=== PATIENT | female | born 1955 | race African-American/Black ===

== ENCOUNTER 2017-07-28 16:53 | Observation (INO) | payer OTHER ==
--- NOTE | 2017-07-28 17:14 | PDOC ---
History of Present Illness - General History Source: Patient Exam Limitations: No Limitations - History of Present Illness Initial Comments: 07/28/17 18:05 The patient is a 62 year old female, with a significant past medical history of pancreatitis, diabetes(diabetic neuropathy), hypertension, hyperlipidemia, DC, and CAD(s/p stents x2), who presents to the emergency department complaining of abdominal pain and nausea for approximately 1 week. The patient reports her pain is localized epigastrically and the right lower quadrant. She reports associated nausea, but denies any vomiting. Patient reports at the onset of her symptoms she experienced several episodes of diarrhea, but now she feels constipated. Patient reports visiting her PCP Dr. Lou earlier this afternoon with similar complaints, and he suggested she come to the ED for further evaluation. Patient reports some chills, but denies any fever, sore throat, cough, headache, or dizziness. She denies any dysuria, hematuria, frequency, or urgency. She denies any recent travel or sick contacts. Allergies: NKDA Past Surgical History: Stents X2 Social History: Non Smoker. No ETOH or recreational drug use. PCP: Dr. 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 Time Seen by Provider: 07/28/17 17:13 Past History <Gail Benson - Last Filed: 07/29/17 00:13> - Past Medical History Anemia: No Asthma: No Cancer: No Cardiac Disorders: Yes (DC) CVA: No COPD: No CHF: No Dementia: No Diabetes: Yes (IDDM) GI Disorders: No Disorders: No HTN: Yes Hypercholesterolemia: Yes Liver Disease: No Seizures: No Thyroid Disease: No - Surgical History Abdominal Surgery: No Appendectomy: No Cardiac Surgery: Yes (stents x2 (2013)) Cholecystectomy: No Lung Surgery: No Neurologic Surgery: No Orthopedic Surgery: No - Suicide/Smoking/Psychosocial Hx Smoking Status: No Smoking History: Never smoked Years of Tobacco Use: 10 Have you smoked in the past 12 months: No Number of Cigarettes Smoked Daily: 0 If you are a former smoker, when did you quit?: 20YRS AGO Hx Alcohol Use: No Drug/Substance Use Hx: No Substance Use Type: None Hx Substance Use Treatment: No <Redd Velázquez - Last Filed: 07/29/17 00:25> - Past Medical History Allergies/Adverse Reactions: Allergies Allergy/AdvReac Type Severity Reaction Status Date / Time No Known Allergies Allergy Verified 07/28/17 17:00 Home Medications: Ambulatory Orders Nifedipine [Procardia Xl] 60 mg PO DAILY 06/24/14 Nebivolol [Bystolic -] 10 mg PO HS 30 Days 08/31/14 Insulin (Levemir) [Levemir Vial] 0 units SQ DAILY 05/25/16 Metformin HCl 500 mg PO BID 07/13/16 Atorvastatin Ca [Lipitor] 20 mg PO HS 07/28/17 Gabapentin [Neurontin] 200 mg PO DAILY 07/28/17 Review of Systems - Review of Systems Able to Perform ROS?: Yes Comments:: 07/28/17 18:06 CONSTITUTIONAL: Present: chills Absent: fever, no fatigue EYES: Absent: visual changes ENT: Absent: ear pain, no sore throat CARDIOVASCULAR: Absent: chest pain, no palpitations RESPIRATORY: Absent: cough, no SOB GI: Present: abdominal pain(epigastric/RLQ), nausea, diarrhea, constipation Absent: no vomiting GENITOURINARY: Absent: dysuria, no frequency, no hematuria MUSCULOSKELETAL: Absent: back pain, no arthralgia, no myalgia SKIN: Absent: rash NEURO: Absent: headache <Sabine Bensonilsy - Last Filed: 07/29/17 00:13> *Physical Exam - Vital Signs Last Vital Signs Temp Pulse Resp BP Pulse Ox 98.0 F 76 20 155/98 99 07/28/17 16:57 07/28/17 16:57 07/28/17 16:57 07/28/17 16:57 07/28/17 16:57 - Physical Exam Comments: 07/28/17 18:06 GENERAL: Well-appearing, well-nourished. No apparent distress. HEENT: Scleral icterus. Dry mucous membranes. Normocephalic, atraumatic. PERRL, EOM intact. CARDIOVASCULAR: Normal S1, S2. Regular rate and rhythm. PULMONARY: Clear to auscultation bilaterally. ABDOMEN: Mild epigastric/RLQ tenderness. Soft, non-distended. BACK: No CVA tenderness. EXTREMITIES: Normal ROM in all four extremities. No gross deformities. SKIN: Warm, dry. No rash NEUROLOGICAL: No focal neurological deficits. <Gail Benson - Last Filed: 07/29/17 00:13> - Vital Signs Last Vital Signs Temp Pulse Resp BP Pulse Ox 98.0 F 76 20 155/98 99 07/28/17 16:57 07/28/17 16:57 07/28/17 16:57 07/28/17 16:57 07/28/17 16:57 <Redd Velázquez - Last Filed: 07/29/17 00:25> ED Treatment Course - LABORATORY CBC & Chemistry Diagram: 07/28/17 18:01 07/28/17 18:01 - Medications Given in the ED: ED Medications Discontinued Medications Generic Name Dose Route Start Last Admin Trade Name Freq PRN Reason Stop Dose Admin Famotidine/Sodium Chloride 50 mls @ 100 mls/hr 07/28/17 17:32 07/28/17 18:01 Pepcid 20 Mg Premixed Ivpb - IVPB 07/28/17 18:01 100 mls/hr ONCE ONE Administration Ondansetron HCl 8 mg 07/28/17 17:32 07/28/17 18:01 Zofran Injection IVPB 07/28/17 17:33 8 mg ONCE ONE Administration <Gail Benson - Last Filed: 07/29/17 00:13> - LABORATORY CBC & Chemistry Diagram: 07/28/17 18:01 07/28/17 18:01 <Redd Velázquez - Last Filed: 07/29/17 00:25> Medical Decision Making - Medical Decision Making 07/28/17 23:19 First call placed to Dr. Lou at 23:19. Awaiting call back. Second call placed to Dr. Lou at 00:14. Awaiting call back. <Gail Benson - Last Filed: 07/29/17 00:13> - Medical Decision Making 07/28/17 19:58 Patient 62-year-old female with history of diabetes, hypertension and previous episodes of pancreatitis who presents to the ER complaining of mild epigastric discomfort with nausea, no vomiting and mild right lower quadrant pain. In the ER, patient is nontoxic-appearing, afebrile and hemodynamically stable. Differential diagnoses includes gastritis versus recurrent pancreatitis versus hepatitis versus cholelithiasis versus appendicitis. Will also obtain CBC/CMP/ lipase/UA. Will hydrate, we'll administer pain meds and antiemetics. Will obtain CT of abdomen and pelvis with by mouth contrast. Will reassess. 07/28/17 23:40 Patient with no significant intra-abdominal pathology on CT. Patient requiring intermittent administration of IV morphine for pain control. Lipase is noted to be 8:15 (more than twice the upper limit of normal) consistent with acute pancreatitis. Will continue to hydrate; Will admit. <Redd Velázquez - Last Filed: 07/29/17 00:25> *DC/Admit/Observation/Transfer - Attestations Scribe Attestion: 07/28/17 18:06 Documentation prepared by Gail Benson, acting as emergency medical services coordinator for Redd Velázquez MD. <Gail Benson - Last Filed: 07/29/17 00:13> - Discharge Dispostion Admit: Yes - Attestations Physician Attestion: 07/28/17 19:57 The documentation was prepared by the scribe under my direct supervision. I have reviewed the documentation which correctly represents the findings, medical decision-making and critical action taken by me. <Redd Velázquez - Last Filed: 07/29/17 00:25> Diagnosis at time of Disposition: Acute pancreatitis Qualifiers: Pancreatitis type: unspecified pancreatitis type Acute pancreatitis complication: no infection or necrosis Qualified Code(s): K85.90 - Acute pancreatitis without necrosis or infection, unspecified; K85.90 - Acute pancreatitis without necrosis or infection, unspecified - Discharge Dispostion Condition at time of disposition: Fair - Referrals Referrals: Margo Lou MD [Primary Care Provider] -
[2017-07-28] MEDS ORDERED: SODIUM CHLORIDE 500 ML IV STA ×2 (17:32→18:40)
[2017-07-28] MEDS ORDERED: ONDANSETRON 4 MG/2 ML VIAL IVPB ONE (17:32)
[2017-07-28] MEDS ORDERED: FAMOTIDINE 20 MG/50 ML IVPB 50 ML IVPB ONE ×2 (17:32→17:35)
[2017-07-28] MEDS ORDERED: ONDANSETRON 4 MG/2 ML VIAL ONE (17:35)
[2017-07-28 18:05] LABS: BASOPHIL 0.5 % (0-2.0); EOSINOPHIL 2.2 % (0-4.5); MCH 29.3 pg (25.7-33.7); MCHC 33.7 g/dl (32.0-36.0); MEAN CELL VOLUME 86.9 fl (80-96); MEAN PLT VOLUME 9.9 fl (7.5-11.1); NEUTROPHILS 46.4 % (42.8-82.8); PLATELET COUNT 150 K/MM3 (134-434); RDW 14.1 % (11.6-15.6); WHITE BLOOD COUNT 4.7 K/mm3 (4.0-10.0)
[2017-07-28 18:29] LABS: ALBUMIN 3.5 g/dl (3.4-5.0); AMYLASE 83 U/L (25-115); ANION GAP 4 (8-16); BILIRUBIN,TOTAL 0.3 mg/dL (0.2-1.0); CALCIUM 9.1 mg/dL (8.5-10.1); CO2 29 mmol/L (21-32); CREATININE 0.8 mg/dL (0.55-1.02); GLUCOSE,RANDOM 143 mg/dL (74-106); SGOT/AST 12 U/L (15-37); SGPT/ALT 21 U/L (12-78)
[2017-07-28 18:31] LABS: ALK PHOS 85 U/L (45-117); TOT PROT 6.6 g/dl (6.4-8.2)
[2017-07-28] MEDS ORDERED: METOCLOPRAMIDE HCL INJECTION 10 MG/2 ML VIAL IVPB ONE (18:40)
[2017-07-28] MEDS ORDERED: morphine CARPU-JECT 2 MG/1 ML DISP.SYRIN IVPUSH ONE ×2 (18:40→21:44)
[2017-07-28 18:45] LABS: URINE APPEARANCE CLEAR; URINE BILIRUBIN NEGATIVE (NEGATIVE); URINE BLOOD NEGATIVE (NEGATIVE); URINE COLOR STRAW; URINE GLUCOSE (UA) 3+ (NEGATIVE); URINE KETONE NEGATIVE (NEGATIVE); URINE LEUK ESTERASE NEGATIVE (NEGATIVE); URINE NITRITE NEGATIVE (NEGATIVE); URINE PROTEIN NEGATIVE (NEGATIVE); URINE UROBILINOGEN NEGATIVE mg/dL (0.2-1.0)
[2017-07-28] MEDS ORDERED: morphine CARPU-JECT 2 MG/1 ML DISP.SYRIN ONE ×2 (18:48→21:57)
[2017-07-28] MEDS ORDERED: METOCLOPRAMIDE HCL INJECTION 10 MG/2 ML VIAL ONE (18:48)
[2017-07-28] MEDS: SODIUM CHLORIDE 1,000 ML IV SCH (22:32)
[2017-07-29 02:36] VITALS: BMI 28.3
[2017-07-29] MEDS: INSULIN SLIDING SCALE (NOVOLOG) 1 VIAL SQ SCH ×2 (08:09→17:17)
[2017-07-29] MEDS ORDERED: PNEUMOC 13-VAL CONJ-DIP CRM/PF 0.5 ML DISP.SYRIN IM ONE (09:00)
[2017-07-29] MEDS ORDERED: PT OWN MED DRAWER 7, Y5N ONE (09:02)
[2017-07-29] MEDS: metFORMIN HCL 500 MG TABLET (FP) PO SCH ×2 (09:21→17:17)
[2017-07-29] MEDS: GABAPENTIN 100 MG CAPSULE (FP) PO SCH (09:21)
[2017-07-29] MEDS: NIFEdipine E.R 60 MG TABLET (UD) PO SCH (09:21)
[2017-07-29] MEDS: SODIUM CHLORIDE 1,000 ML IV SCH (09:24)
[2017-07-29] MEDS ORDERED: ACETAMINOPHEN 325 MG TABLET (FP) PO PRN (11:52)
--- NOTE | 2017-07-29 12:20 | PN ---
Progress Note (short form) - Note Progress Note: GI CONSULT: SEE COMPLETE DICTATION PT SEEN BY DR BOYER 03/2016 FOR ELEVATED LIPASE/PAIN THOUGHT TO HAVE PANCREATITIS DESPITE NORMAL IMAGING SONOGRAM/MRCP WIHTOUT DEFINITIVE FINDINGS EUS WAS CONSIDERED BUT DEFERRED COLON 05/2016----ADENMATOUS POLYP NOW REPORTS 7-10 DAYS OF INTERMITTENT, RECURRENT EPIGASTRIC/ABD PAIN WITH N/V PAIN BECAME MORE SEVERE 1 WEEK AGO ADMIT NOW WITH LIPASE OF 850 ONLY FINDING NORMAL LABS/LFT AND CT SCAN PT ALSO REPORTS CONSTIPATION SUSPECT MAY HAVE HAD PANCREATITIS A FEW DAYS AGO THAT HAS ALREADY RESOLVED BIOCHEMICALLY AND RADIOGRAPHICALLY VS NO EPISODE AND SX DUE TO CONSTIPATION WOULD TREAT CONSERVATIVELY, ADVANCE DIET, OBSERVE IF ABLE TO EAT SOLID FOOD, THEN WOULD COMPLETE GI W/U OUTPATIENT PT SHOULD HAVE AN EUS TO ASSESS FOR BILIARY MICROLITHIASIS AND BLOOD WORK TO CHEC K IGG4, WHICH MAY HAVE BEEN DONE IN OFFICE ALREADY IF UNABLE TO EAT, THEN WOULD F/U MRCP INPATIENT RX CONSTIPATION WITH H20/FIBER/MIRALAX THANKS MD REDDY
--- NOTE | 2017-07-29 12:55 | CONS ---
DATE OF CONSULTATION: 07/29/2017 HISTORY: I was asked by Dr. Lou to evaluate the patient for abdominal pain. The patient is a 62-year-old female who is known to my partner, Dr. Rae. He has seen her at [facility] back in 2015 and then he saw her in follow up 2 weeks later in our office. At that time, she came as follow up from that hospitalization. Apparently, she was admitted April 09, 2016 for evaluation of abdominal pain and had a lipase of 1600 with a mildly elevated triglyceride of 247. Her liver enzymes were essentially normal, and her initial abdominal ultrasound failed to reveal gallstones, and her bile ducts were described as normal. She had an MRI and an MRCP that revealed a normal-caliber common bile duct with a question of a tiny 1-mm filling defect in the distal CBD that was thought to be artifactual. She was noted to have fatty liver. The etiology of the pancreatitis was uncertain. There was no obvious stone. The patient does not drink alcohol. It was thought possibly due to her statin. At that time, her Glucophage was discontinued. She was placed on long acting insulin therapy. There was no evidence of an obstructive process; therefore, ERCP was deferred. When she followed up, she had never had colonoscopy, so Dr. Rae proceeded with colonoscopy. It was noted that she had a colon polyp in that hepatic flexure, tubular adenoma, and a follow up exam was recommended for 2020. The patient's history was elicited as having hypertension, diabetes, status post FL, cardiac stenting, and a section. When Dr. Rae saw her in the office, she was in no distress. There was no tenderness. The etiology of her mild pancreatitis was uncertain. She was off of statin therapy on Glucophage, and he followed up blood work and considered sending her for an endoscopic ultrasound to assess the common bile duct; however, that was deferred at the time. In speaking with the patient, she tells me she has not had any pain or problems until approximately 10 days ago when she had the onset of epigastric umbilical pain that is intermittent, comes and goes, can wake her from sleep, is worse after meals. She has nausea, and she vomited a few times. She also was constipated and moves her bowels every 2-3 days. She has not had any rectal bleeding, tarry stools, or significant weight loss. She has not had significant dysphagia, heartburn, or odynophagia. The patient reported that her pain came and went over the course of 7-10 days, and it was in the epigastric, umbilical, and right lower quadrant region. She also reported 1 episode of diarrhea after feeling constipated. She saw her medical doctor who advised she come to the emergency room, and her lipase in the ER was noted to be 800. She was admitted for observation. PAST MEDICAL HISTORY: As noted, her past medical history is unchanged. She has hypertension, diabetes, atherosclerotic coronary artery disease status post intracoronary stenting, and a history of a section. SOCIAL HISTORY: The patient does not smoke, drink, or use drugs. ALLERGIES: She has no known drug allergies. FAMILY HISTORY: Notable in that her father had high blood pressure, and her mother had a history of an abdominal cancer that metastasized to the liver. MEDICATIONS: Include Procardia, Bystolic, Levemir, metformin, Lipitor, and Neurontin. Currently in the hospital at [facility], she is getting Tylenol, Neurontin, Bystolic, Glucophage, Procardia, IV fluid, Lipitor, NovoLog, and Levemir. PHYSICAL EXAMINATION: VITAL SIGNS: Currently her vital signs are normal. She is afebrile. Her pulse is less than 70. Her blood pressure 130/80. GENERAL: She is a well-developed, well-nourished, overweight woman in no acute distress. HEENT: Sclerae are anicteric. Her mouth is moist. Her dentition is good. SKIN: Cool. ABDOMEN: Very soft. Bowel sounds are active. There is minimal distention. There is tenderness to palpation in the epigastric region and in the umbilical region. There is no rebound or guarding noted. LABORATORY DATA: Her lab data is notable in that her SMA18 is all within normal limits except for the finding that she had an amylase of 83 and a lipase of 815. Her AST 12, ALT 21, alkaline phosphatase 85. Her white count is 4 with an hemoglobin 13.4, hematocrit 39.8. In terms of radiographic imaging, it is noted she had a CT scan of the abdomen and pelvis on admission that was done without contrast, which limits the exam somewhat. However, there were no CT findings of acute pathology. The appendix, pancreas, liver, spleen, adrenals, and kidneys appeared all normal. There was a question of a 7-mm soft tissue focus along the gallbladder possibly representing adenomyomatosis. However, she had a sonogram of the gallbladder. It is noted 3 months ago in February, and on that film, she just had a fairly enlarged liver. The gallbladder was completely normal. IMPRESSION: The patient is a 62-year-old woman who has a past medical history of hypertension, diabetes, and heart disease. She has had now 2 significant episodes of intermittent abdominal pain that has become severe warranting hospitalization. The initial episode noted a lipase elevation over 1000 without other findings, and it was thought she possibly passed some sludge from the gallbladder as the etiology. She had no other findings to support the etiology of pancreatitis, and her radiographic imaging was unremarkable. At this time, she now has had a couple of episodes over the past 7-10 days of intermittent abdominal pain worse after meals, but she comes in with a lipase of only 845 with normal liver enzymes and a normal amylase. It is unclear if these numbers would have been elevated a week ago when she was having more significant pain. Regardless, the CAT scan does not show any evidence of peripancreatic edema or inflammation or findings consistent with pancreatitis. Thus, the fact that she has had some pain, nausea, and vomiting may be the cause of the lipase. We do not know for certain she has had pancreatitis. For now, I would recommend conservative care. I would increase her diet slowly as tolerated and see how she does and follow up her labs. If she is able to eat solid food, she can certainly follow up as an outpatient. I think as an outpatient she should be referred for an endoscopic ultrasound to assess in more detail the biliary tree and the gallbladder to assess for microlithiasis, which could be the culprit in these recurrent pains that she has been having. In that case, she may then benefit from biliary intervention. For now, she has no findings to support end-organ damage or significant pancreatic inflammation. Therefore, I would treat supportively and advance her diet as tolerated. We will continue to be available to aid in management of this patient. ALFREDO BLAKELY M.D. PRAVEEN/[id number]
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
[2017-07-29] MEDS ORDERED: SODIUM CHLORIDE 1,000 ML IV SCH (13:32)
[2017-07-29] MEDS: PANTOPRAZOLE 40 MG TABLET (FP) PO SCH (17:17)
[2017-07-29] MEDS ORDERED: NEBIVOLOL 10 MG TABLET (FP) PO SCH (22:00)
[2017-07-29] MEDS ORDERED: ATORVASTATIN CA 20 MG TABLET (FP) PO SCH (22:00)
[2017-07-29] MEDS ORDERED: INSULIN DETEMIR 100 UNITS/ML MDV SQ SCH (22:00)
[2017-07-30] MEDS: INSULIN SLIDING SCALE (NOVOLOG) 1 VIAL SQ SCH (06:33)
[2017-07-30] MEDS: metFORMIN HCL 500 MG TABLET (FP) PO SCH (06:34)
[2017-07-30] MEDS: NIFEdipine E.R 60 MG TABLET (UD) PO SCH (09:03)
[2017-07-30] MEDS: GABAPENTIN 100 MG CAPSULE (FP) PO SCH (09:03)
[2017-07-30] MEDS: PANTOPRAZOLE 40 MG TABLET (FP) PO SCH (09:03)
[2017-07-30 11:31] VITALS: BP 157/99; PULSE 66; TEMP 97
--- NOTE | 2017-07-30 11:43 | DS ---
Physical Examination Vital Signs: Vital Signs Temperature 97.0 F L 07/30/17 10:00 Pulse Rate 66 07/30/17 10:00 Respiratory Rate 18 07/30/17 10:00 Blood Pressure 157/99 07/30/17 10:00 O2 Sat by Pulse Oximetry (%) 99 07/29/17 21:00 Constitutional: Yes: No Distress, Calm Cardiovascular: Yes: Regular Rate and Rhythm Respiratory: Yes: CTA Bilaterally Gastrointestinal: Yes: Normal Bowel Sounds, Soft, Abdomen, Obese. No: Distention, Tenderness Edema: No Discharge Summary Reason For Visit: ACUTE PANCREATITIS Current Active Problems Acute pancreatitis (Acute) Hospital Course: Admitted for abdominal pain and nausea-- CT abd/pelvis--negative Appeared she was having resolving pancreatitis Seen by GI Was on IV fluids and pain control Pt tolerating diet , advanced today she is stable for dc home-- advised to follow with GI as outpt-- will follow up in our office in 2 weeks Condition: Improved - Instructions Diet, Activity, Other Instructions: May take shower Activity as tolerated Diet as tolerated Referrals: Isael Hernandez DO [Staff Physician] - Margo Lou MD [Primary Care Provider] - Disposition: HOME - Home Medications Comprehensive Discharge Medication List: Ambulatory Orders Nifedipine [Procardia Xl] 60 mg PO DAILY 06/24/14 Insulin (Levemir) [Levemir Vial] 0 units SQ DAILY 05/25/16 Metformin HCl 500 mg PO BID 07/13/16 Gabapentin [Neurontin] 200 mg PO DAILY 07/28/17 Atorvastatin Ca [Lipitor] 20 mg PO HS #90 tab 07/30/17 Nebivolol [Bystolic -] 10 mg PO HS #90 tab 07/30/17 Nebivolol [Bystolic -] 10 mg PO HS 90 Days 07/30/17
== END 2017-07-30 15:03 | disposition home or self-care (01) ==
LOC: JER 16:53 → JERBED 07-29 00:25 → J8W 07-29 01:40
PROVIDERS: ADMIT Internal Medicine; ATTEND Internal Medicine
PROC: 3E033NZ Introduction of Analgesics, Hypnotics, Sedatives into Peripheral Vein, Percutaneous Approach (ICD-10-PCS; principal; 2017-07-29)
PROC: 3E033GC Introduction of Other Therapeutic Substance into Peripheral Vein, Percutaneous Approach (ICD-10-PCS; 2017-07-29)
PROC: 3E0337Z Introduction of Electrolytic and Water Balance Substance into Peripheral Vein, Percutaneous Approach (ICD-10-PCS; 2017-07-29)
PROC: 3E013VG Introduction of Insulin into Subcutaneous Tissue, Percutaneous Approach (ICD-10-PCS; 2017-07-29)
DX: K85.90 Acute pancreatitis without necrosis or infection, unspecified (principal); I10 Essential (primary) hypertension; I25.10 Atherosclerotic heart disease of native coronary artery without angina pectoris; I25.2 Old myocardial infarction; E11.40 Type 2 diabetes mellitus with diabetic neuropathy, unspecified; E78.5 Hyperlipidemia, unspecified; K21.9 Gastro-esophageal reflux disease without esophagitis; Z95.5 Presence of coronary angioplasty implant and graft; Z79.4 Long term (current) use of insulin; Z79.84 Long term (current) use of oral hypoglycemic drugs
CPT/HCPCS: 36415; 74176-TC; 80053; 81003; 82150; 83690; 83735; 85025; 87086; 99283-25; G0378

== ENCOUNTER 2017-09-09 08:56 | Emergency (ER) | payer OTHER ==
[2017-09-09 09:21] VITALS: TEMP 97.9; BMI 28.3
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
[2017-09-09] MEDS ORDERED: KETOROLAC TROMETHAMINE 15 MG/ML VIAL IM ONE ×2 (10:25→14:30)
[2017-09-09] MEDS ORDERED: KETOROLAC TROMETHAMINE 60 MG/2 ML VIAL ONE (10:29)
[2017-09-09] MEDS ORDERED: NEBIVOLOL 10 MG TABLET (FP) PO ONE (12:34)
[2017-09-09] MEDS ORDERED: NIFEdipine E.R 60 MG TABLET (UD) PO ONE (12:38)
[2017-09-09] MEDS ORDERED: ATORVASTATIN CA 20 MG TABLET (FP) PO ONE (12:40)
[2017-09-09] MEDS ORDERED: NIFEdipine 10 MG CAPSULE (FP) PO SCH (12:45)
[2017-09-09] MEDS ORDERED: CYCLOBENZAPRINE HCL 5 MG TABLET PO ONE (15:13)
[2017-09-09] MEDS ORDERED: CYCLOBENZAPRINE HCL 10 MG TABLET (FP) ONE (15:22)
[2017-09-09 15:50] VITALS: BP 178/95; PULSE 61
== END 2017-09-09 15:50 | disposition home or self-care (01) ==
LOC: JER 08:56
PROC: 3E0233Z Introduction of Anti-inflammatory into Muscle, Percutaneous Approach (ICD-10-PCS; principal; 2017-09-09)
PROC: 3E0233Z Introduction of Anti-inflammatory into Muscle, Percutaneous Approach (ICD-10-PCS; 2017-09-09)
DX: M54.89 Other dorsalgia (principal); V53.5XXA Driver of pick-up truck or van injured in collision with car, pick-up truck or van in traffic accident, initial encounter; Y92.414 Local residential or business street as the place of occurrence of the external cause; Y93.89 Activity, other specified; Y99.8 Other external cause status; I25.10 Atherosclerotic heart disease of native coronary artery without angina pectoris; I10 Essential (primary) hypertension; Z95.5 Presence of coronary angioplasty implant and graft; Z87.891 Personal history of nicotine dependence; E11.9 Type 2 diabetes mellitus without complications; Z79.84 Long term (current) use of oral hypoglycemic drugs; E78.00 Pure hypercholesterolemia, unspecified
CPT/HCPCS: 71020-TC; 72070-TC; 99282-25

== ENCOUNTER 2018-05-21 18:16 | Inpatient (IN) | payer OTHER ==
[2018-05-21] MEDS ORDERED: NITROGLYCERIN 50MG/D5W 250ML 50 MG/250 ML ML IVPB SCH (18:30)
[2018-05-21] MEDS ORDERED: RAPID SEQUENCE INTUBATION KIT NR ONE (18:35)
[2018-05-21] MEDS ORDERED: NITROGLYCERIN 25MG/D5W 250ML 25 MG/250 ML ML IVPB ONE (18:35)
[2018-05-21] MEDS ORDERED: NITROGLYCERIN SUBLINGUAL 1/150 0.4 MG TAB SL ONE ×2 (18:35)
[2018-05-21] MEDS ORDERED: FUROSEMIDE 40 MG/4 ML INJECTABLE VIAL ONE (18:46)
--- NOTE | 2018-05-21 18:46 | PDOC ---
Attending Attestation - Resident Resident Name: Rk Rueda - ED Attending Attestation I have performed the following: I have examined & evaluated the patient, The case was reviewed & discussed with the resident, I agree w/resident's findings & plan, Exceptions are as noted - HPI HPI: 05/21/18 19:01 63y F hx of pancreatitis, DM, HTN, HL, CAD ( s/p stents x 2), presents with complaint of SOB. Pt was at work today and doing well, seen by coworkers as her usual self and suddenly felt sob. Pt came to the ED Main in acute pulmonary distress, unabl eto speak on ly gasping 'i cant breath', diaphoretic, tachy to the 140s, BP was 210 sbp. Pt was put on a NRB, PO nitro x 2 whila line was attempted and blood work drawn. Respiratory was called for bipap and started on bipap when availbale. Her sats came up from the 70s up to the high 90s on bipap. She was still tachypneic and rales present. pt was started on a nitro drip at 100mcg/hr, pts HR improved gradually from 210sbp down to 180s--120s. Her nitro was dropped to 50mcg/hr. Her clinical status seemed to wax and wane - her mental status would atimes be very awake, but occasionally would seem to get more tired and look like she was getting sleepy, but she was immediately responsive to my questions. Her HR and respiratory rate were improving gradually. However she suddenly seemed ot decompensate, seemed like she was getting fatigued/tiring out, and HR dropped to 80s from 120s. Decisoin was made to intubate the patient due to respiratory failure. The patient was given RSI (etomidate/sunday), and intubated by dr. Mayers on the first attempt under my direct supervision ngt placed, HOB @ 30 degrees pt was started on versed gtt for sedation cxr noted for significant congestion NGT placed unclear etiology for the pts flash pulmonary edema, possible hypertensive crisis due to poorly controlled htn 05/21/18 21:49 pt doing was d/c ntg gtt and started on labetalol gtt HR improved to high 90s BP in 120s sbp pt admitted to ICU for further management pts vg noted for respiraotry acidosis - samra lincerase her rate on her vent Family bedside - have been discussing the pts care with her family and answering their questions - Physicial Exam PE: 05/21/18 22:00 GENERAL: The patient is awake, alert, Nontoxic - in acute respiratory distress, diaphoretic HEAD: Normocephalic, atraumatic. EYES: extraocular movements intact, sclera anicteric, conjunctiva clear. ENT: Normal voice, Moist mucous membranes. NECK: Normal range of motion, supple LUNGS: rales b/l to midlung HEART: tachycardic without any m/r/g ABDOMEN: Soft, nontender, No guarding, no rebound. . No CVA tenderness EXTREMITIES: Normal range of motion, b/l trace edema. NEUROLOGICAL: No facial assymetry, Normal speech, moving all 4 extremities spontaneously and symmetrically PSYCH: Normal mood, normal affect. SKIN: Warm, Dry, normal turgor, - Critical Care Time Total Critical Care Time: 130 Critical Care Statement: The care of this patient involved high complexity decision making to prevent further life threatening deterioration of the patient 's condition and/or to evaluate & treat vital organ system(s) failure or risk of failure. - Medical Decision Making 05/21/18 22:00 see above Heart Score/ECG Review - ECG Impressions Comment:: 05/21/18 22:01 Twelve-lead EKG was performed and reviewed by me. There is normal sinus rhythm with a rate of [address]-T wave abnormality
[2018-05-21 18:50] LABS: BASO % 0.8 % (0-2.0); EOS % 1.1 % (0-4.5); HEMATOCRIT 53.6 % (32.4-45.2); HEMOGLOBIN 17.7 GM/dL (10.7-15.3); LYMPH % 48.6 % (8-40); MCH 29.2 pg (25.7-33.7); MEAN CELL VOLUME 88.5 fl (80-96); MEAN PLT VOLUME 11.7 fl (7.5-11.1); MONO % 5.6 % (3.8-10.2); NEUT % 43.9 % (42.8-82.8); PLATELET COUNT 231 K/MM3 (134-434); RBC 6.05 M/mm3 (3.60-5.2); RDW 14.3 % (11.6-15.6); WHITE BLOOD COUNT 9.8 K/mm3 (4.0-10.0)
[2018-05-21 19:01] LABS: INR 1.11 (0.82-1.09); PROTHROMBIN TIME (PATIENT) 12.5 SEC (9.7-13.0)
--- NOTE | 2018-05-21 19:08 | PDOC ---
History of Present Illness - General Chief Complaint: Congestive Heart Failure Stated Complaint: S.O.B Time Seen by Provider: 05/21/18 18:34 History Source: Patient Exam Limitations: No Limitations - History of Present Illness Initial Comments: 05/21/18 19:01 see my attending note for full note. Past History - Past Medical History Allergies/Adverse Reactions: Allergies Allergy/AdvReac Type Severity Reaction Status Date / Time No Known Allergies Allergy Verified 09/09/17 09:11 Home Medications: Ambulatory Orders Unobtainable 05/21/18 Anemia: No Asthma: No Cancer: No Cardiac Disorders: Yes ([place]) CVA: No COPD: No CHF: No Dementia: No Diabetes: Yes GI Disorders: No Disorders: No HTN: Yes Hypercholesterolemia: Yes Liver Disease: No Seizures: No Thyroid Disease: No - Surgical History Abdominal Surgery: No Appendectomy: No Cardiac Surgery: Yes (stents x2 (2013)) Cholecystectomy: No Lung Surgery: No Neurologic Surgery: No Orthopedic Surgery: No - Suicide/Smoking/Psychosocial Hx Smoking Status: No Smoking History: Former smoker Years of Tobacco Use: 10 Have you smoked in the past 12 months: No Number of Cigarettes Smoked Daily: 0 If you are a former smoker, when did you quit?: 20YRS AGO Information on smoking cessation initiated: No Hx Alcohol Use: No Drug/Substance Use Hx: No Substance Use Type: None Hx Substance Use Treatment: No *Physical Exam - Vital Signs Last Vital Signs Temp Pulse Resp BP Pulse Ox 128 H 24 216/157 100 05/21/18 18:28 05/21/18 18:28 05/21/18 18:28 05/21/18 18:30 ED Treatment Course - LABORATORY CBC & Chemistry Diagram: 05/23/18 05:30 05/23/18 05:30 - ADDITIONAL ORDERS Additional order review: Laboratory Results 05/21/18 18:40 PT with INR 12.50 INR 1.11 05/21/18 18:40 RBC 6.05 H MCV 88.5 MCHC 33.0 RDW 14.3 MPV 11.7 H D Neutrophils % 43.9 Lymphocytes % 48.6 H Monocytes % 5.6 Eosinophils % 1.1 Basophils % 0.8 - RADIOLOGY Radiology Studies Ordered: Category Date Time Status CHEST X-RAY PORTABLE* [RAD] Stat Radiology 05/21/18 18:35 Taken - Medications Given in the ED: ED Medications Discontinued Medications Generic Name Dose Route Start Last Admin Trade Name Cristiana PRN Reason Stop Dose Admin Nitroglycerin 0.4 mg 05/21/18 18:35 05/21/18 18:35 Nitrostat - SL 05/21/18 18:36 0.4 mg ONCE ONE Administration Nitroglycerin 0.4 mg 05/21/18 18:35 05/21/18 18:40 Nitrostat - SL 05/21/18 18:36 0.4 mg ONCE ONE Administration *DC/Admit/Observation/Transfer Diagnosis at time of Disposition: Acute respiratory failure Qualifiers: Respiratory failure complication: hypoxia Qualified Code(s): J96.01 - Acute respiratory failure with hypoxia CHF (congestive heart failure) Qualifiers: Heart failure type: unspecified Heart failure chronicity: unspecified Qualified Code(s): I50.9 - Heart failure, unspecified - Discharge Dispostion Condition at time of disposition: Critical - Referrals - Patient Instructions - Post Discharge Activity
[2018-05-21] MEDS: MIDAZOLAM 100 MG in SODIUM CHLORIDE 100 ML IVPB SCH ×3 (19:45→23:52)
--- NOTE | 2018-05-21 19:51 | PDOC ---
History of Present Illness <Joe Kaplan - Last Filed: 05/21/18 20:04> - General History Source: Patient <MohitRk - Last Filed: 05/24/18 11:57> - General Chief Complaint: Congestive Heart Failure Stated Complaint: S.O.B Time Seen by Provider: 05/21/18 18:34 Past History <RosauraJoe - Last Filed: 05/21/18 20:04> - Past Medical History Anemia: No Asthma: No Cancer: No Cardiac Disorders: Yes ([place]) CVA: No COPD: No CHF: No Dementia: No Diabetes: Yes GI Disorders: No Disorders: No HTN: Yes Hypercholesterolemia: Yes Liver Disease: No Seizures: No Thyroid Disease: No - Surgical History Abdominal Surgery: No Appendectomy: No Cardiac Surgery: Yes (stents x2 (2013)) Cholecystectomy: No Lung Surgery: No Neurologic Surgery: No Orthopedic Surgery: No - Suicide/Smoking/Psychosocial Hx Smoking Status: No Smoking History: Former smoker Years of Tobacco Use: 10 Have you smoked in the past 12 months: No Number of Cigarettes Smoked Daily: 0 If you are a former smoker, when did you quit?: 20YRS AGO Information on smoking cessation initiated: No Hx Alcohol Use: No Drug/Substance Use Hx: No Substance Use Type: None Hx Substance Use Treatment: No <MohitRk - Last Filed: 05/24/18 11:57> - Past Medical History Allergies/Adverse Reactions: Allergies Allergy/AdvReac Type Severity Reaction Status Date / Time No Known Allergies Allergy Verified 09/09/17 09:11 Home Medications: Ambulatory Orders Unobtainable 05/21/18 *Physical Exam - Vital Signs Last Vital Signs Temp Pulse Resp BP Pulse Ox 96 H 14 139/119 100 05/21/18 19:20 05/21/18 19:20 05/21/18 18:50 05/21/18 19:20 <Joe Kaplan - Last Filed: 05/21/18 20:04> - Vital Signs Last Vital Signs Temp Pulse Resp BP Pulse Ox 96 H 14 139/119 100 05/21/18 19:20 05/21/18 19:20 05/21/18 18:50 05/21/18 19:20 <Rk Rueda - Last Filed: 05/24/18 11:57> Procedures - Intubation Time of Intubation: 19:20 Intubation Method: orotracheal Blade used: Mac Tube Size (Fr): 7.5 Medications: Etomidate, Rocuronium Tube position @ lip (cm): 22 Tube position confirmed by: Direct visualization, CO2 detector, Chest x-ray, Breath sounds Breath Sounds after Intubation: equal Intubation Complications: no complications Post Intubation Xray: Yes <kR Rueda - Last Filed: 05/24/18 11:57> ED Treatment Course - LABORATORY CBC & Chemistry Diagram: 05/21/18 18:40 05/21/18 18:40 - ADDITIONAL ORDERS Additional order review: Laboratory Results 05/21/18 05/21/18 05/21/18 18:40 18:40 18:40 PT with INR 12.50 INR 1.11 Sodium Potassium Chloride Carbon Dioxide Anion Gap BUN Creatinine Creat Clearance w eGFR Random Glucose Lactic Acid 3.5 H* Calcium Magnesium Cancelled Total Bilirubin AST ALT Alkaline Phosphatase Creatine Kinase Troponin I B-Natriuretic Peptide Cancelled Total Protein Albumin TSH Cancelled Blood Type Antibody Screen 05/21/18 05/21/18 18:40 18:40 PT with INR INR Sodium Cancelled Potassium Cancelled Chloride Cancelled Carbon Dioxide Cancelled Anion Gap Cancelled BUN Cancelled Creatinine Cancelled Creat Clearance w eGFR Cancelled Random Glucose Cancelled Lactic Acid Calcium Cancelled Magnesium Total Bilirubin Cancelled AST Cancelled ALT Cancelled Alkaline Phosphatase Cancelled Creatine Kinase Cancelled Troponin I Cancelled B-Natriuretic Peptide Total Protein Cancelled Albumin Cancelled TSH Blood Type Cancelled Antibody Screen Cancelled 05/21/18 18:40 RBC 6.05 H MCV 88.5 MCHC 33.0 RDW 14.3 MPV 11.7 H D Neutrophils % 43.9 Lymphocytes % 48.6 H Monocytes % 5.6 Eosinophils % 1.1 Basophils % 0.8 - RADIOLOGY Radiology Studies Ordered: Category Date Time Status CHEST X-RAY PORTABLE* [RAD] Stat Radiology 05/21/18 18:35 Taken CHEST X-RAY PORTABLE* [RAD] Stat Radiology 05/21/18 19:28 Taken CHEST X-RAY PORTABLE* [RAD] Stat Radiology 05/21/18 19:58 Taken - Medications Given in the ED: ED Medications Discontinued Medications Generic Name Dose Route Start Last Admin Trade Name Freq PRN Reason Stop Dose Admin Nitroglycerin 0.4 mg 05/21/18 18:35 07/28/18 18:35 Nitrostat - SL 05/21/18 18:36 0.4 mg ONCE ONE Administration Nitroglycerin 0.4 mg 05/21/18 18:35 05/21/18 18:40 Nitrostat - SL 05/21/18 18:36 0.4 mg ONCE ONE Administration <Joe Kaplan - Last Filed: 05/21/18 20:04> - LABORATORY CBC & Chemistry Diagram: 05/24/18 05:30 05/24/18 05:30 - ADDITIONAL ORDERS Additional order review: Laboratory Results 05/21/18 05/21/18 05/21/18 18:40 18:40 18:40 PT with INR 12.50 INR 1.11 Sodium Potassium Chloride Carbon Dioxide Anion Gap BUN Creatinine Creat Clearance w eGFR Random Glucose Lactic Acid 3.5 H* Calcium Magnesium Cancelled Total Bilirubin AST ALT Alkaline Phosphatase Creatine Kinase Troponin I B-Natriuretic Peptide Cancelled Total Protein Albumin TSH Cancelled Blood Type Antibody Screen 05/21/18 05/21/18 18:40 18:40 PT with INR INR Sodium Cancelled Potassium Cancelled Chloride Cancelled Carbon Dioxide Cancelled Anion Gap Cancelled BUN Cancelled Creatinine Cancelled Creat Clearance w eGFR Cancelled Random Glucose Cancelled Lactic Acid Calcium Cancelled Magnesium Total Bilirubin Cancelled AST Cancelled ALT Cancelled Alkaline Phosphatase Cancelled Creatine Kinase Cancelled Troponin I Cancelled B-Natriuretic Peptide Total Protein Cancelled Albumin Cancelled TSH Blood Type Cancelled Antibody Screen Cancelled 05/21/18 18:40 RBC 6.05 H MCV 88.5 MCHC 33.0 RDW 14.3 MPV 11.7 H D Neutrophils % 43.9 Lymphocytes % 48.6 H Monocytes % 5.6 Eosinophils % 1.1 Basophils % 0.8 - Medications Given in the ED: ED Medications Discontinued Medications Generic Name Dose Route Start Last Admin Trade Name Freq PRN Reason Stop Dose Admin Nitroglycerin 0.4 mg 05/21/18 18:35 05/21/18 18:35 Nitrostat - SL 05/21/18 18:36 0.4 mg ONCE ONE Administration Nitroglycerin 0.4 mg 05/21/18 18:35 05/21/18 18:40 Nitrostat - SL 05/21/18 18:36 0.4 mg ONCE ONE Administration <Rk Rueda - Last Filed: 05/24/18 11:57> Medical Decision Making - Medical Decision Making The patient is a 63F with a history of HTN who presented with acute respiratory distress 05/21/18 21:44 <Rk Rueda - Last Filed: 05/24/18 11:57> *DC/Admit/Observation/Transfer <Joe Kaplan - Last Filed: 05/21/18 20:04> - Discharge Dispostion Decision to Admit order: Yes <Rk Rueda - Last Filed: 05/24/18 11:57> Diagnosis at time of Disposition: Acute respiratory failure Qualifiers: Respiratory failure complication: hypoxia Qualified Code(s): J96.01 - Acute respiratory failure with hypoxia CHF (congestive heart failure) Qualifiers: Heart failure type: unspecified Heart failure chronicity: unspecified Qualified Code(s): I50.9 - Heart failure, unspecified - Discharge Dispostion Condition at time of disposition: Critical
[2018-05-21 20:27] LABS: INR 1.12 (0.82-1.09); PROTHROMBIN TIME (PATIENT) 12.7 SEC (9.7-13.0)
[2018-05-21] MEDS ORDERED: LABETALOL HCL INJECTION 1,000 MG in SODIUM CHLORIDE 800 ML IV SCH (20:30)
[2018-05-21 20:33] LABS: URINE APPEARANCE SLCLOUDY; URINE BILIRUBIN NEGATIVE (<2.0 mg/dL); URINE COLOR LTYELLOW; URINE GLUCOSE (UA) 3+ (NEGATIVE); URINE KETONE NEGATIVE (NEGATIVE); URINE LEUK ESTERASE NEGATIVE (NEGATIVE); URINE NITRITE NEGATIVE (NEGATIVE); URINE UROBILINOGEN NEGATIVE mg/dL (0.2-1.0)
[2018-05-21 20:34] LABS: URINE PROTEIN 3+ (NEGATIVE)
[2018-05-21 20:35] LABS: EPI CELLS RARE /HPF (FEW); URINE MUCUS RARE
[2018-05-21 20:53] LABS: ARTERIAL BLD GAS O2 SATURATION 94.2 % (90-98.9); ARTERIAL BLOOD GAS BASE EXCESS -4.2 meq/l (-2-2); ARTERIAL BLOOD GAS PO2 88.7 mmHg (80-100)
[2018-05-21 20:54] LABS: ALLENS TEST POSITIVE
[2018-05-21 20:56] LABS: ARTERIAL BLOOD GAS pH 7.19 (7.35-7.45)
[2018-05-21 20:57] LABS: ARTERIAL BLOOD GAS PCO2 69.7 mmHg (35-45)
--- NOTE | 2018-05-21 21:20 | CONSULT ---
Consult Consult Specialty:: PULM/CCM - History of Present Illness Chief Complaint: Shortness of Breath, resp failure History of Present Illness: Briefly Ms Correia is a 63y F pmhx of pancreatitis, DM, HTN, HL, CAD ( s/p stents x 2, unk type/date), diastolic dysfunction on TTE in 2013 but with preserved EF presents with complaint of acute SOB. Pt was at work today and doing well, and suddenly felt sob, brought to ED in acute pulmonary distress, she was speak diaphoretic, tachycardic to the 140s, hypertensive 240/140, CXR with pulm edema pattern. She failed nitro SL, nitro gtt, NIVPPV and was ultimately intubated for hypoxic respiratory failure. Intubation was without incident, pt remained hypertensive. Stared on labetolol gtt with good control of BP. Per , no sick prodrome, no sick contacts, went to work normally this am. He does relate increase in LE edema. - History Source History Provided By: Medical Record Limitations to Obtaining History: Clinical Condition - Past Medical History Cardio/Vascular: Yes: CAD (s/p stent x 2), HTN, Hyperlipdemia Gastrointestinal: Yes: Other (N/V DESCRIBED. 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 History of Recent Travel: No Home Medications - Allergies Allergies/Adverse Reactions: Allergies Allergy/AdvReac Type Severity Reaction Status Date / Time No Known Allergies Allergy Verified 09/09/17 09:11 - Home Medications Home Medications: Ambulatory Orders Unobtainable 05/21/18 Family Disease History - Family Disease History Family History: Unable to Obtain (due to pt clinical condition) Review of Systems Unable to obtain ROS, reason: intubated, sedated Physical Exam Vital Signs: Vital Signs Temperature 97.4 F L 05/21/18 19:20 Pulse Rate 118 H 05/21/18 19:20 Respiratory Rate 29 H 05/21/18 20:53 Blood Pressure 177/126 05/21/18 19:20 O2 Sat by Pulse Oximetry (%) 98 05/21/18 19:20 Constitutional: Yes: Well Nourished, Diaphoresis Eyes: Yes: Conjunctiva Clear, EOM Intact, PERRL HENT: Yes: Atraumatic, Normocephalic Neck: Yes: Supple, Trachea Midline. No: Lymphadenopathy, Thyromegaly Cardiovascular: Yes: Tachycardia, S1, S2. No: Murmur Respiratory: Yes: Intubated, Mechanically Ventilated, Rales (bilaterally) Gastrointestinal: Yes: Soft. No: Hepatomegaly, Tenderness ...Rectal Exam: Yes: Deferred Renal/: Yes: WNL, Winn Present Breast(s): Yes: WNL Musculoskeletal: Yes: WNL Extremities: Yes: Cool Edema: Yes Edema: LUE: Trace, RUE: Trace, LLE: 2+, RLE: 2+ Peripheral Pulses WNL: Yes Integumentary: Yes: WNL Neurological: Yes: Unresponsive (sedated) Labs: CBC, BMP 05/21/18 18:40 Laboratory Last Values WBC 9.8 K/mm3 (4.0-10.0) 05/21/18 18:40 RBC 6.05 M/mm3 (3.60-5.2) H 05/21/18 18:40 Hgb 17.7 GM/dL (10.7-15.3) H 05/21/18 18:40 Hct 53.6 % (32.4-45.2) H D 05/21/18 18:40 MCV 88.5 fl (80-96) 05/21/18 18:40 MCH 29.2 pg (25.7-33.7) 05/21/18 18:40 MCHC 33.0 g/dl (32.0-36.0) 05/21/18 18:40 RDW 14.3 % (11.6-15.6) 05/21/18 18:40 Plt Count 231 K/MM3 (134-434) D 05/21/18 18:40 MPV 11.7 fl (7.5-11.1) H D 05/21/18 18:40 Absolute Neuts (auto) 4.3 # 05/21/18 18:40 Neutrophils % 43.9 % (42.8-82.8) 05/21/18 18:40 Lymphocytes % 48.6 % (8-40) H 05/21/18 18:40 Monocytes % 5.6 % (3.8-10.2) 05/21/18 18:40 Eosinophils % 1.1 % (0-4.5) 05/21/18 18:40 Basophils % 0.8 % (0-2.0) 05/21/18 18:40 Nucleated RBC % 0 % (0-0) 05/21/18 18:40 PT with INR 12.70 SEC (9.7-13.0) 05/21/18 19:37 INR 1.12 (0.82-1.09) 05/21/18 19:37 PTT (Actin FS) 27.0 SECONDS (25.2-36.5) 05/21/18 19:37 Anticoagulation Therapy No Result Required. 05/21/18 20:40 Puncture Site Right radial 05/21/18 20:40 ABG pH 7.19 (7.35-7.45) L* 05/21/18 20:40 ABG pCO2 at Pt Temp 69.7 mmHg (35-45) H* 05/21/18 20:40 ABG pO2 at Pt Temp 88.7 mmHg (80-100) 05/21/18 20:40 ABG HCO3 25.8 meq/L (22-26) 05/21/18 20:40 ABG O2 Sat (Measured) 94.2 % (90-98.9) 05/21/18 20:40 ABG O2 Content No Result Required. 05/21/18 20:40 ABG Base Excess -4.2 meq/l (-2-2) L 05/21/18 20:40 Omega Test Positive 05/21/18 20:40 O2 Delivery Device No Result Required. 05/21/18 20:40 Oxygen Flow Rate Yes 05/21/18 20:40 Vent Mode No Result Required. 05/21/18 20:40 Vent Rate No Result Required. 05/21/18 20:40 Mechanical Rate No Result Required. 05/21/18 20:40 Pressure Support Vent No Result Required. 05/21/18 20:40 Sodium Cancelled 05/21/18 18:40 Potassium Cancelled 05/21/18 18:40 Chloride Cancelled 05/21/18 18:40 Carbon Dioxide Cancelled 05/21/18 18:40 Anion Gap Cancelled 05/21/18 18:40 BUN Cancelled 05/21/18 18:40 Creatinine Cancelled 05/21/18 18:40 Creat Clearance w eGFR Cancelled 05/21/18 18:40 Random Glucose Cancelled 05/21/18 18:40 Lactic Acid 2.4 mmol/L (0.0-2.0) H* 05/21/18 19:37 Calcium Cancelled 05/21/18 18:40 Magnesium Cancelled 05/21/18 18:40 Total Bilirubin Cancelled 05/21/18 18:40 AST Cancelled 05/21/18 18:40 ALT Cancelled 05/21/18 18:40 Alkaline Phosphatase Cancelled 05/21/18 18:40 Creatine Kinase Cancelled 05/21/18 18:40 Troponin I Cancelled 05/21/18 18:40 B-Natriuretic Peptide Cancelled 05/21/18 18:40 Total Protein Cancelled 05/21/18 18:40 Albumin Cancelled 05/21/18 18:40 Lipase 243 U/L (73-393) 05/21/18 19:37 TSH Cancelled 05/21/18 18:40 Urine Color Ltyellow 05/21/18 20:20 Urine Appearance Slcloudy 05/21/18 20:20 Urine pH 7.0 (5.0-8.0) 05/21/18 20:20 Ur Specific [place] 1.017 (1.001-1.035) 05/21/18 20:20 Urine Protein 3+ (NEGATIVE) H 05/21/18 20:20 Urine Glucose (UA) 3+ (NEGATIVE) H 05/21/18 20:20 Urine Ketones Negative (NEGATIVE) 05/21/18 20:20 Urine Blood Negative (NEGATIVE) 05/21/18 20:20 Urine Nitrite Negative (NEGATIVE) 05/21/18 20:20 Urine Bilirubin Negative (<2.0 mg/dL) 05/21/18 20:20 Urine Urobilinogen Negative mg/dL (0.2-1.0) 05/21/18 20:20 Ur Leukocyte Esterase Negative (NEGATIVE) 05/21/18 20:20 Urine WBC (Auto) 14 /hpf (3-5) 05/21/18 20:20 Urine RBC (Auto) 6 /hpf (0-3) 05/21/18 20:20 Ur Epithelial Cells Rare /HPF (FEW) 05/21/18 20:20 Urine Mucus Rare 05/21/18 20:20 Blood Type Cancelled 05/21/18 18:40 Antibody Screen Cancelled 05/21/18 18:40 Imaging - Results Chest X-ray: Image Reviewed (bilateral pulm edema, ETT in satisfactory postioin. ) EKG: Report Reviewed, Image Reviewed (Sinus Tach, LVH, L axis, no ischemic changes.) Problem List - Problems (1) Hypoxemia Code(s): R09.02 - HYPOXEMIA (2) Respiratory failure Code(s): J96.90 - RESPIRATORY FAILURE, UNSP, UNSP W HYPOXIA OR HYPERCAPNIA (3) Lactic acidosis Code(s): E87.2 - ACIDOSIS Assessment/Plan A/ 63 y/o woman with hx of CAD, stents, Diastolic dysfunction, HTN, DM p/w acute flash pulm edema and hypertensive crisis now intubated for respiratory failure requiring intubation p/ -Serial ABG and vent changes for normocapnea and adjust PEEP/Fio2 as needed, PEEP currently 10 -sedate for vent synchrony -check serial trop and T-BNP -Cardiology/Dr Shields consulted -TTE ordered -do not suspect ACS -no sick prodrome, no fever or leukocytosis, no abx for now, low threshold if worsens -diuresis of 2-3L, repeat Lasix -K 4, Mg 2 -glycemic control -SQH, PPI for nedra Caraballo ACNP [id number] Critical Care Time/MDM Note Total Critical Care Time: 35 Critical Care Statement: The care of this patient involved high complexity decision making to prevent further life threatening deterioration of the patient 's condition and/or to evaluate & treat vital organ system(s) failure or risk of failure.
[2018-05-21 21:33] LABS: ALBUMIN 3.2 g/dl (3.4-5.0); ALK PHOS 111 U/L (45-117); ANION GAP 13 (8-16); BILIRUBIN,TOTAL 0.3 mg/dL (0.2-1.0); BLOOD UREA NITROGEN 24 mg/dL (7-18); CALCIUM 8.5 mg/dL (8.5-10.1); CHLORIDE 107 mmol/L (98-107); CO2 23 mmol/L (21-32); CREATININE 1.5 mg/dL (0.55-1.02); POTASSIUM 3.9 mmol/L (3.5-5.1); SGOT/AST 23 U/L (15-37); SGPT/ALT 30 U/L (12-78); SODIUM 143 mmol/L (136-145); TOT PROT 6.3 g/dl (6.4-8.2)
[2018-05-21 21:36] LABS: GLUCOSE,RANDOM 375 mg/dL (74-106)
[2018-05-21] MEDS ORDERED: FUROSEMIDE 40 MG/4 ML INJECTABLE VIAL IVPUSH ONE (22:39)
[2018-05-21] MEDS ORDERED: PANTOPRAZOLE 20 MG TABLET (FP) PO SCH (23:00)
[2018-05-21] MEDS: HEPARIN NA (PORCINE) 5,000 UNITS/ML 1ML VIAL SQ SCH (23:02)
[2018-05-21 23:06] LABS: ARTERIAL BLOOD GAS BASE EXCESS -3.1 meq/l (-2-2); ARTERIAL BLOOD GAS PCO2 47.7 mmHg (35-45); ARTERIAL BLOOD GAS pH 7.31 (7.35-7.45)
[2018-05-21 23:12] LABS: ARTERIAL BLD GAS O2 SATURATION 99.8 % (90-98.9)
[2018-05-21 23:26] LABS: N-TERMINAL BNP 7607.06 pg/ml (5-125)
--- NOTE | 2018-05-22 02:05 | HP ---
CHIEF COMPLAINT: "SOB" PCP: HISTORY OF PRESENT ILLNESS: Patient is a 63 y/o female with a history of CHF, DM, HTN, HLD, pancreatitis, and CAD s/p 2 stents who presented with SOB. She works at [employer] and she came to the ED when she could not breathe. Her pulse was found to be 140 and her blood pressure was 240/140. She was given oral nitroglycerin and started on a nitro drip with BIPAP. Patient became increasingly lethargic and weak and she was intubated. Patient given midazolam drip and brought to the ICU. Per patients she did not seem anything but normal this morning. Patient is stable ER course was notable for: (1) (2) (3) Recent Travel: PAST MEDICAL HISTORY:CHF, DM, HTN, HLD, pancreatitis, and CAD s/p 2 stents PAST SURGICAL HISTORY: stents (2013) Social History: Smoking: Alcohol: Drugs: Family History: Allergies No Known Allergies Allergy (Verified 09/09/17 09:11) HOME MEDICATIONS: Home Medications Medication Instructions Recorded Unobtainable 05/21/18 REVIEW OF SYSTEMS Unable to obtain PHYSICAL EXAMINATION Vital Signs - 24 hr 05/21/18 05/21/18 05/21/18 18:28 18:30 18:45 Temperature Pulse Rate 128 H 132 H Pulse Rate [ 140 H Apical] Respiratory 24 40 H Rate Blood Pressure 216/157 Blood Pressure 165/134 [Right Arm] O2 Sat by Pulse 70 L 93 L 98 Oximetry (%) 05/21/18 05/21/18 05/21/18 18:50 19:00 19:09 Temperature Pulse Rate Pulse Rate [ 137 H Apical] Respiratory 30 H Rate Blood Pressure Blood Pressure 139/119 [Right Arm] O2 Sat by Pulse 98 99 99 Oximetry (%) 05/21/18 05/21/18 05/21/18 19:20 20:53 21:00 Temperature 97.4 F L Pulse Rate 96 H 121 H Pulse Rate [ 118 H 98 H Apical] Respiratory 14 29 H 14 Rate Blood Pressure 177/98 Blood Pressure 177/126 145/89 [Right Arm] O2 Sat by Pulse 98 98 Oximetry (%) 05/21/18 05/21/18 05/21/18 21:30 21:40 22:00 Temperature 98.4 F Pulse Rate 77 77 Pulse Rate [ 77 Apical] Respiratory 16 15 Rate Blood Pressure 98/64 117/89 Blood Pressure 98/68 [Right Arm] O2 Sat by Pulse 97 96 Oximetry (%) 05/21/18 05/22/18 23:23 00:00 Temperature Pulse Rate 76 Pulse Rate [ Apical] Respiratory 23 18 Rate Blood Pressure 153/95 Blood Pressure [Right Arm] O2 Sat by Pulse Oximetry (%) GENERAL: Awake, alert, and fully oriented, in no acute distress. HEAD: Normal with no signs of trauma. NECK: supple without lymphadenopathy, JVD, or masses. LUNGS: Breath sounds equal, clear to auscultation bilaterally. patient on vent HEART: Regular rate and rhythm, ABDOMEN: Soft, nontender, not distended, . LOWER EXTREMITIES: 2+ pulses, warm, well-perfused. No calf tenderness. No peripheral edema. SKIN: Warm, dry, normal turgor, no rashes or lesions noted, normal capillary refill. Laboratory Results - last 24 hr 05/21/18 05/21/18 05/21/18 18:40 18:40 18:40 WBC 9.8 RBC 6.05 H Hgb 17.7 H Hct 53.6 H D MCV 88.5 MCH 29.2 MCHC 33.0 RDW 14.3 Plt Count 231 D MPV 11.7 H D Absolute Neuts (auto) 4.3 Neutrophils % 43.9 Lymphocytes % 48.6 H Monocytes % 5.6 Eosinophils % 1.1 Basophils % 0.8 Nucleated RBC % 0 PT with INR INR PTT (Actin FS) Anticoagulation Therapy Puncture Site ABG pH ABG pCO2 at Pt Temp ABG pO2 at Pt Temp ABG HCO3 ABG O2 Sat (Measured) ABG O2 Content ABG Base Excess Omega Test O2 Delivery Device Oxygen Flow Rate Vent Mode Vent Rate Mechanical Rate Pressure Support Vent Sodium Cancelled Potassium Cancelled Chloride Cancelled Carbon Dioxide Cancelled Anion Gap Cancelled BUN Cancelled Creatinine Cancelled Creat Clearance w eGFR Cancelled Random Glucose Cancelled Lactic Acid Calcium Cancelled Magnesium Total Bilirubin Cancelled AST Cancelled ALT Cancelled Alkaline Phosphatase Cancelled Creatine Kinase Cancelled CK-MB (CK-2) Troponin I Cancelled B-Natriuretic Peptide Total Protein Cancelled Albumin Cancelled Lipase TSH Urine Color Urine Appearance Urine pH Ur Specific [place] Urine Protein Urine Glucose (UA) Urine Ketones Urine Blood Urine Nitrite Urine Bilirubin Urine Urobilinogen Ur Leukocyte Esterase Urine WBC (Auto) Urine RBC (Auto) Ur Epithelial Cells Urine Mucus Blood Type Cancelled Antibody Screen Cancelled 05/21/18 05/21/18 05/21/18 18:40 18:40 18:40 WBC RBC Hgb Hct MCV MCH MCHC RDW Plt Count MPV Absolute Neuts (auto) Neutrophils % Lymphocytes % Monocytes % Eosinophils % Basophils % Nucleated RBC % PT with INR 12.50 INR 1.11 PTT (Actin FS) Anticoagulation Therapy Puncture Site ABG pH ABG pCO2 at Pt Temp ABG pO2 at Pt Temp ABG HCO3 ABG O2 Sat (Measured) ABG O2 Content ABG Base Excess Omega Test O2 Delivery Device Oxygen Flow Rate Vent Mode Vent Rate Mechanical Rate Pressure Support Vent Sodium Potassium Chloride Carbon Dioxide Anion Gap BUN Creatinine Creat Clearance w eGFR Random Glucose Lactic Acid 3.5 H* Calcium Magnesium Cancelled Total Bilirubin AST ALT Alkaline Phosphatase Creatine Kinase CK-MB (CK-2) Troponin I B-Natriuretic Peptide Cancelled Total Protein Albumin Lipase TSH Cancelled Urine Color Urine Appearance Urine pH Ur Specific [place] Urine Protein Urine Glucose (UA) Urine Ketones Urine Blood Urine Nitrite Urine Bilirubin Urine Urobilinogen Ur Leukocyte Esterase Urine WBC (Auto) Urine RBC (Auto) Ur Epithelial Cells Urine Mucus Blood Type Antibody Screen 05/21/18 05/21/18 05/21/18 19:37 19:37 19:37 WBC RBC Hgb Hct MCV MCH MCHC RDW Plt Count MPV Absolute Neuts (auto) Neutrophils % Lymphocytes % Monocytes % Eosinophils % Basophils % Nucleated RBC % PT with INR 12.70 INR 1.12 PTT (Actin FS) 27.0 Anticoagulation Therapy Puncture Site ABG pH ABG pCO2 at Pt Temp ABG pO2 at Pt Temp ABG HCO3 ABG O2 Sat (Measured) ABG O2 Content ABG Base Excess Omega Test O2 Delivery Device Oxygen Flow Rate Vent Mode Vent Rate Mechanical Rate Pressure Support Vent Sodium 143 Potassium 3.9 Chloride 107 Carbon Dioxide 23 Anion Gap 13 BUN 24 H Creatinine 1.5 H Creat Clearance w eGFR 34.96 Random Glucose 375 H* Lactic Acid Calcium 8.5 Magnesium Total Bilirubin 0.3 AST 23 ALT 30 Alkaline Phosphatase 111 Creatine Kinase CK-MB (CK-2) Troponin I B-Natriuretic Peptide Total Protein 6.3 L Albumin 3.2 L Lipase 243 TSH Urine Color Urine Appearance Urine pH Ur Specific [place] Urine Protein Urine Glucose (UA) Urine Ketones Urine Blood Urine Nitrite Urine Bilirubin Urine Urobilinogen Ur Leukocyte Esterase Urine WBC (Auto) Urine RBC (Auto) Ur Epithelial Cells Urine Mucus Blood Type Antibody Screen 05/21/18 05/21/18 05/21/18 19:37 19:37 20:20 WBC RBC Hgb Hct MCV MCH MCHC RDW Plt Count MPV Absolute Neuts (auto) Neutrophils % Lymphocytes % Monocytes % Eosinophils % Basophils % Nucleated RBC % PT with INR INR PTT (Actin FS) Anticoagulation Therapy Puncture Site ABG pH ABG pCO2 at Pt Temp ABG pO2 at Pt Temp ABG HCO3 ABG O2 Sat (Measured) ABG O2 Content ABG Base Excess Omega Test O2 Delivery Device Oxygen Flow Rate Vent Mode Vent Rate Mechanical Rate Pressure Support Vent Sodium Potassium Chloride Carbon Dioxide Anion Gap BUN Creatinine Creat Clearance w eGFR Random Glucose Lactic Acid 2.4 H* Calcium Magnesium Total Bilirubin AST ALT Alkaline Phosphatase Creatine Kinase CK-MB (CK-2) Troponin I B-Natriuretic Peptide Total Protein Albumin Lipase Cancelled TSH Urine Color Ltyellow Urine Appearance Slcloudy Urine pH 7.0 Ur Specific [place] 1.017 Urine Protein 3+ H Urine Glucose (UA) 3+ H Urine Ketones Negative Urine Blood Negative Urine Nitrite Negative Urine Bilirubin Negative Urine Urobilinogen Negative Ur Leukocyte Esterase Negative Urine WBC (Auto) 14 Urine RBC (Auto) 6 Ur Epithelial Cells Rare Urine Mucus Rare Blood Type Antibody Screen 05/21/18 05/21/18 05/21/18 20:40 22:40 22:40 WBC RBC Hgb Hct MCV MCH MCHC RDW Plt Count MPV Absolute Neuts (auto) Neutrophils % Lymphocytes % Monocytes % Eosinophils % Basophils % Nucleated RBC % PT with INR INR PTT (Actin FS) Anticoagulation Therapy No Result Required. No Result Required. Puncture Site Right radial No Result Required. ABG pH 7.19 L* 7.31 L ABG pCO2 at Pt Temp 69.7 H* 47.7 H D ABG pO2 at Pt Temp 88.7 265.0 H* ABG HCO3 25.8 23.1 ABG O2 Sat (Measured) 94.2 99.8 H* ABG O2 Content 20.7 21.1 ABG Base Excess -4.2 L -3.1 L Omega Test Positive No Result Required. O2 Delivery Device No Result Required. No Result Required. Oxygen Flow Rate Yes No Result Required. Vent Mode No Result Required. No Result Required. Vent Rate No Result Required. No Result Required. Mechanical Rate No Result Required. No Result Required. Pressure Support Vent No Result Required. No Result Required. Sodium Potassium Chloride Carbon Dioxide Anion Gap BUN Creatinine Creat Clearance w eGFR Random Glucose Lactic Acid Calcium Magnesium Total Bilirubin AST ALT Alkaline Phosphatase Creatine Kinase CK-MB (CK-2) 1.74 Troponin I B-Natriuretic Peptide 7607.06 H Total Protein Albumin Lipase TSH Urine Color Urine Appearance Urine pH Ur Specific [place] Urine Protein Urine Glucose (UA) Urine Ketones Urine Blood Urine Nitrite Urine Bilirubin Urine Urobilinogen Ur Leukocyte Esterase Urine WBC (Auto) Urine RBC (Auto) Ur Epithelial Cells Urine Mucus Blood Type Antibody Screen 05/21/18 22:40 WBC RBC Hgb Hct MCV MCH MCHC RDW Plt Count MPV Absolute Neuts (auto) Neutrophils % Lymphocytes % Monocytes % Eosinophils % Basophils % Nucleated RBC % PT with INR INR PTT (Actin FS) Anticoagulation Therapy Puncture Site ABG pH ABG pCO2 at Pt Temp ABG pO2 at Pt Temp ABG HCO3 ABG O2 Sat (Measured) ABG O2 Content ABG Base Excess Omega Test O2 Delivery Device Oxygen Flow Rate Vent Mode Vent Rate Mechanical Rate Pressure Support Vent Sodium Potassium Chloride Carbon Dioxide Anion Gap BUN Creatinine Creat Clearance w eGFR Random Glucose Lactic Acid Calcium Magnesium Total Bilirubin AST ALT Alkaline Phosphatase Creatine Kinase 98 CK-MB (CK-2) Troponin I < 0.02 B-Natriuretic Peptide Total Protein Albumin Lipase TSH 7.56 H Urine Color Urine Appearance Urine pH Ur Specific [place] Urine Protein Urine Glucose (UA) Urine Ketones Urine Blood Urine Nitrite Urine Bilirubin Urine Urobilinogen Ur Leukocyte Esterase Urine WBC (Auto) Urine RBC (Auto) Ur Epithelial Cells Urine Mucus Blood Type Antibody Screen ASSESSMENT/PLAN: Patient is a 63 y/o female with a history of CHF, DM, HTN, HLD, pancreatitis, and CAD s/p 2 stents who is admitted for respiratory failure 2/2 to CHF exacerbation vs hypertensive emergency. #respiratory failure 2/2 CHF exacerbation vs hypertensive emergency - Pt intubated and on midazolam drip - f/u lactic acidosis - f/u TSH, BMP repeat CXR in the morning - f/u repeat ABG, pH: 7.19, CO2: 69.7, O2: 88.7, HCO3: 25.8 - lasix 40 mg IV BID - KRISTINA 2013: dyastolic dysfunction, f/u repeat Echo - f/u troponin - EKG: no acute abnormalities - Vent settings: PEEP :10 V 40 PF 60 - monitor I's and O's , daily weight #HTN emergency - continue lebatelol, permissive HTN #CURRY - monitor BUN/ CR, after lasix - hold fluids - joshua 2/2 to hypertensive Urgency - F/u urine lytes - f/u Renal US #Hyperglycemia - f/u A1C - SS #DVT ppx - Heparin TID Dispo: home meds not reconciled Visit type - Emergency Visit Emergency Visit: Yes ED Registration Date: 05/21/18 Care time: The patient presented to the Emergency Department on the above date and was hospitalized for further evaluation of their emergent condition. - New Patient This patient is new to me today: No - Critical Care Critical Care patient: No Hospitalist Screening - Colonoscopy Questionnaire Colonoscopy Questionnaire: Colonoscopy Questionnaire - Patient: 50 - 75 years old and never had a screening colonoscopy: Unknown History of colon or rectal polyps, or CA: Unknown History of IBD, Crohn's disease or UC: Unknown History of abdominal radiation therapy as a child: Unknown - Relative: 1 with colon or rectal CA, or polyps at age 60 or younger: Unknown Colon or rectal CA diagnosed at age 45 or younger: Unknown Multiple relatives with colon or rectal CA: Unknown - Outcome: Screening Result: Negative Screen
--- NOTE | 2018-05-22 05:03 | PN ---
Teaching Attending Note Name of Resident: Mai Gaona ATTENDING PHYSICIAN STATEMENT I saw and evaluated the patient. Chart, data, imaging reviewed. I reviewed the resident's note and discussed the case with the resident. I agree with the resident's findings and plan as documented. SUBJECTIVE: 63 y/o female with a history of CHF, DM, HTN, HLD, pancreatitis, and CAD s/p 2 stents presented to the ER short of breath desaturating, short of breath, tachycardic. Was found to have severe hypertension given oral nitroglycerin with no relief. CXR showed flash pleural effusions, pulm edema. Pt did not improve on Bipap and then was subsequently intubated and transferred to ICU. Was started on Labetolol drip which was subsequently held. OBJECTIVE: Last Vital Signs Temp Pulse Resp BP Pulse Ox 98.8 F 83 18 139/88 96 05/22/18 00:25 05/22/18 02:06 05/22/18 02:35 05/22/18 02:06 05/21/18 22:00 General - intubated, sedated heent - at, nc, et tube+, NG tube+ neck -supple cv -s1+s2+rrr chest- b/l breath sounds appreciated abdomen -soft, nt, bs+, no masses appreciated ext -no pedal edema Abnormal Lab Results 05/21/18 05/21/18 05/21/18 18:40 18:40 19:37 RBC 6.05 H Hgb 17.7 H Hct 53.6 H D MPV 11.7 H D Lymphocytes % 48.6 H ABG pH ABG pCO2 at Pt Temp ABG pO2 at Pt Temp ABG O2 Sat (Measured) ABG Base Excess BUN 24 H Creatinine 1.5 H Random Glucose 375 H* Lactic Acid 3.5 H* B-Natriuretic Peptide Total Protein 6.3 L Albumin 3.2 L TSH Urine Protein Urine Glucose (UA) 05/21/18 05/21/18 05/21/18 19:37 20:20 20:40 RBC Hgb Hct MPV Lymphocytes % ABG pH 7.19 L* ABG pCO2 at Pt Temp 69.7 H* ABG pO2 at Pt Temp ABG O2 Sat (Measured) ABG Base Excess -4.2 L BUN Creatinine Random Glucose Lactic Acid 2.4 H* B-Natriuretic Peptide Total Protein Albumin TSH Urine Protein 3+ H Urine Glucose (UA) 3+ H 05/21/18 05/21/18 05/21/18 22:40 22:40 22:40 RBC Hgb Hct MPV Lymphocytes % ABG pH 7.31 L ABG pCO2 at Pt Temp 47.7 H D ABG pO2 at Pt Temp 265.0 H* ABG O2 Sat (Measured) 99.8 H* ABG Base Excess -3.1 L BUN Creatinine Random Glucose Lactic Acid B-Natriuretic Peptide 7607.06 H Total Protein Albumin TSH 7.56 H Urine Protein Urine Glucose (UA) cxr -reviewed ASSESSMENT AND PLAN: 63yo woman with acute hypoxic/hypercapneic respiratory failure secondary to hypertensive emergency with flash pulmonary edema. Resp acidosis. #Hypertensive emergency - BP is improved -hold labetolol drip for now -continue on mechanical ventilation with high PEEP settings -monitor BP closely -transthoracic echo -send troponin, CK, an as these were cancelled -tsh -lasix 40mg IV bid -i/o -daily weights -herrera catheter -start ACEi, CCB if no contraindication #Resp failure -c/w MV -repeat ABG -f/u trop #CURRY- likely end organ damage 2/2 to HTN emergency -send urine lytes, cr -renal u/s -avoid nephrotoxins -i/o, daily weights #DM - uncontolled glucose -insulin sliding scale -glargin insulin 10 units qhs -send a1c -start diabetic tube feedings #dvt ppx -heparin sc
[2018-05-22 05:39] LABS: HEMATOCRIT 42.4 % (32.4-45.2); MCH 29.3 pg (25.7-33.7); MCHC 33.1 g/dl (32.0-36.0); MEAN CELL VOLUME 88.7 fl (80-96); PLATELET COUNT 148 K/MM3 (134-434); RBC 4.78 M/mm3 (3.60-5.2); RDW 13.8 % (11.6-15.6); WHITE BLOOD COUNT 11.1 K/mm3 (4.0-10.0)
[2018-05-22 06:26] LABS: ANION GAP 10 (8-16); BLOOD UREA NITROGEN 32 mg/dL (7-18); CALCIUM 8.3 mg/dL (8.5-10.1); CHLORIDE 107 mmol/L (98-107); CO2 26 mmol/L (21-32); MAGNESIUM 1.9 mg/dL (1.8-2.4); POTASSIUM 4.7 mmol/L (3.5-5.1); SODIUM 143 mmol/L (136-145)
[2018-05-22 06:29] LABS: ALK PHOS 92 U/L (45-117); AMYLASE 46 U/L (25-115); BILIRUBIN,DIRECT < 0.2 mg/dL (0.0-0.2); BILIRUBIN,TOTAL 0.4 mg/dL (0.2-1.0); CREATININE 2.5 mg/dL (0.55-1.02); N-TERMINAL BNP 10417.39 pg/ml (5-125); PHOSPHOROUS 3.3 mg/dL (2.5-4.9); SGOT/AST 20 U/L (15-37); SGPT/ALT 26 U/L (12-78); TOT PROT 5.7 g/dl (6.4-8.2)
[2018-05-22] MEDS: LABETALOL HCL INJECTION 1,000 MG in SODIUM CHLORIDE 800 ML IV SCH ×2 (06:32→22:00)
[2018-05-22] MEDS: HEPARIN NA (PORCINE) 5,000 UNITS/ML 1ML VIAL SQ SCH ×3 (06:32→21:59)
[2018-05-22 06:33] LABS: ARTERIAL BLD GAS O2 SATURATION 98.4 % (90-98.9); ARTERIAL BLOOD GAS BASE EXCESS -0.2 meq/l (-2-2); ARTERIAL BLOOD GAS PCO2 40.4 mmHg (35-45); ARTERIAL BLOOD GAS PO2 99.2 mmHg (80-100); ARTERIAL BLOOD GAS pH 7.39 (7.35-7.45)
[2018-05-22 06:35] LABS: ALLENS TEST POSITIVE
[2018-05-22 07:00] LABS: GLUCOSE,RANDOM 343 mg/dL (74-106)
[2018-05-22] MEDS ORDERED: INSULIN SLIDING SCALE (NOVOLOG) 1 VIAL SQ SCH ×2 (07:00)
--- NOTE | 2018-05-22 09:06 | CON.CARD ---
Consult Consult Specialty:: Cardiology Referred by:: Carmine Reason for Consultation:: Hypertensive emergency, acute pulmonary edema - History of Present Illness Chief Complaint: shortness of breath History of Present Illness: 63F h/o CAD s/p NSTEMI and [place] [facility] [place], TOM to LAD, residual 50-60% mLAD), HTN, HLD, DM, admissions for pancreatitis presenting with shortness of breath. Tachycardic in ED HR 140s, BP 240/140. Given oral nitroglycerin and then started on nitro gtt with bipap. Respiratory status worsened, became more lethargic and was intubated. Was in usual state of health earlier in the day. Was transferred to ICU, weaned off nitro gtt. Given IV lasix 40 mg x1 last night. Labs significant for Cr 1.5 on admission now 2.5 , BNP >10,000, trop <0.02 -> 0.14. Patient of Dr. Tompkins, last seen in 2013. Pt currently intubated and sedated. - Past Medical History Cardio/Vascular: Yes: CAD (s/p stent x 2), HTN, Hyperlipdemia Gastrointestinal: Yes: Other (N/V DESCRIBED. 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 History of Recent Travel: No Home Medications - Allergies Allergies/Adverse Reactions: Allergies Allergy/AdvReac Type Severity Reaction Status Date / Time No Known Allergies Allergy Verified 09/09/17 09:11 - Home Medications Home Medications: Ambulatory Orders Unobtainable 05/21/18 Review of Systems Findings/Remarks: patient intubated and sedated, unable to obtain ROS Vital Signs: Vital Signs Temperature 99.2 F 05/22/18 06:06 Pulse Rate 88 05/22/18 08:09 Respiratory Rate 18 05/22/18 08:09 Blood Pressure 112/79 05/22/18 06:06 O2 Sat by Pulse Oximetry (%) 99 05/22/18 08:09 Constitutional: Yes: No Distress, Other (intubated. sedated) Eyes: Yes: Conjunctiva Clear, EOM Intact HENT: Yes: Atraumatic, Normocephalic Neck: Yes: Supple Respiratory: Yes: Mechanically Ventilated Gastrointestinal: Yes: Normal Bowel Sounds, Soft Cardiovascular: Yes: Regular Rate and Rhythm Edema: No - Other Data Labs, Other Data: CBC, BMP 05/22/18 05:30 05/22/18 05:30 INR, PTT INR 1.12 (0.82-1.09) 05/21/18 19:37 Troponin, BNP 05/21/18 05/21/18 05/21/18 18:40 18:40 22:40 Troponin I Cancelled B-Natriuretic Peptide Cancelled 7607.06 H 05/21/18 05/22/18 22:40 05:30 Troponin I < 0.02 0.14 H B-Natriuretic Peptide 53749.39 H Troponin, BNP 05/21/18 05/21/18 05/21/18 18:40 18:40 22:40 Troponin I Cancelled B-Natriuretic Peptide Cancelled 7607.06 H 05/21/18 05/22/18 22:40 05:30 Troponin I < 0.02 0.14 H B-Natriuretic Peptide 03727.39 H Assessment/Plan echo 11/2013 nl LV and RV size/function,mild MR, mild TR CXR 05/21/18: pulm edema EKG 05/21/18:sinus tachycardia, LVH with strain Tele:sinus rhythm 63F h/o CAD s/p NSTEMI and PCI ([place] [facility] [place]OM [place] OM[place], TOM to LAD, residual 50-60% mLAD), HTN, HLD, DM, admissions for pancreatitis presenting with shortness of breath, hypertensive emergency, acute pulmonary edema and acute respiratory failure Hypertensive emergency, acute pulmonary edema - BP now controlled, off nitro gtt, agree with labetolol drip for BP control - EKG with LVH, echo pending, last in 2013 with nl LV function - agree with IV lasix - monitor daily weights, I/O elevated troponin, CAD, history of stents - borderline elevation likely demand in setting of hypertensive emergency and CURRY, less likely ACS - continue home meds for CAD when confirmed Acute respiratory failure - on mechanical ventilation, managed by ICU team - lasix as above given acute pulmonary edema CURRY - likely in setting of hypertensive emergency - renal ultrasound ordered DM - manage per ICU team
[2018-05-22] MEDS: PANTOPRAZOLE SOD 40 MG SUSPENSION PACKET NGT SCH ×2 (09:20→22:00)
[2018-05-22] MEDS: MUPIROCIN 2% TOPICAL OINTMENT FOR DECOLONIZATION NS SCH ×2 (10:25→22:00)
[2018-05-22] MEDS: INSULIN SLIDING SCALE (NOVOLOG) 1 VIAL SQ SCH ×2 (12:18→18:46)
[2018-05-22] MEDS ORDERED: FUROSEMIDE 40 MG/4 ML INJECTABLE VIAL IVPUSH ONE (12:45)
--- NOTE | 2018-05-22 12:52 | PN ---
Progress Note (short form) - Note Progress Note: PULM/CCM Seen and examined in ICU 24Hr: weaned off labetolol climbing Cr and BNP seen by cards, does not think ACS less UOP to lasix, increasing dose, still with pulm edema on cxr Active Medications Chlorhexidine Gluconate (Hibiclens For Decolonization -) 1 applic TP HS JANICE Fentanyl (Sublimaze Injection -) 100 mcg IVPUSH Q1H PRN PRN Reason: PAIN Stop: 05/22/18 22:14 Last Admin: 05/22/18 09:20 Dose: 100 mcg Furosemide (Lasix Injection -) 80 mg IVPUSH ONCE ONE Stop: 05/22/18 12:46 Heparin Sodium (Porcine) (Heparin -) 5,000 unit SQ TID [facility] Last Admin: 05/22/18 06:32 Dose: 5,000 unit Midazolam HCl 100 mg/ Sodium (Chloride) 100 mls @ 1 mls/hr IVPB TITR [facility]; Protocol Last Admin: 05/21/18 23:52 Dose: 5 mg/hr, 5 mls/hr Labetalol HCl 1,000 mg/ Sodium (Chloride) 1,000 mls @ 120 mls/hr IV TITR [facility] Last Admin: 05/22/18 06:32 Dose: Not Given Insulin Aspart (Novolog Vial Sliding Scale -) 1 vial SQ Q6HPO [facility]; Protocol Last Admin: 05/22/18 12:18 Dose: 4 units Mupirocin (Bactroban Ointment (For Decolonization) -) 1 applic NS BID [facility] Stop: 05/27/18 09:59 Last Admin: 05/22/18 10:25 Dose: 1 applic Pantoprazole Sodium (Protonix Packets For Oral Suspension -) 40 mg NGT BID [facility] Last Admin: 05/22/18 09:20 Dose: 40 mg Vital Signs Temp 99.2 F 05/22/18 06:06 Pulse 88 05/22/18 08:09 Resp 16 05/22/18 12:04 BP 112/79 05/22/18 06:06 Pulse Ox 98 05/22/18 09:00 Intake & Output 05/21/18 05/22/18 05/22/18 23:59 11:59 23:59 Intake Total 40 Output Total 900 100 Balance -900 -60 Weight 79.016 kg 79.2 kg Intake: IV 40 Versed - 100 mg In Normal 40 Saline - 100 ml @ 1 MG/ HR 1 mls/hr IVPB TITR [facility] Rx#:[id number] Output: Urine 900 100 Winn 700 100 Straight Cath 200 Other: Voiding Method Indwelling Catheter Indwelling Catheter Height 5 ft 4 in Body Mass Index (BMI) 29.9 Weight Measurement Method Built in [facility] Weight Measurement Method Est/Stated by Patient CBCD WBC 11.1 K/mm3 (4.0-10.0) H 05/22/18 05:30 RBC 4.78 M/mm3 (3.60-5.2) 05/22/18 05:30 Hgb 14.0 GM/dL (10.7-15.3) 05/22/18 05:30 Hct 42.4 % (32.4-45.2) D 05/22/18 05:30 MCV 88.7 fl (80-96) 05/22/18 05:30 MCHC 33.1 g/dl (32.0-36.0) 05/22/18 05:30 RDW 13.8 % (11.6-15.6) 05/22/18 05:30 Plt Count 148 K/MM3 (134-434) D 05/22/18 05:30 MPV 11.0 fl (7.5-11.1) 05/22/18 05:30 CMP Sodium 143 mmol/L (136-145) 05/22/18 05:30 Potassium 4.7 mmol/L (3.5-5.1) 05/22/18 05:30 Chloride 107 mmol/L (98-107) 05/22/18 05:30 Carbon Dioxide 26 mmol/L (21-32) 05/22/18 05:30 Anion Gap 10 (8-16) 05/22/18 05:30 BUN 32 mg/dL (7-18) H 05/22/18 05:30 Creatinine 2.5 mg/dL (0.55-1.02) H 05/22/18 05:30 Creat Clearance w eGFR 19.39 (>60) 05/22/18 05:30 Random Glucose 343 mg/dL (74-106) H* 05/22/18 05:30 Calcium 8.3 mg/dL (8.5-10.1) L 07/29/18 05:30 Total Bilirubin 0.4 mg/dL (0.2-1.0) 05/22/18 05:30 AST 20 U/L (15-37) 05/22/18 05:30 ALT 26 U/L (12-78) 05/22/18 05:30 Alkaline Phosphatase 92 U/L (45-117) D 05/22/18 05:30 Total Protein 5.7 g/dl (6.4-8.2) L 05/22/18 05:30 Albumin 3.0 g/dl (3.4-5.0) L 05/22/18 05:30 CARDIAC ENZYMES Creatine Kinase 78 IU/L (26-192) 05/22/18 05:30 Troponin I 0.14 ng/ml (0.00-0.05) H 05/22/18 05:30 CXR: no focal infiltrate, L> R pulm edema and small effusion PE: Gen: sedtated intubated HEENT: PERRL, still with some JVD PULM: crackles bilaterally CV: reg, no murmur appreciated ABD; soft, + BS Ext: cool, 2+ pulses Neuro:sedated, JONES x4 to noxious stimuli A/ 63 y/o woman with hx of CAD, stents, Diastolic dysfunction, HTN, DM p/w acute flash pulm edema and hypertensive crisis now intubated for respiratory failure requiring intubation p/ -Serial ABG and vent changes for normocapnea and adjust PEEP/Fio2 as needed, PEEP currently 10 -sedate for vent synchrony -check serial trop and T-BNP -Cardiology f/u appreciated -TTE ordered, not yet performed -do not suspect ACS -no sick prodrome, no fever or leukocytosis, no abx for now, low threshold for abx if worsens -diuresis of 2-3L, repeat Lasix now, rising Cr concerning -renal consulted, awaiting recs. Urine lytes being sent. -K 4, Mg 2 -glycemic control -SQH, PPI for prophy [place] ACNP 7529 Problem List - Problems (1) Hypoxemia Code(s): R09.02 - HYPOXEMIA (2) Respiratory failure Code(s): J96.90 - RESPIRATORY FAILURE, UNSP, UNSP W HYPOXIA OR HYPERCAPNIA (3) Lactic acidosis Code(s): E87.2 - ACIDOSIS
--- NOTE | 2018-05-22 14:17 | CON.NEP ---
Consult Consult Specialty:: nephrology - Past Medical History Cardio/Vascular: Yes: CAD (s/p stent x 2), HTN, Hyperlipdemia Gastrointestinal: Yes: Other (N/V DESCRIBED. 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 History of Recent Travel: No Home Medications - Allergies Allergies/Adverse Reactions: Allergies Allergy/AdvReac Type Severity Reaction Status Date / Time No Known Allergies Allergy Verified 09/09/17 09:11 - Home Medications Home Medications: Ambulatory Orders Unobtainable 05/21/18 Nephrology Consult - Height Height: 5 ft 4 in - Weight Weight: 174 lb 9.698 oz - BMI Body Mass Index (BMI): 29.9 - Lab Results CBC,BMP: CBC, BMP 05/22/18 05:30 05/22/18 05:30 Anion Gap: Anion Gap Anion Gap 10 (8-16) 05/22/18 05:30 - Physical Examination Vital Signs: Vital Signs Temperature 100.2 F H 05/22/18 10:00 Pulse Rate 89 05/22/18 10:00 Respiratory Rate 16 05/22/18 12:04 Blood Pressure 128/78 05/22/18 10:00 O2 Sat by Pulse Oximetry (%) 98 05/22/18 10:00 Assessment/Plan briefly flash pulmonary edema/elevated bnp/ htn acute oliguric edgard not responding to lasix boluses Plan- trial of lasix infusion consider hd for hemofiltration
[2018-05-22] MEDS ORDERED: ACETAMINOPHEN 325 MG TABLET (FP) ONE (14:32)
[2018-05-22] MEDS ORDERED: hydrALAZINE HCL 20 MG/ML VIAL IVPUSH PRN (15:08)
[2018-05-22] MEDS ORDERED: hydrALAZINE HCL 20 MG/ML VIAL ONE (15:11)
[2018-05-22] MEDS ORDERED: ACETAMINOPHEN 325 MG TABLET (FP) PO PRN ×2 (15:14→19:27)
[2018-05-22] MEDS: MIDAZOLAM 100 MG in SODIUM CHLORIDE 100 ML IVPB SCH (15:25)
[2018-05-22] MEDS: FUROSEMIDE INJECTION 100 MG in DEXTROSE 5%-WATER - 90 ML IVPB SCH (15:30)
[2018-05-22 16:05] LABS: URINE APPEARANCE CLOUDY; URINE BILIRUBIN NEGATIVE (<2.0 mg/dL); URINE COLOR YELLOW; URINE GLUCOSE (UA) 1+ (NEGATIVE); URINE KETONE NEGATIVE (NEGATIVE); URINE NITRITE NEGATIVE (NEGATIVE); URINE UROBILINOGEN NEGATIVE mg/dL (0.2-1.0)
[2018-05-22 16:08] LABS: URINE LEUK ESTERASE 1+ (NEGATIVE); URINE PROTEIN 2+ (NEGATIVE)
[2018-05-22 18:07] LABS: ANION GAP 7 (8-16); BLOOD UREA NITROGEN 43 mg/dL (7-18); CALCIUM 8.5 mg/dL (8.5-10.1); CHLORIDE 107 mmol/L (98-107); CO2 28 mmol/L (21-32); CREATININE 3.6 mg/dL (0.55-1.02); GLUCOSE,RANDOM 179 mg/dL (74-106); POTASSIUM 4.1 mmol/L (3.5-5.1); SODIUM 142 mmol/L (136-145)
[2018-05-22 18:52] LABS: EPI CELLS RARE /HPF (FEW); GRANULAR CASTS 9 /lpf; URINE HYALINE CAST 2 /lpf; URINE MUCUS RARE
[2018-05-22] MEDS ORDERED: LABETALOL HCL 100 MG TABLET (FP) NGT ONE (19:32)
[2018-05-22] MEDS: AZITHROMYCIN IVPB 500 MG in DEXTROSE 5%-WATER - 250 ML IVPB SCH (19:47)
[2018-05-22] MEDS ORDERED: cefTRIAXone SODIUM 1 GM VIAL ONE (20:07)
[2018-05-22] MEDS ORDERED: DEXTROSE 5%-WATER - 50 ML IVPB ONE (20:07)
[2018-05-22] MEDS: CEFTRIAXONE 1 GM in DEXTROSE 5%-WATER - 50 ML IVPB SCH (20:12)
[2018-05-22] MEDS: CHLORHEXIDINE GLUCONATE 4% CLEANSER FOR DECOLONIZATION TP SCH (22:00)
[2018-05-22] MEDS ORDERED: METOLAZONE 10 MG TABLET PO ONE (23:12)
--- NOTE | 2018-05-23 00:13 | PN ---
Progress Note (short form) - Note Progress Note: urine output since 7:00pm around 100ml one time dose of metolazone given and lasix drip increased to 10
[2018-05-23 05:48] LABS: HEMATOCRIT 36.8 % (32.4-45.2); HEMOGLOBIN 12.5 GM/dL (10.7-15.3); MCH 29.9 pg (25.7-33.7); MEAN PLT VOLUME 10.9 fl (7.5-11.1); PLATELET COUNT 116 K/MM3 (134-434); RBC 4.19 M/mm3 (3.60-5.2); RDW 14.3 % (11.6-15.6); WHITE BLOOD COUNT 8.3 K/mm3 (4.0-10.0)
[2018-05-23] MEDS: MIDAZOLAM 100 MG in SODIUM CHLORIDE 100 ML IVPB SCH (05:52)
[2018-05-23] MEDS: HEPARIN NA (PORCINE) 5,000 UNITS/ML 1ML VIAL SQ SCH ×3 (05:52→22:42)
[2018-05-23] MEDS ORDERED: HEMOQUE TEST 1 EACH EACH ONE (06:04)
[2018-05-23 06:20] LABS: ALBUMIN 2.8 g/dl (3.4-5.0); ANION GAP 12 (8-16); BILIRUBIN,TOTAL 0.5 mg/dL (0.2-1.0); BLOOD UREA NITROGEN 51 mg/dL (7-18); CALCIUM 8.4 mg/dL (8.5-10.1); CHLORIDE 108 mmol/L (98-107); CO2 24 mmol/L (21-32); CREATININE 4.6 mg/dL (0.55-1.02); GLUCOSE,RANDOM 199 mg/dL (74-106); PHOSPHOROUS 3.6 mg/dL (2.5-4.9); POTASSIUM 3.6 mmol/L (3.5-5.1); SGOT/AST 12 U/L (15-37); SGPT/ALT 18 U/L (12-78); SODIUM 144 mmol/L (136-145); TOT PROT 5.1 g/dl (6.4-8.2)
[2018-05-23 06:21] LABS: ALK PHOS 72 U/L (45-117)
[2018-05-23 06:27] LABS: N-TERMINAL BNP 8190.37 pg/ml (5-125)
[2018-05-23] MEDS: INSULIN SLIDING SCALE (NOVOLOG) 1 VIAL SQ SCH ×5 (06:30→22:00)
[2018-05-23] MEDS ORDERED: cefTRIAXone SODIUM 1 GM VIAL ONE (09:30)
[2018-05-23] MEDS ORDERED: DEXTROSE 5%-WATER - 50 ML IVPB ONE (09:30)
[2018-05-23] MEDS: LABETALOL HCL 100 MG TABLET (FP) PO SCH ×2 (09:44→22:40)
[2018-05-23] MEDS: PANTOPRAZOLE SOD 40 MG SUSPENSION PACKET NGT SCH ×2 (09:44→22:00)
[2018-05-23] MEDS: MUPIROCIN 2% TOPICAL OINTMENT FOR DECOLONIZATION NS SCH ×2 (09:44→22:41)
[2018-05-23] MEDS: CEFTRIAXONE 1 GM in DEXTROSE 5%-WATER - 50 ML IVPB SCH (09:45)
[2018-05-23] MEDS: AZITHROMYCIN IVPB 500 MG in DEXTROSE 5%-WATER - 250 ML IVPB SCH (09:46)
--- NOTE | 2018-05-23 10:22 | EKG ---
Test Reason : Blood Pressure : / mmHG Vent. Rate : 090 BPM Atrial Rate : 090 BPM P-R Int : 140 ms QRS Dur : 086 ms QT Int : 420 ms P-R-T Axes : 043 017 085 degrees QTc Int : 513 ms NORMAL SINUS RHYTHM POSSIBLE LEFT ATRIAL ENLARGEMENT LEFT VENTRICULAR HYPERTROPHY PROLONGED QT ABNORMAL ECG WHEN COMPARED WITH ECG OF 21-MAY-2018 18:58, VENT. RATE HAS DECREASED BY 45 BPM T WAVE INVERSION NOW EVIDENT IN ANTEROLATERAL LEADS Confirmed by MELI REY MD ([id number]) on 05/23/2018 10:22:16 AM Referred By: Mary LEDEZMA Confirmed By:MELI REY MD
--- NOTE | 2018-05-23 10:28 | EKG ---
Test Reason : Blood Pressure : / mmHG Vent. Rate : 135 BPM Atrial Rate : 135 BPM P-R Int : 130 ms QRS Dur : 080 ms QT Int : 300 ms P-R-T Axes : 044 031 077 degrees QTc Int : 450 ms SINUS TACHYCARDIA BIATRIAL ENLARGEMENT LEFT VENTRICULAR HYPERTROPHY NONSPECIFIC ST AND T WAVE ABNORMALITY ABNORMAL ECG WHEN COMPARED WITH ECG OF 13-JUL-2016 16:16, VENT. RATE HAS INCREASED BY 75 BPM Confirmed by CANDIDO LACY, MELI ([id number]) on 05/23/2018 10:27:28 AM Referred By: Confirmed By:MELI REY MD
--- NOTE | 2018-05-23 10:42 | PN ---
Progress Note, Physician Chief Complaint: Patient seen in the ICU....intubated, vent supported. Remains oliguric. Vital signs stable. On IV Lasix infusion, s/p Metolazone Seems comfortable, Awake History of Present Illness: 63 y/o female with a history of CHF, DM, HTN, HLD, pancreatitis, and CAD s/p 2 stents presented with short of breath, tachycardic. Was found to have severe hypertension given oral nitroglycerin with no relief. CXR showed flash pleural effusions and pulm edema. Pt did not improve on Bipap and then was subsequently intubated and now supported on ventilator. The Patient's Renal functions are slowly worsening, with acute progressive azotemia and oliguria. - Current Medication List Current Medications: Active Medications Acetaminophen (Tylenol -) 650 mg PO Q4H PRN PRN Reason: FEVER Last Admin: 05/22/18 20:13 Dose: 650 mg Chlorhexidine Gluconate (Hibiclens For Decolonization -) 1 applic TP HS [facility] Last Admin: 05/22/18 22:00 Dose: 1 applic Heparin Sodium (Porcine) (Heparin -) 5,000 unit SQ TID [facility] Last Admin: 05/23/18 05:52 Dose: 5,000 unit Hydralazine HCl (Apresoline Injection -) 10 mg IVPUSH Q6H PRN PRN Reason: HYPERTENSION Last Admin: 05/22/18 15:10 Dose: 10 mg Furosemide 100 mg/ Dextrose 100 mls @ 2 mls/hr IVPB TITR [facility]; Protocol Last Titration: 05/22/18 17:30 Dose: 5 mg/hr, 5 mls/hr Ceftriaxone Sodium 1 gm/ (Dextrose) 50 mls @ 100 mls/hr IVPB DAILY [facility]; Protocol Last Admin: 05/23/18 09:45 Dose: 100 mls/hr Azithromycin 500 mg/ Dextrose 250 mls @ 250 mls/hr IVPB DAILY [facility] Last Admin: 05/23/18 09:46 Dose: 250 mls/hr Insulin Aspart (Novolog Vial Sliding Scale -) 1 vial SQ Q6HPO [facility]; Protocol Last Admin: 05/23/18 06:30 Dose: 4 units Labetalol HCl (Normodyne -) 100 mg PO BID [facility] Last Admin: 05/23/18 09:44 Dose: 100 mg Metolazone (Zaroxolyn -) 10 mg PO ONCE ONE Stop: 05/23/18 10:46 Mupirocin (Bactroban Ointment (For Decolonization) -) 1 applic NS BID [facility] Stop: 05/27/18 09:59 Last Admin: 05/23/18 09:44 Dose: 1 applic Pantoprazole Sodium (Protonix Packets For Oral Suspension -) 40 mg NGT BID [facility] Last Admin: 05/23/18 09:44 Dose: 40 mg - Objective Vital Signs: Vital Signs Temperature 99.9 F H 05/23/18 10:00 Pulse Rate 92 H 05/23/18 10:00 Respiratory Rate 18 05/23/18 10:00 Blood Pressure 165/104 05/23/18 10:00 O2 Sat by Pulse Oximetry (%) 100 05/23/18 09:00 Constitutional: Yes: Calm Eyes: Yes: Conjunctiva Clear HENT: Yes: Normocephalic Neck: Yes: Trachea Midline Cardiovascular: Yes: Regular Rate and Rhythm, S1, S2 Respiratory: Yes: CTA Bilaterally, Diminished, Poor Air Entry, Rales, Rhonchi Gastrointestinal: Yes: Normal Bowel Sounds, Soft Edema: Yes Edema: LLE: Trace, RLE: Trace Labs: CBC, BMP 05/23/18 05:30 05/23/18 05:30 INR, PTT INR 1.12 (0.82-1.09) 05/21/18 19:37 Problem List - Problems (1) Acute kidney failure with lesion of tubular necrosis Code(s): N17.0 - ACUTE KIDNEY FAILURE WITH TUBULAR NECROSIS (2) Accelerated hypertension Code(s): I10 - ESSENTIAL (PRIMARY) HYPERTENSION (3) Hypokalemia Code(s): E87.6 - HYPOKALEMIA (4) Acute respiratory failure Code(s): J96.00 - ACUTE RESPIRATORY FAILURE, UNSP W HYPOXIA OR HYPERCAPNIA Qualifiers: Respiratory failure complication: hypoxia Qualified Code(s): J96.01 - Acute respiratory failure with hypoxia (5) CHF (congestive heart failure) Code(s): I50.9 - HEART FAILURE, UNSPECIFIED Qualifiers: Heart failure type: unspecified Heart failure chronicity: unspecified Qualified Code(s): I50.9 - Heart failure, unspecified (6) Respiratory failure Code(s): J96.90 - RESPIRATORY FAILURE, UNSP, UNSP W HYPOXIA OR HYPERCAPNIA (7) Diabetes mellitus Code(s): E11.9 - TYPE 2 DIABETES MELLITUS WITHOUT COMPLICATIONS Assessment/Plan 63 y/o female with a history of CHF, DM, HTN, HLD, pancreatitis, and CAD s/p 2 stents presented with shortness of breath and tachycardic. In acute kidney failure with oliguria and progressive azotemia. Acute Kidney failure... multi-factorial in etiology...altered renal hemodynamics , renal hypoperfusion and ischemia, and possibly acute tubular necrosis. There is no overt signs of uremia, severe metabolic acidosis, or electrolyte disturbances. Suggest: Will continue the IV Lasix infusion and Metolazone. Monitor the clinical volume status. Monitor the renal , electrolyte and acid base status No overt indications for renal replacement therapy at this point. No indications for Bicarb supplements. Will follow closely. If the patient continues to be oliguric, or if signs of fluid overload, acidemia or refractory electrolyte disorders set in, will start dialysis. Thanks again.
[2018-05-23] MEDS ORDERED: METOLAZONE 10 MG TABLET PO ONE (10:45)
[2018-05-23 10:47] LABS: URINE CREATININE 35.3 mg/dL (20-320)
--- NOTE | 2018-05-23 11:12 | PN ---
Teaching Attending Note Name of Resident: Jillian Montano ATTENDING PHYSICIAN STATEMENT I saw and evaluated the patient. I reviewed the resident's note and discussed the case with the resident. I agree with the resident's findings and plan as documented. SUBJECTIVE: Patient seen and examined in the ICU. Intubated and sedated. No pressors. AC Mode of vent, 40% FiO2. Intake & Output 05/20/18 05/21/18 05/22/18 05/23/18 23:59 23:59 23:59 23:59 Intake Total 602 120 Output Total 900 550 350 Balance -900 52 -230 Weight 174 lb 3.2 oz 174 lb 9.698 oz 167 lb 12.348 oz Last Vital Signs Temp Pulse Resp BP Pulse Ox 99.9 F H 88 18 165/104 98 05/23/18 10:00 05/23/18 10:51 05/23/18 10:00 05/23/18 10:00 05/23/18 10:51 Active Medications Acetaminophen (Tylenol -) 650 mg PO Q4H PRN PRN Reason: FEVER Last Admin: 05/22/18 20:13 Dose: 650 mg Chlorhexidine Gluconate (Hibiclens For Decolonization -) 1 applic TP HS [facility] Last Admin: 05/22/18 22:00 Dose: 1 applic Heparin Sodium (Porcine) (Heparin -) 5,000 unit SQ TID [facility] Last Admin: 05/23/18 05:52 Dose: 5,000 unit Hydralazine HCl (Apresoline Injection -) 10 mg IVPUSH Q6H PRN PRN Reason: HYPERTENSION Last Admin: 05/22/18 15:10 Dose: 10 mg Furosemide 100 mg/ Dextrose 100 mls @ 2 mls/hr IVPB TITR [facility]; Protocol Last Titration: 05/22/18 17:30 Dose: 5 mg/hr, 5 mls/hr Ceftriaxone Sodium 1 gm/ (Dextrose) 50 mls @ 100 mls/hr IVPB DAILY [facility]; Protocol Last Admin: 05/23/18 09:45 Dose: 100 mls/hr Azithromycin 500 mg/ Dextrose 250 mls @ 250 mls/hr IVPB DAILY [facility] Last Admin: 05/23/18 09:46 Dose: 250 mls/hr Insulin Aspart (Novolog Vial Sliding Scale -) 1 vial SQ Q6HPO [facility]; Protocol Last Admin: 05/23/18 06:30 Dose: 4 units Labetalol HCl (Normodyne -) 100 mg PO BID [facility] Last Admin: 05/23/18 09:44 Dose: 100 mg Mupirocin (Bactroban Ointment (For Decolonization) -) 1 applic NS BID [facility] Stop: 05/27/18 09:59 Last Admin: 05/23/18 09:44 Dose: 1 applic Pantoprazole Sodium (Protonix Packets For Oral Suspension -) 40 mg NGT BID [facility] Last Admin: 05/23/18 09:44 Dose: 40 mg PE: Gen: sedated, intubated HEENT: PERRL PULM: bibasilar rales CV: S1S2, no murmur appreciated ABD; soft, (+) BS Ext: cool, 2+ pulses Neuro:sedated Laboratory Results - last 24 hr 05/22/18 05/22/18 05/22/18 11:00 12:14 15:30 WBC RBC Hgb Hct MCV MCH MCHC RDW Plt Count MPV Sodium Potassium Chloride Carbon Dioxide Anion Gap BUN Creatinine Creat Clearance w eGFR POC Glucometer 225.01301 Random Glucose Lactic Acid Calcium Phosphorus Magnesium Total Bilirubin AST ALT Alkaline Phosphatase Creatine Kinase Troponin I B-Natriuretic Peptide Total Protein Albumin TSH Free T4 Urine Color Yellow Urine Appearance Cloudy Urine pH 5.0 D Ur Specific [place] 1.011 Urine Protein 2+ H Urine Glucose (UA) 1+ H D Urine Ketones Negative Urine Blood 2+ H Urine Nitrite Negative Urine Bilirubin Negative Urine Urobilinogen Negative Ur Leukocyte Esterase 1+ H Urine WBC (Auto) 25 Urine RBC (Auto) 18 Ur Epithelial Cells Rare Hyaline Casts 2 Granular Casts 9 Urine Mucus Rare U Random Total Protein Ur Random Sodium 39 Ur Random Potassium 80.0 Ur Random Chloride 78 Ur Random Urea Nitrogn 111 Urine Creatinine 189.0 05/22/18 05/22/18 05/22/18 17:50 18:41 23:20 WBC RBC Hgb Hct MCV MCH MCHC RDW Plt Count MPV Sodium 142 Potassium 4.1 Chloride 107 Carbon Dioxide 28 Anion Gap 7 L BUN 43 H Creatinine 3.6 H Creat Clearance w eGFR 12.73 POC Glucometer 161.99103 Random Glucose 179 H Lactic Acid 1.6 Calcium 8.5 Phosphorus Magnesium Total Bilirubin AST ALT Alkaline Phosphatase Creatine Kinase 115 Troponin I 0.11 H B-Natriuretic Peptide Total Protein Albumin TSH Free T4 Urine Color Urine Appearance Urine pH Ur Specific [place] Urine Protein Urine Glucose (UA) Urine Ketones Urine Blood Urine Nitrite Urine Bilirubin Urine Urobilinogen Ur Leukocyte Esterase Urine WBC (Auto) Urine RBC (Auto) Ur Epithelial Cells Hyaline Casts Granular Casts Urine Mucus U Random Total Protein Ur Random Sodium Ur Random Potassium Ur Random Chloride Ur Random Urea Nitrogn Urine Creatinine 05/22/18 05/23/18 05/23/18 23:59 05:30 05:30 WBC 8.3 RBC 4.19 Hgb 12.5 Hct 36.8 MCV 88.0 MCH 29.9 MCHC 34.0 RDW 14.3 Plt Count 116 L D MPV 10.9 Sodium 144 Potassium 3.6 Chloride 108 H Carbon Dioxide 24 Anion Gap 12 BUN 51 H Creatinine 4.6 H Creat Clearance w eGFR 9.59 POC Glucometer 246.42468 Random Glucose 199 H Lactic Acid Calcium 8.4 L Phosphorus 3.6 Magnesium 2.0 Total Bilirubin 0.5 AST 12 L ALT 18 Alkaline Phosphatase 72 D Creatine Kinase Troponin I B-Natriuretic Peptide Total Protein 5.1 L Albumin 2.8 L TSH Free T4 0.92 Urine Color Urine Appearance Urine pH Ur Specific [place] Urine Protein Urine Glucose (UA) Urine Ketones Urine Blood Urine Nitrite Urine Bilirubin Urine Urobilinogen Ur Leukocyte Esterase Urine WBC (Auto) Urine RBC (Auto) Ur Epithelial Cells Hyaline Casts Granular Casts Urine Mucus U Random Total Protein Ur Random Sodium Ur Random Potassium Ur Random Chloride Ur Random Urea Nitrogn Urine Creatinine 05/23/18 05/23/18 05/23/18 05:30 06:12 09:40 WBC RBC Hgb Hct MCV MCH MCHC RDW Plt Count MPV Sodium Potassium Chloride Carbon Dioxide Anion Gap BUN Creatinine Creat Clearance w eGFR POC Glucometer 203.75492 Random Glucose Lactic Acid Calcium Phosphorus Magnesium Total Bilirubin AST ALT Alkaline Phosphatase Creatine Kinase Troponin I B-Natriuretic Peptide 8190.37 H Total Protein Albumin TSH 1.42 Free T4 Urine Color Urine Appearance Urine pH Ur Specific [place] Urine Protein Urine Glucose (UA) Urine Ketones Urine Blood Urine Nitrite Urine Bilirubin Urine Urobilinogen Ur Leukocyte Esterase Urine WBC (Auto) Urine RBC (Auto) Ur Epithelial Cells Hyaline Casts Granular Casts Urine Mucus U Random Total Protein Ur Random Sodium Ur Random Potassium Ur Random Chloride Ur Random Urea Nitrogn Urine Creatinine Cancelled 05/23/18 09:40 WBC RBC Hgb Hct MCV MCH MCHC RDW Plt Count MPV Sodium Potassium Chloride Carbon Dioxide Anion Gap BUN Creatinine Creat Clearance w eGFR POC Glucometer Random Glucose Lactic Acid Calcium Phosphorus Magnesium Total Bilirubin AST ALT Alkaline Phosphatase Creatine Kinase Troponin I B-Natriuretic Peptide Total Protein Albumin TSH Free T4 Urine Color Urine Appearance Urine pH Ur Specific [place] Urine Protein Urine Glucose (UA) Urine Ketones Urine Blood Urine Nitrite Urine Bilirubin Urine Urobilinogen Ur Leukocyte Esterase Urine WBC (Auto) Urine RBC (Auto) Ur Epithelial Cells Hyaline Casts Granular Casts Urine Mucus U Random Total Protein 18 H Ur Random Sodium Ur Random Potassium Ur Random Chloride Ur Random Urea Nitrogn Urine Creatinine 35.3 Problem List - Problems (1) Hypoxemia Code(s): R09.02 - HYPOXEMIA (2) Respiratory failure Code(s): J96.90 - RESPIRATORY FAILURE, UNSP, UNSP W HYPOXIA OR HYPERCAPNIA (3) Lactic acidosis Code(s): E87.2 - ACIDOSIS IMP: Acute Respiratory Failure due to APE CAD Hx of PCI Diastolic dysfunction HTN DM Hypertensive emergency ARF PLAN: D/C sedation to assess mental status SBTs as tolerated: hope to extubate today Increase Lasix drip Would hold on HD today Close monitoring of I & O Daily weight Dr Greene Critical care time spent in reviewing chart, evaluating patient and formulating plan - 36 minutes.
[2018-05-23] MEDS ORDERED: METOLAZONE 5 MG TABLET PO ONE (11:15)
--- NOTE | 2018-05-23 11:47 | PN ---
Progress Note (short form) - Note Progress Note: pt seen/ examined in icu . chart reviewed. On vent support arousable all f/u noted passing urine Vital Signs Temp 99.9 F H 05/23/18 10:00 Pulse 88 05/23/18 10:51 Resp 13 05/23/18 11:26 BP 165/104 05/23/18 10:00 Pulse Ox 97 05/23/18 11:26 Intake & Output 05/22/18 05/22/18 05/23/18 11:59 23:59 11:59 Intake Total 40 562 120 Output Total 100 450 350 Balance -60 112 -230 Weight 174 lb 9.698 oz 174 lb 9.698 oz 167 lb Intake: IV 40 62 120 Lasix Injection - 100 mg 14 80 In D5w - 90 ml @ 2 MG/HR 2 mls/hr IVPB TITR JANICE Rx #:[id number] Versed - 100 mg In Normal 40 48 40 Saline - 100 ml @ 1 MG/ HR 1 mls/hr IVPB TITR JANICE Rx#:[id number] IVPB 350 Tube Irrigant 150 Output: Urine 100 450 350 Winn 100 450 350 Other: Voiding Method Indwelling Catheter Indwelling Catheter Indwelling Catheter Height 5 ft 4 in 5 ft 4 in Body Mass Index (BMI) 29.9 28.6 Weight Measurement Method Built in [facility] Built in [facility] Active Medications Acetaminophen (Tylenol -) 650 mg PO Q4H PRN PRN Reason: FEVER Last Admin: 05/22/18 20:13 Dose: 650 mg Chlorhexidine Gluconate (Hibiclens For Decolonization -) 1 applic TP HS JANICE Last Admin: 05/22/18 22:00 Dose: 1 applic Heparin Sodium (Porcine) (Heparin -) 5,000 unit SQ TID JANICE Last Admin: 05/23/18 05:52 Dose: 5,000 unit Hydralazine HCl (Apresoline Injection -) 10 mg IVPUSH Q6H PRN PRN Reason: HYPERTENSION Last Admin: 05/22/18 15:10 Dose: 10 mg Furosemide 100 mg/ Dextrose 100 mls @ 2 mls/hr IVPB TITR JANICE; Protocol Last Titration: 05/22/18 17:30 Dose: 5 mg/hr, 5 mls/hr Ceftriaxone Sodium 1 gm/ (Dextrose) 50 mls @ 100 mls/hr IVPB DAILY JANICE; Protocol Last Admin: 05/23/18 09:45 Dose: 100 mls/hr Azithromycin 500 mg/ Dextrose 250 mls @ 250 mls/hr IVPB DAILY [facility] Last Admin: 05/23/18 09:46 Dose: 250 mls/hr Insulin Aspart (Novolog Vial Sliding Scale -) 1 vial SQ Q6HPO [facility]; Protocol Last Admin: 05/23/18 06:30 Dose: 4 units Labetalol HCl (Normodyne -) 100 mg PO BID [facility] Last Admin: 05/23/18 09:44 Dose: 100 mg Mupirocin (Bactroban Ointment (For Decolonization) -) 1 applic NS BID [facility] Stop: 05/27/18 09:59 Last Admin: 05/23/18 09:44 Dose: 1 applic Pantoprazole Sodium (Protonix Packets For Oral Suspension -) 40 mg NGT BID [facility] Last Admin: 05/23/18 09:44 Dose: 40 mg CBC, BMP 05/23/18 05:30 05/23/18 05:30 Microbiology 05/21/18 20:20 Urine Culture - Preliminary Urine - Urine - Catheterized Pending Organism Physical Constitutional: Yes: Intubated Eyes: Yes: Conjunctiva Clear HENT: Yes: Normocephalic Neck: Yes: Supple Cardiovascular: Yes: Regular Rate and Rhythm, S1, S2 Respiratory: Yes: Bilateral breath sounds Gastrointestinal: Yes: Normal Bowel Sounds, Soft, non tender . Edema: Yes Problem List - Problems (1) Acute kidney failure with lesion of tubular necrosis Code(s): N17.0 - ACUTE KIDNEY FAILURE WITH TUBULAR NECROSIS (2) Accelerated hypertension Code(s): I10 - ESSENTIAL (PRIMARY) HYPERTENSION (3) Hypokalemia Code(s): E87.6 - HYPOKALEMIA (4) Acute respiratory failure Code(s): J96.00 - ACUTE RESPIRATORY FAILURE, UNSP W HYPOXIA OR HYPERCAPNIA Qualifiers: Respiratory failure complication: hypoxia Qualified Code(s): J96.01 - Acute respiratory failure with hypoxia (5) CHF (congestive heart failure) Code(s): I50.9 - HEART FAILURE, UNSPECIFIED Qualifiers: Heart failure type: unspecified Heart failure chronicity: unspecified Qualified Code(s): I50.9 - Heart failure, unspecified (6) Respiratory failure Code(s): J96.90 - RESPIRATORY FAILURE, UNSP, UNSP W HYPOXIA OR HYPERCAPNIA (7) Diabetes mellitus Code(s): E11.9 - TYPE 2 DIABETES MELLITUS WITHOUT COMPLICATIONS Assessment/Plan Vent support Weaning as tolerated Abx monitor bgm/ bp. Hold off dialysis today Monitor lytes f/u cultures Discussed with icu attending as well as with nursing staff Discussed with Dr. Aggie Blankenship also. will follow cc time 35 min
--- NOTE | 2018-05-23 12:28 | PN ---
Physical Exam: SUBJECTIVE: Patient seen and examined at bedside. Patient came to the floor already intubated, however, was extuabted around 11 am this morning and is now on venti mask. Laying in bed comfortably, and in no acute distress. Slightly complaining of her throat being sore. However, denies any chest pain or SOB. OBJECTIVE: Vital Signs Period Temp Pulse Resp BP Sys/Springer Pulse Ox Last 24 Hr 99.9 F-101.2 F 88-110 13-22 110-190/69-105 97-100 GENERAL: The patient is sleeping, was just extubated, does not appear in acute distress. EYES: PERRL, extraocular movements intact, sclera anicteric, conjunctiva clear. No ptosis. CARDIO: regualr rate and rhythm; no murmurs rubs or gallops LUNGS: slightly diminished breath sounds; HEART: Regular rate and rhythm, S1, S2 without murmur, rub or gallop. ABDOMEN: Soft, nontender, nondistended, normoactive bowel sounds, no guarding, no rebound, no hepatosplenomegaly, no masses. EXTREMITIES: 2+ pulses, warm, well-perfused, no edema. NEUROLOGICAL: responding to commands SKIN: Warm, dry, normal turgor, no rashes or lesions noted Laboratory Results - last 24 hr 05/22/18 05/22/18 05/22/18 12:14 15:30 17:50 WBC RBC Hgb Hct MCV MCH MCHC RDW Plt Count MPV Sodium 142 Potassium 4.1 Chloride 107 Carbon Dioxide 28 Anion Gap 7 L BUN 43 H Creatinine 3.6 H Creat Clearance w eGFR 12.73 POC Glucometer [phone] Random Glucose 179 H Lactic Acid Calcium 8.5 Phosphorus Magnesium Total Bilirubin AST ALT Alkaline Phosphatase Creatine Kinase 115 Troponin I 0.11 H B-Natriuretic Peptide Total Protein Albumin TSH Free T4 Urine Color Yellow Urine Appearance Cloudy Urine pH 5.0 D Ur Specific [place] 1.011 Urine Protein 2+ H Urine Glucose (UA) 1+ H D Urine Ketones Negative Urine Blood 2+ H Urine Nitrite Negative Urine Bilirubin Negative Urine Urobilinogen Negative Ur Leukocyte Esterase 1+ H Urine WBC (Auto) 25 Urine RBC (Auto) 18 Ur Epithelial Cells Rare Hyaline Casts 2 Granular Casts 9 Urine Mucus Rare U Random Total Protein Urine Creatinine 05/22/18 05/22/18 05/22/18 18:41 23:20 23:59 WBC RBC Hgb Hct MCV MCH MCHC RDW Plt Count MPV Sodium Potassium Chloride Carbon Dioxide Anion Gap BUN Creatinine Creat Clearance w eGFR POC Glucometer [phone] Random Glucose Lactic Acid 1.6 Calcium Phosphorus Magnesium Total Bilirubin AST ALT Alkaline Phosphatase Creatine Kinase Troponin I B-Natriuretic Peptide Total Protein Albumin TSH Free T4 Urine Color Urine Appearance Urine pH Ur Specific [place] Urine Protein Urine Glucose (UA) Urine Ketones Urine Blood Urine Nitrite Urine Bilirubin Urine Urobilinogen Ur Leukocyte Esterase Urine WBC (Auto) Urine RBC (Auto) Ur Epithelial Cells Hyaline Casts Granular Casts Urine Mucus U Random Total Protein Urine Creatinine 05/23/18 05/23/18 05/23/18 05:30 05:30 05:30 WBC 8.3 RBC 4.19 Hgb 12.5 Hct 36.8 MCV 88.0 MCH 29.9 MCHC 34.0 RDW 14.3 Plt Count 116 L D MPV 10.9 Sodium 144 Potassium 3.6 Chloride 108 H Carbon Dioxide 24 Anion Gap 12 BUN 51 H Creatinine 4.6 H Creat Clearance w eGFR 9.59 POC Glucometer Random Glucose 199 H Lactic Acid Calcium 8.4 L Phosphorus 3.6 Magnesium 2.0 Total Bilirubin 0.5 AST 12 L ALT 18 Alkaline Phosphatase 72 D Creatine Kinase Troponin I B-Natriuretic Peptide 8190.37 H Total Protein 5.1 L Albumin 2.8 L TSH 1.42 Free T4 0.92 Urine Color Urine Appearance Urine pH Ur Specific [place] Urine Protein Urine Glucose (UA) Urine Ketones Urine Blood Urine Nitrite Urine Bilirubin Urine Urobilinogen Ur Leukocyte Esterase Urine WBC (Auto) Urine RBC (Auto) Ur Epithelial Cells Hyaline Casts Granular Casts Urine Mucus U Random Total Protein Urine Creatinine 05/23/18 05/23/18 05/23/18 06:12 09:40 09:40 WBC RBC Hgb Hct MCV MCH MCHC RDW Plt Count MPV Sodium Potassium Chloride Carbon Dioxide Anion Gap BUN Creatinine Creat Clearance w eGFR POC Glucometer 203.45016 Random Glucose Lactic Acid Calcium Phosphorus Magnesium Total Bilirubin AST ALT Alkaline Phosphatase Creatine Kinase Troponin I B-Natriuretic Peptide Total Protein Albumin TSH Free T4 Urine Color Urine Appearance Urine pH Ur Specific [place] Urine Protein Urine Glucose (UA) Urine Ketones Urine Blood Urine Nitrite Urine Bilirubin Urine Urobilinogen Ur Leukocyte Esterase Urine WBC (Auto) Urine RBC (Auto) Ur Epithelial Cells Hyaline Casts Granular Casts Urine Mucus U Random Total Protein 18 H Urine Creatinine Cancelled 35.3 05/23/18 11:20 WBC RBC Hgb Hct MCV MCH MCHC RDW Plt Count MPV Sodium Potassium Chloride Carbon Dioxide Anion Gap BUN Creatinine Creat Clearance w eGFR POC Glucometer [phone] Random Glucose Lactic Acid Calcium Phosphorus Magnesium Total Bilirubin AST ALT Alkaline Phosphatase Creatine Kinase Troponin I B-Natriuretic Peptide Total Protein Albumin TSH Free T4 Urine Color Urine Appearance Urine pH Ur Specific [place] Urine Protein Urine Glucose (UA) Urine Ketones Urine Blood Urine Nitrite Urine Bilirubin Urine Urobilinogen Ur Leukocyte Esterase Urine WBC (Auto) Urine RBC (Auto) Ur Epithelial Cells Hyaline Casts Granular Casts Urine Mucus U Random Total Protein Urine Creatinine Active Medications Generic Name Dose Route Start Last Admin Trade Name Freq PRN Reason Stop Dose Admin Acetaminophen 650 mg 05/22/18 19:27 05/22/18 20:13 Tylenol - PO 650 mg Q4H PRN Administration FEVER Chlorhexidine Gluconate 1 applic 05/22/18 22:00 05/22/18 22:00 Hibiclens For Decolonization - TP 1 applic HS JANICE Administration Heparin Sodium (Porcine) 5,000 unit 05/21/18 23:00 05/23/18 05:52 Heparin - SQ 5,000 unit TID JANICE Administration Hydralazine HCl 10 mg 05/22/18 15:08 05/22/18 15:10 Apresoline Injection - IVPUSH 10 mg Q6H PRN Administration HYPERTENSION Furosemide 100 mg/ Dextrose 100 mls @ 2 mls/hr 05/22/18 14:30 05/22/18 17:30 IVPB 5 mg/hr TITR JANICE 5 mls/hr Titration Protocol 2 MG/HR Ceftriaxone Sodium 1 gm/ 50 mls @ 100 mls/hr 05/22/18 19:17 05/23/18 09:45 Dextrose IVPB 100 mls/hr DAILY JANICE Administration Protocol Azithromycin 500 mg/ Dextrose 250 mls @ 250 mls/hr 05/22/18 19:19 05/23/18 09 :46 IVPB 250 mls/hr DAILY JANICE Administration Insulin Aspart 1 vial 05/22/18 12:00 05/23/18 06:30 Novolog Vial Sliding Scale - SQ 4 units Q6HPO JANICE Administration Protocol Labetalol HCl 100 mg 05/23/18 10:00 05/23/18 09:44 Normodyne - PO 100 mg BID JANICE Administration Mupirocin 1 applic 05/22/18 10:00 05/23/18 09:44 Bactroban Ointment (For Decolonization) - NS 05/27/18 09:59 1 applic BID JANICE Administration Pantoprazole Sodium 40 mg 05/22/18 10:00 05/23/18 09:44 Protonix Packets For Oral Suspension - NGT 40 mg BID JANICE Administration ASSESSMENT/PLAN: 63 y/o female with PMH of pancreatitis, DM, HTN, CAD, presented to [facility] ER with increasing dyspnea, found to also have hypertensive emergency and CURRY. Patient was extubated as of this morning and seems to be tolerating. Neuro: -currently off sedation -monitor mental status -possible head CT as stroke might have caused or possible neurogenic edema? Cardio: Troponemia and hypertensive emergency likely due to renal injury as opposed to cardiac in origin -patient currently on a lasix drip at 15ml/hr and receiving metolazone -continue to monitor BP -monitor I's and O's -follow up echo Respiratory: acute hypoxic respiratory failure likely secondary to flash pulmonary edema -patient was extubated this morning -repeat chest XRAY's seem to be improving -frequent lung exams -c/w abx -repeat CXR Renal: Acute kidney injury in setting of hypertensive emergency -most likely having ATN possibly from demand ischemia, or hypoperfusion or CHF? -Cr is uptrending -per renal HD not necessary at this time as she is making urine -continue to monitor CMP and urine output -renal artery/vein duplex F/E/N: -not currently on fluids -will monitor electrolytes: Dispo: continue monitoring in ICU Problem List - Problems (1) Accelerated hypertension Code(s): I10 - ESSENTIAL (PRIMARY) HYPERTENSION (2) Acute kidney failure with lesion of tubular necrosis Code(s): N17.0 - ACUTE KIDNEY FAILURE WITH TUBULAR NECROSIS (3) Acute respiratory failure Code(s): J96.00 - ACUTE RESPIRATORY FAILURE, UNSP W HYPOXIA OR HYPERCAPNIA Qualifiers: Respiratory failure complication: hypoxia Qualified Code(s): J96.01 - Acute respiratory failure with hypoxia (4) Hypoxemia Code(s): R09.02 - HYPOXEMIA Visit type - Emergency Visit Emergency Visit: Yes ED Registration Date: 05/21/18 Care time: The patient presented to the Emergency Department on the above date and was hospitalized for further evaluation of their emergent condition. - New Patient This patient is new to me today: Yes Date on this admission: 05/23/18 - Critical Care Critical Care patient: Yes Total Critical Care Time (in minutes): 35 Critical Care Statement: The care of this patient involved high complexity decision making to prevent further life threatening deterioration of the patient 's condition and/or to evaluate & treat vital organ system(s) failure or risk of failure.
--- NOTE | 2018-05-23 13:47 | PN ---
Progress Note (short form) - Note Progress Note: s: awake, alert. no complaints. tele:sinus rhythm Vital Signs: Vital Signs Temperature 99.2 F 05/22/18 06:06 Pulse Rate 88 05/22/18 08:09 Respiratory Rate 18 05/22/18 08:09 Blood Pressure 112/79 05/22/18 06:06 O2 Sat by Pulse Oximetry (%) 99 05/22/18 08:09 Constitutional: Yes: No Distress, Other (intubated. sedated) Eyes: Yes: Conjunctiva Clear, EOM Intact HENT: Yes: Atraumatic, Normocephalic Neck: Yes: Supple Respiratory: Yes: Mechanically Ventilated Gastrointestinal: Yes: Normal Bowel Sounds, Soft Cardiovascular: Yes: Regular Rate and Rhythm Edema: No Assessment/Plan echo 11/2013 nl LV and RV size/function,mild MR, mild TR CXR 05/21/18: pulm edema EKG 05/21/18:sinus tachycardia, LVH with strain 63F h/o CAD s/p NSTEMI and PCI (in 2013 at [facility], TOM to OM1, TOM to LAD, residual 50-60% mLAD), HTN, HLD, DM, admissions for pancreatitis presenting with shortness of breath, hypertensive emergency, acute pulmonary edema and acute respiratory failure Hypertensive emergency, acute pulmonary edema - BP now controlled on IV labetalol - Cr 3.6 ->4.6 after IV lasix bolus, nephrology following, patient making urine - agree with lasix gtt with metolazone, monitor I/O, weights - echo pending elevated troponin, CAD, history of stents - borderline elevation likely demand in setting of hypertensive emergency and CURRY, less likely ACS - continue home meds for CAD when confirmed Acute respiratory failure - on mechanical ventilation, managed by ICU team - lasix as above given acute pulmonary edema CURRY - likely in setting of hypertensive emergency - renal ultrasound ordered DM - manage per ICU team
[2018-05-23] MEDS: FUROSEMIDE INJECTION 100 MG in DEXTROSE 5%-WATER - 90 ML IVPB SCH (15:00)
--- NOTE | 2018-05-23 16:26 | ECHO ---
Name: ELSA ZAVALETA Exam:Adult Echocardiogram Study Date: 05/23/2018 10:11 AM Age: 63 yrs Reason For Study: Acute pulm Edema Height: 64 in Weight: 165 lb BSA: 1.8 m2 BP: 165/104 mmHg MMode/2D Measurements & Calculations IVSd: 0.88 cm Ao root diam: 3.1 cm LVIDd: 4.9 cm LA dimension: 3.4 cm LVIDs: 3.5 cm ACS: 1.9 cm LVPWd: 1.1 cm IVSs: 1.1 cm LVPWs: 1.4 cm EDV(Teich): 114.9 ml ESV(Teich): 50.2 ml EPSS: 1.6 cm Doppler Measurements & Calculations MV E max juvenal: 52.3 cm/sec Ao V2 max: 167.2 cm/sec MV A max juvenal: 83.4 cm/sec Ao max P.2 mmHg MV E/A: 0.63 Ao V2 mean: 111.7 cm/sec Ao mean P.9 mmHg Ao V2 VTI: 27.1 cm MR max juvenal: 423.9 cm/sec Med Peak E' Juvenal: 4.1 cm/sec MR max P.9 mmHg Med E/e': 12.9 Lat Peak E' Juvenal: 3.0 cm/sec Lat E/e': 17.7 Procedure Technically limited study. Left Ventricle The left ventricle is normal in size. Left ventricular systolic function is mildly reduced. Ejection Fraction = 45-50%. E/A reversal with TDI revealing E/E' of 12 suggests impaired relaxation with normal filling pressure. There is mild global hypokinesis of the left ventricle. Right Ventricle The right ventricle is not well visualized. Atria The left atrial size is normal. Right atrial size is normal. Mitral Valve There is mild mitral annular calcification. There is mild mitral regurgitation. Tricuspid Valve The tricuspid valve is normal in structure and function. There is mild tricuspid regurgitation. Aortic Valve There is mild aortic sclerosis.;. No aortic regurgitation is present. Pulmonic Valve The pulmonic valve is not well visualized. Great Vessels The aortic root is normal size. Pericardium/Pleura There is no pericardial effusion. Interpretation Summary Technically limited study The left ventricle is normal in size. Left ventricular systolic function is mildly reduced. Ejection Fraction = 45-50%. There is mild global hypokinesis of the left ventricle. E/A reversal with TDI revealing E/E' of 12 suggests impaired relaxation with normal filling pressure The right ventricle is not well visualized. The left atrial size is normal. Right atrial size is normal. There is mild mitral annular calcification. There is mild mitral regurgitation. There is mild tricuspid regurgitation. There is mild aortic sclerosis.; There is no pericardial effusion. Previous study is not available for comparison Juan Miller MD 05/23/2018 04:26 PM
[2018-05-23 22:36] LABS: ALBUMIN 3.3 g/dl (3.4-5.0); ANION GAP 13 (8-16); BILIRUBIN,TOTAL 0.5 mg/dL (0.2-1.0); BLOOD UREA NITROGEN 59 mg/dL (7-18); CALCIUM 9.1 mg/dL (8.5-10.1); CHLORIDE 99 mmol/L (98-107); CO2 29 mmol/L (21-32); CREATININE 5.2 mg/dL (0.55-1.02); GLUCOSE,RANDOM 194 mg/dL (74-106); MAGNESIUM 2.1 mg/dL (1.8-2.4); PHOSPHOROUS 6.4 mg/dL (2.5-4.9); POTASSIUM 3.6 mmol/L (3.5-5.1); SGOT/AST 14 U/L (15-37); SGPT/ALT 22 U/L (12-78); SODIUM 141 mmol/L (136-145); TOT PROT 6.4 g/dl (6.4-8.2)
[2018-05-23 22:37] LABS: ALK PHOS 87 U/L (45-117)
[2018-05-23] MEDS: CHLORHEXIDINE GLUCONATE 4% CLEANSER FOR DECOLONIZATION TP SCH ×3 (22:42→22:44)
[2018-05-24 06:13] LABS: BASO % 0.7 % (0-2.0); EOS % 0.5 % (0-4.5); HEMOGLOBIN 13.8 GM/dL (10.7-15.3); LYMPH % 17.9 % (8-40); MCH 29.7 pg (25.7-33.7); MCHC 33.7 g/dl (32.0-36.0); MEAN CELL VOLUME 88.1 fl (80-96); MEAN PLT VOLUME 10.9 fl (7.5-11.1); MONO % 6.8 % (3.8-10.2); NEUT % 74.1 % (42.8-82.8); PLATELET COUNT 134 K/MM3 (134-434); RBC 4.65 M/mm3 (3.60-5.2); RDW 13.7 % (11.6-15.6); WHITE BLOOD COUNT 7.1 K/mm3 (4.0-10.0)
[2018-05-24] MEDS: HEPARIN NA (PORCINE) 5,000 UNITS/ML 1ML VIAL SQ SCH ×3 (06:19→21:09)
[2018-05-24] MEDS: INSULIN SLIDING SCALE (NOVOLOG) 1 VIAL SQ SCH ×3 (06:23→21:10)
[2018-05-24 06:35] LABS: ALBUMIN 3.2 g/dl (3.4-5.0); ANION GAP 13 (8-16); BLOOD UREA NITROGEN 63 mg/dL (7-18); CALCIUM 9.1 mg/dL (8.5-10.1); CHLORIDE 97 mmol/L (98-107); CO2 29 mmol/L (21-32); GLUCOSE,RANDOM 192 mg/dL (74-106); POTASSIUM 3.4 mmol/L (3.5-5.1); SODIUM 139 mmol/L (136-145)
[2018-05-24 06:39] LABS: ALK PHOS 80 U/L (45-117); BILIRUBIN,TOTAL 0.5 mg/dL (0.2-1.0); CREATININE 5.2 mg/dL (0.55-1.02); SGOT/AST 11 U/L (15-37); SGPT/ALT 20 U/L (12-78); TOT PROT 6.2 g/dl (6.4-8.2)
--- NOTE | 2018-05-24 09:19 | PN ---
Progress Note (short form) - Note Progress Note: s: awake, alert. complains of sore throat tele: sinus rhythm, rate controlled Vital Signs: Vital Signs Period Temp Pulse Resp BP Sys/Springer Pulse Ox Last 24 Hr 98.7 F-100.4 F 79-100 13-22 123-167/61-105 96-100 Constitutional: No Distress, Other (intubated. sedated) Eyes: Conjunctiva Clear, EOM Intact HENT: Atraumatic, Normocephalic Neck: Supple Respiratory: Mechanically Ventilated Gastrointestinal: Normal Bowel Sounds, Soft Cardiovascular: Regular Rate and Rhythm, nl S1 S2, no murmur +JVD Ext: no edema Neuro: alert and oriented Assessment/Plan echo 11/2013 nl LV and RV size/function,mild MR, mild TR CXR 05/21/18: pulm edema EKG 05/21/18:sinus tachycardia, LVH with strain Echo 05/23/18 EF 45-50%, impaired relaxation, RV not well visualized, LA nl size , mild MR, mild TR 63F h/o CAD s/p NSTEMI and PCI (in 2013 at [facility], TOM to OM1, TOM to LAD, residual 50-60% mLAD), HTN, HLD, DM, admissions for pancreatitis presenting with shortness of breath, hypertensive emergency, acute pulmonary edema and acute respiratory failure Hypertensive emergency, acute pulmonary edema - EF 45-50% on echo, 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 may be due to underlying uncontrolled HTN - BP now controlled on IV labetalol - Cr 4.6->5.2, however making adequate uop on lasix gtt, likely ATN - continue lasix gtt, got dose of metolazone 05/23 as well. monitor I/O, weights , appreciate renal recs elevated troponin, CAD, history of stents - borderline elevation likely demand in setting of hypertensive emergency and CURRY, less likely ACS - continue home meds for CAD when confirmed, patient will ask her to bring list from home - restart aspirin 81 mg daily when able to take PO Acute respiratory failure - improving with diuresis, on nasal canula CURRY - likely ATN, maintaining UOP with lasix gtt DM - manage per ICU team
[2018-05-24] MEDS ORDERED: cefTRIAXone SODIUM 1 GM VIAL ONE (09:52)
[2018-05-24] MEDS ORDERED: DEXTROSE 5%-WATER - 50 ML IVPB ONE (09:52)
[2018-05-24] MEDS ORDERED: PT OWN MED DRAWER 7, Y5N ONE (09:52)
--- NOTE | 2018-05-24 10:16 | PN ---
Progress Note, Physician Chief Complaint: extubated feels well except for soreness in throat - Current Medication List Current Medications: Active Medications Acetaminophen (Tylenol -) 650 mg PO Q4H PRN PRN Reason: FEVER Last Admin: 05/22/18 20:13 Dose: 650 mg Chlorhexidine Gluconate (Hibiclens For Decolonization -) 1 applic TP HS [facility] Last Admin: 05/23/18 22:44 Dose: 1 applic Heparin Sodium (Porcine) (Heparin -) 5,000 unit SQ TID JANICE Last Admin: 05/24/18 06:19 Dose: 5,000 unit Hydralazine HCl (Apresoline Injection -) 10 mg IVPUSH Q6H PRN PRN Reason: HYPERTENSION Last Admin: 05/22/18 15:10 Dose: 10 mg Furosemide 100 mg/ Dextrose 100 mls @ 2 mls/hr IVPB TITR [facility]; Protocol Last Admin: 05/23/18 15:00 Dose: 15 mg/hr, 15 mls/hr Ceftriaxone Sodium 1 gm/ (Dextrose) 50 mls @ 100 mls/hr IVPB DAILY [facility]; Protocol Last Admin: 05/23/18 09:45 Dose: 100 mls/hr Azithromycin 500 mg/ Dextrose 250 mls @ 250 mls/hr IVPB DAILY [facility] Last Admin: 05/23/18 09:46 Dose: 250 mls/hr Insulin Aspart (Novolog Vial Sliding Scale -) 1 vial SQ Q6HPO [facility]; Protocol Last Admin: 05/24/18 06:23 Dose: 2 units Labetalol HCl (Normodyne -) 100 mg PO BID [facility] Last Admin: 05/23/18 22:40 Dose: 100 mg Mupirocin (Bactroban Ointment (For Decolonization) -) 1 applic NS BID [facility] Stop: 05/27/18 09:59 Last Admin: 05/23/18 22:41 Dose: 1 applic Pantoprazole Sodium (Protonix Packets For Oral Suspension -) 40 mg NGT BID [facility] Last Admin: 05/23/18 22:00 Dose: 40 mg - Objective Vital Signs: Vital Signs Temperature 99.1 F 05/24/18 05:00 Pulse Rate 82 05/24/18 05:00 Respiratory Rate 18 05/24/18 05:00 Blood Pressure 123/83 05/24/18 05:00 O2 Sat by Pulse Oximetry (%) 96 05/23/18 22:00 Constitutional: Yes: No Distress Cardiovascular: Yes: Regular Rate and Rhythm Respiratory: Yes: Diminished Gastrointestinal: Yes: Normal Bowel Sounds, Soft. No: Tenderness Edema: No Labs: CBC, BMP 05/24/18 05:30 05/24/18 05:30 INR, PTT INR 1.12 (0.82-1.09) 05/21/18 19:37 Problem List - Problems (1) Accelerated hypertension Code(s): I10 - ESSENTIAL (PRIMARY) HYPERTENSION (2) Acute kidney failure with lesion of tubular necrosis Code(s): N17.0 - ACUTE KIDNEY FAILURE WITH TUBULAR NECROSIS (3) Acute respiratory failure Code(s): J96.00 - ACUTE RESPIRATORY FAILURE, UNSP W HYPOXIA OR HYPERCAPNIA Qualifiers: Respiratory failure complication: hypoxia Qualified Code(s): J96.01 - Acute respiratory failure with hypoxia (4) CHF (congestive heart failure) Code(s): I50.9 - HEART FAILURE, UNSPECIFIED Qualifiers: Heart failure type: unspecified Heart failure chronicity: unspecified Qualified Code(s): I50.9 - Heart failure, unspecified (5) Hypoxemia Code(s): R09.02 - HYPOXEMIA (6) Respiratory failure Code(s): J96.90 - RESPIRATORY FAILURE, UNSP, UNSP W HYPOXIA OR HYPERCAPNIA Assessment/Plan Spoke with Renal-- creatinine same and she is responding with Lasix drip She has urine out put holding off dialysis at this time continue with meds, antibiotics
[2018-05-24] MEDS: LABETALOL HCL 100 MG TABLET (FP) PO SCH ×2 (10:33→21:09)
[2018-05-24] MEDS: PANTOPRAZOLE SOD 40 MG SUSPENSION PACKET NGT SCH (10:33)
[2018-05-24] MEDS: CEFTRIAXONE 1 GM in DEXTROSE 5%-WATER - 50 ML IVPB SCH (10:34)
[2018-05-24] MEDS: AZITHROMYCIN IVPB 500 MG in DEXTROSE 5%-WATER - 250 ML IVPB SCH (10:34)
[2018-05-24] MEDS: MUPIROCIN 2% TOPICAL OINTMENT FOR DECOLONIZATION NS SCH (10:38)
--- NOTE | 2018-05-24 11:27 | PN ---
Progress Note (short form) - Note Progress Note: Renal follow up for CURRY Pt seen and examined in the ICU awake and alert on Lasix gtt, making urine via herrera denies any CP, SOB, Abd pain, N/V/D, STEWART, lethargy or weakness Vital Signs Temperature 98.3 F 05/24/18 10:00 Pulse Rate 74 05/24/18 10:00 Respiratory Rate 20 05/24/18 10:00 Blood Pressure 141/94 05/24/18 10:00 O2 Sat by Pulse Oximetry (%) 100 05/24/18 10:54 Intake & Output 05/21/18 05/22/18 05/23/18 05/24/18 23:59 23:59 23:59 23:59 Intake Total 602 760 110 Output Total 738 420 0782 1200 Balance -900 52 -2650 -1090 Weight 79.016 kg 79.2 kg 75.75 kg 75.835 kg NAD Neck supple RRR, No M/R + rales right lung soft NT/ND No LE edema herrera in place CBC, BMP 05/24/18 05:30 05/24/18 05:30 Laboratory Tests 05/23/18 05/24/18 09:40 05:30 Calcium 9.1 Albumin 3.2 L U Random Total Protein 18 H Urine Creatinine 35.3 Current Medications Acetaminophen (Tylenol -) 650 mg PO Q4H PRN PRN Reason: FEVER Last Admin: 05/22/18 20:13 Dose: 650 mg Chlorhexidine Gluconate (Hibiclens For Decolonization -) 1 applic TP HS JANICE Last Admin: 05/23/18 22:44 Dose: 1 applic Heparin Sodium (Porcine) (Heparin -) 5,000 unit SQ TID JANICE Last Admin: 05/24/18 06:19 Dose: 5,000 unit Hydralazine HCl (Apresoline Injection -) 10 mg IVPUSH Q6H PRN PRN Reason: HYPERTENSION Last Admin: 05/22/18 15:10 Dose: 10 mg Furosemide 100 mg/ Dextrose 100 mls @ 2 mls/hr IVPB TITR JANICE; Protocol Last Admin: 05/23/18 15:00 Dose: 15 mg/hr, 15 mls/hr Ceftriaxone Sodium 1 gm/ (Dextrose) 50 mls @ 100 mls/hr IVPB DAILY [facility]; Protocol Last Admin: 05/24/18 10:34 Dose: 100 mls/hr Azithromycin 500 mg/ Dextrose 250 mls @ 250 mls/hr IVPB DAILY [facility] Last Admin: 05/24/18 10:34 Dose: 250 mls/hr Insulin Aspart (Novolog Vial Sliding Scale -) 1 vial SQ Q6HPO [facility]; Protocol Last Admin: 05/24/18 06:23 Dose: 2 units Labetalol HCl (Normodyne -) 100 mg PO BID [facility] Last Admin: 05/24/18 10:33 Dose: 100 mg Mupirocin (Bactroban Ointment (For Decolonization) -) 1 applic NS BID [facility] Stop: 05/27/18 09:59 Last Admin: 05/24/18 10:38 Dose: 1 applic Pantoprazole Sodium (Protonix Packets For Oral Suspension -) 40 mg NGT BID [facility] Last Admin: 05/24/18 10:33 Dose: 40 mg 63 y/o female with a history of CHF, DM, HTN, HLD, pancreatitis, and CAD s/p 2 stents presented with shortness of breath and tachycardic. In acute kidney failure with oliguria and progressive azotemia. #CURRY (differential includes ATN from renal hypoprofusion vs pre-renal injury from CRS vs. thrombotic microangiopathy from hypertension) #Hypertensive emergency r/o WILFRID #Acute CHF Renal function stable at this time, no acute indication for [employer] continue Lasix gtt with goal of keeping pt net negative Supplement K to > 4, repeat BMP in the evening continue Labetalol for hypertension, goal BP for now < 150/100 Urine studies show low FeUrea (pre-renal) and subnephrotic proteinuria US of the kidney showed increased echogenicity consistent with CKD but no hydronephrosis Андрей Barrett DO
[2018-05-24] MEDS ORDERED: POTASSIUM CHLORIDE TABS 20 MEQ TABLET.ER (FP) PO ONE ×2 (11:33→17:15)
--- NOTE | 2018-05-24 12:55 | PN ---
Physical Exam: SUBJECTIVE: Patient seen and examined. she had no acute events overnight. she put out 1700 cc of urine and is currently on nasal canula. she said her throat is still sore and that she still feels a little rundown but she is feeling overall better and her breathing she feels is improving. OBJECTIVE: Vital Signs Period Temp Pulse Resp BP Sys/Springer Pulse Ox Last 24 Hr 98.3 F-100.4 F 74-92 18-20 123-167/61-105 96-100 GENERAL: The patient is awake, alert, and fully oriented, in no acute distress.. LUNGS: Breath sounds equal, clear to auscultation bilaterally, no wheezes, no crackles, no accessory muscle use. HEART: Regular rate and rhythm, S1, S2 without murmur, rub or gallop. ABDOMEN: Soft, nontender, nondistended, normoactive bowel sounds, no guarding, no rebound, no hepatosplenomegaly, no masses. EXTREMITIES: 2+ pulses, warm, well-perfused, no edema. NEUROLOGICAL: patient is awake alert and oriented. SKIN: Warm, dry, normal turgor, no rashes or lesions noted Laboratory Results - last 24 hr 05/22/18 05/23/18 05/23/18 07:50 17:02 21:45 WBC RBC Hgb Hct MCV MCH MCHC RDW Plt Count MPV Absolute Neuts (auto) Neutrophils % Lymphocytes % Monocytes % Eosinophils % Basophils % Nucleated RBC % Sodium Potassium Chloride Carbon Dioxide Anion Gap BUN Creatinine Creat Clearance w eGFR POC Glucometer [phone] Random Glucose Calcium Phosphorus Magnesium Total Bilirubin AST ALT Alkaline Phosphatase Creatine Kinase 108 Troponin I 0.14 H Total Protein Albumin Free T3 1.8 L Total T3 61.00 L 05/23/18 05/24/18 05/24/18 21:58 05:30 05:30 WBC 7.1 RBC 4.65 Hgb 13.8 Hct 41.0 MCV 88.1 MCH 29.7 MCHC 33.7 RDW 13.7 Plt Count 134 MPV 10.9 Absolute Neuts (auto) 5.3 Neutrophils % 74.1 D Lymphocytes % 17.9 D Monocytes % 6.8 Eosinophils % 0.5 Basophils % 0.7 Nucleated RBC % 0 Sodium 141 139 Potassium 3.6 3.4 L Chloride 99 97 L Carbon Dioxide 29 29 Anion Gap 13 13 BUN 59 H 63 H Creatinine 5.2 H 5.2 H Creat Clearance w eGFR 8.33 8.33 POC Glucometer Random Glucose 194 H 192 H Calcium 9.1 9.1 Phosphorus 6.4 H Magnesium 2.1 Total Bilirubin 0.5 0.5 AST 14 L 11 L ALT 22 20 Alkaline Phosphatase 87 D 80 Creatine Kinase Troponin I Total Protein 6.4 6.2 L Albumin 3.3 L 3.2 L Free T3 Total T3 Active Medications Generic Name Dose Route Start Last Admin Trade Name Fredaryl PRN Reason Stop Dose Admin Acetaminophen 650 mg 05/22/18 19:27 05/22/18 20:13 Tylenol - PO 650 mg Q4H PRN Administration FEVER Chlorhexidine Gluconate 1 applic 05/22/18 22:00 05/23/18 22:44 Hibiclens For Decolonization - TP 1 applic HS JANICE Administration Heparin Sodium (Porcine) 5,000 unit 05/21/18 23:00 05/24/18 06:19 Heparin - SQ 5,000 unit TID JANICE Administration Hydralazine HCl 10 mg 05/22/18 15:08 05/22/18 15:10 Apresoline Injection - IVPUSH 10 mg Q6H PRN Administration HYPERTENSION Furosemide 100 mg/ Dextrose 100 mls @ 2 mls/hr 05/22/18 14:30 05/23/18 15:00 IVPB 15 mg/hr TITR JANICE 15 mls/hr Administration Protocol 2 MG/HR Ceftriaxone Sodium 1 gm/ 50 mls @ 100 mls/hr 05/22/18 19:17 05/24/18 10:34 Dextrose IVPB 100 mls/hr DAILY [facility] Administration Protocol Azithromycin 500 mg/ Dextrose 250 mls @ 250 mls/hr 05/22/18 19:19 05/24/18 10 :34 IVPB 250 mls/hr DAILY JANICE Administration Insulin Aspart 1 vial 05/22/18 12:00 05/24/18 06:23 Novolog Vial Sliding Scale - SQ 2 units Q6HPO JANICE Administration Protocol Labetalol HCl 100 mg 05/23/18 10:00 05/24/18 10:33 Normodyne - PO 100 mg BID JANICE Administration Mupirocin 1 applic 05/22/18 10:00 05/24/18 10:38 Bactroban Ointment (For Decolonization) - NS 05/27/18 09:59 1 applic BID JANICE Administration Pantoprazole Sodium 40 mg 05/22/18 10:00 05/24/18 10:33 Protonix Packets For Oral Suspension - NGT 40 mg BID JANICE Administration ASSESSMENT/PLAN: 63 y/o female admitted for acute respiratory failure, hypertensive emergency, ATN, and acute pulmonary edema now clinically improving post extubation. Patient is currently on nasal cannula and making urine. Cardio: Hypertensive emergency -patients blood pressure has been under control with labetolol -will continue will labetolol -goal BP: systolic <150's -echo showed a reduced EF of 45-50% Respiratory: Acute hypoxic Respiratory failure -patient is currently on nasal cannula and is saturating well -continue monitoring o2 saturations Renal: ATN likely from hypoperfusion after rapid pressure decrease -patient put out 1700 cc over urine overnight -Cr still rising but responding to lasix drip -will d/c herrera depending on if lasix drip can be decreased F/E/N -monitor urine output -repeat BMP this evening K>4 -soft diet dispo: transfer to telemetry Problem List - Problems (1) Accelerated hypertension Code(s): I10 - ESSENTIAL (PRIMARY) HYPERTENSION (2) Acute kidney failure with lesion of tubular necrosis Code(s): N17.0 - ACUTE KIDNEY FAILURE WITH TUBULAR NECROSIS (3) Acute respiratory failure Code(s): J96.00 - ACUTE RESPIRATORY FAILURE, UNSP W HYPOXIA OR HYPERCAPNIA Qualifiers: Respiratory failure complication: hypoxia Qualified Code(s): J96.01 - Acute respiratory failure with hypoxia (4) Hypoxemia Code(s): R09.02 - HYPOXEMIA Visit type - Emergency Visit Emergency Visit: Yes ED Registration Date: 05/21/18 Care time: The patient presented to the Emergency Department on the above date and was hospitalized for further evaluation of their emergent condition. - New Patient This patient is new to me today: No - Critical Care Critical Care patient: Yes Total Critical Care Time (in minutes): 35 Critical Care Statement: The care of this patient involved high complexity decision making to prevent further life threatening deterioration of the patient 's condition and/or to evaluate & treat vital organ system(s) failure or risk of failure.
[2018-05-24] MEDS: FUROSEMIDE INJECTION 100 MG in DEXTROSE 5%-WATER - 90 ML IVPB SCH ×2 (13:02→14:29)
--- NOTE | 2018-05-24 13:26 | PN ---
Teaching Attending Note Name of Resident: Jillian Montano ATTENDING PHYSICIAN STATEMENT I saw and evaluated the patient. I reviewed the resident's note and discussed the case with the resident. I agree with the resident's findings and plan as documented. SUBJECTIVE: Patient seen and examined in the ICU. Extubated. Awake and alert. Some sore throat. Dry cough. Remains on IV Lasix drip. Urine out has increased from yesterday. Intake & Output 05/21/18 05/22/18 05/23/18 05/24/18 23:59 23:59 23:59 23:59 Intake Total 602 760 110 Output Total 931 269 3447 1200 Balance -900 52 -2190 -1090 Weight 174 lb 3.2 oz 174 lb 9.698 oz 167 lb 167 lb 3 oz Last Vital Signs Temp Pulse Resp BP Pulse Ox 98.3 F 74 20 141/94 100 05/24/18 10:00 05/24/18 10:00 05/24/18 10:00 05/24/18 10:00 05/24/18 10:54 Active Medications Acetaminophen (Tylenol -) 650 mg PO Q4H PRN PRN Reason: FEVER Last Admin: 05/22/18 20:13 Dose: 650 mg Chlorhexidine Gluconate (Hibiclens For Decolonization -) 1 applic TP HS JANICE Last Admin: 05/23/18 22:44 Dose: 1 applic Heparin Sodium (Porcine) (Heparin -) 5,000 unit SQ TID JANICE Last Admin: 05/24/18 13:08 Dose: 5,000 unit Hydralazine HCl (Apresoline Injection -) 10 mg IVPUSH Q6H PRN PRN Reason: HYPERTENSION Last Admin: 05/22/18 15:10 Dose: 10 mg Furosemide 100 mg/ Dextrose 100 mls @ 2 mls/hr IVPB TITR [facility]; Protocol Last Admin: 05/24/18 13:02 Dose: 15 mg/hr, 15 mls/hr Ceftriaxone Sodium 1 gm/ (Dextrose) 50 mls @ 100 mls/hr IVPB DAILY [facility]; Protocol Last Admin: 05/24/18 10:34 Dose: 100 mls/hr Azithromycin 500 mg/ Dextrose 250 mls @ 250 mls/hr IVPB DAILY [facility] Last Admin: 05/24/18 10:34 Dose: 250 mls/hr Insulin Aspart (Novolog Vial Sliding Scale -) 1 vial SQ Q6HPO [facility]; Protocol Last Admin: 05/24/18 13:06 Dose: 8 units Labetalol HCl (Normodyne -) 100 mg PO BID [facility] Last Admin: 05/24/18 10:33 Dose: 100 mg Mupirocin (Bactroban Ointment (For Decolonization) -) 1 applic NS BID [facility] Stop: 05/27/18 09:59 Last Admin: 05/24/18 10:38 Dose: 1 applic Pantoprazole Sodium (Protonix Packets For Oral Suspension -) 40 mg NGT BID [facility] Last Admin: 05/24/18 10:33 Dose: 40 mg PE: Gen: Extubated, awake and alert HEENT: PERRL PULM: bibasilar rales CV: S1S2, no murmur appreciated ABD; soft, (+) BS Ext: cool, 2+ pulses Neuro:non-focal Laboratory Results - last 24 hr 05/22/18 05/23/18 05/23/18 07:50 17:02 21:45 WBC RBC Hgb Hct MCV MCH MCHC RDW Plt Count MPV Absolute Neuts (auto) Neutrophils % Lymphocytes % Monocytes % Eosinophils % Basophils % Nucleated RBC % Sodium Potassium Chloride Carbon Dioxide Anion Gap BUN Creatinine Creat Clearance w eGFR POC Glucometer 196.14034 Random Glucose Calcium Phosphorus Magnesium Total Bilirubin AST ALT Alkaline Phosphatase Creatine Kinase 108 Troponin I 0.14 H Total Protein Albumin Free T3 1.8 L Total T3 61.00 L 05/23/18 05/24/18 05/24/18 21:58 05:30 05:30 WBC 7.1 RBC 4.65 Hgb 13.8 Hct 41.0 MCV 88.1 MCH 29.7 MCHC 33.7 RDW 13.7 Plt Count 134 MPV 10.9 Absolute Neuts (auto) 5.3 Neutrophils % 74.1 D Lymphocytes % 17.9 D Monocytes % 6.8 Eosinophils % 0.5 Basophils % 0.7 Nucleated RBC % 0 Sodium 141 139 Potassium 3.6 3.4 L Chloride 99 97 L Carbon Dioxide 29 29 Anion Gap 13 13 BUN 59 H 63 H Creatinine 5.2 H 5.2 H Creat Clearance w eGFR 8.33 8.33 POC Glucometer Random Glucose 194 H 192 H Calcium 9.1 9.1 Phosphorus 6.4 H Magnesium 2.1 Total Bilirubin 0.5 0.5 AST 14 L 11 L ALT 22 20 Alkaline Phosphatase 87 D 80 Creatine Kinase Troponin I Total Protein 6.4 6.2 L Albumin 3.3 L 3.2 L Free T3 Total T3 05/24/18 13:05 WBC RBC Hgb Hct MCV MCH MCHC RDW Plt Count MPV Absolute Neuts (auto) Neutrophils % Lymphocytes % Monocytes % Eosinophils % Basophils % Nucleated RBC % Sodium Potassium Chloride Carbon Dioxide Anion Gap BUN Creatinine Creat Clearance w eGFR POC Glucometer 310.68655 Random Glucose Calcium Phosphorus Magnesium Total Bilirubin AST ALT Alkaline Phosphatase Creatine Kinase Troponin I Total Protein Albumin Free T3 Total T3 Problem List - Problems (1) Hypoxemia Code(s): R09.02 - HYPOXEMIA (2) Respiratory failure Code(s): J96.90 - RESPIRATORY FAILURE, UNSP, UNSP W HYPOXIA OR HYPERCAPNIA (3) Lactic acidosis Code(s): E87.2 - ACIDOSIS IMP: Acute Respiratory Failure due to APE CAD Hx of PCI Diastolic dysfunction HTN DM Hypertensive emergency ARF PLAN: Continue lasix drip for now Hold on HD Close monitoring of I & O Daily weight O2 as needed PO as tolerated Cardiac Telemetry monitoring Dr Greene Critical care time spent in reviewing chart, evaluating patient and formulating plan - 36 minutes.
[2018-05-24 16:30] LABS: ANION GAP 12 (8-16); BLOOD UREA NITROGEN 71 mg/dL (7-18); CHLORIDE 90 mmol/L (98-107); CO2 32 mmol/L (21-32); CREATININE 5.4 mg/dL (0.55-1.02); GLUCOSE,RANDOM 249 mg/dL (74-106); POTASSIUM 3.2 mmol/L (3.5-5.1); SODIUM 134 mmol/L (136-145)
--- NOTE | 2018-05-24 17:04 | EKG ---
Test Reason : Blood Pressure : / mmHG Vent. Rate : 112 BPM Atrial Rate : 112 BPM P-R Int : 150 ms QRS Dur : 096 ms QT Int : 362 ms P-R-T Axes : 057 018 226 degrees QTc Int : 494 ms POOR DATA QUALITY, INTERPRETATION MAY BE ADVERSELY AFFECTED SINUS TACHYCARDIA POSSIBLE LEFT ATRIAL ENLARGEMENT LEFT VENTRICULAR HYPERTROPHY ABNORMAL ECG Confirmed by MD HARSHLA, KOLBY ([id number]) on 05/24/2018 5:04:28 PM Referred By: SALVADOR Confirmed By:KOLBY CAPUTO MD
[2018-05-24] MEDS ORDERED: FUROSEMIDE INJECTION 100 MG in DEXTROSE 5%-WATER - 90 ML IVPB SCH (17:07)
[2018-05-24] MEDS ORDERED: ACETAMINOPHEN 325 MG TABLET (FP) PO PRN (17:07)
[2018-05-24] MEDS ORDERED: hydrALAZINE HCL 20 MG/ML VIAL IVPUSH PRN (17:07)
[2018-05-24] MEDS ORDERED: INSULIN SLIDING SCALE (NOVOLOG) 1 VIAL SQ SCH (18:00)
[2018-05-24] MEDS ORDERED: PANTOPRAZOLE SOD 40 MG SUSPENSION PACKET NGT SCH (22:00)
--- NOTE | 2018-05-25 03:23 | HOSP ---
Subjective - Review of Symptoms Events since last encounter: called to see pt for bradycardia into 30s Subjective: Pt reports that she began to feel nauseas, dizzy and then vomited. Now feeling much better. No further nausea or dizziness. She denies chest pain or sob. Physical Examination Vital Signs: Vital Signs Temperature 98.7 F 05/25/18 01:49 Pulse Rate 74 05/25/18 01:49 Respiratory Rate 18 05/25/18 01:49 Blood Pressure 125/78 05/25/18 01:49 O2 Sat by Pulse Oximetry (%) 98 05/24/18 20:17 Constitutional: Yes: Calm Cardiovascular: Yes: Regular Rate and Rhythm, S1, S2 Respiratory: Yes: CTA Bilaterally Gastrointestinal: Yes: Normal Bowel Sounds, Soft. No: Tenderness Labs: CBC, BMP 05/24/18 05:30 05/24/18 15:50 ECG 05/25/18 03:47 Normal sinus rhythm vent rate 69, QTC 522 possible Left atrial enlargement LVH T wave inversions lead V3-V6, new in V3 Hospitalist Encounter Assessment: 63yF with PMH CHF, DM, HTN, HLD, pancreatitis, and CAD s/p 2 stents admitted for hypertensive emergency and CHF exac s/p intubation and extubation now with episode dizziness, N/V associated with HR into 30s. severe bradycardia - brief episode, self limiting - CBC, BMP, Mg now as K was low earlier today - will hold am dose labetalol - cardiology to follow up in am.
[2018-05-25 03:55] LABS: BASO % 1.1 % (0-2.0); HEMATOCRIT 40.6 % (32.4-45.2); HEMOGLOBIN 13.8 GM/dL (10.7-15.3); MCH 29.4 pg (25.7-33.7); MCHC 33.9 g/dl (32.0-36.0); MEAN CELL VOLUME 86.7 fl (80-96); MEAN PLT VOLUME 10.5 fl (7.5-11.1); MONO % 8.7 % (3.8-10.2); NEUT % 69.2 % (42.8-82.8); PLATELET COUNT 154 K/MM3 (134-434); RBC 4.68 M/mm3 (3.60-5.2); RDW 13.9 % (11.6-15.6); WHITE BLOOD COUNT 6.3 K/mm3 (4.0-10.0)
[2018-05-25] MEDS: HEPARIN NA (PORCINE) 5,000 UNITS/ML 1ML VIAL SQ SCH ×3 (05:27→22:21)
[2018-05-25 05:48] LABS: ANION GAP 13 (8-16); BLOOD UREA NITROGEN 77 mg/dL (7-18); CHLORIDE 94 mmol/L (98-107); CO2 30 mmol/L (21-32); CREATININE 5.3 mg/dL (0.55-1.02); GLUCOSE,RANDOM 217 mg/dL (74-106); MAGNESIUM 2.3 mg/dL (1.8-2.4); POTASSIUM 3.8 mmol/L (3.5-5.1); SODIUM 137 mmol/L (136-145)
[2018-05-25] MEDS ORDERED: INSULIN (NOVOLOG) ASPART 100 UNITS/ML 10ML VIAL ONE (06:52)
[2018-05-25] MEDS: INSULIN SLIDING SCALE (NOVOLOG) 1 VIAL SQ SCH ×4 (06:56→22:21)
[2018-05-25] MEDS ORDERED: cefTRIAXone SODIUM 1 GM VIAL ONE (09:53)
[2018-05-25] MEDS ORDERED: DEXTROSE 5%-WATER - 50 ML IVPB ONE (09:53)
[2018-05-25] MEDS: PANTOPRAZOLE 40 MG TABLET (FP) PO SCH (10:15)
--- NOTE | 2018-05-25 11:18 | EKG ---
Test Reason : Blood Pressure : / mmHG Vent. Rate : 069 BPM Atrial Rate : 069 BPM P-R Int : 156 ms QRS Dur : 098 ms QT Int : 488 ms P-R-T Axes : 040 -07 063 degrees QTc Int : 522 ms NORMAL SINUS RHYTHM POSSIBLE LEFT ATRIAL ENLARGEMENT LEFT VENTRICULAR HYPERTROPHY T WAVE ABNORMALITY, CONSIDER ANTERIOR ISCHEMIA PROLONGED QT ABNORMAL ECG WHEN COMPARED WITH ECG OF 22-MAY-2018 20:27, VENT. RATE HAS DECREASED BY [address] NO LONGER DEPRESSED IN LATERAL LEADS NONSPECIFIC T WAVE ABNORMALITY NO LONGER EVIDENT IN INFERIOR LEADS T WAVE INVERSION LESS EVIDENT IN LATERAL LEADS Confirmed by CARLOS LACY, DANGELO ([id number]) on 05/25/2018 11:18:11 AM Referred By: Confirmed By:DANGELO GONZALEZ MD
--- NOTE | 2018-05-25 12:50 | PN ---
Progress Note (short form) - Note Progress Note: s: awake, alert, complains of mild nausea. overnight had episode of severe nausea, vomiting. noted to be bradycardic on tele at that time with HR 30s. AM labetolol was held. patient tolerating PO. no cp, dyspnea tele: sinus rhythm, rate controlled, episode of sinus amos with rate 30s at 3 am Vital Signs: Vital Signs Period Temp Pulse Resp BP Sys/Springer Pulse Ox Last 24 Hr 97.8 F-98.7 F 68-87 13-20 125-158/72-100 98 Constitutional: No Distress, Other (intubated. sedated) Eyes: Conjunctiva Clear, EOM Intact HENT: Atraumatic, Normocephalic Neck: Supple Respiratory: Mechanically Ventilated Gastrointestinal: Normal Bowel Sounds, Soft Cardiovascular: Regular Rate and Rhythm, nl S1 S2, no murmur +JVD Ext: no edema Neuro: alert and oriented Assessment/Plan echo 11/2013 nl LV and RV size/function,mild MR, mild TR CXR 05/21/18: pulm edema EKG 05/21/18:sinus tachycardia, LVH with strain Echo 05/23/18 EF 45-50%, impaired relaxation, RV not well visualized, LA nl size , mild MR, mild TR 63F h/o CAD s/p NSTEMI and PCI ([place] 2013 at [facility] [place] TOM to OM1, TOM to LAD, residual 50-60% mLAD), HTN, HLD, DM, admissions for pancreatitis presenting with shortness of breath, hypertensive emergency, acute pulmonary edema and acute respiratory failure Hypertensive emergency, acute pulmonary edema - EF 45-50% on echo, 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 may be due to underlying uncontrolled HTN - BP controlled, doses of IV labetolol held - would obtain meds list from home, patient was on 3 antihypertensives but not sure which, would obtain list - Cr stable, net negative >3L 05/24 on lasix gtt - will change lasix gtt to IV bolus lasix 80 mg IV BID - I/O, standing weights, appreciate renal recs elevated troponin, CAD, history of stents - borderline elevation likely demand in setting of hypertensive emergency and CURRY, less likely ACS - continue home meds for CAD when confirmed, patient had asked to bring list however not obtained. was on statin as well but she is not sure which - restart aspirin 81 mg daily, patient tolerating PO Acute respiratory failure - improving with diuresis, on nasal canula CURRY - likely ATN, >3L negative on lasix gtt, transition to bolus dosing as above - appreciate renal recs DM - manage per ICU team
--- NOTE | 2018-05-25 13:06 | PN ---
Progress Note (short form) - Note Progress Note: Feels well on Lasix GTT no SOB family at bedside Vital Signs - 24 hr 05/24/18 05/24/18 05/25/18 20:17 22:00 01:49 Temperature 98.2 F 98.7 F Pulse Rate 73 74 Respiratory 20 18 18 Rate Blood Pressure 138/89 125/78 O2 Sat by Pulse 98 Oximetry (%) 05/25/18 05/25/18 05/25/18 03:15 06:00 09:43 Temperature 97.8 F 98 F Pulse Rate 71 69 68 Respiratory 20 20 20 Rate Blood Pressure 127/72 128/74 134/80 O2 Sat by Pulse Oximetry (%) 05/25/18 05/25/18 05/25/18 10:00 12:12 15:06 Temperature 98 F 97.6 F Pulse Rate 68 84 Respiratory 20 20 20 Rate Blood Pressure 158/98 164/107 O2 Sat by Pulse 98 Oximetry (%) 05/25/18 17:16 Temperature 97 F L Pulse Rate 67 Respiratory 20 Rate Blood Pressure 165/90 O2 Sat by Pulse Oximetry (%) Current Medications Generic Name Dose Route Start Last Admin Trade Name Freq PRN Reason Stop Dose Admin Acetaminophen 650 mg 05/24/18 17:07 05/24/18 21:09 Tylenol - PO 650 mg Q4H PRN Administration FEVER Aspirin 81 mg 05/25/18 14:15 05/25/18 15:08 Asa - PO 81 mg DAILY JANICE Administration Furosemide 80 mg 05/25/18 14:00 05/25/18 15:09 Lasix Injection - IVPB 80 mg BID@0600,1400 JANICE Administration Heparin Sodium (Porcine) 5,000 unit 05/24/18 22:00 05/25/18 15:12 Heparin - SQ 5,000 unit TID JANICE Administration Hydralazine HCl 10 mg 05/24/18 17:07 Apresoline Injection - IVPUSH Q6H PRN HYPERTENSION Azithromycin 500 mg/ Dextrose 250 mls @ 250 mls/hr 05/25/18 10:00 05/25/18 14 :06 IVPB 250 mls/hr DAILY [facility]AN[facility] Administration Ceftriaxone Sodium 1 gm/ 50 mls @ 100 mls/hr 05/25/18 10:00 05/25/18 13:21 Dextrose IVPB 100 mls/hr DAILY [facility]AN[facility] Administration Protocol Insulin Aspart 1 vial 05/24/18 22:00 05/25/18 17:26 Novolog Vial Sliding Scale - SQ 1 vial ACHS JANICE Administration Protocol Labetalol HCl 100 mg 05/24/18 22:00 05/24/18 21:09 Normodyne - PO 100 mg BID JANICE Administration Pantoprazole Sodium 40 mg 05/25/18 10:00 05/25/18 10:15 Protonix - PO 40 mg DAILY JANICE Administration Laboratory Results - last 24 hr 05/24/18 05/25/18 05/25/18 20:28 03:24 03:24 WBC 6.3 RBC 4.68 Hgb 13.8 Hct 40.6 MCV 86.7 MCH 29.4 MCHC 33.9 RDW 13.9 Plt Count 154 MPV 10.5 Absolute Neuts (auto) 4.3 Neutrophils % 69.2 Lymphocytes % 20.0 Monocytes % 8.7 Eosinophils % 1.0 D Basophils % 1.1 Nucleated RBC % 0 Sodium 137 Potassium 3.8 Chloride 94 L Carbon Dioxide 30 Anion Gap 13 BUN 77 H Creatinine 5.3 H Creat Clearance w eGFR 8.15 POC Glucometer 197 Random Glucose 217 H Calcium 9.0 Magnesium 2.3 Creatine Kinase 86 Troponin I 0.05 05/25/18 05/25/18 05/25/18 05:18 12:16 17:06 WBC RBC Hgb Hct MCV MCH MCHC RDW Plt Count MPV Absolute Neuts (auto) Neutrophils % Lymphocytes % Monocytes % Eosinophils % Basophils % Nucleated RBC % Sodium Potassium Chloride Carbon Dioxide Anion Gap BUN Creatinine Creat Clearance w eGFR POC Glucometer 232 278 313 Random Glucose Calcium Magnesium Creatine Kinase Troponin I S1 S2 RRR Lungs diminished Abd- soft, NT No edema PLAN Renal function about the same but pt is able to have good urine out put - spoke with Renal, no urgent need for dialysis at this time - she was dizzy this AM when she got up, pt will need PT eval for deconditioning - Lasix per Renal and Cardiology Problem List - Problems (1) Accelerated hypertension Code(s): I10 - ESSENTIAL (PRIMARY) HYPERTENSION (2) Acute kidney failure with lesion of tubular necrosis Code(s): N17.0 - ACUTE KIDNEY FAILURE WITH TUBULAR NECROSIS (3) Acute respiratory failure Code(s): J96.00 - ACUTE RESPIRATORY FAILURE, UNSP W HYPOXIA OR HYPERCAPNIA Qualifiers: Respiratory failure complication: hypoxia Qualified Code(s): J96.01 - Acute respiratory failure with hypoxia (4) CHF (congestive heart failure) Code(s): I50.9 - HEART FAILURE, UNSPECIFIED Qualifiers: Heart failure type: unspecified Heart failure chronicity: unspecified Qualified Code(s): I50.9 - Heart failure, unspecified (5) Hypoxemia Code(s): R09.02 - HYPOXEMIA (6) Respiratory failure Code(s): J96.90 - RESPIRATORY FAILURE, UNSP, UNSP W HYPOXIA OR HYPERCAPNIA
[2018-05-25] MEDS: CEFTRIAXONE 1 GM in DEXTROSE 5%-WATER - 50 ML IVPB SCH (13:21)
--- NOTE | 2018-05-25 13:22 | PN ---
Progress Note (short form) - Note Progress Note: Renal follow up for CURRY Pt seen and examined in Tele awake and alert no acute complaints denies any sob, cp, abd pain, n/v/d making urine in herrera Vital Signs Temperature 98 F 05/25/18 12:12 Pulse Rate 68 05/25/18 12:12 Respiratory Rate 20 05/25/18 12:12 Blood Pressure 158/98 05/25/18 12:12 O2 Sat by Pulse Oximetry (%) 98 05/24/18 20:17 Intake & Output 05/22/18 05/23/18 05/24/18 05/25/18 23:59 23:59 23:59 23:59 Intake Total 602 760 705 Output Total 550 2950 3650 400 Balance 52 -2190 -2945 -400 Weight 79.2 kg 75.75 kg 75.835 kg NAD Neck supple RRR, No M/R + rales right lung soft NT/ND No LE edema herrera in place CBC, BMP 05/25/18 03:24 05/25/18 03:24 Current Medications Acetaminophen (Tylenol -) 650 mg PO Q4H PRN PRN Reason: FEVER Last Admin: 05/24/18 21:09 Dose: 650 mg Aspirin (Asa -) 81 mg PO DAILY [facility] Furosemide (Lasix Injection -) 80 mg IVPB BID@0600,1400 [facility] Heparin Sodium (Porcine) (Heparin -) 5,000 unit SQ TID [facility] Last Admin: 05/25/18 05:27 Dose: 5,000 unit Hydralazine HCl (Apresoline Injection -) 10 mg IVPUSH Q6H PRN PRN Reason: HYPERTENSION Azithromycin 500 mg/ Dextrose 250 mls @ 250 mls/hr IVPB DAILY [facility] Ceftriaxone Sodium 1 gm/ (Dextrose) 50 mls @ 100 mls/hr IVPB DAILY [facility]; Protocol Insulin Aspart (Novolog Vial Sliding Scale -) 1 vial SQ ACHS [facility]; Protocol Last Admin: 05/25/18 06:56 Dose: 4 units Labetalol HCl (Normodyne -) 100 mg PO BID [facility] Last Admin: 05/24/18 21:09 Dose: 100 mg Pantoprazole Sodium (Protonix -) 40 mg PO DAILY [facility] Last Admin: 05/25/18 10:15 Dose: 40 mg 63 y/o female with a history of CHF, DM, HTN, HLD, pancreatitis, and CAD s/p 2 stents presented with shortness of breath and tachycardic. In acute kidney failure with oliguria and progressive azotemia. #CURRY (differential includes ATN from renal hypoprofusion vs pre-renal injury from CRS vs. 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
[2018-05-25] MEDS: AZITHROMYCIN IVPB 500 MG in DEXTROSE 5%-WATER - 250 ML IVPB SCH (14:06)
--- NOTE | 2018-05-25 14:07 | PN ---
Progress Note, Physician History of Present Illness: pulmonary alert,no distress,-sob,-cp - Current Medication List Current Medications: Active Medications Acetaminophen (Tylenol -) 650 mg PO Q4H PRN PRN Reason: FEVER Last Admin: 05/24/18 21:09 Dose: 650 mg Aspirin (Asa -) 81 mg PO DAILY [facility] Furosemide (Lasix Injection -) 80 mg IVPB BID@0600,1400 [facility] Heparin Sodium (Porcine) (Heparin -) 5,000 unit SQ TID [facility] Last Admin: 05/25/18 05:27 Dose: 5,000 unit Hydralazine HCl (Apresoline Injection -) 10 mg IVPUSH Q6H PRN PRN Reason: HYPERTENSION Azithromycin 500 mg/ Dextrose 250 mls @ 250 mls/hr IVPB DAILY [facility] Ceftriaxone Sodium 1 gm/ (Dextrose) 50 mls @ 100 mls/hr IVPB DAILY [facility]; Protocol Last Admin: 05/25/18 13:21 Dose: 100 mls/hr Insulin Aspart (Novolog Vial Sliding Scale -) 1 vial SQ ACHS [facility]; Protocol Last Admin: 05/25/18 06:56 Dose: 4 units Labetalol HCl (Normodyne -) 100 mg PO BID [facility] Last Admin: 05/24/18 21:09 Dose: 100 mg Pantoprazole Sodium (Protonix -) 40 mg PO DAILY [facility] Last Admin: 05/25/18 10:15 Dose: 40 mg - Objective Vital Signs: Vital Signs Temperature 98 F 05/25/18 12:12 Pulse Rate 68 05/25/18 12:12 Respiratory Rate 20 05/25/18 12:12 Blood Pressure 158/98 05/25/18 12:12 O2 Sat by Pulse Oximetry (%) 98 05/24/18 20:17 Constitutional: Yes: Well Nourished, Calm Eyes: Yes: WNL HENT: Yes: WNL Neck: Yes: WNL Cardiovascular: Yes: Regular Rate and Rhythm, S1, S2 Respiratory: Yes: Rales (few bibasilar rales) Gastrointestinal: Yes: Normal Bowel Sounds, Soft Extremities: Yes: WNL Edema: No Labs: CBC, BMP 05/25/18 03:24 05/25/18 03:24 INR, PTT INR 1.12 (0.82-1.09) 05/21/18 19:37 Problem List - Problems (1) Acute on chronic kidney failure Code(s): N17.9 - ACUTE KIDNEY FAILURE, UNSPECIFIED; N18.9 - CHRONIC KIDNEY DISEASE, UNSPECIFIED (2) Acute pulmonary edema Code(s): J81.0 - ACUTE PULMONARY EDEMA (3) Acute respiratory failure Code(s): J96.00 - ACUTE RESPIRATORY FAILURE, UNSP W HYPOXIA OR HYPERCAPNIA Qualifiers: Respiratory failure complication: hypoxia Qualified Code(s): J96.01 - Acute respiratory failure with hypoxia (4) HTN (hypertension) Code(s): I10 - ESSENTIAL (PRIMARY) HYPERTENSION Assessment/Plan Problem List - Problems (1) Hypoxemia Code(s): R09.02 - HYPOXEMIA (2) Respiratory failure Code(s): J96.90 - RESPIRATORY FAILURE, UNSP, UNSP W HYPOXIA OR HYPERCAPNIA (3) Lactic acidosis Code(s): E87.2 - ACIDOSIS IMP: Acute Respiratory Failure due to APE improved CAD Hx of PCI Diastolic dysfunction HTN DM Hypertensive emergency ARF PLAN: IV lasix Close monitoring of I & O Daily weight O2 as needed DR GREEN
[2018-05-25] MEDS: ASPIRIN 81 MG CHEWABLE TABLETS PO SCH (15:08)
[2018-05-25] MEDS: FUROSEMIDE 100 MG/10 ML INJECTABLE VIAL IVPB SCH (15:09)
[2018-05-25] MEDS: LABETALOL HCL 100 MG TABLET (FP) PO SCH (22:21)
[2018-05-26] MEDS: HEPARIN NA (PORCINE) 5,000 UNITS/ML 1ML VIAL SQ SCH ×3 (06:28→21:23)
[2018-05-26] MEDS: FUROSEMIDE 100 MG/10 ML INJECTABLE VIAL IVPB SCH ×2 (06:28→14:22)
[2018-05-26] MEDS: INSULIN SLIDING SCALE (NOVOLOG) 1 VIAL SQ SCH ×4 (06:30→21:23)
[2018-05-26] MEDS ORDERED: INSULIN (NOVOLOG) ASPART 100 UNITS/ML 10ML VIAL ONE ×2 (07:01→21:11)
[2018-05-26 07:04] LABS: ANION GAP 13 (8-16); BLOOD UREA NITROGEN 88 mg/dL (7-18); CALCIUM 9.5 mg/dL (8.5-10.1); CHLORIDE 90 mmol/L (98-107); CO2 33 mmol/L (21-32); CREATININE 4.9 mg/dL (0.55-1.02); GLUCOSE,RANDOM 204 mg/dL (74-106); MAGNESIUM 2.6 mg/dL (1.8-2.4); POTASSIUM 3.4 mmol/L (3.5-5.1); SODIUM 136 mmol/L (136-145)
[2018-05-26] MEDS ORDERED: ONDANSETRON 4 MG/2 ML VIAL IVPUSH ONE (09:30)
--- NOTE | 2018-05-26 09:32 | RAPID ---
Physical Examination Vital Signs: Vital Signs Temperature 98.6 F 05/26/18 06:49 Pulse Rate 68 05/26/18 06:49 Respiratory Rate 19 05/26/18 06:49 Blood Pressure 121/76 05/26/18 06:49 O2 Sat by Pulse Oximetry (%) 97 05/25/18 22:00 Rapid response called at 09:22. Patient presents in respiratory distress while eating her breakfast. Initial vital signs of 125/80 (MAP 89), HR 63, O2 93% on room air. Patient had frothy secretions and was suctioned. Repeat vitals were 124/84 (MAP 98), HR 72, 97% on RA. Patient began talking minimally; she was nauseous and felt she choked on something. Denied chest pain. General: Lethargic, in respiratory distress, Diaphoretic Heart: RRR, S1 S2 Lungs: Poor effort, No crackles Abdomen: No Tenderness to palpation Neuro: No focal deficits Ordered Stat CXR, EKG Vitals [id number] Zofran 4mg IV Speech and swallow consult NPO Dr. Mary Flowers alerted by Dr. Branham Labs: CBC, BMP 05/25/18 03:24 05/26/18 06:00
[2018-05-26] MEDS ORDERED: ATROPINE SO4 0.4 MG/1 ML VIAL IVPUSH PRN (09:36)
--- NOTE | 2018-05-26 10:31 | CONSULT ---
Admitting History and Physical - Primary Care Physician PCP: Margo Lou - Admission History of Present Illness: 63yF with PMH CHF, DM, HTN, HLD, pancreatitis, and CAD s/p 2 stents admitted for hypertensive emergency and CHF exac s/p intubated 05/21. Extubated 05/24. Started on soft diet/thin liquid 05/24 with signs of dysphagia reported or observed by staff. Pt reported difficulty with solids "not going down" so she avoided them. She denied coughing while eating/drinking but "some afterwards." Increased phlegm production, expectorating copious amounts intermittently,per nursing. . RR this am, unresponsive to nursing. Improved. Selected Entries 05/24/18 05/24/18 05/24/18 08:54 13:08 19:25 Breakfast Lunch NPO 50% Supper 50% Temperature 05/25/18 05/25/18 05/25/18 01:49 06:00 09:43 Breakfast Lunch Supper Temperature 98.7 F 97.8 F 98 F 05/25/18 05/25/18 05/25/18 12:12 14:00 15:06 Breakfast 75% Lunch 100% Supper Temperature 98 F 97.6 F 05/25/18 05/25/18 05/26/18 17:16 21:00 02:00 Breakfast Lunch Supper Temperature 97 F L 98.2 F 99.1 F 05/26/18 06:49 Breakfast Lunch Supper Temperature 98.6 F Laboratory Tests 05/25/18 03:24 WBC 6.3 cxr pending. Seen bedside. Verbal, occasionally slow to respond. O x 3. Good historian. Mild dysphonia. Pt reported nausea with exertion, when she sat up on her own. Pt reports feeling nauseated since extubation. History Source: Patient, Medical Record Limitations to Obtaining History: No Limitations, Clinical Condition - Past Medical History Cardiovascular: Yes: CAD (s/p stent x 2), HTN, Hyperlipdemia Gastrointestinal: Yes: Other (N/V DESCRIBED. 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 History of Recent Travel: No History - Admission Reason For Visit: ACUTE RESPIRATORY FAILURE, CONGESTIVE HEART FAILUR - Diagnostics X-ray: Pending - General Mental Status: Alert and Oriented, Awake and Alert, Able to Follow Commands Attention: Intact Ability to Follow Directions: Good Head/Neck Control: WFL - Hearing Hearing: Functional Speech Evaluation - Communication Primary Language: GHANAIAN Oral Expression Ability: Yes: Mild Impairment - Speech Production Able to Make Needs Known: Yes: WNL Intelligibility: Yes: Mildly Impaired - Speech Characteristics Voice Loudness: Mildly Soft/Quiet Voice Pitch: Yes: Normal Voice Phonatory-based Quality: Yes: Dysphonia (mild) Nasal Resonance: Normal Articulation: Yes: Precise - Language/Auditory Comprehension Follows: Yes: 2 Stage Simple Commands - Language/Verbal Expression Able to Communicate Wants and Needs: Yes: WNL Functional Communication Status: Yes: Mildly Impaired (occasionally distracted with anomia) - Swallow Evaluation/Bedside Assessment Current Nutritional Intake: NPO Dentition: Yes: Edentulous (has dentures, not in) Facial Symmetry at Rest: Symmetrical Facial Symmetry on Retraction: Symmetrical Facial Movement: Controlled Against Resistance Opening: Normal Against Resistance Closing: Normal Pucker Lips: Normal Smile: Normal Lingual Movement: Normal, Symmetric Lingual Speed of Movement: Normal Lingual Movement Strgth Against Opposition: Reduced Lingual Movement Characteristics: Normal Laryngeal Movement: Reduced Excursion, Labored,delay initiation Rate of Intake: WFL Bolus Size: WFL Labial Seal: WFL Oral Prep Time: WFL A-P Transit: WFL Pocketing: None Timing of Swallow: Delayed Coughing/Throat Clear: No Change in Voice: No Recommendations - Speech Evaluation, Impression/Plan Impression: This morning,. c/o stasis with solids yesterday. cereal "game back up" with sudden nausea, feeling cold, brought up copiuos food/phlegm. Pt less responsive/RR called. Pt much improved now. However, c/o nausea upon exertion. PMD made aware. Mild dysphonia. Pt is at increased risk of aspiration following extubation. Pt's voice was weak/dysphonic but she reports it has improved today. CXR pending. - Dysphagia Impressions/Plan Dysphagia Impressions: Risk of Aspiration (risk of stasis.), Ongoing Evaluation *Silent aspiration: cannot be R/O at bedside Dysphagia Treatment Plan: Small Bites, Safe Rate, 1/2 tsp. at a time, Elevate HOB during feed, Other (alternate puree/liquid. Supervision with meals. NPO if any reports of dysphagia,throat clearing, cough, vocal wetness) Recommendations: Modified Barium Swallow (once medically stable.) - Recommendations Diet Consistency: Dysphagia Pureed Medication Administration: Crushed with applesauce Liquids: [place] Thick
--- NOTE | 2018-05-26 11:35 | PN ---
Progress Note (short form) - Note Progress Note: s/p rapid response- unsure if she aspirated, cardiac event no SOB 2 Vital Signs - 24 hr 05/25/18 05/25/18 05/25/18 12:12 15:06 17:16 Temperature 98 F 97.6 F 97 F L Pulse Rate 68 84 67 Respiratory 20 20 20 Rate Blood Pressure 158/98 164/107 165/90 O2 Sat by Pulse Oximetry (%) 05/25/18 05/25/18 05/26/18 21:00 22:00 02:00 Temperature 98.2 F 99.1 F Pulse Rate 73 73 Respiratory 19 20 Rate Blood Pressure 138/83 105/73 O2 Sat by Pulse 97 Oximetry (%) 05/26/18 06:49 Temperature 98.6 F Pulse Rate 68 Respiratory 19 Rate Blood Pressure 121/76 O2 Sat by Pulse Oximetry (%) Current Medications Generic Name Dose Route Start Last Admin Trade Name Freq PRN Reason Stop Dose Admin Acetaminophen 650 mg 05/24/18 17:07 05/24/18 21:09 Tylenol - PO 650 mg Q4H PRN Administration FEVER Aspirin 81 mg 05/25/18 14:15 05/25/18 15:08 Asa - PO 81 mg DAILY [facility] Administration Atropine Sulfate 0.4 mg 05/26/18 09:36 Atropine Injection - IVPUSH ONCE PRN MAP<65mm Hg OR SBP <90 Furosemide 80 mg 05/25/18 14:00 05/26/18 06:28 Lasix Injection - IVPB 80 mg BID@0600,1400 [facility] Administration Heparin Sodium (Porcine) 5,000 unit 05/24/18 22:00 05/26/18 06:28 Heparin - SQ 5,000 unit TID [facility] Administration Hydralazine HCl 10 mg 05/24/18 17:07 Apresoline Injection - IVPUSH Q6H PRN HYPERTENSION Azithromycin 500 mg/ Dextrose 250 mls @ 250 mls/hr 05/25/18 10:00 05/25/18 14 :06 IVPB 250 mls/hr DAILY [facility] Administration Ceftriaxone Sodium 1 gm/ 50 mls @ 100 mls/hr 05/25/18 10:00 05/25/18 13:21 Dextrose IVPB 100 mls/hr DAILY [facility] Administration Protocol Insulin Aspart 1 vial 05/24/18 22:00 05/26/18 06:30 Novolog Vial Sliding Scale - SQ 1 vial ACHS [facility] Administration Protocol Labetalol HCl 100 mg 05/24/18 22:00 05/25/18 22:21 Normodyne - PO 100 mg BID [facility] Administration Pantoprazole Sodium 40 mg 05/25/18 10:00 05/25/18 10:15 Protonix - PO 40 mg DAILY [facility] Administration Laboratory Results - last 24 hr 05/25/18 05/25/18 05/25/18 12:16 17:06 20:57 Sodium Potassium Chloride Carbon Dioxide Anion Gap BUN Creatinine Creat Clearance w eGFR POC Glucometer 278 313 241 Random Glucose Calcium Phosphorus Magnesium Creatine Kinase Troponin I 05/26/18 05/26/18 05/26/18 06:00 06:27 10:35 Sodium 136 Potassium 3.4 L Chloride 90 L Carbon Dioxide 33 H Anion Gap 13 BUN 88 H Creatinine 4.9 H Creat Clearance w eGFR 8.92 POC Glucometer 313 Random Glucose 204 H Calcium 9.5 Phosphorus 7.0 H Magnesium 2.6 H Creatine Kinase 68 Troponin I 0.03 S1 S2 RRR Lungs diminished Abd- soft, NT No edema voice is raspy Throat- no pharyngeal congestion PLAN s/p rapid response Renal function improving -unsure if she aspirated - cardiac enzyme negative - EKG-- shows deeper T wave inversions - spoke with Renal, no urgent need for dialysis at this time CXR noted - on antibiotics on lasix BID - Lasix per Renal and Cardiology Problem List - Problems (1) Accelerated hypertension Code(s): I10 - ESSENTIAL (PRIMARY) HYPERTENSION (2) Acute kidney failure with lesion of tubular necrosis Code(s): N17.0 - ACUTE KIDNEY FAILURE WITH TUBULAR NECROSIS (3) Acute respiratory failure Code(s): J96.00 - ACUTE RESPIRATORY FAILURE, UNSP W HYPOXIA OR HYPERCAPNIA Qualifiers: Respiratory failure complication: hypoxia Qualified Code(s): J96.01 - Acute respiratory failure with hypoxia (4) CHF (congestive heart failure) Code(s): I50.9 - HEART FAILURE, UNSPECIFIED Qualifiers: Heart failure type: unspecified Heart failure chronicity: unspecified Qualified Code(s): I50.9 - Heart failure, unspecified (5) Hypoxemia Code(s): R09.02 - HYPOXEMIA (6) Respiratory failure Code(s): J96.90 - RESPIRATORY FAILURE, UNSP, UNSP W HYPOXIA OR HYPERCAPNIA
[2018-05-26] MEDS ORDERED: cefTRIAXone SODIUM 1 GM VIAL ONE (11:47)
[2018-05-26] MEDS ORDERED: DEXTROSE 5%-WATER - 50 ML IVPB ONE (11:47)
--- NOTE | 2018-05-26 11:47 | PN ---
Progress Note (short form) - Note Progress Note: s: no cp sob palps dizzy Vital Signs: Vital Signs Period Temp Pulse Resp BP Sys/Springer Pulse Ox Last 24 Hr 97 F-99.1 F 67-84 19-20 105-165/73-107 97 nad no jvd rrr s1s2 no mrg cta nl nl eff aaox3 no le e/c/c abd nt nd pos bs no jaundice diaphoresis Current Medications Generic Name Dose Route Start Last Admin Trade Name Freq PRN Reason Stop Dose Admin Acetaminophen 650 mg 05/24/18 17:07 05/24/18 21:09 Tylenol - PO 650 mg Q4H PRN Administration FEVER Aspirin 81 mg 05/25/18 14:15 05/25/18 15:08 Asa - PO 81 mg DAILY [facility] Administration Atropine Sulfate 0.4 mg 05/26/18 09:36 Atropine Injection - IVPUSH ONCE PRN MAP<65mm Hg OR SBP <90 Furosemide 80 mg 05/25/18 14:00 05/26/18 06:28 Lasix Injection - IVPB 80 mg BID@0600,1400 [facility] Administration Heparin Sodium (Porcine) 5,000 unit 05/24/18 22:00 05/26/18 06:28 Heparin - SQ 5,000 unit TID [facility] Administration Hydralazine HCl 10 mg 05/24/18 17:07 Apresoline Injection - IVPUSH Q6H PRN HYPERTENSION Hydralazine HCl 10 mg 05/26/18 22:00 Apresoline - PO BID [facility] Azithromycin 500 mg/ Dextrose 250 mls @ 250 mls/hr 05/25/18 10:00 05/25/18 14 :06 IVPB 250 mls/hr DAILY [facility] Administration Ceftriaxone Sodium 1 gm/ 50 mls @ 100 mls/hr 05/25/18 10:00 05/25/18 13:21 Dextrose IVPB 100 mls/hr DAILY [facility] Administration Protocol Insulin Aspart 1 vial 05/24/18 22:00 05/26/18 06:30 Novolog Vial Sliding Scale - SQ 1 vial ACHS [facility] Administration Protocol Pantoprazole Sodium 40 mg 05/25/18 10:00 05/25/18 10:15 Protonix - PO 40 mg DAILY [facility] Administration CBC, BMP 05/25/18 03:24 05/26/18 06:00 Assessment/Plan echo 11/2013 nl LV and RV size/function,mild MR, mild TR CXR 05/21/18: pulm edema EKG 05/21/18:sinus tachycardia, LVH with strain Echo 05/23/18 EF 45-50%, impaired relaxation, RV not well visualized, LA nl size , mild MR, mild TR tele: sr, 4-5 second pause this am. sb during sleep 63F h/o CAD s/p NSTEMI and PCI (in 2013 at [facility] [place], TOM to OM1, TOM to LAD, residual 50-60% mLAD), HTN, HLD, DM, admissions for pancreatitis presenting with shortness of breath, hypertensive emergency, acute pulmonary edema and acute respiratory failure Hypertensive emergency, acute pulmonary edema - EF 45-50% on echo, 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 may be due to underlying uncontrolled HTN - BP controlled now. Will dc bb as she has episodes of bradycardia. Start hydralazine instead. - cont iv lasix, cr improving, vol status improving - daily wts, chem7 elevated troponin, CAD, history of stents - borderline elevation likely demand in setting of hypertensive emergency and CURRY, less likely ACS - continue home meds for CAD when confirmed, patient had asked to bring list however not obtained. was on statin as well but she is not sure which - aspirin 81 mg daily Acute respiratory failure - improving with diuresis CURRY - likely ATN, improving - appreciate renal recs
[2018-05-26] MEDS: CEFTRIAXONE 1 GM in DEXTROSE 5%-WATER - 50 ML IVPB SCH (12:11)
[2018-05-26] MEDS: ASPIRIN 81 MG CHEWABLE TABLETS PO SCH (12:12)
[2018-05-26] MEDS: AZITHROMYCIN IVPB 500 MG in DEXTROSE 5%-WATER - 250 ML IVPB SCH (12:12)
[2018-05-26] MEDS: PANTOPRAZOLE 40 MG TABLET (FP) PO SCH (12:17)
--- NOTE | 2018-05-26 12:46 | EKG ---
Test Reason : Blood Pressure : / mmHG Vent. Rate : 061 BPM Atrial Rate : 061 BPM P-R Int : 164 ms QRS Dur : 100 ms QT Int : 490 ms P-R-T Axes : 031 -07 074 degrees QTc Int : 493 ms NORMAL SINUS RHYTHM POSSIBLE LEFT ATRIAL ENLARGEMENT LEFT VENTRICULAR HYPERTROPHY T WAVE ABNORMALITY, CONSIDER ANTEROLATERAL ISCHEMIA PROLONGED QT ABNORMAL ECG WHEN COMPARED WITH ECG OF 25-MAY-2018 03:47, T WAVE INVERSION MORE EVIDENT IN LATERAL LEADS Confirmed by NONA CHAVARRIA MD ([id number]) on 05/26/2018 12:45:20 PM Referred By: SHAKIRA ELKINS Confirmed By:NONA CHAVARRIA MD
--- NOTE | 2018-05-26 13:18 | PN ---
Progress Note (short form) - Note Progress Note: PULMONARY States breathing is improving. +nonproductive cough. Vital Signs Period Temp Pulse Resp BP Sys/Springer Pulse Ox Last 24 Hr 97 F-99.1 F 67-84 19-20 105-165/73-107 97 Gen: NAD at rest Heart: RRR Lung: decreased breath sounds at the bases Abd: soft, nontender Ext: no edema CBC, BMP 05/25/18 03:24 05/26/18 06:00 Active Medications Acetaminophen (Tylenol -) 650 mg PO Q4H PRN PRN Reason: FEVER Last Admin: 05/24/18 21:09 Dose: 650 mg Aspirin (Asa -) 81 mg PO DAILY [facility] Last Admin: 05/26/18 12:12 Dose: 81 mg Atropine Sulfate (Atropine Injection -) 0.4 mg IVPUSH ONCE PRN PRN Reason: MAP<65mm Hg OR SBP <90 Furosemide (Lasix Injection -) 80 mg IVPB BID@0600,1400 [facility] Last Admin: 05/26/18 06:28 Dose: 80 mg Heparin Sodium (Porcine) (Heparin -) 5,000 unit SQ TID [facility] Last Admin: 05/26/18 06:28 Dose: 5,000 unit Hydralazine HCl (Apresoline Injection -) 10 mg IVPUSH Q6H PRN PRN Reason: HYPERTENSION Hydralazine HCl (Apresoline -) 10 mg PO BID [facility] Azithromycin 500 mg/ Dextrose 250 mls @ 250 mls/hr IVPB DAILY [facility] Last Admin: 05/26/18 12:12 Dose: 250 mls/hr Ceftriaxone Sodium 1 gm/ (Dextrose) 50 mls @ 100 mls/hr IVPB DAILY [facility]; Protocol Last Admin: 05/26/18 12:11 Dose: 100 mls/hr Insulin Aspart (Novolog Vial Sliding Scale -) 1 vial SQ ACHS [facility]; Protocol Last Admin: 05/26/18 12:35 Dose: 1 vial Pantoprazole Sodium (Protonix -) 40 mg PO DAILY [facility] Last Admin: 05/26/18 12:17 Dose: 40 mg A/P Acute Pulmonary Edema Acute on Chronic Systolic/Diastolic Heart Failure HTN +Troponins likely Demand Ischemia Acute Kidney Injury - continue lasix - monitor urine output, creatinine - daily weights - on empiric antibiotics - DVT prophylaxis
--- NOTE | 2018-05-26 17:25 | PN ---
Progress Note (short form) - Note Progress Note: Renal follow up for CURRY Pt seen and examined in Tele awake and alert feels better no sob, chest pain, abd pain, N/V Vital Signs Temperature 97.7 F 05/26/18 14:00 Pulse Rate 74 05/26/18 14:00 Respiratory Rate 18 05/26/18 14:00 Blood Pressure 136/83 05/26/18 14:00 O2 Sat by Pulse Oximetry (%) 97 05/25/18 22:00 Intake & Output 05/23/18 05/24/18 05/25/18 05/26/18 23:59 23:59 23:59 23:59 Intake Total 760 705 120 Output Total 2950 3650 1550 1150 Balance -2190 -2945 -1430 -1150 Weight 75.75 kg 75.835 kg 70.987 kg NAD Neck supple RRR, No M/R + rales right lung soft NT/ND No LE edema herrera in place CBC, BMP 05/25/18 03:24 05/26/18 06:00 Current Medications Acetaminophen (Tylenol -) 650 mg PO Q4H PRN PRN Reason: FEVER Last Admin: 05/24/18 21:09 Dose: 650 mg Aspirin (Asa -) 81 mg PO DAILY [facility] Last Admin: 05/26/18 12:12 Dose: 81 mg Atropine Sulfate (Atropine Injection -) 0.4 mg IVPUSH ONCE PRN PRN Reason: MAP<65mm Hg OR SBP <90 Furosemide (Lasix Injection -) 80 mg IVPB BID@0600,1400 [facility] Last Admin: 05/26/18 14:22 Dose: 80 mg Heparin Sodium (Porcine) (Heparin -) 5,000 unit SQ TID [facility] Last Admin: 05/26/18 14:21 Dose: 5,000 unit Hydralazine HCl (Apresoline Injection -) 10 mg IVPUSH Q6H PRN PRN Reason: HYPERTENSION Hydralazine HCl (Apresoline -) 10 mg PO BID [facility] Azithromycin 500 mg/ Dextrose 250 mls @ 250 mls/hr IVPB DAILY [facility] Last Admin: 05/26/18 12:12 Dose: 250 mls/hr Ceftriaxone Sodium 1 gm/ (Dextrose) 50 mls @ 100 mls/hr IVPB DAILY [facility]; Protocol Last Admin: 05/26/18 12:11 Dose: 100 mls/hr Insulin Aspart (Novolog Vial Sliding Scale -) 1 vial SQ ACHS [facility]; Protocol Last Admin: 05/26/18 12:35 Dose: 1 vial Pantoprazole Sodium (Protonix -) 40 mg PO DAILY [facility] Last Admin: 05/26/18 12:17 Dose: 40 mg 63 y/o female with a history of CHF, DM, HTN, HLD, pancreatitis, and CAD s/p 2 stents presented with shortness of breath and tachycardic. In acute kidney failure with oliguria and progressive azotemia. #CURRY (differential includes ATN from renal hypoprofusion vs pre-renal injury from CRS vs. thrombotic microangiopathy from hypertension) #Hypertensive emergency r/o WILFRID #Acute CHF Renal function stable, mild improvement Urine studies show low FeUrea (pre-renal) and subnephrotic proteinuria US of the kidney showed increased echogenicity consistent with CKD but no hydronephrosis no indication for [employer] at this time continue Lasix for now repeat CXR in the morning supplement K to > 3.5 Андрей Barrett DO
[2018-05-26] MEDS ORDERED: POTASSIUM CHLORIDE TABS 10 MEQ TABLET.ER (FP) PO ONE (17:30)
[2018-05-26] MEDS: hydrALAZINE HCL 10 MG TABLET PO SCH (21:23)
[2018-05-27] MEDS: HEPARIN NA (PORCINE) 5,000 UNITS/ML 1ML VIAL SQ SCH ×3 (06:10→21:31)
[2018-05-27] MEDS: FUROSEMIDE 100 MG/10 ML INJECTABLE VIAL IVPB SCH (06:11)
[2018-05-27] MEDS: INSULIN SLIDING SCALE (NOVOLOG) 1 VIAL SQ SCH ×4 (06:13→21:32)
[2018-05-27 06:37] LABS: BASO % 0.9 % (0-2.0); EOS % 1.8 % (0-4.5); HEMATOCRIT 41.9 % (32.4-45.2); HEMOGLOBIN 14.4 GM/dL (10.7-15.3); MCH 29.8 pg (25.7-33.7); MCHC 34.5 g/dl (32.0-36.0); MEAN CELL VOLUME 86.5 fl (80-96); MEAN PLT VOLUME 10.7 fl (7.5-11.1); MONO % 10.4 % (3.8-10.2); NEUT % 51.9 % (42.8-82.8); PLATELET COUNT 141 K/MM3 (134-434); RBC 4.84 M/mm3 (3.60-5.2); RDW 13.7 % (11.6-15.6); WHITE BLOOD COUNT 4.8 K/mm3 (4.0-10.0)
[2018-05-27 06:58] LABS: ANION GAP 10 (8-16); BLOOD UREA NITROGEN 93 mg/dL (7-18); CALCIUM 9.7 mg/dL (8.5-10.1); CHLORIDE 88 mmol/L (98-107); CO2 35 mmol/L (21-32); GLUCOSE,RANDOM 197 mg/dL (74-106); MAGNESIUM 2.5 mg/dL (1.8-2.4); PHOSPHOROUS 6.8 mg/dL (2.5-4.9); POTASSIUM 3.2 mmol/L (3.5-5.1); SODIUM 133 mmol/L (136-145)
[2018-05-27] MEDS ORDERED: cefTRIAXone SODIUM 1 GM VIAL ONE (10:07)
[2018-05-27] MEDS ORDERED: DEXTROSE 5%-WATER - 50 ML IVPB ONE (10:07)
[2018-05-27] MEDS ORDERED: PT OWN MED DRAWER 7, Y5N ONE (10:10)
[2018-05-27] MEDS: hydrALAZINE HCL 10 MG TABLET PO SCH ×2 (10:18→21:31)
[2018-05-27] MEDS: ASPIRIN 81 MG CHEWABLE TABLETS PO SCH (10:18)
[2018-05-27] MEDS: CEFTRIAXONE 1 GM in DEXTROSE 5%-WATER - 50 ML IVPB SCH (10:18)
[2018-05-27] MEDS: PANTOPRAZOLE 40 MG TABLET (FP) PO SCH (10:18)
--- NOTE | 2018-05-27 11:22 | PN ---
Progress Note (short form) - Note Progress Note: patient seen and examined. Chart reviewed. Comfortable Feels better alert and awake Passing urine Denies chest pain or shortness of breath Denies abdominal pain Afebrile Vital Signs Temp 98 F 05/27/18 10:00 Pulse 74 05/27/18 10:00 Resp 20 05/27/18 10:00 BP 119/82 05/27/18 10:00 Pulse Ox 97 05/26/18 22:00 Intake & Output 05/26/18 05/26/18 05/27/18 11:59 23:59 11:59 Intake Total 200 Output Total 450 1300 200 Balance -450 -1300 0 Weight 156 lb 8 oz 155 lb 3.2 oz Intake: IVPB 50 Oral 150 Output: Urine 450 1300 200 Winn 450 1300 200 Other: Voiding Method Indwelling Catheter Indwelling Catheter Indwelling Catheter Bowel Movement No No Weight Measurement Method Standing Scale Active Medications Acetaminophen (Tylenol -) 650 mg PO Q4H PRN PRN Reason: FEVER Last Admin: 05/24/18 21:09 Dose: 650 mg Aspirin (Asa -) 81 mg PO DAILY [facility] Last Admin: 05/27/18 10:18 Dose: 81 mg Atropine Sulfate (Atropine Injection -) 0.4 mg IVPUSH ONCE PRN PRN Reason: MAP<65mm Hg OR SBP <90 Furosemide (Lasix Injection -) 80 mg IVPB BID@0600,1400 [facility] Last Admin: 05/27/18 06:11 Dose: 80 mg Heparin Sodium (Porcine) (Heparin -) 5,000 unit SQ TID [facility] Last Admin: 05/27/18 06:10 Dose: 5,000 unit Hydralazine HCl (Apresoline Injection -) 10 mg IVPUSH Q6H PRN PRN Reason: HYPERTENSION Hydralazine HCl (Apresoline -) 10 mg PO BID [facility] Last Admin: 05/27/18 10:18 Dose: 10 mg Azithromycin 500 mg/ Dextrose 250 mls @ 250 mls/hr IVPB DAILY [facility] Last Admin: 05/26/18 12:12 Dose: 250 mls/hr Ceftriaxone Sodium 1 gm/ (Dextrose) 50 mls @ 100 mls/hr IVPB DAILY [facility]; Protocol Last Admin: 05/27/18 10:18 Dose: 100 mls/hr Insulin Aspart (Novolog Vial Sliding Scale -) 1 vial SQ ACHS [facility]; Protocol Last Admin: 05/27/18 06:13 Dose: 4 units Insulin Detemir (Levemir Vial) 10 units SQ HS [facility] Pantoprazole Sodium (Protonix -) 40 mg PO DAILY [facility] Last Admin: 05/27/18 10:18 Dose: 40 mg Potassium Chloride (K-Dur -) 40 meq PO Q2H [facility] Stop: 05/27/18 12:48 CBC, BMP 05/27/18 05:35 05/27/18 05:35 Microbiology 05/22/18 16:36 Blood Culture - Preliminary Blood - Peripheral Venous NO GROWTH OBTAINED AFTER 96 HOURS, INCUBATION TO CONTINUE FOR 1 DAYS. 05/22/18 16:11 Blood Culture - Preliminary Blood - Peripheral Venous NO GROWTH OBTAINED AFTER 96 HOURS, INCUBATION TO CONTINUE FOR 1 DAYS. Physical exam Constitutional: Yes: alert and awake Eyes: Yes: no icterus HEENT: Yes: wnl Neck: Yes: Supple---no JVD Cardiovascular: Yes: Regular Rate and Rhythm, S1, S2 Respiratory: Yes: Bilateral breath sounds Gastrointestinal: Yes: soft/ mild tenderness--- periumbilical area on deep palpation--- no rigidity or rebound Edema: trace Problem List - Problems (1) Acute kidney failure with lesion of tubular necrosis Code(s): N17.0 - ACUTE KIDNEY FAILURE WITH TUBULAR NECROSIS (2) Accelerated hypertension Code(s): I10 - ESSENTIAL (PRIMARY) HYPERTENSION (3) Hypokalemia Code(s): E87.6 - HYPOKALEMIA (4) Acute respiratory failure Code(s): J96.00 - ACUTE RESPIRATORY FAILURE, UNSP W HYPOXIA OR HYPERCAPNIA Qualifiers: Respiratory failure complication: hypoxia Qualified Code(s): J96.01 - Acute respiratory failure with hypoxia (5) CHF (congestive heart failure) Code(s): I50.9 - HEART FAILURE, UNSPECIFIED Qualifiers: Heart failure type: unspecified Heart failure chronicity: unspecified Qualified Code(s): I50.9 - Heart failure, unspecified (6) Respiratory failure Code(s): J96.90 - RESPIRATORY FAILURE, UNSP, UNSP W HYPOXIA OR HYPERCAPNIA (7) Diabetes mellitus Code(s): E11.9 - TYPE 2 DIABETES MELLITUS WITHOUT COMPLICATIONS Assessment/Plan clinically better Renal function essentially same. Renal following Uncontrolled diabetes Continue present care. add basal insulin Swallowing issues--- modified barium swallow --- ordered . physical therapy daily out of bed to chair. Will follow Discussed with nursing staff also
--- NOTE | 2018-05-27 11:35 | PN ---
Progress Note, Physician History of Present Illness: pulmonary alert,feeling better,-cp,-sob,less cough - Current Medication List Current Medications: Active Medications Acetaminophen (Tylenol -) 650 mg PO Q4H PRN PRN Reason: FEVER Last Admin: 05/24/18 21:09 Dose: 650 mg Aspirin (Asa -) 81 mg PO DAILY [facility] Last Admin: 05/27/18 10:18 Dose: 81 mg Atropine Sulfate (Atropine Injection -) 0.4 mg IVPUSH ONCE PRN PRN Reason: MAP<65mm Hg OR SBP <90 Furosemide (Lasix Injection -) 80 mg IVPB BID@0600,1400 [facility] Last Admin: 05/27/18 06:11 Dose: 80 mg Heparin Sodium (Porcine) (Heparin -) 5,000 unit SQ TID [facility] Last Admin: 05/27/18 06:10 Dose: 5,000 unit Hydralazine HCl (Apresoline Injection -) 10 mg IVPUSH Q6H PRN PRN Reason: HYPERTENSION Hydralazine HCl (Apresoline -) 10 mg PO BID [facility] Last Admin: 05/27/18 10:18 Dose: 10 mg Azithromycin 500 mg/ Dextrose 250 mls @ 250 mls/hr IVPB DAILY [facility] Last Admin: 05/26/18 12:12 Dose: 250 mls/hr Ceftriaxone Sodium 1 gm/ (Dextrose) 50 mls @ 100 mls/hr IVPB DAILY [facility]; Protocol Last Admin: 05/27/18 10:18 Dose: 100 mls/hr Insulin Aspart (Novolog Vial Sliding Scale -) 1 vial SQ ACHS [facility]; Protocol Last Admin: 05/27/18 06:13 Dose: 4 units Insulin Detemir (Levemir Vial) 10 units SQ HS [facility] Pantoprazole Sodium (Protonix -) 40 mg PO DAILY [facility] Last Admin: 05/27/18 10:18 Dose: 40 mg Potassium Chloride (K-Dur -) 40 meq PO Q2H [facility] Stop: 05/27/18 12:48 - Objective Vital Signs: Vital Signs Temperature 98 F 05/27/18 10:00 Pulse Rate 74 05/27/18 10:00 Respiratory Rate 20 05/27/18 10:00 Blood Pressure 119/82 05/27/18 10:00 O2 Sat by Pulse Oximetry (%) 97 05/26/18 22:00 Constitutional: Yes: Calm, Thin Eyes: Yes: WNL HENT: Yes: WNL Neck: Yes: WNL Cardiovascular: Yes: Regular Rate and Rhythm, S1, S2 Respiratory: Yes: Diminished Gastrointestinal: Yes: Normal Bowel Sounds, Soft Extremities: Yes: WNL Edema: No Labs: CBC, BMP 05/27/18 05:35 05/27/18 05:35 INR, PTT INR 1.12 (0.82-1.09) 05/21/18 19:37 Problem List - Problems (1) Acute on chronic kidney failure Code(s): N17.9 - ACUTE KIDNEY FAILURE, UNSPECIFIED; N18.9 - CHRONIC KIDNEY DISEASE, UNSPECIFIED (2) Acute pulmonary edema Code(s): J81.0 - ACUTE PULMONARY EDEMA (3) Acute respiratory failure Code(s): J96.00 - ACUTE RESPIRATORY FAILURE, UNSP W HYPOXIA OR HYPERCAPNIA Qualifiers: Respiratory failure complication: hypoxia Qualified Code(s): J96.01 - Acute respiratory failure with hypoxia (4) HTN (hypertension) Code(s): I10 - ESSENTIAL (PRIMARY) HYPERTENSION Assessment/Plan Problem List - Problems (1) Hypoxemia Code(s): R09.02 - HYPOXEMIA (2) Respiratory failure Code(s): J96.90 - RESPIRATORY FAILURE, UNSP, UNSP W HYPOXIA OR HYPERCAPNIA (3) Lactic acidosis Code(s): E87.2 - ACIDOSIS IMP: Acute Respiratory Failure due to APE improved CAD Hx of PCI Diastolic dysfunction HTN DM Hypertensive emergency ARF PLAN: IV lasix Close monitoring of I & O Daily weight O2 as needed DR GREEN
--- NOTE | 2018-05-27 11:42 | PN ---
Progress Note (short form) - Note Progress Note: s: no cp sob palps dizzy Vital Signs: Vital Signs Period Temp Pulse Resp BP Sys/Springer Pulse Ox Last 24 Hr 97.7 F-98.5 F 73-80 18-20 119-147/71-93 97 nad no jvd rrr s1s2 no mrg cta nl nl eff aaox3 no le e/c/c abd nt nd pos bs no jaundice diaphoresis Current Medications Generic Name Dose Route Start Last Admin Trade Name Freq PRN Reason Stop Dose Admin Acetaminophen 650 mg 05/24/18 17:07 05/24/18 21:09 Tylenol - PO 650 mg Q4H PRN Administration FEVER Aspirin 81 mg 05/25/18 14:15 05/27/18 10:18 Asa - PO 81 mg DAILY [facility] Administration Atropine Sulfate 0.4 mg 05/26/18 09:36 Atropine Injection - IVPUSH ONCE PRN MAP<65mm Hg OR SBP <90 Furosemide 80 mg 05/25/18 14:00 05/27/18 06:11 Lasix Injection - IVPB 80 mg BID@0600,1400 [facility] Administration Heparin Sodium (Porcine) 5,000 unit 05/24/18 22:00 05/27/18 06:10 Heparin - SQ 5,000 unit TID [facility] Administration Hydralazine HCl 10 mg 05/24/18 17:07 Apresoline Injection - IVPUSH Q6H PRN HYPERTENSION Hydralazine HCl 10 mg 05/26/18 22:00 05/27/18 10:18 Apresoline - PO 10 mg BID [facility] Administration Azithromycin 500 mg/ Dextrose 250 mls @ 250 mls/hr 05/25/18 10:00 05/26/18 12 :12 IVPB 250 mls/hr DAILY [facility] Administration Ceftriaxone Sodium 1 gm/ 50 mls @ 100 mls/hr 05/25/18 10:00 05/27/18 10:18 Dextrose IVPB 100 mls/hr DAILY [facility] Administration Protocol Insulin Aspart 1 vial 05/24/18 22:00 05/27/18 06:13 Novolog Vial Sliding Scale - SQ 4 units ACHS [facility] Administration Protocol Insulin Detemir 10 units 05/27/18 22:00 Levemir Vial SQ HS [facility] Pantoprazole Sodium 40 mg 05/25/18 10:00 05/27/18 10:18 Protonix - PO 40 mg DAILY [facility] Administration Potassium Chloride 40 meq 05/27/18 10:47 K-Dur - PO 05/27/18 12:48 Q2H [facility] CBC, BMP 05/27/18 05:35 05/27/18 05:35 Assessment/Plan echo 11/2013 nl LV and RV size/function,mild MR, mild TR CXR 05/21/18: pulm edema EKG 05/21/18:sinus tachycardia, LVH with strain Echo 05/23/18 EF 45-50%, impaired relaxation, RV not well visualized, LA nl size , mild MR, mild TR tele: sr 63F h/o CAD s/p NSTEMI and PCI [place] [facility] [place], TOM to LAD, residual 50-60% mLAD), HTN, HLD, DM, admissions for pancreatitis presenting with shortness of breath, hypertensive emergency, acute pulmonary edema and acute respiratory failure Hypertensive emergency, acute pulmonary edema - EF 45-50% on echo, 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 may be due to underlying uncontrolled HTN - BP controlled now. stopped bb as she has had episodes of bradycardia. Started hydralazine instead. - cont iv lasix, cr improving, vol status improving - daily wts, chem7 elevated troponin, CAD, history of stents - borderline elevation likely demand in setting of hypertensive emergency and CURRY, less likely ACS - continue home meds for CAD when confirmed, patient had asked to bring list however not obtained. was on statin as well but she is not sure which - aspirin 81 mg daily Acute respiratory failure - improving with diuresis CURRY - likely ATN, improving - appreciate renal recs
--- NOTE | 2018-05-27 11:47 | PN ---
Progress Note, [employer] - Note Progress Note: Selected Entries 05/26/18 05/26/18 05/26/18 02:00 06:49 09:30 Breakfast Lunch Supper Temperature 99.1 F 98.6 F 97.5 F L 05/26/18 05/26/18 05/26/18 11:00 14:00 18:00 Breakfast Lunch 50% Supper Temperature 97.4 F L 97.7 F 97.7 F 05/26/18 05/26/18 05/27/18 21:35 23:49 02:00 Breakfast Lunch Supper 50% Temperature 97.8 F 98.5 F 05/27/18 05/27/18 06:00 10:00 Breakfast 75% Lunch Supper Temperature 98.5 F 98 F Laboratory Tests 05/27/18 05:35 WBC 4.8 Voice is stronger. Tolerating Puree/nectar. Pt reporting still unable to tolerate oatmeal as it "sticks in her throat." O2 sat on room air 90. Increased to 96 with nc. Suggest MBS to further assess swallowing function, r/o aspiration,stasi, ability to upgrade diet with safety. Reviewed with PMD/Nursing. Wea. Cognitively intact. STR?
[2018-05-27] MEDS: POTASSIUM CHLORIDE TABS 20 MEQ TABLET.ER (FP) PO SCH ×2 (12:20→16:40)
[2018-05-27 12:33] LABS: LIPASE 65 U/L (73-393)
--- NOTE | 2018-05-27 12:41 | PN ---
Progress Note (short form) - Note Progress Note: Renal follow up for CURRY Pt seen and examined in Tele no acute complaints sitting in chair appetite is improving no sob, chest pain, abd pain, N/V Vital Signs Temperature 98 F 05/27/18 10:00 Pulse Rate 72 05/27/18 11:43 Respiratory Rate 20 05/27/18 11:43 Blood Pressure 150/80 05/27/18 11:43 O2 Sat by Pulse Oximetry (%) 92 L 05/27/18 10:00 Intake & Output 05/24/18 05/25/18 05/26/18 05/27/18 23:59 23:59 23:59 23:59 Intake Total 705 120 200 Output Total 3650 1550 1750 200 Balance -2945 -1430 -1750 0 Weight 75.835 kg 70.987 kg 70.398 kg NAD Neck supple RRR, No M/R + rales right lung soft NT/ND No LE edema herrera in place CBC, BMP 05/27/18 05:35 05/27/18 05:35 Current Medications Acetaminophen (Tylenol -) 650 mg PO Q4H PRN PRN Reason: FEVER Last Admin: 05/24/18 21:09 Dose: 650 mg Aspirin (Asa -) 81 mg PO DAILY [facility] Last Admin: 05/27/18 10:18 Dose: 81 mg Atropine Sulfate (Atropine Injection -) 0.4 mg IVPUSH ONCE PRN PRN Reason: MAP<65mm Hg OR SBP <90 Calcium Acetate (Phoslo -) 667 mg PO TIDCM [facility] Furosemide (Lasix Injection -) 80 mg IVPB BID@0600,1400 [facility] Stop: 05/27/18 14:01 Heparin Sodium (Porcine) (Heparin -) 5,000 unit SQ TID [facility] Last Admin: 05/27/18 06:10 Dose: 5,000 unit Hydralazine HCl (Apresoline Injection -) 10 mg IVPUSH Q6H PRN PRN Reason: HYPERTENSION Hydralazine HCl (Apresoline -) 10 mg PO BID [facility] Last Admin: 05/27/18 10:18 Dose: 10 mg Azithromycin 500 mg/ Dextrose 250 mls @ 250 mls/hr IVPB DAILY [facility] Last Admin: 05/26/18 12:12 Dose: 250 mls/hr Ceftriaxone Sodium 1 gm/ (Dextrose) 50 mls @ 100 mls/hr IVPB DAILY [facility]; Protocol Last Admin: 05/27/18 10:18 Dose: 100 mls/hr Insulin Aspart (Novolog Vial Sliding Scale -) 1 vial SQ ACHS [facility]; Protocol Last Admin: 05/27/18 06:13 Dose: 4 units Insulin Detemir (Levemir Vial) 10 units SQ HS [facility] Pantoprazole Sodium (Protonix -) 40 mg PO DAILY [facility] Last Admin: 05/27/18 10:18 Dose: 40 mg Potassium Chloride (K-Dur -) 40 meq PO Q2H [facility] Stop: 05/27/18 12:48 Last Admin: 05/27/18 12:20 Dose: 40 meq Torsemide (Demadex -) 40 mg PO DAILY [facility] 63 y/o female with a history of CHF, DM, HTN, HLD, pancreatitis, and CAD s/p 2 stents presented with shortness of breath and tachycardic. In acute kidney failure with oliguria and progressive azotemia. #CURRY (differential includes ATN from renal hypoprofusion vs pre-renal injury from CRS vs. thrombotic microangiopathy from hypertension) #Hypertensive emergency r/o WILFRID #Acute CHF Cr unchanged, BUN and serum bicarb uptrending will d/c IV Lasix and start oral torsemide tomorrow Urine studies show low FeUrea (pre-renal) and subnephrotic proteinuria US of the kidney showed increased echogenicity consistent with CKD but no hydro , renal vein doppler WNL expect that renal function shouuld improve further with time, if no improvement in 7-10 days will consider biopsy Trend renal function and electrolytes weights improved with diuretics Андрей Barrett DO
[2018-05-27] MEDS ORDERED: FUROSEMIDE 40 MG/4 ML INJECTABLE VIAL IVPB SCH (14:00)
[2018-05-27] MEDS: AZITHROMYCIN IVPB 500 MG in DEXTROSE 5%-WATER - 250 ML IVPB SCH (16:39)
[2018-05-27] MEDS: CALCIUM ACETATE 667 MG CAPSULE (FP) PO SCH (17:36)
[2018-05-27] MEDS ORDERED: INSULIN (LEVEMIR) 100 UNITS/ML UNITS SQ SCH (22:00)
[2018-05-28] MEDS: HEPARIN NA (PORCINE) 5,000 UNITS/ML 1ML VIAL SQ SCH ×3 (06:05→22:08)
[2018-05-28] MEDS: INSULIN SLIDING SCALE (NOVOLOG) 1 VIAL SQ SCH ×4 (06:06→22:09)
[2018-05-28 07:06] LABS: BASO % 0.7 % (0-2.0); EOS % 1.6 % (0-4.5); HEMOGLOBIN 14.5 GM/dL (10.7-15.3); LYMPH % 27.4 % (8-40); MCH 29.5 pg (25.7-33.7); MCHC 33.8 g/dl (32.0-36.0); MEAN CELL VOLUME 87.3 fl (80-96); MEAN PLT VOLUME 11.1 fl (7.5-11.1); MONO % 11.1 % (3.8-10.2); NEUT % 59.2 % (42.8-82.8); PLATELET COUNT 146 K/MM3 (134-434); RBC 4.92 M/mm3 (3.60-5.2); RDW 13.7 % (11.6-15.6); WHITE BLOOD COUNT 5.6 K/mm3 (4.0-10.0)
[2018-05-28 07:42] LABS: ALBUMIN 3.6 g/dl (3.4-5.0); ANION GAP 10 (8-16); BILIRUBIN,TOTAL 0.6 mg/dL (0.2-1.0); BLOOD UREA NITROGEN 98 mg/dL (7-18); CALCIUM 9.8 mg/dL (8.5-10.1); CHLORIDE 90 mmol/L (98-107); CO2 33 mmol/L (21-32); CREATININE 4.6 mg/dL (0.55-1.02); GLUCOSE,RANDOM 162 mg/dL (74-106); MAGNESIUM 2.7 mg/dL (1.8-2.4); PHOSPHOROUS 5.5 mg/dL (2.5-4.9); POTASSIUM 3.7 mmol/L (3.5-5.1); SGOT/AST 22 U/L (15-37); SGPT/ALT 29 U/L (12-78); SODIUM 133 mmol/L (136-145); TOT PROT 7.1 g/dl (6.4-8.2)
[2018-05-28 07:43] LABS: ALK PHOS 89 U/L (45-117)
[2018-05-28] MEDS: CALCIUM ACETATE 667 MG CAPSULE (FP) PO SCH ×3 (08:36→17:19)
--- NOTE | 2018-05-28 11:02 | PN ---
Progress Note, Physician History of Present Illness: No CV complaints this AM Does have persistent dizziness when sitting up in bed Tele: NSR at 66/min, 4.7sec pause on 05/27/2018 at 09:14 - Current Medication List Current Medications: Active Medications Acetaminophen (Tylenol -) 650 mg PO Q4H PRN PRN Reason: FEVER Last Admin: 05/24/18 21:09 Dose: 650 mg Aspirin (Asa -) 81 mg PO DAILY [facility] Last Admin: 05/27/18 10:18 Dose: 81 mg Atropine Sulfate (Atropine Injection -) 0.4 mg IVPUSH ONCE PRN PRN Reason: MAP<65mm Hg OR SBP <90 Calcium Acetate (Phoslo -) 667 mg PO TIDCM [facility] Last Admin: 05/27/18 17:36 Dose: 667 mg Heparin Sodium (Porcine) (Heparin -) 5,000 unit SQ TID [facility] Last Admin: 05/28/18 06:05 Dose: 5,000 unit Hydralazine HCl (Apresoline Injection -) 10 mg IVPUSH Q6H PRN PRN Reason: HYPERTENSION Hydralazine HCl (Apresoline -) 10 mg PO BID [facility] Last Admin: 05/27/18 21:31 Dose: 10 mg Azithromycin 500 mg/ Dextrose 250 mls @ 250 mls/hr IVPB DAILY [facility] Last Admin: 05/27/18 16:39 Dose: 250 mls/hr Ceftriaxone Sodium 1 gm/ (Dextrose) 50 mls @ 100 mls/hr IVPB DAILY [facility]; Protocol Last Admin: 05/27/18 10:18 Dose: 100 mls/hr Insulin Aspart (Novolog Vial Sliding Scale -) 1 vial SQ ACHS [facility]; Protocol Last Admin: 05/28/18 06:06 Dose: 4 units Insulin Detemir (Levemir Vial) 10 units SQ HS [facility] Last Admin: 05/27/18 21:31 Dose: 10 units Pantoprazole Sodium (Protonix -) 40 mg PO DAILY [facility] Last Admin: 05/27/18 10:18 Dose: 40 mg Torsemide (Demadex -) 40 mg PO DAILY [facility] - Objective Vital Signs: Vital Signs Temperature 98.5 F 05/28/18 06:00 Pulse Rate 70 05/28/18 06:00 Respiratory Rate 18 05/28/18 06:00 Blood Pressure 114/60 05/28/18 06:00 O2 Sat by Pulse Oximetry (%) 96 05/27/18 22:00 Constitutional: Yes: No Distress, Calm Eyes: Yes: WNL HENT: Yes: WNL Neck: Yes: WNL Cardiovascular: Yes: Regular Rate and Rhythm Respiratory: Yes: CTA Bilaterally Gastrointestinal: Yes: Normal Bowel Sounds Extremities: Yes: WNL Edema: No Labs: CBC, BMP 05/28/18 05:45 05/28/18 05:45 INR, PTT INR 1.12 (0.82-1.09) 05/21/18 19:37 Assessment/Plan 63F h/o CAD s/p NSTEMI and PCI [place] [facility] [place], TOM to LAD, residual 50-60% mLAD), HTN, HLD, DM, admissions for pancreatitis presenting with shortness of breath, hypertensive emergency, acute pulmonary edema and acute respiratory failure Hypertensive emergency, acute pulmonary edema - EF 45-50% on echo, 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 may be due to underlying uncontrolled HTN - BP controlled now. stopped bb as she has had episodes of bradycardia. Started hydralazine instead. - cont iv lasix, cr improving (4.6 today from 5), vol status improving, Weight unchanged at 155. - daily wts, chem7 elevated troponin, CAD, history of stents - borderline elevation likely demand in setting of hypertensive emergency and CURRY, less likely ACS - continue home meds for CAD when confirmed, patient had asked to bring list however not obtained. was on statin as well but she is not sure which - aspirin 81 mg daily Acute respiratory failure - improving with diuresis CURRY - likely ATN, improving, Creat 4.6 today - appreciate renal recs
[2018-05-28] MEDS ORDERED: DEXTROSE 5%-WATER - 50 ML IVPB ONE (11:35)
[2018-05-28] MEDS ORDERED: cefTRIAXone SODIUM 1 GM VIAL ONE (11:35)
[2018-05-28] MEDS: ASPIRIN 81 MG CHEWABLE TABLETS PO SCH (11:37)
[2018-05-28] MEDS: PANTOPRAZOLE 40 MG TABLET (FP) PO SCH (11:37)
[2018-05-28] MEDS: CEFTRIAXONE 1 GM in DEXTROSE 5%-WATER - 50 ML IVPB SCH (11:37)
[2018-05-28] MEDS: hydrALAZINE HCL 10 MG TABLET PO SCH ×2 (11:37→22:08)
[2018-05-28] MEDS: TORSEMIDE 20 MG TABLET (FP) PO SCH (11:37)
[2018-05-28] MEDS ORDERED: PT OWN MED DRAWER 7, Y5N ONE ×2 (11:48→17:16)
[2018-05-28] MEDS: AZITHROMYCIN IVPB 500 MG in DEXTROSE 5%-WATER - 250 ML IVPB SCH (11:51)
--- NOTE | 2018-05-28 12:52 | PN ---
Progress Note (short form) - Note Progress Note: Renal follow up for CURRY Pt seen and examined in Tele sitting in chair feels a little dizzy no sob, chest pain, cough, fever, chills,abd pain, N/V Vital Signs Temperature 98.4 F 05/28/18 10:00 Pulse Rate 67 05/28/18 10:00 Respiratory Rate 18 05/28/18 10:00 Blood Pressure 115/79 05/28/18 10:00 O2 Sat by Pulse Oximetry (%) 96 05/27/18 22:00 Intake & Output 05/25/18 05/26/18 05/27/18 05/28/18 23:59 23:59 23:59 23:59 Intake Total 120 1000 150 Output Total 1550 1750 1150 Balance -1430 -1750 -150 150 Weight 70.987 kg 70.398 kg 70.42 kg NAD Neck supple RRR, No M/R CTA soft NT/ND No LE edema CBC, BMP 05/28/18 05:45 05/28/18 05:45 Current Medications Acetaminophen (Tylenol -) 650 mg PO Q4H PRN PRN Reason: FEVER Last Admin: 05/24/18 21:09 Dose: 650 mg Aspirin (Asa -) 81 mg PO DAILY [facility] Last Admin: 05/28/18 11:37 Dose: 81 mg Atropine Sulfate (Atropine Injection -) 0.4 mg IVPUSH ONCE PRN PRN Reason: MAP<65mm Hg OR SBP <90 Calcium Acetate (Phoslo -) 667 mg PO TIDCM [facility] Last Admin: 05/28/18 11:36 Dose: 667 mg Heparin Sodium (Porcine) (Heparin -) 5,000 unit SQ TID [facility] Last Admin: 05/28/18 06:05 Dose: 5,000 unit Hydralazine HCl (Apresoline Injection -) 10 mg IVPUSH Q6H PRN PRN Reason: HYPERTENSION Hydralazine HCl (Apresoline -) 10 mg PO BID [facility] Last Admin: 05/28/18 11:37 Dose: 10 mg Azithromycin 500 mg/ Dextrose 250 mls @ 250 mls/hr IVPB DAILY [facility] Last Admin: 05/28/18 11:51 Dose: 250 mls/hr Ceftriaxone Sodium 1 gm/ (Dextrose) 50 mls @ 100 mls/hr IVPB DAILY [facility]; Protocol Last Admin: 05/28/18 11:37 Dose: 100 mls/hr Insulin Aspart (Novolog Vial Sliding Scale -) 1 vial SQ ACHS [facility]; Protocol Last Admin: 05/28/18 11:31 Dose: 8 units Insulin Detemir (Levemir Vial) 10 units SQ HS [facility] Last Admin: 05/27/18 21:31 Dose: 10 units Pantoprazole Sodium (Protonix -) 40 mg PO DAILY [facility] Last Admin: 05/28/18 11:37 Dose: 40 mg Torsemide (Demadex -) 40 mg PO DAILY [facility] Last Admin: 05/28/18 11:37 Dose: 40 mg 63 y/o female with a history of CHF, DM, HTN, HLD, pancreatitis, and CAD s/p 2 stents presented with shortness of breath and tachycardic. In acute kidney failure with oliguria and progressive azotemia. #CURRY (differential includes ATN from renal hypoprofusion vs pre-renal injury from CRS vs. thrombotic microangiopathy from hypertension) #Acute CHF Cr slightly improved repeat urine studies for UPCR and FeUrea Continue Torsemide 40mg Daily, trend weights, electrolytes, renal function cardiology follow up Андрей Barrett DO
--- NOTE | 2018-05-28 13:17 | PN ---
Progress Note (short form) - Note Progress Note: Pt seen/ examined. sitting in chair herrera taken out passing urine at bedside denies pain eating ok Vital Signs Temp 98.4 F 05/28/18 10:00 Pulse 67 05/28/18 10:00 Resp 18 05/28/18 10:00 BP 115/79 05/28/18 10:00 Pulse Ox 96 05/27/18 22:00 Intake & Output 05/27/18 05/28/18 05/28/18 23:59 11:59 23:59 Intake Total 800 150 Output Total 950 Balance -150 150 Weight 155 lb 4 oz Intake: IVPB 300 Oral 500 150 Output: Urine 950 Herrera 700 Void 250 Other: Voiding Method Bedpan # Unmeasured Voids Herrera 1 Bowel Movement No Weight Measurement Method Standing Scale Active Medications Acetaminophen (Tylenol -) 650 mg PO Q4H PRN PRN Reason: FEVER Last Admin: 05/24/18 21:09 Dose: 650 mg Aspirin (Asa -) 81 mg PO DAILY [facility] Last Admin: 05/28/18 11:37 Dose: 81 mg Atropine Sulfate (Atropine Injection -) 0.4 mg IVPUSH ONCE PRN PRN Reason: MAP<65mm Hg OR SBP <90 Calcium Acetate (Phoslo -) 667 mg PO TIDCM [facility] Last Admin: 05/28/18 11:36 Dose: 667 mg Heparin Sodium (Porcine) (Heparin -) 5,000 unit SQ TID [facility] Last Admin: 05/28/18 06:05 Dose: 5,000 unit Hydralazine HCl (Apresoline Injection -) 10 mg IVPUSH Q6H PRN PRN Reason: HYPERTENSION Hydralazine HCl (Apresoline -) 10 mg PO BID [facility] Last Admin: 05/28/18 11:37 Dose: 10 mg Azithromycin 500 mg/ Dextrose 250 mls @ 250 mls/hr IVPB DAILY [facility] Last Admin: 05/28/18 11:51 Dose: 250 mls/hr Ceftriaxone Sodium 1 gm/ (Dextrose) 50 mls @ 100 mls/hr IVPB DAILY [facility]; Protocol Last Admin: 05/28/18 11:37 Dose: 100 mls/hr Insulin Aspart (Novolog Vial Sliding Scale -) 1 vial SQ ACHS [facility]; Protocol Last Admin: 05/28/18 11:31 Dose: 8 units Insulin Detemir (Levemir Vial) 15 units SQ HS [facility] Pantoprazole Sodium (Protonix -) 40 mg PO DAILY [facility] Last Admin: 05/28/18 11:37 Dose: 40 mg Torsemide (Demadex -) 40 mg PO DAILY [facility] Last Admin: 05/28/18 11:37 Dose: 40 mg CBC, BMP 05/28/18 05:45 05/28/18 05:45 Microbiology 05/22/18 16:36 Blood Culture - Final Blood - Peripheral Venous NO GROWTH AFTER 5 DAYS INCUBATION 05/22/18 16:11 Blood Culture - Final Blood - Peripheral Venous NO GROWTH AFTER 5 DAYS INCUBATION Physical exam Constitutional: Yes: alert and awake Eyes: Yes: no icterus. HEENT: Yes: wnl except mild thrush. Neck: Yes: Supple---no JVD Cardiovascular: Yes: Regular Rate and Rhythm, S1, S2 Respiratory: Yes: Bilateral breath sounds Gastrointestinal: Yes: soft/ mild tenderness--- periumbilical area on deep palpation--- no rigidity or rebound Edema: trace Problem List - Problems (1) Acute kidney failure with lesion of tubular necrosis Code(s): N17.0 - ACUTE KIDNEY FAILURE WITH TUBULAR NECROSIS (2) Accelerated hypertension Code(s): I10 - ESSENTIAL (PRIMARY) HYPERTENSION (3) Hypokalemia Code(s): E87.6 - HYPOKALEMIA (4) Acute respiratory failure Code(s): J96.00 - ACUTE RESPIRATORY FAILURE, UNSP W HYPOXIA OR HYPERCAPNIA Qualifiers: Respiratory failure complication: hypoxia Qualified Code(s): J96.01 - Acute respiratory failure with hypoxia (5) CHF (congestive heart failure) Code(s): I50.9 - HEART FAILURE, UNSPECIFIED Qualifiers: Heart failure type: unspecified Heart failure chronicity: unspecified Qualified Code(s): I50.9 - Heart failure, unspecified (6) Respiratory failure Code(s): J96.90 - RESPIRATORY FAILURE, UNSP, UNSP W HYPOXIA OR HYPERCAPNIA (7) Diabetes mellitus Code(s): E11.9 - TYPE 2 DIABETES MELLITUS WITHOUT COMPLICATIONS Assessment/Plan clinically better Renal function better Renal following Uncontrolled diabetes-- compliance stressed Increase levemir Continue present care. magic mouth wash physical therapy daily out of bed to chair. Will follow Discussed with nursing staff as well as pts
--- NOTE | 2018-05-28 14:43 | PN ---
Progress Note (short form) - Note Progress Note: PULMONARY States breathing is improving. +nonproductive cough. Vital Signs Period Temp Pulse Resp BP Sys/Springer Pulse Ox Last 24 Hr 98.1 F-98.9 F 67-79 18-18 114-150/60-90 92-96 Gen: NAD at rest Heart: RRR Lung: decreased breath sounds at the bases Abd: soft, nontender Ext: no edema CBC, BMP 05/28/18 05:45 05/28/18 05:45 Active Medications Acetaminophen (Tylenol -) 650 mg PO Q4H PRN PRN Reason: FEVER Last Admin: 05/24/18 21:09 Dose: 650 mg Aspirin (Asa -) 81 mg PO DAILY [facility] Last Admin: 05/28/18 11:37 Dose: 81 mg Atropine Sulfate (Atropine Injection -) 0.4 mg IVPUSH ONCE PRN PRN Reason: MAP<65mm Hg OR SBP <90 Calcium Acetate (Phoslo -) 667 mg PO TIDCM [facility] Last Admin: 05/28/18 11:36 Dose: 667 mg Heparin Sodium (Porcine) (Heparin -) 5,000 unit SQ TID [facility] Last Admin: 05/28/18 14:31 Dose: 5,000 unit Hydralazine HCl (Apresoline Injection -) 10 mg IVPUSH Q6H PRN PRN Reason: HYPERTENSION Hydralazine HCl (Apresoline -) 10 mg PO BID [facility] Last Admin: 05/28/18 11:37 Dose: 10 mg Azithromycin 500 mg/ Dextrose 250 mls @ 250 mls/hr IVPB DAILY [facility] Last Admin: 05/28/18 11:51 Dose: 250 mls/hr Ceftriaxone Sodium 1 gm/ (Dextrose) 50 mls @ 100 mls/hr IVPB DAILY [facility]; Protocol Last Admin: 05/28/18 11:37 Dose: 100 mls/hr Insulin Aspart (Novolog Vial Sliding Scale -) 1 vial SQ ACHS [facility]; Protocol Last Admin: 05/28/18 11:31 Dose: 8 units Insulin Detemir (Levemir Vial) 15 units SQ HS [facility] Lidocaine/Aluminum/Magnesium/Simeth (Magic Mouthwash *Sjr Formula* -) 5 ml MM Q6HPO [facility] Pantoprazole Sodium (Protonix -) 40 mg PO DAILY [facility] Last Admin: 05/28/18 11:37 Dose: 40 mg Torsemide (Demadex -) 40 mg PO DAILY [facility] Last Admin: 05/28/18 11:37 Dose: 40 mg A/P Acute Pulmonary Edema resolving Acute on Chronic Systolic/Diastolic Heart Failure HTN +Troponins likely Demand Ischemia Acute Kidney Injury - continue torsemide - monitor urine output, creatinine - daily weights - complete empiric antibiotics - DVT prophylaxis
[2018-05-28] MEDS: MAG HYDROX/ALH/SMC/DPHA/LIDO 240 ML MOUTHWASH MM SCH (18:33)
[2018-05-28] MEDS: INSULIN (LEVEMIR) 100 UNITS/ML UNITS SQ SCH (22:09)
[2018-05-29] MEDS ORDERED: PT OWN MED DRAWER 7, Y5N ONE (00:21)
[2018-05-29] MEDS: MAG HYDROX/ALH/SMC/DPHA/LIDO 240 ML MOUTHWASH MM SCH ×5 (00:31→23:05)
[2018-05-29] MEDS: HEPARIN NA (PORCINE) 5,000 UNITS/ML 1ML VIAL SQ SCH ×3 (06:06→22:55)
[2018-05-29] MEDS: INSULIN SLIDING SCALE (NOVOLOG) 1 VIAL SQ SCH ×4 (06:06→22:57)
[2018-05-29 07:16] LABS: ALBUMIN 3.6 g/dl (3.4-5.0); ANION GAP 6 (8-16); BILIRUBIN,TOTAL 0.5 mg/dL (0.2-1.0); BLOOD UREA NITROGEN 98 mg/dL (7-18); CALCIUM 9.7 mg/dL (8.5-10.1); CHLORIDE 88 mmol/L (98-107); CO2 39 mmol/L (21-32); CREATININE 4.8 mg/dL (0.55-1.02); GLUCOSE,RANDOM 146 mg/dL (74-106); MAGNESIUM 2.9 mg/dL (1.8-2.4); PHOSPHOROUS 4.9 mg/dL (2.5-4.9); POTASSIUM 3.6 mmol/L (3.5-5.1); SGOT/AST 22 U/L (15-37); SGPT/ALT 29 U/L (12-78); SODIUM 133 mmol/L (136-145)
[2018-05-29 07:18] LABS: ALK PHOS 85 U/L (45-117)
[2018-05-29] MEDS ORDERED: DEXTROSE 5%-WATER - 50 ML IVPB ONE (08:56)
[2018-05-29] MEDS ORDERED: cefTRIAXone SODIUM 1 GM VIAL ONE (08:56)
[2018-05-29] MEDS: CALCIUM ACETATE 667 MG CAPSULE (FP) PO SCH ×3 (09:20→17:22)
[2018-05-29] MEDS: TORSEMIDE 20 MG TABLET (FP) PO SCH (09:21)
[2018-05-29] MEDS: PANTOPRAZOLE 40 MG TABLET (FP) PO SCH (09:21)
[2018-05-29] MEDS: ASPIRIN 81 MG CHEWABLE TABLETS PO SCH (09:21)
[2018-05-29] MEDS: hydrALAZINE HCL 10 MG TABLET PO SCH ×2 (09:21→22:57)
[2018-05-29] MEDS: CEFTRIAXONE 1 GM in DEXTROSE 5%-WATER - 50 ML IVPB SCH (09:21)
--- NOTE | 2018-05-29 10:07 | PN ---
Progress Note (short form) - Note Progress Note: Renal follow up for CURRY Pt seen and examined in Tele no acute complaints Vital Signs Temperature 98.9 F 05/29/18 06:00 Pulse Rate 67 05/29/18 06:00 Respiratory Rate 20 05/29/18 06:00 Blood Pressure 117/75 05/29/18 06:00 O2 Sat by Pulse Oximetry (%) 96 05/28/18 22:00 Intake & Output 05/26/18 05/27/18 05/28/18 05/29/18 23:59 23:59 23:59 23:59 Intake Total 1000 1120 100 Output Total 1750 1150 Balance -1750 -150 1120 100 Weight 70.987 kg 70.398 kg 70.42 kg 70.942 kg NAD Neck supple RRR, No M/R CTA soft NT/ND No LE edema CBC, BMP 05/28/18 05:45 05/29/18 06:05 Current Medications Acetaminophen (Tylenol -) 650 mg PO Q4H PRN PRN Reason: FEVER Last Admin: 05/24/18 21:09 Dose: 650 mg Aspirin (Asa -) 81 mg PO DAILY [facility] Last Admin: 05/29/18 09:21 Dose: 81 mg Atropine Sulfate (Atropine Injection -) 0.4 mg IVPUSH ONCE PRN PRN Reason: MAP<65mm Hg OR SBP <90 Calcium Acetate (Phoslo -) 667 mg PO TIDCM [facility] Last Admin: 05/29/18 09:20 Dose: 667 mg Heparin Sodium (Porcine) (Heparin -) 5,000 unit SQ TID [facility] Last Admin: 05/29/18 06:06 Dose: 5,000 unit Hydralazine HCl (Apresoline Injection -) 10 mg IVPUSH Q6H PRN PRN Reason: HYPERTENSION Hydralazine HCl (Apresoline -) 10 mg PO BID [facility] Last Admin: 05/29/18 09:21 Dose: 10 mg Azithromycin 500 mg/ Dextrose 250 mls @ 250 mls/hr IVPB DAILY [facility] Last Admin: 05/28/18 11:51 Dose: 250 mls/hr Ceftriaxone Sodium 1 gm/ (Dextrose) 50 mls @ 100 mls/hr IVPB DAILY [facility]; Protocol Last Admin: 05/29/18 09:21 Dose: 100 mls/hr Insulin Aspart (Novolog Vial Sliding Scale -) 1 vial SQ ACHS [facility]; Protocol Last Admin: 05/29/18 06:06 Dose: Not Given Insulin Detemir (Levemir Vial) 15 units SQ HS [facility] Last Admin: 05/28/18 22:09 Dose: 15 units Lidocaine/Aluminum/Magnesium/Simeth (Magic Mouthwash *Sjr Formula* -) 5 ml MM Q6HPO [facility] Last Admin: 05/29/18 06:06 Dose: 5 ml Pantoprazole Sodium (Protonix -) 40 mg PO DAILY [facility] Last Admin: 05/29/18 09:21 Dose: 40 mg Torsemide (Demadex -) 40 mg PO DAILY [facility] Last Admin: 05/29/18 09:21 Dose: 40 mg 63 y/o female with a history of CHF, DM, HTN, HLD, pancreatitis, and CAD s/p 2 stents presented with shortness of breath and tachycardic. In acute kidney failure with oliguria and progressive azotemia. #CURRY (differential includes ATN from renal hypoprofusion vs pre-renal injury from CRS ) #Acute CHF Renal function is unchanged at this time Winn is removed, making urine weights slightly up Continue torsemide at present dose trend renal function, weights, and electrolytes repeat urine studies check ANCA, DANIEL, Hepatitis profile if no improvement in renal function this week may consider biopsy Андрей Barrett DO
--- NOTE | 2018-05-29 10:16 | PN ---
Progress Note, Physician History of Present Illness: No events overnight No CV complaints, dizziness improved today Te;e: NSR 60s - Current Medication List Current Medications: Active Medications Acetaminophen (Tylenol -) 650 mg PO Q4H PRN PRN Reason: FEVER Last Admin: 05/24/18 21:09 Dose: 650 mg Aspirin (Asa -) 81 mg PO DAILY [facility] Last Admin: 05/29/18 09:21 Dose: 81 mg Atropine Sulfate (Atropine Injection -) 0.4 mg IVPUSH ONCE PRN PRN Reason: MAP<65mm Hg OR SBP <90 Calcium Acetate (Phoslo -) 667 mg PO TIDCM [facility] Last Admin: 05/29/18 09:20 Dose: 667 mg Heparin Sodium (Porcine) (Heparin -) 5,000 unit SQ TID [facility] Last Admin: 05/29/18 06:06 Dose: 5,000 unit Hydralazine HCl (Apresoline Injection -) 10 mg IVPUSH Q6H PRN PRN Reason: HYPERTENSION Hydralazine HCl (Apresoline -) 10 mg PO BID [facility] Last Admin: 05/29/18 09:21 Dose: 10 mg Azithromycin 500 mg/ Dextrose 250 mls @ 250 mls/hr IVPB DAILY [facility] Last Admin: 05/28/18 11:51 Dose: 250 mls/hr Ceftriaxone Sodium 1 gm/ (Dextrose) 50 mls @ 100 mls/hr IVPB DAILY [facility]; Protocol Last Admin: 05/29/18 09:21 Dose: 100 mls/hr Insulin Aspart (Novolog Vial Sliding Scale -) 1 vial SQ ACHS [facility]; Protocol Last Admin: 05/29/18 06:06 Dose: Not Given Insulin Detemir (Levemir Vial) 15 units SQ HS [facility] Last Admin: 05/28/18 22:09 Dose: 15 units Lidocaine/Aluminum/Magnesium/Simeth (Magic Mouthwash *Sjr Formula* -) 5 ml MM Q6HPO [facility] Last Admin: 05/29/18 06:06 Dose: 5 ml Pantoprazole Sodium (Protonix -) 40 mg PO DAILY [facility] Last Admin: 05/29/18 09:21 Dose: 40 mg Torsemide (Demadex -) 40 mg PO DAILY [facility] Last Admin: 05/29/18 09:21 Dose: 40 mg - Objective Vital Signs: Vital Signs Temperature 97.8 F 05/29/18 10:00 Pulse Rate 71 05/29/18 10:00 Respiratory Rate 20 05/29/18 10:00 Blood Pressure 138/76 05/29/18 10:00 O2 Sat by Pulse Oximetry (%) 96 05/28/18 22:00 Constitutional: Yes: Well Nourished, No Distress Eyes: Yes: WNL Neck: Yes: WNL Cardiovascular: Yes: WNL, Regular Rate and Rhythm Respiratory: Yes: CTA Bilaterally Musculoskeletal: Yes: WNL Extremities: Yes: WNL Edema: No Labs: CBC, BMP 05/28/18 05:45 05/29/18 06:05 INR, PTT INR 1.12 (0.82-1.09) 05/21/18 19:37 Assessment/Plan 63F h/o CAD s/p NSTEMI and PCI (in 2013 at [facility] [place] TOM to OM1, TOM to LAD, residual 50-60% mLAD), HTN, HLD, DM, admissions for pancreatitis presenting with shortness of breath, hypertensive emergency, acute pulmonary edema and acute respiratory failure Hypertensive emergency, acute pulmonary edema - EF 45-50% on echo, 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 may be due to underlying uncontrolled HTN - BP controlled now. stopped bb as she has had episodes of bradycardia. Started hydralazine instead. - 05/28: cont iv lasix, cr improving (4.6 today from 5), vol status improving, Weight unchanged at 155. - 05/29: Change to PO lasix, Creat 4.8, I/O net 100 neg. Weight down to 156 (from 167 on admission) elevated troponin, CAD, history of stents - borderline elevation likely demand in setting of hypertensive emergency and CURRY, less likely ACS - continue home meds for CAD when confirmed, patient had asked to bring list however not obtained. was on statin as well but she is not sure which - aspirin 81 mg daily Acute respiratory failure - improving with diuresis CURRY - likely ATN, improving, Creat 4.6 today - appreciate renal recs
[2018-05-29] MEDS: AZITHROMYCIN IVPB 500 MG in DEXTROSE 5%-WATER - 250 ML IVPB SCH (11:51)
[2018-05-29 12:12] LABS: URINE APPEARANCE CLEAR; URINE BILIRUBIN NEGATIVE (<2.0 mg/dL); URINE COLOR LTYELLOW; URINE GLUCOSE (UA) NEGATIVE (NEGATIVE); URINE KETONE NEGATIVE (NEGATIVE); URINE LEUK ESTERASE NEGATIVE (NEGATIVE); URINE NITRITE NEGATIVE (NEGATIVE); URINE PROTEIN NEGATIVE (NEGATIVE); URINE UROBILINOGEN NEGATIVE mg/dL (0.2-1.0)
--- NOTE | 2018-05-29 13:03 | PN ---
Progress Note (short form) - Note Progress Note: patient seen and examined. Comfortable. Passing urine Denies pain afebrile Vital Signs Temp 97.8 F 05/29/18 10:00 Pulse 71 05/29/18 10:00 Resp 20 05/29/18 10:00 BP 138/76 05/29/18 10:00 Pulse Ox 96 05/28/18 22:00 Intake & Output 05/28/18 05/29/18 05/29/18 23:59 11:59 23:59 Intake Total 970 100 Balance 970 100 Weight 156 lb 6.4 oz Intake: IVPB 300 Oral 670 100 Other: Voiding Method Toilet Toilet # Unmeasured Voids Void 2 Bowel Movement No No Weight Measurement Method Standing Scale Active Medications Acetaminophen (Tylenol -) 650 mg PO Q4H PRN PRN Reason: FEVER Last Admin: 05/24/18 21:09 Dose: 650 mg Aspirin (Asa -) 81 mg PO DAILY [facility] Last Admin: 05/29/18 09:21 Dose: 81 mg Atropine Sulfate (Atropine Injection -) 0.4 mg IVPUSH ONCE PRN PRN Reason: MAP<65mm Hg OR SBP <90 Calcium Acetate (Phoslo -) 667 mg PO TIDCM [facility] Last Admin: 05/29/18 11:52 Dose: 667 mg Heparin Sodium (Porcine) (Heparin -) 5,000 unit SQ TID [facility] Last Admin: 05/29/18 06:06 Dose: 5,000 unit Hydralazine HCl (Apresoline Injection -) 10 mg IVPUSH Q6H PRN PRN Reason: HYPERTENSION Hydralazine HCl (Apresoline -) 10 mg PO BID [facility] Last Admin: 05/29/18 09:21 Dose: 10 mg Azithromycin 500 mg/ Dextrose 250 mls @ 250 mls/hr IVPB DAILY [facility] Last Admin: 05/29/18 11:51 Dose: 250 mls/hr Ceftriaxone Sodium 1 gm/ (Dextrose) 50 mls @ 100 mls/hr IVPB DAILY [facility]; Protocol Last Admin: 05/29/18 09:21 Dose: 100 mls/hr Insulin Aspart (Novolog Vial Sliding Scale -) 1 vial SQ ACHS [facility]; Protocol Last Admin: 05/29/18 11:55 Dose: 4 units Insulin Detemir (Levemir Vial) 15 units SQ HS [facility] Last Admin: 05/28/18 22:09 Dose: 15 units Lidocaine/Aluminum/Magnesium/Simeth (Magic Mouthwash *Sjr Formula* -) 5 ml MM Q6HPO [facility] Last Admin: 05/29/18 11:52 Dose: 5 ml Pantoprazole Sodium (Protonix -) 40 mg PO DAILY [facility] Last Admin: 05/29/18 09:21 Dose: 40 mg Torsemide (Demadex -) 40 mg PO DAILY [facility] Last Admin: 05/29/18 09:21 Dose: 40 mg CBC, BMP 05/28/18 05:45 05/29/18 06:05 Physical exam Constitutional: Yes: alert and awake Eyes: Yes: no icterus. HEENT: Yes: Better Neck: Yes: Supple---no JVD Cardiovascular: Yes: Regular Rate and Rhythm, S1, S2 Respiratory: Yes: Bilateral breath sounds Gastrointestinal: Yes: soft nontender Edema: trace Problem List - Problems (1) Acute kidney failure with lesion of tubular necrosis Code(s): N17.0 - ACUTE KIDNEY FAILURE WITH TUBULAR NECROSIS (2) Accelerated hypertension Code(s): I10 - ESSENTIAL (PRIMARY) HYPERTENSION (3) Hypokalemia Code(s): E87.6 - HYPOKALEMIA (4) Acute respiratory failure Code(s): J96.00 - ACUTE RESPIRATORY FAILURE, UNSP W HYPOXIA OR HYPERCAPNIA Qualifiers: Respiratory failure complication: hypoxia Qualified Code(s): J96.01 - Acute respiratory failure with hypoxia (5) CHF (congestive heart failure) Code(s): I50.9 - HEART FAILURE, UNSPECIFIED Qualifiers: Heart failure type: unspecified Heart failure chronicity: unspecified Qualified Code(s): I50.9 - Heart failure, unspecified (6) Respiratory failure Code(s): J96.90 - RESPIRATORY FAILURE, UNSP, UNSP W HYPOXIA OR HYPERCAPNIA (7) Diabetes mellitus Code(s): E11.9 - TYPE 2 DIABETES MELLITUS WITHOUT COMPLICATIONS Assessment/Plan clinically better Renal following Uncontrolled diabetes-- compliance stressed on levemir Continue present care. magic mouth wash physical therapy daily out of bed to chair. Will follow if cultures negative--- we will consider discontinuing antibiotics in the morning
--- NOTE | 2018-05-29 13:08 | PN ---
Progress Note (short form) - Note Progress Note: PULMONARY States breathing continues to improve. +nonproductive cough. Vital Signs Period Temp Pulse Resp BP Sys/Springer Pulse Ox Last 24 Hr 97.8 F-98.9 F 65-97 18-20 117-159/70-95 96-96 Gen: NAD at rest Heart: RRR Lung: decreased breath sounds at the bases Abd: soft, nontender Ext: no edema CBC, BMP 05/28/18 05:45 05/29/18 06:05 Active Medications Acetaminophen (Tylenol -) 650 mg PO Q4H PRN PRN Reason: FEVER Last Admin: 05/24/18 21:09 Dose: 650 mg Aspirin (Asa -) 81 mg PO DAILY [facility] Last Admin: 05/29/18 09:21 Dose: 81 mg Atropine Sulfate (Atropine Injection -) 0.4 mg IVPUSH ONCE PRN PRN Reason: MAP<65mm Hg OR SBP <90 Calcium Acetate (Phoslo -) 667 mg PO TIDCM [facility] Last Admin: 05/29/18 11:52 Dose: 667 mg Heparin Sodium (Porcine) (Heparin -) 5,000 unit SQ TID [facility] Last Admin: 05/29/18 06:06 Dose: 5,000 unit Hydralazine HCl (Apresoline Injection -) 10 mg IVPUSH Q6H PRN PRN Reason: HYPERTENSION Hydralazine HCl (Apresoline -) 10 mg PO BID [facility] Last Admin: 05/29/18 09:21 Dose: 10 mg Azithromycin 500 mg/ Dextrose 250 mls @ 250 mls/hr IVPB DAILY [facility] Last Admin: 05/29/18 11:51 Dose: 250 mls/hr Ceftriaxone Sodium 1 gm/ (Dextrose) 50 mls @ 100 mls/hr IVPB DAILY [facility]; Protocol Last Admin: 05/29/18 09:21 Dose: 100 mls/hr Insulin Aspart (Novolog Vial Sliding Scale -) 1 vial SQ ACHS [facility]; Protocol Last Admin: 05/29/18 11:55 Dose: 4 units Insulin Detemir (Levemir Vial) 15 units SQ HS [facility] Last Admin: 05/28/18 22:09 Dose: 15 units Lidocaine/Aluminum/Magnesium/Simeth (Magic Mouthwash *Sjr Formula* -) 5 ml MM Q6HPO [facility] Last Admin: 05/29/18 11:52 Dose: 5 ml Pantoprazole Sodium (Protonix -) 40 mg PO DAILY [facility] Last Admin: 05/29/18 09:21 Dose: 40 mg Torsemide (Demadex -) 40 mg PO DAILY [facility] Last Admin: 05/29/18 09:21 Dose: 40 mg A/P Acute Pulmonary Edema resolving Acute on Chronic Systolic/Diastolic Heart Failure HTN +Troponins likely Demand Ischemia Acute Kidney Injury - continue torsemide - monitor urine output, creatinine - daily weights - complete empiric antibiotics - DVT prophylaxis
[2018-05-29] MEDS: INSULIN (LEVEMIR) 100 UNITS/ML UNITS SQ SCH (22:56)
[2018-05-30] MEDS: INSULIN SLIDING SCALE (NOVOLOG) 1 VIAL SQ SCH ×4 (06:16→22:46)
[2018-05-30] MEDS: MAG HYDROX/ALH/SMC/DPHA/LIDO 240 ML MOUTHWASH MM SCH ×4 (06:19→23:00)
[2018-05-30] MEDS: HEPARIN NA (PORCINE) 5,000 UNITS/ML 1ML VIAL SQ SCH ×3 (06:20→22:46)
--- NOTE | 2018-05-30 08:41 | PN ---
Progress Note, Physician Chief Complaint: chf History of Present Illness: walked halls today--no sob. no cp, palp, presyncope - Current Medication List Current Medications: Active Medications Acetaminophen (Tylenol -) 650 mg PO Q4H PRN PRN Reason: FEVER Last Admin: 05/24/18 21:09 Dose: 650 mg Aspirin (Asa -) 81 mg PO DAILY [facility] Last Admin: 05/29/18 09:21 Dose: 81 mg Atropine Sulfate (Atropine Injection -) 0.4 mg IVPUSH ONCE PRN PRN Reason: MAP<65mm Hg OR SBP <90 Calcium Acetate (Phoslo -) 667 mg PO TIDCM [facility] Last Admin: 05/29/18 17:22 Dose: 667 mg Heparin Sodium (Porcine) (Heparin -) 5,000 unit SQ TID [facility] Last Admin: 05/30/18 06:20 Dose: 5,000 unit Hydralazine HCl (Apresoline Injection -) 10 mg IVPUSH Q6H PRN PRN Reason: HYPERTENSION Hydralazine HCl (Apresoline -) 10 mg PO BID [facility] Last Admin: 05/29/18 22:57 Dose: 10 mg Azithromycin 500 mg/ Dextrose 250 mls @ 250 mls/hr IVPB DAILY [facility] Last Admin: 05/29/18 11:51 Dose: 250 mls/hr Ceftriaxone Sodium 1 gm/ (Dextrose) 50 mls @ 100 mls/hr IVPB DAILY [facility]; Protocol Last Admin: 05/29/18 09:21 Dose: 100 mls/hr Insulin Aspart (Novolog Vial Sliding Scale -) 1 vial SQ ACHS [facility]; Protocol Last Admin: 05/30/18 06:16 Dose: Not Given Insulin Detemir (Levemir Vial) 15 units SQ HS [facility] Last Admin: 05/29/18 22:56 Dose: 15 units Lidocaine/Aluminum/Magnesium/Simeth (Magic Mouthwash *Sjr Formula* -) 5 ml MM Q6HPO [facility] Last Admin: 05/30/18 06:19 Dose: 5 ml Pantoprazole Sodium (Protonix -) 40 mg PO DAILY [facility] Last Admin: 05/29/18 09:21 Dose: 40 mg Torsemide (Demadex -) 40 mg PO DAILY [facility] Last Admin: 05/29/18 09:21 Dose: 40 mg - Objective Vital Signs: Vital Signs Temperature 97.6 F 05/30/18 06:00 Pulse Rate 69 05/30/18 06:00 Respiratory Rate 20 05/30/18 06:00 Blood Pressure 106/79 05/30/18 06:00 O2 Sat by Pulse Oximetry (%) 95 05/29/18 22:00 Constitutional: Yes: Well Nourished, No Distress, Calm Cardiovascular: Yes: Regular Rate and Rhythm. No: JVD, Gallop, Murmur Respiratory: Yes: Regular, CTA Bilaterally. No: Accessory Muscle Use, Rales, Wheezes Extremities: No: Cold Edema: No Neurological: Yes: Alert, Oriented Psychiatric: No: Agitated Labs: CBC, BMP 05/28/18 05:45 05/29/18 06:05 INR, PTT INR 1.12 (0.82-1.09) 05/21/18 19:37 Assessment/Plan echo 11/2013 nl LV and RV size/function,mild MR, mild TR CXR 05/21/18: pulm edema EKG 05/21/18:sinus tachycardia, LVH with strain Echo 05/23/18 EF 45-50%, impaired relaxation, RV not well visualized, LA nl size , mild MR, mild TR tele: NSR 63F h/o CAD s/p NSTEMI and PCI (in 2013 at [facility] [place], TOM to OM1, TOM to LAD, residual 50-60% mLAD), HTN, HLD, DM, admissions for pancreatitis presenting with shortness of breath, hypertensive emergency, acute pulmonary edema and acute respiratory failure Hypertensive emergency, acute pulmonary edema - EF 45-50% on echo, 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 may be due to underlying uncontrolled HTN - BP tightly controlled now. stopped bb as she has had episodes of bradycardia. Started hydralazine instead. - 05/28: cont iv lasix, cr improving (4.6 today from 5), vol status improving, Weight unchanged at 155. - 05/29: Change to PO torsemide (40), Creat 4.8, I/O net 100 neg. Weight down to 156 (from 167 on admission) -05/30: clinically euvolemic. continue po torsemide. - check renal artery dopplers to r/o RA stenosis - continue hydralazine for bp as doing AV block: - episode of 2 non-conducted P waves (preceded by a non-conducted APC) on tele at 9:14 am. very likely hi vagal tone at that time of day in hospital pt who was in bed most of the time. - d/w'd dr malone--labetalol stopped at that time. - tele remains normal since. pt denies syncope at home. - rec outpt f/u with us--consider 1-2 week monitor as outpt to look for evidence of spontaneous AV block off b-naz elevated troponin, CAD, history of stents - borderline elevation likely demand in setting of hypertensive emergency and CURRY, less likely ACS - continue home meds for CAD when confirmed, patient had asked to bring list however not obtained. was on statin as well but she is not sure which - aspirin 81 mg daily Acute respiratory failure - improving with diuresis CURRY - likely ATN, improving - appreciate renal recs
[2018-05-30] MEDS ORDERED: PT OWN MED DRAWER 7, Y5N ONE (10:09)
[2018-05-30] MEDS ORDERED: DEXTROSE 5%-WATER - 50 ML IVPB ONE (10:10)
[2018-05-30] MEDS ORDERED: cefTRIAXone SODIUM 1 GM VIAL ONE (10:10)
[2018-05-30] MEDS: CEFTRIAXONE 1 GM in DEXTROSE 5%-WATER - 50 ML IVPB SCH (10:17)
[2018-05-30] MEDS: TORSEMIDE 20 MG TABLET (FP) PO SCH (10:18)
[2018-05-30] MEDS: PANTOPRAZOLE 40 MG TABLET (FP) PO SCH (10:18)
[2018-05-30] MEDS: ASPIRIN 81 MG CHEWABLE TABLETS PO SCH (10:18)
[2018-05-30] MEDS: hydrALAZINE HCL 10 MG TABLET PO SCH ×2 (10:18→22:46)
[2018-05-30] MEDS: CALCIUM ACETATE 667 MG CAPSULE (FP) PO SCH ×3 (10:18→17:22)
[2018-05-30] MEDS: AZITHROMYCIN IVPB 500 MG in DEXTROSE 5%-WATER - 250 ML IVPB SCH (10:19)
--- NOTE | 2018-05-30 11:46 | PN ---
Progress Note (short form) - Note Progress Note: Breathing continues to slowly improve. Still with some nonproductive cough. Intake & Output 05/27/18 05/28/18 05/29/18 05/30/18 23:59 23:59 23:59 23:59 Intake Total 1000 1120 1430 120 Output Total 1150 Balance -150 1120 1430 120 Weight 155 lb 3.2 oz 155 lb 4 oz 156 lb 6.4 oz 158 lb 6.4 oz Last Vital Signs Temp Pulse Resp BP Pulse Ox 97.1 F L 65 20 120/73 95 05/30/18 10:00 05/30/18 10:00 05/30/18 10:00 05/30/18 10:00 05/29/18 22:00 Active Medications Acetaminophen (Tylenol -) 650 mg PO Q4H PRN PRN Reason: FEVER Last Admin: 05/24/18 21:09 Dose: 650 mg Aspirin (Asa -) 81 mg PO DAILY [facility] Last Admin: 05/30/18 10:18 Dose: 81 mg Atropine Sulfate (Atropine Injection -) 0.4 mg IVPUSH ONCE PRN PRN Reason: MAP<65mm Hg OR SBP <90 Calcium Acetate (Phoslo -) 667 mg PO TIDCM [facility] Last Admin: 05/30/18 10:18 Dose: 667 mg Heparin Sodium (Porcine) (Heparin -) 5,000 unit SQ TID [facility] Last Admin: 05/30/18 06:20 Dose: 5,000 unit Hydralazine HCl (Apresoline Injection -) 10 mg IVPUSH Q6H PRN PRN Reason: HYPERTENSION Hydralazine HCl (Apresoline -) 10 mg PO BID [facility] Last Admin: 05/30/18 10:18 Dose: 10 mg Azithromycin 500 mg/ Dextrose 250 mls @ 250 mls/hr IVPB DAILY [facility] Last Admin: 05/30/18 10:19 Dose: 250 mls/hr Ceftriaxone Sodium 1 gm/ (Dextrose) 50 mls @ 100 mls/hr IVPB DAILY [facility]; Protocol Last Admin: 05/30/18 10:17 Dose: 100 mls/hr Insulin Aspart (Novolog Vial Sliding Scale -) 1 vial SQ ACHS [facility]; Protocol Last Admin: 05/30/18 06:16 Dose: Not Given Insulin Detemir (Levemir Vial) 15 units SQ [facility] Last Admin: 05/29/18 22:56 Dose: 15 units Lidocaine/Aluminum/Magnesium/Simeth (Magic Mouthwash *Sjr Formula* -) 5 ml MM Q6HPO [facility] Last Admin: 05/30/18 06:19 Dose: 5 ml Pantoprazole Sodium (Protonix -) 40 mg PO DAILY [facility] Last Admin: 05/30/18 10:18 Dose: 40 mg Torsemide (Demadex -) 40 mg PO DAILY [facility] Last Admin: 05/30/18 10:18 Dose: 40 mg Gen: NAD at rest Heart: RRR Lung: decreased breath sounds at the bases Abd: soft, nontender Ext: no edema Laboratory Results - last 24 hr 05/29/18 05/29/18 05/29/18 11:30 11:30 11:30 POC Glucometer Urine Color Urine Appearance Urine pH Ur Specific [place] Urine Protein Urine Glucose (UA) Urine Ketones Urine Blood Urine Nitrite Urine Bilirubin Urine Urobilinogen Ur Leukocyte Esterase U Random Total Protein 25 H Ur Random Urea Nitrogn 554 Urine Creatinine 131.0 05/29/18 05/29/18 05/29/18 11:30 11:53 16:24 POC Glucometer 214 282 Urine Color Ltyellow Urine Appearance Clear Urine pH 5.0 Ur Specific [place] 1.011 Urine Protein Negative Urine Glucose (UA) Negative Urine Ketones Negative Urine Blood Negative Urine Nitrite Negative Urine Bilirubin Negative Urine Urobilinogen Negative Ur Leukocyte Esterase Negative U Random Total Protein Ur Random Urea Nitrogn Urine Creatinine 05/29/18 05/30/18 20:58 05:36 POC Glucometer 240 142 Urine Color Urine Appearance Urine pH Ur Specific [place] Urine Protein Urine Glucose (UA) Urine Ketones Urine Blood Urine Nitrite Urine Bilirubin Urine Urobilinogen Ur Leukocyte Esterase U Random Total Protein Ur Random Urea Nitrogn Urine Creatinine A/P Acute Pulmonary Edema resolving Acute on Chronic Systolic/Diastolic Heart Failure HTN +Troponins likely Demand Ischemia Acute Kidney Injury - Torsemide per Renal - monitor urine output, creatinine - daily weights - Consider D/C ABX - DVT prophylaxis Dr Greene
--- NOTE | 2018-05-30 12:11 | PN ---
Progress Note, PATIENT MANAGER - Note Progress Note: Selected Entries 05/29/18 05/29/18 05/29/18 02:00 06:00 09:45 Breakfast 75% Lunch Supper Temperature 98.1 F 98.9 F 05/29/18 05/29/18 05/29/18 10:00 14:00 18:24 Breakfast Lunch 100% Supper 100% Temperature 97.8 F 98.2 F 98.1 F 05/29/18 05/30/18 05/30/18 22:00 02:00 06:00 Breakfast Lunch Supper Temperature 98.0 F 97.6 F 97.6 F 05/30/18 05/30/18 10:00 10:24 Breakfast 75% Lunch Supper Temperature 97.1 F L Laboratory Tests 05/28/18 05:45 WBC 5.6 Looking much stronger. Speech more precise. Vocal quality improving. MBS reviewed with staff. Pt receiving puree/thin liquids. Tolerating well. Suggest upgrade to soft, regular, thin liquid.Dentures in place.
[2018-05-30] MEDS: POLYETHYLENE GLYCOL 3350 119 GM BTL PO SCH (12:34)
[2018-05-30 13:19] LABS: ANION GAP 13 (8-16); CALCIUM 9.8 mg/dL (8.5-10.1); CHLORIDE 92 mmol/L (98-107); CO2 32 mmol/L (21-32); CREATININE 4.5 mg/dL (0.55-1.02); GLUCOSE,RANDOM 126 mg/dL (74-106); POTASSIUM 3.5 mmol/L (3.5-5.1); SODIUM 137 mmol/L (136-145)
--- NOTE | 2018-05-30 13:23 | PN ---
Progress Note (short form) - Note Progress Note: comfortable no new issues Denies pain Wants to go home Passing urine Vital Signs Temp 97.5 F L 05/30/18 13:21 Pulse 67 05/30/18 13:21 Resp 18 05/30/18 13:21 BP 133/81 05/30/18 13:21 Pulse Ox 94 L 05/30/18 10:00 Intake & Output 05/29/18 05/30/18 05/30/18 23:59 11:59 23:59 Intake Total 1330 120 Balance 1330 120 Weight 158 lb 6.4 oz Intake: IV 10 RFA #22 8/ 10 IVPB 300 Oral 1020 120 Other: Voiding Method Toilet Toilet # Unmeasured Voids Void 1 Bowel Movement No No Active Medications Acetaminophen (Tylenol -) 650 mg PO Q4H PRN PRN Reason: FEVER Last Admin: 05/24/18 21:09 Dose: 650 mg Aspirin (Asa -) 81 mg PO DAILY [facility] Last Admin: 05/30/18 10:18 Dose: 81 mg Atropine Sulfate (Atropine Injection -) 0.4 mg IVPUSH ONCE PRN PRN Reason: MAP<65mm Hg OR SBP <90 Calcium Acetate (Phoslo -) 667 mg PO TIDCM [facility] Last Admin: 05/30/18 12:31 Dose: 667 mg Heparin Sodium (Porcine) (Heparin -) 5,000 unit SQ TID [facility] Last Admin: 05/30/18 13:21 Dose: 5,000 unit Hydralazine HCl (Apresoline Injection -) 10 mg IVPUSH Q6H PRN PRN Reason: HYPERTENSION Hydralazine HCl (Apresoline -) 10 mg PO BID [facility] Last Admin: 05/30/18 10:18 Dose: 10 mg Insulin Aspart (Novolog Vial Sliding Scale -) 1 vial SQ ACHS [facility]; Protocol Last Admin: 05/30/18 12:32 Dose: 4 units Insulin Detemir (Levemir Vial) 15 units SQ HS [facility] Last Admin: 05/29/18 22:56 Dose: 15 units Lidocaine/Aluminum/Magnesium/Simeth (Magic Mouthwash *Sjr Formula* -) 5 ml MM Q6HPO [facility] Last Admin: 05/30/18 12:33 Dose: 5 ml Pantoprazole Sodium (Protonix -) 40 mg PO DAILY [facility] Last Admin: 05/30/18 10:18 Dose: 40 mg Polyethylene Glycol (Miralax (For Daily Use) -) 17 gm PO DAILY [facility] Last Admin: 05/30/18 12:34 Dose: 17 gm Torsemide (Demadex -) 40 mg PO DAILY [facility] Last Admin: 05/30/18 10:18 Dose: 40 mg CBC, BMP 05/28/18 05:45 CMP pending-- Physical exam Constitutional: Yes: alert and awake Eyes: Yes: no icterus. HEENT: Yes: wnl except mild thrush. Neck: Yes: Supple---no JVD Cardiovascular: Yes: Regular Rate and Rhythm, S1, S2 Respiratory: Yes: Bilateral breath sounds Gastrointestinal: Yes: soft Edema: trace Problem List - Problems (1) Acute kidney failure with lesion of tubular necrosis Code(s): N17.0 - ACUTE KIDNEY FAILURE WITH TUBULAR NECROSIS (2) Accelerated hypertension Code(s): I10 - ESSENTIAL (PRIMARY) HYPERTENSION (3) Hypokalemia Code(s): E87.6 - HYPOKALEMIA (4) Acute respiratory failure Code(s): J96.00 - ACUTE RESPIRATORY FAILURE, UNSP W HYPOXIA OR HYPERCAPNIA Qualifiers: Respiratory failure complication: hypoxia Qualified Code(s): J96.01 - Acute respiratory failure with hypoxia (5) CHF (congestive heart failure) Code(s): I50.9 - HEART FAILURE, UNSPECIFIED Qualifiers: Heart failure type: unspecified Heart failure chronicity: unspecified Qualified Code(s): I50.9 - Heart failure, unspecified (6) Respiratory failure Code(s): J96.90 - RESPIRATORY FAILURE, UNSP, UNSP W HYPOXIA OR HYPERCAPNIA (7) Diabetes mellitus Code(s): E11.9 - TYPE 2 DIABETES MELLITUS WITHOUT COMPLICATIONS Assessment/Plan Clinically stable continue present care Follow-up labs today Renal follow-up noted/had also discussed with Dr. Emelia Vu--- considering a renal biopsy Monitor blood sugar and blood pressure Daily out of bed to chair Soft diet--- advance as tolerated Discontinue antibiotics Will follow
[2018-05-30 13:33] LABS: BLOOD UREA NITROGEN 105 mg/dL (7-18)
--- NOTE | 2018-05-30 16:58 | PN ---
Progress Note (short form) - Note Progress Note: Renal follow up for CURRY Pt seen and examined in Tele reports feeling more fatigued today making urine, no sob, chest pain, abd pain, N/V/D Vital Signs Temperature 97.5 F L 05/30/18 13:21 Pulse Rate 67 05/30/18 13:21 Respiratory Rate 18 05/30/18 13:21 Blood Pressure 133/81 05/30/18 13:21 O2 Sat by Pulse Oximetry (%) 94 L 05/30/18 14:25 Intake & Output 05/27/18 05/28/18 05/29/18 05/30/18 23:59 23:59 23:59 23:59 Intake Total 1000 1120 1430 120 Output Total 1150 Balance -150 1120 1430 120 Weight 70.398 kg 70.42 kg 70.942 kg 71.849 kg NAD Neck supple RRR, No M/R CTA soft NT/ND No LE edema CBC, BMP 05/28/18 05:45 05/30/18 12:15 Current Medications Acetaminophen (Tylenol -) 650 mg PO Q4H PRN PRN Reason: FEVER Last Admin: 05/24/18 21:09 Dose: 650 mg Aspirin (Asa -) 81 mg PO DAILY [facility] Last Admin: 05/30/18 10:18 Dose: 81 mg Atropine Sulfate (Atropine Injection -) 0.4 mg IVPUSH ONCE PRN PRN Reason: MAP<65mm Hg OR SBP <90 Calcium Acetate (Phoslo -) 667 mg PO TIDCM [facility] Last Admin: 05/30/18 12:31 Dose: 667 mg Heparin Sodium (Porcine) (Heparin -) 5,000 unit SQ TID [facility] Last Admin: 05/30/18 13:21 Dose: 5,000 unit Hydralazine HCl (Apresoline Injection -) 10 mg IVPUSH Q6H PRN PRN Reason: HYPERTENSION Hydralazine HCl (Apresoline -) 10 mg PO BID [facility] Last Admin: 05/30/18 10:18 Dose: 10 mg Insulin Aspart (Novolog Vial Sliding Scale -) 1 vial SQ ACHS [facility]; Protocol Last Admin: 05/30/18 12:32 Dose: 4 units Insulin Detemir (Levemir Vial) 15 units SQ HS [facility] Last Admin: 05/29/18 22:56 Dose: 15 units Lidocaine/Aluminum/Magnesium/Simeth (Magic Mouthwash *Sjr Formula* -) 5 ml MM Q6HPO [facility] Last Admin: 05/30/18 12:33 Dose: 5 ml Pantoprazole Sodium (Protonix -) 40 mg PO DAILY [facility] Last Admin: 05/30/18 10:18 Dose: 40 mg Polyethylene Glycol (Miralax (For Daily Use) -) 17 gm PO DAILY [facility] Last Admin: 05/30/18 12:34 Dose: 17 gm Torsemide (Demadex -) 40 mg PO DAILY [facility] Last Admin: 05/30/18 10:18 Dose: 40 mg 63 y/o female with a history of CHF, DM, HTN, HLD, pancreatitis, and CAD s/p 2 stents presented with shortness of breath and tachycardia. In acute kidney failure with oliguria and progressive azotemia. #CURRY (differential includes ATN from renal hypoprofusion vs pre-renal injury from CRS ) #Acute CHF Cr with mild improvement but BUN remains high weights increasing on torsemide once daily give additional dose of torsemide today and then increase to 60mg daily tomorrow Repeat urine studies show Low FeUrea and no significant proteinuria serologic work up sent, results pending Trend renal function continue inpatient observation Андрей Barrett DO
[2018-05-30] MEDS ORDERED: TORSEMIDE 20 MG TABLET (FP) PO ONE ×2 (17:29→19:15)
[2018-05-30] MEDS: INSULIN (LEVEMIR) 100 UNITS/ML UNITS SQ SCH (22:46)
[2018-05-31 06:06] LABS: HEP.C VIRUS AB 0.1 s/co ratio (0.0-0.9)
[2018-05-31] MEDS: INSULIN SLIDING SCALE (NOVOLOG) 1 VIAL SQ SCH ×4 (06:07→21:19)
[2018-05-31] MEDS: MAG HYDROX/ALH/SMC/DPHA/LIDO 240 ML MOUTHWASH MM SCH ×3 (06:08→17:16)
[2018-05-31] MEDS: HEPARIN NA (PORCINE) 5,000 UNITS/ML 1ML VIAL SQ SCH ×3 (06:08→21:19)
[2018-05-31 06:48] LABS: BASO % 0.9 % (0-2.0); EOS % 2.8 % (0-4.5); HEMATOCRIT 38.4 % (32.4-45.2); HEMOGLOBIN 13.3 GM/dL (10.7-15.3); LYMPH % 34.7 % (8-40); MCH 30.1 pg (25.7-33.7); MCHC 34.7 g/dl (32.0-36.0); MEAN CELL VOLUME 86.7 fl (80-96); MONO % 11.1 % (3.8-10.2); NEUT % 50.5 % (42.8-82.8); PLATELET COUNT 167 K/MM3 (134-434); RBC 4.43 M/mm3 (3.60-5.2); RDW 13.3 % (11.6-15.6); WHITE BLOOD COUNT 5.3 K/mm3 (4.0-10.0)
[2018-05-31 07:07] LABS: ALBUMIN 3.5 g/dl (3.4-5.0); ANION GAP 9 (8-16); CALCIUM 9.7 mg/dL (8.5-10.1); CHLORIDE 91 mmol/L (98-107); CO2 36 mmol/L (21-32); CREATININE 4.3 mg/dL (0.55-1.02); GLUCOSE,RANDOM 139 mg/dL (74-106); MAGNESIUM 2.9 mg/dL (1.8-2.4); PHOSPHOROUS 4.3 mg/dL (2.5-4.9); POTASSIUM 3.6 mmol/L (3.5-5.1); SGOT/AST 24 U/L (15-37); SGPT/ALT 36 U/L (12-78); SODIUM 136 mmol/L (136-145)
[2018-05-31 07:09] LABS: ALK PHOS 82 U/L (45-117); BILIRUBIN,TOTAL 0.3 mg/dL (0.2-1.0); TOT PROT 6.6 g/dl (6.4-8.2)
[2018-05-31 07:38] LABS: BLOOD UREA NITROGEN 105 mg/dL (7-18)
--- NOTE | 2018-05-31 09:48 | PN ---
Progress Note (short form) - Note Progress Note: s: no dyspnea, cp, palps, dizzy. has been out of bed more, walking down the [address]arcia , to the bathroom and back without complaints, able to lie flat as well Current Medications Acetaminophen (Tylenol -) 650 mg PO Q4H PRN PRN Reason: FEVER Last Admin: 05/24/18 21:09 Dose: 650 mg Aspirin (Asa -) 81 mg PO DAILY [facility] Last Admin: 05/30/18 10:18 Dose: 81 mg Atropine Sulfate (Atropine Injection -) 0.4 mg IVPUSH ONCE PRN PRN Reason: MAP<65mm Hg OR SBP <90 Calcium Acetate (Phoslo -) 667 mg PO TIDCM [facility] Last Admin: 05/30/18 17:22 Dose: 667 mg Heparin Sodium (Porcine) (Heparin -) 5,000 unit SQ TID [facility] Last Admin: 05/31/18 06:08 Dose: 5,000 unit Hydralazine HCl (Apresoline Injection -) 10 mg IVPUSH Q6H PRN PRN Reason: HYPERTENSION Hydralazine HCl (Apresoline -) 10 mg PO BID [facility] Last Admin: 05/30/18 22:46 Dose: 10 mg Insulin Aspart (Novolog Vial Sliding Scale -) 1 vial SQ [facility]; Protocol Last Admin: 05/31/18 06:07 Dose: Not Given Insulin Detemir (Levemir Vial) 15 units SQ HS [facility] Last Admin: 05/30/18 22:46 Dose: 15 units Lidocaine/Aluminum/Magnesium/Simeth (Magic Mouthwash *Sjr Formula* -) 5 ml MM Q6HPO [facility] Last Admin: 05/31/18 06:08 Dose: 5 ml Pantoprazole Sodium (Protonix -) 40 mg PO DAILY [facility] Last Admin: 05/30/18 10:18 Dose: 40 mg Polyethylene Glycol (Miralax (For Daily Use) -) 17 gm PO DAILY [facility] Last Admin: 05/30/18 12:34 Dose: 17 gm Torsemide (Demadex -) 60 mg PO DAILY [facility] - Objective Vital Signs: Vital Signs Period Temp Pulse Resp BP Sys/Springer Pulse Ox Last 24 Hr 97.1 F-98.9 F 63-71 16-20 112-151/73-95 94-94 Constitutional: Yes: Well Nourished, No Distress, Calm Cardiovascular: Yes: Regular Rate and Rhythm. No: JVD, Gallop, Murmur Respiratory: Yes: Regular, CTA Bilaterally. No: Accessory Muscle Use, Rales, Wheezes Extremities: No: Cold Edema: No Neurological: Yes: Alert, Oriented Psychiatric: No: Agitated Assessment/Plan echo 11/2013 nl LV and RV size/function,mild MR, mild TR CXR 05/21/18: pulm edema EKG 05/21/18:sinus tachycardia, LVH with strain Echo 05/23/18 EF 45-50%, impaired relaxation, RV not well visualized, LA nl size , mild MR, mild TR tele: NSR 63F h/o CAD s/p NSTEMI and PCI (in 2013 at [facility], TOM to OM1, TOM to LAD, residual 50-60% mLAD), HTN, HLD, DM, admissions for pancreatitis presenting with shortness of breath, hypertensive emergency, acute pulmonary edema and acute respiratory failure Hypertensive emergency, acute pulmonary edema - EF 45-50% on echo, 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 may be due to underlying uncontrolled HTN - BP tightly controlled now. stopped bb as she has had episodes of bradycardia. Started hydralazine instead. - 05/28: cont iv lasix, cr improving (4.6 today from 5), vol status improving, Weight unchanged at 155. - 05/29: Change to PO torsemide (40), Creat 4.8, I/O net 100 neg. Weight down to 156 (from 167 on admission) -05/30: received additional dose of torsemide after evaluation by Dr Barrett, weight increasing, dose changed to 60 mg daily - 05/31: agree with increased torsemide dose 60 mg daily, will monitor daily standing weight, I/O -continue hydralazine - will consider renal artery doppler as outpatient pending BP/Cr trend AV block: - episode of 2 non-conducted P waves (preceded by a non-conducted APC) on tele at 9:14 am. very likely hi vagal tone at that time of day in hospital pt who was in bed most of the time, labetolol was stopped, no further episodes - tele dc'ed - consider 1-2 week monitor as outpt to look for evidence of spontaneous AV block off b-naz, will need close outpatient follow up elevated troponin, CAD, history of stents - borderline elevation likely demand in setting of hypertensive emergency and CURRY, less likely ACS - continue home meds for CAD when confirmed, patient had asked to bring list however not obtained. was on statin as well but she is not sure which - aspirin 81 mg daily Acute respiratory failure - improving with diuresis CURRY - likely ATN, Cr improving, BUN remains elevated - appreciate renal recs
[2018-05-31] MEDS: hydrALAZINE HCL 10 MG TABLET PO SCH ×2 (09:54→21:19)
[2018-05-31] MEDS: CALCIUM ACETATE 667 MG CAPSULE (FP) PO SCH ×3 (09:55→17:13)
[2018-05-31] MEDS: PANTOPRAZOLE 40 MG TABLET (FP) PO SCH (09:55)
[2018-05-31] MEDS: TORSEMIDE 20 MG TABLET (FP) PO SCH (09:55)
[2018-05-31] MEDS: POLYETHYLENE GLYCOL 3350 119 GM BTL PO SCH (09:55)
[2018-05-31] MEDS: ASPIRIN 81 MG CHEWABLE TABLETS PO SCH (09:55)
--- NOTE | 2018-05-31 11:16 | PN ---
Progress Note, Physician - Current Medication List Current Medications: Active Medications Acetaminophen (Tylenol -) 650 mg PO Q4H PRN PRN Reason: FEVER Last Admin: 05/24/18 21:09 Dose: 650 mg Aspirin (Asa -) 81 mg PO DAILY [facility] Last Admin: 05/31/18 09:55 Dose: 81 mg Atropine Sulfate (Atropine Injection -) 0.4 mg IVPUSH ONCE PRN PRN Reason: MAP<65mm Hg OR SBP <90 Calcium Acetate (Phoslo -) 667 mg PO TIDCM [facility] Last Admin: 05/31/18 09:55 Dose: 667 mg Heparin Sodium (Porcine) (Heparin -) 5,000 unit SQ TID [facility] Last Admin: 05/31/18 06:08 Dose: 5,000 unit Hydralazine HCl (Apresoline Injection -) 10 mg IVPUSH Q6H PRN PRN Reason: HYPERTENSION Hydralazine HCl (Apresoline -) 10 mg PO BID [facility] Last Admin: 05/31/18 09:54 Dose: 10 mg Insulin Aspart (Novolog Vial Sliding Scale -) 1 vial SQ [facility]; Protocol Last Admin: 05/31/18 06:07 Dose: Not Given Insulin Detemir (Levemir Vial) 15 units SQ HS [facility] Last Admin: 05/30/18 22:46 Dose: 15 units Lidocaine/Aluminum/Magnesium/Simeth (Magic Mouthwash *Sjr Formula* -) 5 ml MM Q6HPO [facility] Last Admin: 05/31/18 06:08 Dose: 5 ml Pantoprazole Sodium (Protonix -) 40 mg PO DAILY [facility] Last Admin: 05/31/18 09:55 Dose: 40 mg Polyethylene Glycol (Miralax (For Daily Use) -) 17 gm PO DAILY [facility] Last Admin: 05/31/18 09:55 Dose: 17 gm Torsemide (Demadex -) 60 mg PO DAILY [facility] Last Admin: 05/31/18 09:55 Dose: 60 mg - Objective Vital Signs: Vital Signs Temperature 97.8 F 05/31/18 10:00 Pulse Rate 64 05/31/18 10:00 Respiratory Rate 18 05/31/18 10:00 Blood Pressure 116/76 05/31/18 10:00 O2 Sat by Pulse Oximetry (%) 96 05/31/18 10:00 Labs: CBC, BMP 05/31/18 06:00 05/31/18 06:00 INR, PTT INR 1.12 (0.82-1.09) 05/21/18 19:37 Problem List - Problems (1) Accelerated hypertension Code(s): I10 - ESSENTIAL (PRIMARY) HYPERTENSION (2) Acute kidney failure with lesion of tubular necrosis Code(s): N17.0 - ACUTE KIDNEY FAILURE WITH TUBULAR NECROSIS (3) Acute respiratory failure Code(s): J96.00 - ACUTE RESPIRATORY FAILURE, UNSP W HYPOXIA OR HYPERCAPNIA Qualifiers: Respiratory failure complication: hypoxia Qualified Code(s): J96.01 - Acute respiratory failure with hypoxia (4) CHF (congestive heart failure) Code(s): I50.9 - HEART FAILURE, UNSPECIFIED Qualifiers: Heart failure type: unspecified Heart failure chronicity: unspecified Qualified Code(s): I50.9 - Heart failure, unspecified (5) Hypoxemia Code(s): R09.02 - HYPOXEMIA (6) Respiratory failure Code(s): J96.90 - RESPIRATORY FAILURE, UNSP, UNSP W HYPOXIA OR HYPERCAPNIA
--- NOTE | 2018-05-31 11:53 | PN ---
Progress Note, REFRIGERATION BRAZER/SOLDERER - Note Progress Note: Selected Entries 05/30/18 05/30/18 05/30/18 02:00 06:00 10:00 Breakfast Temperature 97.6 F 97.6 F 97.1 F L 05/30/18 05/30/18 05/30/18 10:24 13:21 14:25 Breakfast 75% 75% Temperature 97.5 F L 05/30/18 05/30/18 05/31/18 18:00 22:00 06:06 Breakfast Temperature 98.8 F 98.9 F 98.3 F 05/31/18 05/31/18 10:00 11:34 Breakfast 75% Temperature 97.8 F Laboratory Tests 05/31/18 06:00 WBC 5.3 Speech precise. Diet upgraded. Tolerating diet well, but pt concerned that blood sugar was elevated today, Pt on Soft diet, no therapeutic orders. Suggest DM diet. Suggest RD consult re Dietary adjustments
[2018-05-31] MEDS ORDERED: BISACODYL 10 MG SUPP.RECT PR PRN (12:03)
--- NOTE | 2018-05-31 12:04 | PN ---
Progress Note (short form) - Note Progress Note: Renal follow up for CURRY Pt seen and examined in Tele reports feeling fatgiued and a little lightheaded making urine denies any sob, cp, abd pain no confusion or lethargy Vital Signs Temperature 97.8 F 05/31/18 10:00 Pulse Rate 64 05/31/18 10:00 Respiratory Rate 18 05/31/18 10:00 Blood Pressure 116/76 05/31/18 10:00 O2 Sat by Pulse Oximetry (%) 96 05/31/18 10:00 Intake & Output 05/28/18 05/29/18 05/30/18 05/31/18 23:59 23:59 23:59 23:59 Intake Total 1120 1430 190 Output Total 900 500 Balance 1120 1430 -710 -500 Weight 70.42 kg 70.942 kg 71.849 kg NAD Neck supple RRR, No M/R CTA soft NT/ND No LE edema CBC, BMP 05/31/18 06:00 05/31/18 06:00 Current Medications Acetaminophen (Tylenol -) 650 mg PO Q4H PRN PRN Reason: FEVER Last Admin: 05/24/18 21:09 Dose: 650 mg Aspirin (Asa -) 81 mg PO DAILY [facility] Last Admin: 05/31/18 09:55 Dose: 81 mg Atropine Sulfate (Atropine Injection -) 0.4 mg IVPUSH ONCE PRN PRN Reason: MAP<65mm Hg OR SBP <90 Calcium Acetate (Phoslo -) 667 mg PO TIDCM [facility] Last Admin: 05/31/18 09:55 Dose: 667 mg Heparin Sodium (Porcine) (Heparin -) 5,000 unit SQ TID [facility] Last Admin: 05/31/18 06:08 Dose: 5,000 unit Hydralazine HCl (Apresoline Injection -) 10 mg IVPUSH Q6H PRN PRN Reason: HYPERTENSION Hydralazine HCl (Apresoline -) 10 mg PO BID [facility] Last Admin: 05/31/18 09:54 Dose: 10 mg Insulin Aspart (Novolog Vial Sliding Scale -) 1 vial SQ ACHS [facility]; Protocol Last Admin: 05/31/18 11:22 Dose: 4 units Insulin Detemir (Levemir Vial) 15 units SQ HS [facility] Last Admin: 05/30/18 22:46 Dose: 15 units Lidocaine/Aluminum/Magnesium/Simeth (Magic Mouthwash *Sjr Formula* -) 5 ml MM Q6HPO [facility] Last Admin: 05/31/18 06:08 Dose: 5 ml Pantoprazole Sodium (Protonix -) 40 mg PO DAILY [facility] Last Admin: 05/31/18 09:55 Dose: 40 mg Polyethylene Glycol (Miralax (For Daily Use) -) 17 gm PO DAILY [facility] Last Admin: 05/31/18 09:55 Dose: 17 gm Torsemide (Demadex -) 60 mg PO DAILY [facility] Last Admin: 05/31/18 09:55 Dose: 60 mg 63 y/o female with a history of CHF, DM, HTN, HLD, pancreatitis, and CAD s/p 2 stents presented with shortness of breath and tachycardia. In acute kidney failure with oliguria and progressive azotemia. #CURRY (differential includes ATN from renal hypoprofusion vs pre-renal injury from CRS ) #Acute CHF #Hypertensive emergency Cr slowly improving, BUN remains high no overt uremic symptoms to warrant dialysis urine studies show bland urine w/o overt proteinuria to suggest GN or intrinsic injury weights stable from yesterday to today (was 71.3 kg today) Continue torsemide 60mg daily low salt diet would observe for one for day and if weights and renal function are stable can anticipate discharge to rehab Андрей Barrett DO
--- NOTE | 2018-05-31 13:05 | PN ---
Progress Note (short form) - Note Progress Note: Breathing continues to slowly improve. Still with some nonproductive cough. Ambulating more. Intake & Output 05/28/18 05/29/18 05/30/18 05/31/18 23:59 23:59 23:59 23:59 Intake Total 1120 1430 190 Output Total 900 500 Balance 1120 1430 -710 -500 Weight 155 lb 4 oz 156 lb 6.4 oz 158 lb 6.4 oz 157 lb Last Vital Signs Temp Pulse Resp BP Pulse Ox 97.8 F 64 18 116/76 96 05/31/18 10:00 05/31/18 10:00 05/31/18 10:00 05/31/18 10:00 05/31/18 10:00 Active Medications Acetaminophen (Tylenol -) 650 mg PO Q4H PRN PRN Reason: FEVER Last Admin: 05/24/18 21:09 Dose: 650 mg Aspirin (Asa -) 81 mg PO DAILY [facility] Last Admin: 05/31/18 09:55 Dose: 81 mg Atropine Sulfate (Atropine Injection -) 0.4 mg IVPUSH ONCE PRN PRN Reason: MAP<65mm Hg OR SBP <90 Bisacodyl (Dulcolax Suppository -) 10 mg [place] DAILY PRN PRN Reason: CONSTIPATION Calcium Acetate (Phoslo -) 667 mg PO TIDCM [facility] Last Admin: 05/31/18 12:27 Dose: 667 mg Heparin Sodium (Porcine) (Heparin -) 5,000 unit SQ TID [facility] Last Admin: 05/31/18 06:08 Dose: 5,000 unit Hydralazine HCl (Apresoline Injection -) 10 mg IVPUSH Q6H PRN PRN Reason: HYPERTENSION Hydralazine HCl (Apresoline -) 10 mg PO BID [facility] Last Admin: 05/31/18 09:54 Dose: 10 mg Insulin Aspart (Novolog Vial Sliding Scale -) [address] [facility]; Protocol Last Admin: 05/31/18 11:22 Dose: 4 units Insulin Detemir (Levemir Vial) 15 units SQ HS [facility] Last Admin: 05/30/18 22:46 Dose: 15 units Lidocaine/Aluminum/Magnesium/Simeth (Magic Mouthwash *Sjr Formula* -) 5 ml MM Q6HPO [facility] Last Admin: 05/31/18 12:27 Dose: 5 ml Pantoprazole Sodium (Protonix -) 40 mg PO DAILY [facility] Last Admin: 05/31/18 09:55 Dose: 40 mg Polyethylene Glycol (Miralax (For Daily Use) -) 17 gm PO DAILY [facility] Last Admin: 05/31/18 09:55 Dose: 17 gm Torsemide (Demadex -) 60 mg PO DAILY [facility] Last Admin: 05/31/18 09:55 Dose: 60 mg Gen: NAD at rest Heart: RRR Lung: decreased breath sounds at the bases Abd: soft, nontender Ext: no edema Laboratory Results - last 24 hr 05/30/18 05/30/18 05/30/18 05:30 12:15 16:49 WBC RBC Hgb Hct MCV MCH MCHC RDW Plt Count MPV Absolute Neuts (auto) Neutrophils % Lymphocytes % Monocytes % Eosinophils % Basophils % Nucleated RBC % Sodium 137 Potassium 3.5 Chloride 92 L Carbon Dioxide 32 Anion Gap 13 BUN 105 H* Creatinine 4.5 H Creat Clearance w eGFR 9.84 POC Glucometer 210 Random Glucose 126 H Calcium 9.8 Phosphorus Magnesium Total Bilirubin AST ALT Alkaline Phosphatase LD Total Total Protein Albumin Hepatitis A IgM Ab Negative Hep Bs Antigen Negative Hep B Core IgM Ab Negative Hepatitis C Antibody 0.1 05/30/18 05/31/18 05/31/18 22:43 06:00 06:00 WBC 5.3 RBC 4.43 Hgb 13.3 Hct 38.4 MCV 86.7 MCH 30.1 MCHC 34.7 RDW 13.3 Plt Count 167 MPV 11.0 Absolute Neuts (auto) 2.7 Neutrophils % 50.5 Lymphocytes % 34.7 D Monocytes % 11.1 H Eosinophils % 2.8 Basophils % 0.9 Nucleated RBC % 0 Sodium 136 Potassium 3.6 Chloride 91 L Carbon Dioxide 36 H Anion Gap 9 BUN 105 H* Creatinine 4.3 H Creat Clearance w eGFR 10.37 POC Glucometer 239 Random Glucose 139 H Calcium 9.7 Phosphorus 4.3 Magnesium 2.9 H Total Bilirubin 0.3 AST 24 ALT 36 Alkaline Phosphatase 82 LD Total Total Protein 6.6 Albumin 3.5 Hepatitis A IgM Ab Hep Bs Antigen Hep B Core IgM Ab Hepatitis C Antibody 05/31/18 05/31/18 05/31/18 06:00 06:06 11:20 WBC RBC Hgb Hct MCV MCH MCHC RDW Plt Count MPV Absolute Neuts (auto) Neutrophils % Lymphocytes % Monocytes % Eosinophils % Basophils % Nucleated RBC % Sodium Potassium Chloride Carbon Dioxide Anion Gap BUN Creatinine Creat Clearance w eGFR POC Glucometer 145 220 Random Glucose Calcium Phosphorus Magnesium Total Bilirubin AST ALT Alkaline Phosphatase LD Total 174 Total Protein Albumin Hepatitis A IgM Ab Hep Bs Antigen Hep B Core IgM Ab Hepatitis C Antibody A/P Acute Pulmonary Edema resolving Acute on Chronic Systolic/Diastolic Heart Failure HTN +Troponins likely Demand Ischemia Acute Kidney Injury - Torsemide per Renal - monitor urine output, creatinine - daily weights - Monitor off ABX - DVT prophylaxis Dr Greene
[2018-05-31] MEDS ORDERED: INSULIN (NOVOLOG) ASPART 100 UNITS/ML 10ML VIAL ONE (21:15)
[2018-05-31] MEDS: INSULIN (LEVEMIR) 100 UNITS/ML UNITS SQ SCH (21:19)
[2018-06-01 00:08] LABS: COMPLEMENT TOTAL(CH50) > 60 U/mL (>41)
[2018-06-01] MEDS: MAG HYDROX/ALH/SMC/DPHA/LIDO 240 ML MOUTHWASH MM SCH ×5 (00:33→23:02)
[2018-06-01] MEDS: HEPARIN NA (PORCINE) 5,000 UNITS/ML 1ML VIAL SQ SCH ×3 (05:43→22:55)
[2018-06-01] MEDS: INSULIN SLIDING SCALE (NOVOLOG) 1 VIAL SQ SCH ×4 (06:04→22:55)
[2018-06-01 06:33] LABS: BASO % 0.8 % (0-2.0); EOS % 2.3 % (0-4.5); HEMATOCRIT 39.4 % (32.4-45.2); HEMOGLOBIN 13.5 GM/dL (10.7-15.3); LYMPH % 37.2 % (8-40); MCH 29.8 pg (25.7-33.7); MCHC 34.3 g/dl (32.0-36.0); MEAN CELL VOLUME 86.9 fl (80-96); MEAN PLT VOLUME 10.5 fl (7.5-11.1); MONO % 9.9 % (3.8-10.2); NEUT % 49.8 % (42.8-82.8); PLATELET COUNT 183 K/MM3 (134-434); RBC 4.54 M/mm3 (3.60-5.2); RDW 13.1 % (11.6-15.6); WHITE BLOOD COUNT 5.5 K/mm3 (4.0-10.0)
[2018-06-01 07:10] LABS: ALBUMIN 3.6 g/dl (3.4-5.0); ALK PHOS 82 U/L (45-117); ANION GAP 9 (8-16); BILIRUBIN,TOTAL 0.5 mg/dL (0.2-1.0); BLOOD UREA NITROGEN 104 mg/dL (7-18); CALCIUM 10.1 mg/dL (8.5-10.1); CHLORIDE 89 mmol/L (98-107); CO2 38 mmol/L (21-32); CREATININE 4.3 mg/dL (0.55-1.02); GLUCOSE,RANDOM 90 mg/dL (74-106); LDH 149 U/L (84-246); MAGNESIUM 2.7 mg/dL (1.8-2.4); PHOSPHOROUS 4.4 mg/dL (2.5-4.9); POTASSIUM 3.6 mmol/L (3.5-5.1); SGOT/AST 20 U/L (15-37); SGPT/ALT 36 U/L (12-78); SODIUM 136 mmol/L (136-145); TOT PROT 6.8 g/dl (6.4-8.2)
--- NOTE | 2018-06-01 09:12 | PN ---
Progress Note (short form) - Note Progress Note: s: no cp, palps, dizzy. felt a little short of breath this morning, tired. has not gotten torsemide dose yet. Current Medications Acetaminophen (Tylenol -) 650 mg PO Q4H PRN PRN Reason: FEVER Last Admin: 05/24/18 21:09 Dose: 650 mg Aspirin (Asa -) 81 mg PO DAILY [facility] Last Admin: 05/31/18 09:55 Dose: 81 mg Atropine Sulfate (Atropine Injection -) 0.4 mg IVPUSH ONCE PRN PRN Reason: MAP<65mm Hg OR SBP <90 Bisacodyl (Dulcolax Suppository -) 10 mg [place] DAILY PRN PRN Reason: CONSTIPATION Calcium Acetate (Phoslo -) 667 mg PO TIDCM [facility] Last Admin: 05/31/18 17:13 Dose: 667 mg Heparin Sodium (Porcine) (Heparin -) 5,000 unit SQ TID [facility] Last Admin: 06/01/18 05:43 Dose: 5,000 unit Hydralazine HCl (Apresoline Injection -) 10 mg IVPUSH Q6H PRN PRN Reason: HYPERTENSION Hydralazine HCl (Apresoline -) 10 mg PO BID [facility] Last Admin: 05/31/18 21:19 Dose: 10 mg Insulin Aspart (Novolog Vial Sliding Scale -) 1 vial SQ [facility]; Protocol Last Admin: 06/01/18 06:04 Dose: Not Given Insulin Detemir (Levemir Vial) 15 units SQ HS [facility] Last Admin: 05/31/18 21:19 Dose: 15 units Lidocaine/Aluminum/Magnesium/Simeth (Magic Mouthwash *Sjr Formula* -) 5 ml MM Q6HPO [facility] Last Admin: 06/01/18 05:43 Dose: 5 ml Pantoprazole Sodium (Protonix -) 40 mg PO DAILY [facility] Last Admin: 05/31/18 09:55 Dose: 40 mg Polyethylene Glycol (Miralax (For Daily Use) -) 17 gm PO DAILY [facility] Last Admin: 05/31/18 09:55 Dose: 17 gm Torsemide (Demadex -) 60 mg PO DAILY [facility] Last Admin: 05/31/18 09:55 Dose: 60 mg - Objective Vital Signs: Vital Signs Period Temp Pulse Resp BP Sys/Springer Pulse Ox Last 24 Hr 97.8 F-98.5 F 63-67 18-21 113-144/72-82 96-98 Constitutional: Yes: Well Nourished, No Distress, Calm Cardiovascular: Yes: Regular Rate and Rhythm. No: JVD, Gallop, Murmur Respiratory: Yes: Regular, CTA Bilaterally. No: Accessory Muscle Use, Rales, Wheezes Extremities: No: Cold Edema: No Neurological: Yes: Alert, Oriented Psychiatric: No: Agitated Assessment/Plan echo 11/2013 nl LV and RV size/function,mild MR, mild TR CXR 05/21/18: pulm edema EKG 05/21/18:sinus tachycardia, LVH with strain Echo 05/23/18 EF 45-50%, impaired relaxation, RV not well visualized, LA nl size , mild MR, mild TR 63F h/o CAD s/p NSTEMI and PCI (in 2013 at [facility], TOM to OM1, TOM to LAD, residual 50-60% mLAD), HTN, HLD, DM, admissions for pancreatitis presenting with shortness of breath, hypertensive emergency, acute pulmonary edema and acute respiratory failure Hypertensive emergency, acute pulmonary edema - EF 45-50% on echo, 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 may be due to underlying uncontrolled HTN - BP tightly controlled now. stopped bb as she has had episodes of bradycardia. Started hydralazine instead. - 05/28: cont iv lasix, cr improving (4.6 today from 5), vol status improving, Weight unchanged at 155. - 05/29: Change to PO torsemide (40), Creat 4.8, I/O net 100 neg. Weight down to 156 (from 167 on admission) -05/30: received additional dose of torsemide after evaluation by Dr Barrett, weight increasing, dose changed to 60 mg daily - 05/31: agree with increased torsemide dose 60 mg daily, will monitor daily standing weight, I/O - 06/01 stable Cr, weight with torsemide, continue current dose -continue hydralazine - will consider renal artery doppler as outpatient pending BP/Cr trend AV block: - episode of 2 non-conducted P waves (preceded by a non-conducted APC) on tele at 9:14 am. very likely hi vagal tone at that time of day in hospital pt who was in bed most of the time, labetolol was stopped, no further episodes - tele dc'ed - consider 1-2 week monitor as outpt to look for evidence of spontaneous AV block off b-naz, will need close outpatient follow up elevated troponin, CAD, history of stents - borderline elevation likely demand in setting of hypertensive emergency and CURRY, less likely ACS - continue home meds for CAD when confirmed, patient had asked to bring list however not obtained. was on statin as well but she is not sure which - aspirin 81 mg daily Acute respiratory failure - improving with diuresis CURRY - likely ATN, Cr improving, BUN remains elevated - appreciate renal recs
[2018-06-01] MEDS ORDERED: PT OWN MED DRAWER 7, Y5N ONE ×2 (09:48→22:58)
[2018-06-01] MEDS: PANTOPRAZOLE 40 MG TABLET (FP) PO SCH (10:08)
[2018-06-01] MEDS: CALCIUM ACETATE 667 MG CAPSULE (FP) PO SCH ×3 (10:08→17:26)
[2018-06-01] MEDS: ASPIRIN 81 MG CHEWABLE TABLETS PO SCH (10:08)
[2018-06-01] MEDS: TORSEMIDE 20 MG TABLET (FP) PO SCH (10:09)
[2018-06-01] MEDS: hydrALAZINE HCL 10 MG TABLET PO SCH ×2 (10:09→22:55)
[2018-06-01] MEDS: POLYETHYLENE GLYCOL 3350 119 GM BTL PO SCH (10:10)
[2018-06-01] MEDS ORDERED: INSULIN (NOVOLOG) ASPART 100 UNITS/ML 10ML VIAL ONE (12:01)
--- NOTE | 2018-06-01 12:46 | PN ---
Progress Note (short form) - Note Progress Note: Breathing continues to slowly improve. Still with some nonproductive cough. Ambulating more. Intake & Output 05/29/18 05/30/18 05/31/18 06/01/18 23:59 23:59 23:59 23:59 Intake Total 1430 190 770 Output Total 336 772 0132 Balance 1430 -710 270 -1100 Weight 156 lb 6.4 oz 158 lb 6.4 oz 157 lb 158 lb Last Vital Signs Temp Pulse Resp BP Pulse Ox 98.4 F 68 20 136/76 98 06/01/18 10:00 06/01/18 10:00 06/01/18 10:00 06/01/18 10:00 06/01/18 10:00 Active Medications Acetaminophen (Tylenol -) 650 mg PO Q4H PRN PRN Reason: FEVER Last Admin: 05/24/18 21:09 Dose: 650 mg Aspirin (Asa -) 81 mg PO DAILY [facility] Last Admin: 06/01/18 10:08 Dose: 81 mg Atropine Sulfate (Atropine Injection -) 0.4 mg IVPUSH ONCE PRN PRN Reason: MAP<65mm Hg OR SBP <90 Bisacodyl (Dulcolax Suppository -) 10 mg [place] DAILY PRN PRN Reason: CONSTIPATION Calcium Acetate (Phoslo -) 667 mg PO TIDCM [facility] Last Admin: 06/01/18 10:08 Dose: 667 mg Heparin Sodium (Porcine) (Heparin -) 5,000 unit SQ TID [facility] Last Admin: 06/01/18 05:43 Dose: 5,000 unit Hydralazine HCl (Apresoline Injection -) 10 mg IVPUSH Q6H PRN PRN Reason: HYPERTENSION Hydralazine HCl (Apresoline -) 10 mg PO BID [facility] Last Admin: 06/01/18 10:09 Dose: 10 mg Insulin Aspart (Novolog Vial Sliding Scale -) 1 vial SQ [facility]; Protocol Last Admin: 06/01/18 11:58 Dose: 6 units Insulin Detemir (Levemir Vial) 15 units SQ HS [facility] Last Admin: 05/31/18 21:19 Dose: 15 units Lidocaine/Aluminum/Magnesium/Simeth (Magic Mouthwash *Sjr Formula* -) 5 ml MM Q6HPO [facility] Last Admin: 06/01/18 11:57 Dose: 5 ml Pantoprazole Sodium (Protonix -) 40 mg PO DAILY [facility] Last Admin: 06/01/18 10:08 Dose: 40 mg Polyethylene Glycol (Miralax (For Daily Use) -) 17 gm PO DAILY [facility] Last Admin: 06/01/18 10:10 Dose: 17 gm Torsemide (Demadex -) 60 mg PO DAILY [facility] Last Admin: 06/01/18 10:09 Dose: 60 mg Gen: NAD at rest Heart: RRR Lung: decreased breath sounds at the bases Abd: soft, nontender Ext: no edema Laboratory Results - last 24 hr 05/30/18 05/31/18 05/31/18 05:30 16:40 21:19 WBC RBC Hgb Hct MCV MCH MCHC RDW Plt Count MPV Absolute Neuts (auto) Neutrophils % Lymphocytes % Monocytes % Eosinophils % Basophils % Nucleated RBC % Sodium Potassium Chloride Carbon Dioxide Anion Gap BUN Creatinine Creat Clearance w eGFR POC Glucometer 221 208 Random Glucose Calcium Phosphorus Magnesium Total Bilirubin AST ALT Alkaline Phosphatase LD Total Total Protein Albumin DANIEL Screen Negative Tot Complement (CH50) > 60 06/01/18 06/01/18 06/01/18 05:43 06:00 06:00 WBC 5.5 RBC 4.54 Hgb 13.5 Hct 39.4 MCV 86.9 MCH 29.8 MCHC 34.3 RDW 13.1 Plt Count 183 MPV 10.5 Absolute Neuts (auto) 2.7 Neutrophils % 49.8 Lymphocytes % 37.2 Monocytes % 9.9 Eosinophils % 2.3 Basophils % 0.8 Nucleated RBC % 0 Sodium 136 Potassium 3.6 Chloride 89 L Carbon Dioxide 38 H Anion Gap 9 BUN 104 H Creatinine 4.3 H Creat Clearance w eGFR 10.37 POC Glucometer 100 Random Glucose 90 Calcium 10.1 Phosphorus 4.4 Magnesium 2.7 H Total Bilirubin 0.5 AST 20 ALT 36 Alkaline Phosphatase 82 LD Total 149 Total Protein 6.8 Albumin 3.6 DANIEL Screen Tot Complement (CH50) 06/01/18 11:52 WBC RBC Hgb Hct MCV MCH MCHC RDW Plt Count MPV Absolute Neuts (auto) Neutrophils % Lymphocytes % Monocytes % Eosinophils % Basophils % Nucleated RBC % Sodium Potassium Chloride Carbon Dioxide Anion Gap BUN Creatinine Creat Clearance w eGFR POC Glucometer 287 Random Glucose Calcium Phosphorus Magnesium Total Bilirubin AST ALT Alkaline Phosphatase LD Total Total Protein Albumin DANIEL Screen Tot Complement (CH50) A/P Acute Pulmonary Edema resolving Acute on Chronic Systolic/Diastolic Heart Failure HTN +Troponins likely Demand Ischemia Acute Kidney Injury - Torsemide per Renal - monitor urine output, creatinine - daily weights - Monitor off ABX - DVT prophylaxis Dr Greene
--- NOTE | 2018-06-01 14:16 | PN ---
Progress Note, Physician Chief Complaint: no distress - Current Medication List Current Medications: Active Medications Acetaminophen (Tylenol -) 650 mg PO Q4H PRN PRN Reason: FEVER Last Admin: 05/24/18 21:09 Dose: 650 mg Aspirin (Asa -) 81 mg PO DAILY [facility] Last Admin: 06/01/18 10:08 Dose: 81 mg Atropine Sulfate (Atropine Injection -) 0.4 mg IVPUSH ONCE PRN PRN Reason: MAP<65mm Hg OR SBP <90 Bisacodyl (Dulcolax Suppository -) 10 mg [place] DAILY PRN PRN Reason: CONSTIPATION Calcium Acetate (Phoslo -) 667 mg PO TIDCM [facility] Last Admin: 06/01/18 10:08 Dose: 667 mg Heparin Sodium (Porcine) (Heparin -) 5,000 unit SQ TID [facility] Last Admin: 06/01/18 05:43 Dose: 5,000 unit Hydralazine HCl (Apresoline Injection -) 10 mg IVPUSH Q6H PRN PRN Reason: HYPERTENSION Hydralazine HCl (Apresoline -) 10 mg PO BID [facility] Last Admin: 06/01/18 10:09 Dose: 10 mg Insulin Aspart (Novolog Vial Sliding Scale -) 1 vial SQ [facility]; Protocol Last Admin: 06/01/18 11:58 Dose: 6 units Insulin Detemir (Levemir Vial) 15 units SQ HS [facility] Last Admin: 05/31/18 21:19 Dose: 15 units Lidocaine/Aluminum/Magnesium/Simeth (Magic Mouthwash *Sjr Formula* -) 5 ml MM Q6HPO [facility] Last Admin: 06/01/18 11:57 Dose: 5 ml Pantoprazole Sodium (Protonix -) 40 mg PO DAILY [facility] Last Admin: 06/01/18 10:08 Dose: 40 mg Polyethylene Glycol (Miralax (For Daily Use) -) 17 gm PO DAILY [facility] Last Admin: 06/01/18 10:10 Dose: 17 gm Torsemide (Demadex -) 60 mg PO DAILY [facility] Last Admin: 06/01/18 10:09 Dose: 60 mg - Objective Vital Signs: Vital Signs Temperature 98.4 F 06/01/18 10:00 Pulse Rate 68 06/01/18 10:00 Respiratory Rate 20 06/01/18 10:00 Blood Pressure 136/76 06/01/18 10:00 O2 Sat by Pulse Oximetry (%) 98 06/01/18 10:00 Constitutional: Yes: No Distress Cardiovascular: Yes: Regular Rate and Rhythm Respiratory: Yes: Diminished Gastrointestinal: Yes: Normal Bowel Sounds, Soft. No: Tenderness Edema: No Labs: CBC, BMP 06/01/18 06:00 06/01/18 06:00 INR, PTT INR 1.12 (0.82-1.09) 05/21/18 19:37 Problem List - Problems (1) Accelerated hypertension Code(s): I10 - ESSENTIAL (PRIMARY) HYPERTENSION (2) Acute kidney failure with lesion of tubular necrosis Code(s): N17.0 - ACUTE KIDNEY FAILURE WITH TUBULAR NECROSIS (3) Acute respiratory failure Code(s): J96.00 - ACUTE RESPIRATORY FAILURE, UNSP W HYPOXIA OR HYPERCAPNIA Qualifiers: Respiratory failure complication: hypoxia Qualified Code(s): J96.01 - Acute respiratory failure with hypoxia (4) CHF (congestive heart failure) Code(s): I50.9 - HEART FAILURE, UNSPECIFIED Qualifiers: Heart failure type: unspecified Heart failure chronicity: unspecified Qualified Code(s): I50.9 - Heart failure, unspecified (5) Hypoxemia Code(s): R09.02 - HYPOXEMIA (6) Respiratory failure Code(s): J96.90 - RESPIRATORY FAILURE, UNSP, UNSP W HYPOXIA OR HYPERCAPNIA Assessment/Plan Spoke with Renal-- creatinine same She has urine out put holding off dialysis at this time continue with meds dc plan to SNF
--- NOTE | 2018-06-01 17:06 | PN ---
Progress Note (short form) - Note Progress Note: Renal follow up for CURRY Pt seen and examined in Tele no acute complaints no sob, chest pain, abd pain has some dizziness Vital Signs Temperature 98 F 06/01/18 14:00 Pulse Rate 71 06/01/18 14:00 Respiratory Rate 18 06/01/18 14:00 Blood Pressure 133/82 06/01/18 14:00 O2 Sat by Pulse Oximetry (%) 98 06/01/18 10:00 Intake & Output 05/29/18 05/30/18 05/31/18 06/01/18 23:59 23:59 23:59 23:59 Intake Total 1430 190 770 500 Output Total 607 210 2354 Balance 1430 -710 270 -600 Weight 70.942 kg 71.849 kg 71.214 kg 71.668 kg NAD Neck supple RRR, No M/R CTA soft NT/ND No LE edema CBC, BMP 06/01/18 06:00 06/01/18 06:00 Current Medications Acetaminophen (Tylenol -) 650 mg PO Q4H PRN PRN Reason: FEVER Last Admin: 05/24/18 21:09 Dose: 650 mg Aspirin (Asa -) 81 mg PO DAILY [facility] Last Admin: 06/01/18 10:08 Dose: 81 mg Atropine Sulfate (Atropine Injection -) 0.4 mg IVPUSH ONCE PRN PRN Reason: MAP<65mm Hg OR SBP <90 Bisacodyl (Dulcolax Suppository -) 10 mg FL DAILY PRN PRN Reason: CONSTIPATION Calcium Acetate (Phoslo -) 667 mg PO TIDCM [facility] Last Admin: 06/01/18 14:56 Dose: Not Given Heparin Sodium (Porcine) (Heparin -) 5,000 unit SQ TID [facility] Last Admin: 06/01/18 14:56 Dose: 5,000 unit Hydralazine HCl (Apresoline Injection -) 10 mg IVPUSH Q6H PRN PRN Reason: HYPERTENSION Hydralazine HCl (Apresoline -) 10 mg PO BID [facility] Last Admin: 06/01/18 10:09 Dose: 10 mg Insulin Aspart (Novolog Vial Sliding Scale -) [address] [facility]; Protocol Last Admin: 06/01/18 11:58 Dose: 6 units Insulin Detemir (Levemir Vial) 15 units SQ [facility] Last Admin: 05/31/18 21:19 Dose: 15 units Lidocaine/Aluminum/Magnesium/Simeth (Magic Mouthwash *Sjr Formula* -) 5 ml MM Q6HPO [facility] Last Admin: 06/01/18 11:57 Dose: 5 ml Pantoprazole Sodium (Protonix -) 40 mg PO DAILY [facility] Last Admin: 06/01/18 10:08 Dose: 40 mg Polyethylene Glycol (Miralax (For Daily Use) -) 17 gm PO DAILY [facility] Last Admin: 06/01/18 10:10 Dose: 17 gm Torsemide (Demadex -) 60 mg PO DAILY [facility] Last Admin: 06/01/18 10:09 Dose: 60 mg 63 y/o female with a history of CHF, DM, HTN, HLD, pancreatitis, and CAD s/p 2 stents presented with shortness of breath and tachycardia. In acute kidney failure with oliguria and progressive azotemia. #CURRY (differential includes ATN from renal hypoprofusion vs pre-renal injury from CRS ) #Acute CHF #Hypertensive emergency Renal function essentially unchanged no overt uremic symptoms to warrant dialysis urine studies show bland urine w/o overt proteinuria to suggest GN or intrinsic injury weights stable Continue torsemide 60mg daily low salt diet can plan for discharge to rehab with with outpatient follow up Андрей Barrett DO
[2018-06-01] MEDS: INSULIN (LEVEMIR) 100 UNITS/ML UNITS SQ SCH (22:55)
[2018-06-02 06:23] LABS: ANION GAP 11 (8-16); BLOOD UREA NITROGEN 103 mg/dL (7-18); CALCIUM 9.6 mg/dL (8.5-10.1); CHLORIDE 92 mmol/L (98-107); CO2 35 mmol/L (21-32); CREATININE 4.3 mg/dL (0.55-1.02); GLUCOSE,RANDOM 161 mg/dL (74-106); POTASSIUM 3.8 mmol/L (3.5-5.1); SODIUM 138 mmol/L (136-145)
[2018-06-02] MEDS: INSULIN SLIDING SCALE (NOVOLOG) 1 VIAL SQ SCH ×4 (07:00→21:45)
[2018-06-02] MEDS: HEPARIN NA (PORCINE) 5,000 UNITS/ML 1ML VIAL SQ SCH ×3 (07:16→21:44)
[2018-06-02] MEDS: MAG HYDROX/ALH/SMC/DPHA/LIDO 240 ML MOUTHWASH MM SCH ×3 (07:16→17:29)
[2018-06-02] MEDS: CALCIUM ACETATE 667 MG CAPSULE (FP) PO SCH ×3 (09:26→16:55)
[2018-06-02] MEDS: hydrALAZINE HCL 10 MG TABLET PO SCH ×2 (09:26→21:44)
[2018-06-02] MEDS: TORSEMIDE 20 MG TABLET (FP) PO SCH (09:26)
[2018-06-02] MEDS: ASPIRIN 81 MG CHEWABLE TABLETS PO SCH (09:26)
[2018-06-02] MEDS: POLYETHYLENE GLYCOL 3350 119 GM BTL PO SCH (09:27)
[2018-06-02] MEDS: PANTOPRAZOLE 40 MG TABLET (FP) PO SCH (09:27)
--- NOTE | 2018-06-02 11:25 | PN ---
Progress Note (short form) - Note Progress Note: Appears overall better. No CP or SOB. Intake & Output 05/30/18 05/31/18 06/01/18 06/02/18 23:59 23:59 23:59 23:59 Intake Total 190 770 900 250 Output Total 776 996 2421 Balance -710 270 -200 250 Weight 158 lb 6.4 oz 157 lb 158 lb Last Vital Signs Temp Pulse Resp BP Pulse Ox 98.8 F 74 18 115/87 98 06/02/18 09:30 06/02/18 09:30 06/02/18 09:30 06/02/18 09:30 06/02/18 09:30 Active Medications Acetaminophen (Tylenol -) 650 mg PO Q4H PRN PRN Reason: FEVER Last Admin: 05/24/18 21:09 Dose: 650 mg Aspirin (Asa -) 81 mg PO DAILY [facility] Last Admin: 06/02/18 09:26 Dose: 81 mg Atropine Sulfate (Atropine Injection -) 0.4 mg IVPUSH ONCE PRN PRN Reason: MAP<65mm Hg OR SBP <90 Bisacodyl (Dulcolax Suppository -) 10 mg [place] DAILY PRN PRN Reason: CONSTIPATION Calcium Acetate (Phoslo -) 667 mg PO TIDCM [facility] Last Admin: 06/02/18 09:26 Dose: 667 mg Heparin Sodium (Porcine) (Heparin -) 5,000 unit SQ TID [facility] Last Admin: 06/02/18 07:16 Dose: 5,000 unit Hydralazine HCl (Apresoline Injection -) 10 mg IVPUSH Q6H PRN PRN Reason: HYPERTENSION Hydralazine HCl (Apresoline -) 10 mg PO BID [facility] Last Admin: 06/02/18 09:26 Dose: 10 mg Insulin Aspart (Novolog Vial Sliding Scale -) 1 vial SQ [facility]; Protocol Last Admin: 06/02/18 07:00 Dose: Not Given Insulin Detemir (Levemir Vial) 15 units SQ HS [facility] Last Admin: 06/01/18 22:55 Dose: 15 units Lidocaine/Aluminum/Magnesium/Simeth (Magic Mouthwash *Sjr Formula* -) 5 ml MM Q6HPO [facility] Last Admin: 06/02/18 07:16 Dose: 5 ml Pantoprazole Sodium (Protonix -) 40 mg PO DAILY [facility] Last Admin: 06/02/18 09:27 Dose: 40 mg Polyethylene Glycol (Miralax (For Daily Use) -) 17 gm PO DAILY [facility] Last Admin: 06/02/18 09:27 Dose: 17 gm Torsemide (Demadex -) 60 mg PO DAILY [facility] Last Admin: 06/02/18 09:26 Dose: 60 mg Gen: NAD at rest Heart: RRR Lung: decreased breath sounds at the bases Abd: soft, nontender Ext: no edema Laboratory Results - last 24 hr 05/31/18 06/01/18 06/01/18 12:20 11:52 17:21 Haptoglobin 137 Sodium Potassium Chloride Carbon Dioxide Anion Gap BUN Creatinine Creat Clearance w eGFR POC Glucometer 287 220 Random Glucose Calcium 06/01/18 06/02/18 06/02/18 22:50 05:30 05:45 Haptoglobin Sodium 138 Potassium 3.8 Chloride 92 L Carbon Dioxide 35 H Anion Gap 11 BUN 103 H Creatinine 4.3 H Creat Clearance w eGFR 10.37 POC Glucometer 272 173 Random Glucose 161 H Calcium 9.6 A/P S/P Acute Respiratory Failure Acute Pulmonary Edema resolved Acute on Chronic Systolic/Diastolic Heart Failure HTN +Troponins likely Demand Ischemia Acute Kidney Injury - Torsemide per Renal - monitor urine output, creatinine - daily weights - Monitor off ABX - DVT prophylaxis - D/C planning Dr Greene
--- NOTE | 2018-06-02 11:34 | PN ---
Progress Note (short form) - Note Progress Note: s: no cp sob palps dizzy Vital Signs: Vital Signs Period Temp Pulse Resp BP Sys/Springer Pulse Ox Last 24 Hr 98 F-99.3 F 70-77 18-18 115-145/63-90 98-98 nad no jvd rrr s1s2 no mrg cta nl nl eff aaox3 no le e/c/c abd nt nd pos bs no jaundice diaphoresis Current Medications Generic Name Dose Route Start Last Admin Trade Name Freq PRN Reason Stop Dose Admin Acetaminophen 650 mg 05/24/18 17:07 05/24/18 21:09 Tylenol - PO 650 mg Q4H PRN Administration FEVER Aspirin 81 mg 05/25/18 14:15 06/02/18 09:26 Asa - PO 81 mg DAILY JANICE Administration Atropine Sulfate 0.4 mg 05/26/18 09:36 Atropine Injection - IVPUSH ONCE PRN MAP<65mm Hg OR SBP <90 Bisacodyl 10 mg 05/31/18 12:03 Dulcolax Suppository - [place] DAILY PRN CONSTIPATION Calcium Acetate 667 mg 05/27/18 17:30 06/02/18 11:32 Phoslo - PO 667 mg TIDCM JANICE Administration Heparin Sodium (Porcine) 5,000 unit 05/24/18 22:00 06/02/18 07:16 Heparin - SQ 5,000 unit TID JANICE Administration Hydralazine HCl 10 mg 05/24/18 17:07 Apresoline Injection - IVPUSH Q6H PRN HYPERTENSION Hydralazine HCl 10 mg 05/26/18 22:00 06/02/18 09:26 Apresoline - PO 10 mg BID JANICE Administration Insulin Aspart 1 vial 05/24/18 22:00 06/02/18 11:32 Novolog Vial Sliding Scale - SQ 8 units ACHS JANICE Administration Protocol Insulin Detemir 15 units 05/28/18 13:16 06/01/18 22:55 Levemir Vial SQ 15 units HS JANICE Administration Lidocaine/Aluminum/Magnesium/Simeth 5 ml 05/28/18 18:00 06/02/18 07:16 Magic Mouthwash *Sjr Formula* - MM 5 ml Q6HPO JANICE Administration Pantoprazole Sodium 40 mg 05/25/18 10:00 06/02/18 09:27 Protonix - PO 40 mg DAILY JANICE Administration Polyethylene Glycol 17 gm 05/30/18 12:00 06/02/18 09:27 Miralax (For Daily Use) - PO 17 gm DAILY JANICE Administration Torsemide 60 mg 05/31/18 10:00 06/02/18 09:26 Demadex - PO 60 mg DAILY JANICE Administration CBC, BMP 06/01/18 06:00 06/02/18 05:45 Assessment/Plan echo 11/2013 nl LV and RV size/function,mild MR, mild TR CXR 05/21/18: pulm edema EKG 05/21/18:sinus tachycardia, LVH with strain Echo 05/23/18 EF 45-50%, impaired relaxation, RV not well visualized, LA nl size , mild MR, mild TR 63F h/o CAD s/p NSTEMI and PCI (in 2013 at [facility] [place], TOM to OM1, TOM to LAD, residual 50-60% mLAD), HTN, HLD, DM, admissions for pancreatitis presenting with shortness of breath, hypertensive emergency, acute pulmonary edema and acute respiratory failure Hypertensive emergency, acute pulmonary edema - EF 45-50% on echo, 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 may be due to underlying uncontrolled HTN - BP tightly controlled now. stopped bb as she has had episodes of bradycardia. Started hydralazine instead. - 05/28: cont iv lasix, cr improving (4.6 today from 5), vol status improving, Weight unchanged at 155. - 05/29: Change to PO torsemide (40), Creat 4.8, I/O net 100 neg. Weight down to 156 (from 167 on admission) -05/30: received additional dose of torsemide after evaluation by Dr Barrett, weight increasing, dose changed to 60 mg daily - 05/31: agree with increased torsemide dose 60 mg daily, will monitor daily standing weight, I/O - 06/01-: stable Cr, weight with torsemide, continue current dose -continue hydralazine - will consider renal artery doppler as outpatient pending BP/Cr trend AV block: - episode of 2 non-conducted P waves (preceded by a non-conducted APC) on tele at 9:14 am. very likely hi vagal tone at that time of day in hospital pt who was in bed most of the time, labetolol was stopped, no further episodes - tele dc'ed - consider 1-2 week monitor as outpt to look for evidence of spontaneous AV block off b-naz, will need close outpatient follow up elevated troponin, CAD, history of stents - borderline elevation likely demand in setting of hypertensive emergency and CURRY, less likely ACS - continue home meds for CAD when confirmed, patient had asked to bring list however not obtained. was on statin as well but she is not sure which - aspirin 81 mg daily Acute respiratory failure - improving with diuresis CURRY - likely ATN, Cr improving, BUN remains elevated - appreciate renal recs cardiac avendaño stable
[2018-06-02 11:43] VITALS: BMI 27.1
--- NOTE | 2018-06-02 12:21 | DS ---
Physical Examination Vital Signs: Vital Signs Temperature 98.8 F 06/02/18 09:30 Pulse Rate 74 06/02/18 09:30 Respiratory Rate 18 06/02/18 09:30 Blood Pressure 115/87 06/02/18 09:30 O2 Sat by Pulse Oximetry (%) 98 06/02/18 09:30 Constitutional: Yes: No Distress, Calm Cardiovascular: Yes: Regular Rate and Rhythm Respiratory: Yes: Diminished Gastrointestinal: Yes: Normal Bowel Sounds, Soft. No: Tenderness Edema: No Labs: CBC, BMP 06/01/18 06:00 06/02/18 05:45 Discharge Summary Reason For Visit: ACUTE RESPIRATORY FAILURE, CONGESTIVE HEART FAILUR Current Active Problems Accelerated hypertension (Acute) Acute kidney failure with lesion of tubular necrosis (Acute) Acute on chronic kidney failure (Acute) Acute pulmonary edema (Acute) Acute respiratory failure (Acute) CHF (congestive heart failure) (Acute) Hypokalemia (Acute) Hypoxemia (Acute) Lactic acidosis (Acute) Respiratory failure (Acute) Hospital Course: - History of Present Illness Chief Complaint: Shortness of Breath, resp failure History of Present Illness: Briefly Ms Correia is a 63y F pmhx of pancreatitis, DM, HTN, HL, CAD ( s/p stents x 2, unk type/date), diastolic dysfunction on TTE in 2013 but with preserved EF presents with complaint of acute SOB. Pt was at work today and doing well, and suddenly felt sob, brought to ED in acute pulmonary distress, she was speak diaphoretic, tachycardic to the 140s, hypertensive 240/140, CXR with pulm edema pattern. She failed nitro SL, nitro gtt, NIVPPV and was ultimately intubated for hypoxic respiratory failure. Intubation was without incident, pt remained hypertensive. Stared on labetolol gtt with good control of BP. Per , no sick prodrome, no sick contacts, went to work normally this am. He does relate increase in LE edema. Seen by Cardiology, renal, pulmonary - Pt was subsequently extubated , BP controlled, but had acute kidney injury- does not require dialysis. Cardiology notes-- 63F h/o CAD s/p NSTEMI and PCI (in 2013 at [facility] [place], TOM to OM1, TOM to LAD, residual 50-60% mLAD), HTN, HLD, DM, admissions for pancreatitis presenting with shortness of breath, hypertensive emergency, acute pulmonary edema and acute respiratory failure Hypertensive emergency, acute pulmonary edema - EF 45-50% on echo, 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 may be due to underlying uncontrolled HTN - BP tightly controlled now. stopped bb as she has had episodes of bradycardia. Started hydralazine instead. - 05/28: cont iv lasix, cr improving (4.6 today from 5), vol status improving, Weight unchanged at 155. - 05/29: Change to PO torsemide (40), Creat 4.8, I/O net 100 neg. Weight down to 156 (from 167 on admission) -05/30: received additional dose of torsemide after evaluation by Dr Barrett, weight increasing, dose changed to 60 mg daily - 05/31: agree with increased torsemide dose 60 mg daily, will monitor daily standing weight, I/O - 06/01-: stable Cr, weight with torsemide, continue current dose -continue hydralazine - will consider renal artery doppler as outpatient pending BP/Cr trend AV block: - episode of 2 non-conducted P waves (preceded by a non-conducted APC) on tele at 9:14 am. very likely hi vagal tone at that time of day in hospital pt who was in bed most of the time, labetolol was stopped, no further episodes - tele dc'ed - consider 1-2 week monitor as outpt to look for evidence of spontaneous AV block off b-naz, will need close outpatient follow up elevated troponin, CAD, history of stents - borderline elevation likely demand in setting of hypertensive emergency and CURRY, less likely ACS - continue home meds for CAD when confirmed, patient had asked to bring list however not obtained. was on statin as well but she is not sure which - aspirin 81 mg daily Acute respiratory failure - improving with diuresis CURRY - likely ATN, Cr improving, BUN remains elevated - appreciate renal recs cardiac avendaño stable Renal Note-- #CURRY (differential includes ATN from renal hypoprofusion vs pre-renal injury from CRS ) #Acute CHF #Hypertensive emergency Renal function essentially unchanged no overt uremic symptoms to warrant dialysis urine studies show bland urine w/o overt proteinuria to suggest GN or intrinsic injury weights stable Continue torsemide 60mg daily low salt diet can plan for discharge to rehab with with outpatient follow up last Creatinine- 4.3, BUN-- 103 . 8/07/12 Stable for dc to NH for rehab- will need Dr Barrett to follow up Condition: Good - Instructions Diet, Activity, Other Instructions: check BMP twice a week Disposition: [facility] - Home Medications Comprehensive Discharge Medication List: Ambulatory Orders Unobtainable 05/21/18
[2018-06-02] MEDS ORDERED: MINERAL OIL ENEMA 133 ML ENEMA PR ONE ×2 (12:32→16:45)
--- NOTE | 2018-06-02 14:41 | PN ---
Progress Note (short form) - Note Progress Note: Renal follow up for CURRY Pt seen and examined in Tele still feels fatigued no N/V, confusion or lethargy making urine no sob, cp, abd pain Vital Signs Temperature 98.8 F 06/02/18 09:30 Pulse Rate 74 06/02/18 09:30 Respiratory Rate 18 06/02/18 09:30 Blood Pressure 115/87 06/02/18 09:30 O2 Sat by Pulse Oximetry (%) 98 06/02/18 09:30 Intake & Output 05/30/18 05/31/18 06/01/18 06/02/18 23:59 23:59 23:59 23:59 Intake Total 190 770 900 250 Output Total 806 247 8711 Balance -710 270 -200 250 Weight 71.849 kg 71.214 kg 71.668 kg NAD Neck supple RRR, No M/R CTA soft NT/ND No LE edema CBC, BMP 06/01/18 06:00 06/02/18 05:45 Current Medications Acetaminophen (Tylenol -) 650 mg PO Q4H PRN PRN Reason: FEVER Last Admin: 05/24/18 21:09 Dose: 650 mg Aspirin (Asa -) 81 mg PO DAILY [facility] Last Admin: 06/02/18 09:26 Dose: 81 mg Atropine Sulfate (Atropine Injection -) 0.4 mg IVPUSH ONCE PRN PRN Reason: MAP<65mm Hg OR SBP <90 Bisacodyl (Dulcolax Suppository -) 10 mg [place] DAILY PRN PRN Reason: CONSTIPATION Calcium Acetate (Phoslo -) 667 mg PO TIDCM [facility] Last Admin: 06/02/18 11:32 Dose: 667 mg Heparin Sodium (Porcine) (Heparin -) 5,000 unit SQ TID [facility] Last Admin: 06/02/18 07:16 Dose: 5,000 unit Hydralazine HCl (Apresoline Injection -) 10 mg IVPUSH Q6H PRN PRN Reason: HYPERTENSION Hydralazine HCl (Apresoline -) 10 mg PO BID [facility] Last Admin: 06/02/18 09:26 Dose: 10 mg Insulin Aspart (Novolog Vial Sliding Scale -) 1 vial SQ ACHS [facility]; Protocol Last Admin: 06/02/18 11:32 Dose: 8 units Insulin Detemir (Levemir Vial) 15 units SQ [facility] Last Admin: 06/01/18 22:55 Dose: 15 units Lidocaine/Aluminum/Magnesium/Simeth (Magic Mouthwash *Sjr Formula* -) 5 ml MM Q6HPO [facility] Last Admin: 06/02/18 12:16 Dose: 5 ml Pantoprazole Sodium (Protonix -) 40 mg PO DAILY [facility] Last Admin: 06/02/18 09:27 Dose: 40 mg Polyethylene Glycol (Miralax (For Daily Use) -) 17 gm PO DAILY [facility] Last Admin: 06/02/18 09:27 Dose: 17 gm Torsemide (Demadex -) 60 mg PO DAILY [facility] Last Admin: 06/02/18 09:26 Dose: 60 mg 63 y/o female with a history of CHF, DM, HTN, HLD, pancreatitis, and CAD s/p 2 stents presented with shortness of breath and tachycardia. In acute kidney failure with oliguria and progressive azotemia. #CURRY (differential includes ATN from renal hypoprofusion vs pre-renal injury from CRS ) #Acute CHF #Hypertensive emergency Renal function stable at this time despite high BUN, no uremic symptoms at this time continue Torsemide 60mg Daily will need repeat labs done as outpatient in 3-4 Would start Potassium Chloride 20meq daily Will follow up in 1 week Андрей Barrett DO
[2018-06-02] MEDS: POTASSIUM CHLORIDE TABS 20 MEQ TABLET.ER (FP) PO SCH (15:17)
[2018-06-02 16:49] LABS: ATYPICAL pANCA <1:20 titer (Neg:<1:20); C-ANCA <1:20 titer (Neg:<1:20); P-ANCA <1:20 titer (Neg:<1:20); PROTEINASE-3 ANTIBODY <3.5 U/mL (0.0-3.5)
[2018-06-02] MEDS ORDERED: INSULIN (LEVEMIR) 100 UNITS/ML UNITS SQ ONE (20:54)
[2018-06-02] MEDS: INSULIN (LEVEMIR) 100 UNITS/ML UNITS SQ SCH (21:44)
[2018-06-03] MEDS: MAG HYDROX/ALH/SMC/DPHA/LIDO 240 ML MOUTHWASH MM SCH ×3 (00:30→11:43)
[2018-06-03] MEDS: HEPARIN NA (PORCINE) 5,000 UNITS/ML 1ML VIAL SQ SCH (06:43)
[2018-06-03] MEDS: INSULIN SLIDING SCALE (NOVOLOG) 1 VIAL SQ SCH ×2 (06:44→11:52)
[2018-06-03] MEDS ORDERED: INSULIN (NOVOLOG) ASPART 100 UNITS/ML 10ML VIAL ONE (07:47)
[2018-06-03] MEDS ORDERED: INSULIN (LEVEMIR) 100 UNITS/ML UNITS SQ ONE (07:47)
[2018-06-03] MEDS: CALCIUM ACETATE 667 MG CAPSULE (FP) PO SCH ×2 (08:57→11:42)
[2018-06-03] MEDS: TORSEMIDE 20 MG TABLET (FP) PO SCH (09:45)
[2018-06-03] MEDS: hydrALAZINE HCL 10 MG TABLET PO SCH (09:46)
[2018-06-03] MEDS: POTASSIUM CHLORIDE TABS 20 MEQ TABLET.ER (FP) PO SCH (09:46)
[2018-06-03] MEDS: ASPIRIN 81 MG CHEWABLE TABLETS PO SCH (09:47)
[2018-06-03] MEDS: PANTOPRAZOLE 40 MG TABLET (FP) PO SCH (09:47)
[2018-06-03] MEDS: POLYETHYLENE GLYCOL 3350 119 GM BTL PO SCH (09:50)
--- NOTE | 2018-06-03 10:51 | PN ---
Progress Note (short form) - Note Progress Note: s: no cp sob palps dizzy Vital Signs: Vital Signs Period Temp Pulse Resp BP Sys/Springer Pulse Ox Last 24 Hr 98.0 F-98.3 F 67-78 16-18 128-138/75-82 98 nad no jvd rrr s1s2 no mrg cta nl nl eff aaox3 no le e/c/c abd nt nd pos bs no jaundice diaphoresis Current Medications Generic Name Dose Route Start Last Admin Trade Name Freq PRN Reason Stop Dose Admin Acetaminophen 650 mg 05/24/18 17:07 05/24/18 21:09 Tylenol - PO 650 mg Q4H PRN Administration FEVER Aspirin 81 mg 05/25/18 14:15 06/03/18 09:47 Asa - PO 81 mg DAILY JANICE Administration Atropine Sulfate 0.4 mg 05/26/18 09:36 Atropine Injection - IVPUSH ONCE PRN MAP<65mm Hg OR SBP <90 Bisacodyl 10 mg 05/31/18 12:03 Dulcolax Suppository - [place] DAILY PRN CONSTIPATION Calcium Acetate 667 mg 05/27/18 17:30 06/03/18 08:57 Phoslo - PO 667 mg TIDCM JANICE Administration Heparin Sodium (Porcine) 5,000 unit 05/24/18 22:00 06/03/18 06:43 Heparin - SQ 5,000 unit TID JANICE Administration Hydralazine HCl 10 mg 05/24/18 17:07 Apresoline Injection - IVPUSH Q6H PRN HYPERTENSION Hydralazine HCl 10 mg 05/26/18 22:00 06/03/18 09:46 Apresoline - PO 10 mg BID JANICE Administration Insulin Aspart 1 vial 05/24/18 22:00 06/03/18 06:44 Novolog Vial Sliding Scale - SQ 2 units ACHS JANICE Administration Protocol Insulin Detemir 15 units 05/28/18 13:16 06/02/18 21:44 Levemir Vial SQ 15 units HS JANICE Administration Lidocaine/Aluminum/Magnesium/Simeth 5 ml 05/28/18 18:00 06/03/18 06:43 Magic Mouthwash *Sjr Formula* - MM 5 ml Q6HPO JANICE Administration Pantoprazole Sodium 40 mg 05/25/18 10:00 06/03/18 09:47 Protonix - PO 40 mg DAILY JANICE Administration Polyethylene Glycol 17 gm 05/30/18 12:00 06/03/18 09:50 Miralax (For Daily Use) - PO Not Given DAILY JANICE Potassium Chloride 20 meq 06/02/18 14:45 06/03/18 09:46 K-Dur - PO 20 meq DAILY JANICE Administration Torsemide 60 mg 05/31/18 10:00 06/03/18 09:45 Demadex - PO 60 mg DAILY JANICE Administration CBC, BMP 06/01/18 06:00 06/02/18 05:45 Assessment/Plan echo 11/2013 nl LV and RV size/function,mild MR, mild TR CXR 05/21/18: pulm edema EKG 05/21/18:sinus tachycardia, LVH with strain Echo 05/23/18 EF 45-50%, impaired relaxation, RV not well visualized, LA nl size , mild MR, mild TR 63F h/o CAD s/p NSTEMI and PCI ([place] [facility] [place], TOM to LAD, residual 50-60% mLAD), HTN, HLD, DM, admissions for pancreatitis presenting with shortness of breath, hypertensive emergency, acute pulmonary edema and acute respiratory failure Hypertensive emergency, acute pulmonary edema - EF 45-50% on echo, 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 may be due to underlying uncontrolled HTN - BP tightly controlled now. stopped bb as she has had episodes of bradycardia. Started hydralazine instead. - 05/28: cont iv lasix, cr improving (4.6 today from 5), vol status improving, Weight unchanged at 155. - 05/29: Change to PO torsemide (40), Creat 4.8, I/O net 100 neg. Weight down to 156 (from 167 on admission) -05/30: received additional dose of torsemide after evaluation by Dr Barrett, weight increasing, dose changed to 60 mg daily - 05/31: agree with increased torsemide dose 60 mg daily, will monitor daily standing weight, I/O - 06/01-10: stable Cr, weight with torsemide, continue current dose -continue hydralazine - will consider renal artery doppler as outpatient pending BP/Cr trend AV block: - episode of 2 non-conducted P waves (preceded by a non-conducted APC) on tele at 9:14 am. very likely hi vagal tone at that time of day in hospital pt who was in bed most of the time, labetolol was stopped, no further episodes - tele dc'ed - consider 1-2 week monitor as outpt to look for evidence of spontaneous AV block off b-naz, will need close outpatient follow up elevated troponin, CAD, history of stents - borderline elevation likely demand in setting of hypertensive emergency and CURRY, less likely ACS - continue home meds for CAD when confirmed, patient had asked to bring list however not obtained. was on statin as well but she is not sure which - aspirin 81 mg daily Acute respiratory failure - improving with diuresis CURRY - likely ATN, Cr improving, BUN remains elevated - appreciate renal recs cardiac avendaño stable
--- NOTE | 2018-06-03 11:05 | PN ---
Progress Note (short form) - Note Progress Note: Appears overall better. No CP or SOB. Intake & Output 05/31/18 06/01/18 06/02/18 06/03/18 23:59 23:59 23:59 23:59 Intake Total 770 900 450 200 Output Total 500 1100 Balance 270 -200 450 200 Weight 157 lb 158 lb 156 lb 8 oz 156 lb 8 oz Last Vital Signs Temp Pulse Resp BP Pulse Ox 98.3 F 69 18 134/81 98 06/03/18 06:00 06/03/18 06:00 06/03/18 06:00 06/03/18 06:00 06/02/18 22:00 Active Medications Acetaminophen (Tylenol -) 650 mg PO Q4H PRN PRN Reason: FEVER Last Admin: 05/24/18 21:09 Dose: 650 mg Aspirin (Asa -) 81 mg PO DAILY [facility] Last Admin: 06/03/18 09:47 Dose: 81 mg Atropine Sulfate (Atropine Injection -) 0.4 mg IVPUSH ONCE PRN PRN Reason: MAP<65mm Hg OR SBP <90 Bisacodyl (Dulcolax Suppository -) 10 mg [place] DAILY PRN PRN Reason: CONSTIPATION Calcium Acetate (Phoslo -) 667 mg PO TIDCM [facility] Last Admin: 06/03/18 08:57 Dose: 667 mg Heparin Sodium (Porcine) (Heparin -) 5,000 unit SQ TID [facility] Last Admin: 06/03/18 06:43 Dose: 5,000 unit Hydralazine HCl (Apresoline Injection -) 10 mg IVPUSH Q6H PRN PRN Reason: HYPERTENSION Hydralazine HCl (Apresoline -) 10 mg PO BID [facility] Last Admin: 06/03/18 09:46 Dose: 10 mg Insulin Aspart (Novolog Vial Sliding Scale -) 1 vial SQ ACHS [facility]; Protocol Last Admin: 06/03/18 06:44 Dose: 2 units Insulin Detemir (Levemir Vial) 15 units SQ HS [facility] Last Admin: 06/02/18 21:44 Dose: 15 units Lidocaine/Aluminum/Magnesium/Simeth (Magic Mouthwash *Sjr Formula* -) 5 ml MM Q6HPO [facility] Last Admin: 06/03/18 06:43 Dose: 5 ml Pantoprazole Sodium (Protonix -) 40 mg PO DAILY [facility] Last Admin: 06/03/18 09:47 Dose: 40 mg Polyethylene Glycol (Miralax (For Daily Use) -) 17 gm PO DAILY [facility] Last Admin: 06/03/18 09:50 Dose: Not Given Potassium Chloride (K-Dur -) 20 meq PO DAILY [facility] Last Admin: 06/03/18 09:46 Dose: 20 meq Torsemide (Demadex -) 60 mg PO DAILY [facility] Last Admin: 06/03/18 09:45 Dose: 60 mg Gen: NAD at rest Heart: RRR Lung: decreased breath sounds at the bases Abd: soft, nontender Ext: no edema Laboratory Results - last 24 hr 05/30/18 06/02/18 06/02/18 05:30 11:27 16:12 POC Glucometer 333 210 c-ANCA <1:20 Proteinase 3 (PR3) <3.5 p-ANCA <1:20 Atypical p-ANCA <1:20 Myeloperoxidase Ab <9.0 06/02/18 06/03/18 21:39 06:41 POC Glucometer 217 188 c-ANCA Proteinase 3 (PR3) p-ANCA Atypical p-ANCA Myeloperoxidase Ab A/P S/P Acute Respiratory Failure Acute Pulmonary Edema resolved Acute on Chronic Systolic/Diastolic Heart Failure HTN +Troponins likely Demand Ischemia Acute Kidney Injury - Torsemide per Renal - monitor urine output, creatinine - daily weights - Monitor off ABX - DVT prophylaxis - D/C planning Dr Greene
[2018-06-03 12:11] VITALS: BP 151/86; PULSE 68; TEMP 97.9
== END 2018-06-03 12:20 | DRG 207 ==
LOC: JER 18:16 → JERBED 21:06 → JICU 21:47 → J4S 05-24 16:00
PROVIDERS: ADMIT Internal Medicine; ATTEND Internal Medicine
PROC: 5A1955Z Respiratory Ventilation, Greater than 96 Consecutive Hours (ICD-10-PCS; principal; 2018-05-21)
PROC: 0BH17EZ Insertion of Endotracheal Airway into Trachea, Via Natural or Artificial Opening (ICD-10-PCS; 2018-05-21)
PROC: 5A09357 Assistance with Respiratory Ventilation, Less than 24 Consecutive Hours, Continuous Positive Airway Pressure (ICD-10-PCS; 2018-05-21)
DX: J96.01 Acute respiratory failure with hypoxia (principal); N17.0 Acute kidney failure with tubular necrosis; I50.41 Acute combined systolic (congestive) and diastolic (congestive) heart failure; I16.9 Hypertensive crisis, unspecified; E87.2 Acidosis; I13.0 Hypertensive heart and chronic kidney disease with heart failure and stage 1 through stage 4 chronic kidney disease, or unspecified chronic kidney disease; I16.1 Hypertensive emergency; I24.8 Other forms of acute ischemic heart disease; I25.10 Atherosclerotic heart disease of native coronary artery without angina pectoris; E11.22 Type 2 diabetes mellitus with diabetic chronic kidney disease; N18.9 Chronic kidney disease, unspecified; Z95.5 Presence of coronary angioplasty implant and graft; I25.2 Old myocardial infarction; E78.5 Hyperlipidemia, unspecified; Z87.891 Personal history of nicotine dependence; E11.65 Type 2 diabetes mellitus with hyperglycemia; E87.6 Hypokalemia; R00.1 Bradycardia, unspecified; R13.10 Dysphagia, unspecified; I44.30 Unspecified atrioventricular block
CPT/HCPCS: 36415; 36600; 71045-TC-FY; 74230-TC-FY; 76775-TC; 80048; 80053; 80074; 80076; 81003; 81015; 82150; 82436; 82550; 82553; 82570; 82803; 82962; 83010; 83036; 83520; 83605; 83615; 83690; 83735; 83880; 84100; 84133; 84156; 84300; 84436; 84439; 84443; 84480; 84481; 84484; 84540; 85025; 85027; 85610; 85730; 86038; 86162; 86256; 87040; 87070; 87077; 87086; 87186; 87205; 92611-GN; 93005; 93010; 93306-TC; 93971; 94002; 97116-GP; 97161-GP; 99285-25; J1644; J7030

== ENCOUNTER 2018-07-02 11:15 | Emergency (ER) | payer OTHER ==
[2018-07-02 11:26] VITALS: TEMP 98; BMI 26.1
--- NOTE | 2018-07-02 11:55 | PDOC ---
History of Present Illness - General Chief Complaint: Pain Stated Complaint: LEFT SIDE NUMBNESS Time Seen by Provider: 07/02/18 11:55 - History of Present Illness Initial Comments: 07/02/18 12:42 The patient is a 63 year old female with a history of HTN, HLD, DM, [place], CAD who presents for evaluation of left shoulder pain with radiation to her left arm. The patient reports a 1 day history of sore left upper back, shoulder and neck pain with a tingling sensation down her left arm prompting her presentation to the ED for further evaluation. She notes that she was lifting boxes 2 days ago , but notes that the pain started yesterday. She notes worsening pain with movement, but otherwise denies headache, fevers, chills, SOB, chest pain, nausea , vomiting, abdominal pain, weakness, numbness, or changes with urination or bowel movements. Past History - Past Medical History Allergies/Adverse Reactions: Allergies Allergy/AdvReac Type Severity Reaction Status Date / Time No Known Allergies Allergy Verified 07/02/18 11:26 Home Medications: Ambulatory Orders Aspirin [ASA -] 81 mg PO DAILY #30 tab.chew 06/02/18 Bisacodyl Suppository [Dulcolax Suppository -] 10 mg OK DAILY PRN #20 supp.rect 06/02/18 Insulin (Levemir) [Levemir Vial] 15 units SQ HS #20 units 06/02/18 Pantoprazole Sodium [Protonix -] 40 mg PO DAILY #60 tablet.ec 06/02/18 Polyethylene Glycol 3350 [Miralax 119 gm Btl -] 17 gm PO DAILY #7 bottle Torsemide [Demadex -] 60 mg PO DAILY #60 tablet 06/02/18 hydrALAZINE HCL [Apresoline -] 10 mg PO BID #60 tablet 06/02/18 Amlodipine Besylate [Norvasc -] 10 mg PO DAILY 07/02/18 Lisinopril 10 mg PO DAILY 07/02/18 Methocarbamol [Robaxin -] 500 mg PO BID #14 tablet 07/02/18 Anemia: No Asthma: No Cancer: No Cardiac Disorders: Yes ([place]) CVA: No COPD: No CHF: No Dementia: No Diabetes: Yes GI Disorders: No Disorders: No HTN: Yes Hypercholesterolemia: Yes Liver Disease: No Seizures: No Thyroid Disease: No - Surgical History Abdominal Surgery: No Appendectomy: No Cardiac Surgery: Yes (stents x2 (2014)) Cholecystectomy: No Lung Surgery: No Neurologic Surgery: No Orthopedic Surgery: No - Suicide/Smoking/Psychosocial Hx Smoking Status: No Smoking History: Never smoked Years of Tobacco Use: 10 Have you smoked in the past 12 months: No Number of Cigarettes Smoked Daily: 0 If you are a former smoker, when did you quit?: 20YRS AGO Information on smoking cessation initiated: No Hx Alcohol Use: No Drug/Substance Use Hx: No Substance Use Type: None Hx Substance Use Treatment: No Review of Systems - Review of Systems Comments:: 07/02/18 12:45 Constitutional: No fevers, chills, fatigue, malaise HEENT: No Rhinorrhea, nasal congestion, visual changes Cardiovascular: No chest pain, syncope, palpitations, lightheadedness Respiratory: No Cough, SOB, Hemoptysis, Gastrointestinal: No Abdominal pain, Nausea, Vomiting, Constipation, Diarrhea, Melena Genitourinary: No Dysuria, Frequency, Urgency, Hesitancy, Hematuria, Flank pain Musculoskeletal: Left upper back and shoulder pain. No Myalgia, arthralgia Skin: No rashes, itching, bruising, pallor Neurologic: Left arm tingling. No Headache, Dizziness, Numbness, Weakness, Psychiatric: No Hallucinations. No SI or HI *Physical Exam - Vital Signs Last Vital Signs Temp Pulse Resp BP Pulse Ox 98 F 84 18 204/116 100 07/02/18 11:24 07/02/18 11:24 07/02/18 11:24 07/02/18 11:24 07/02/18 11:24 - Physical Exam Comments: 07/02/18 12:45 General Appearance: Nourished. No Apparent Distress HEENT: EOMI, DEE DEE. No Pharyngeal Erythema, Tonsillar Exudate, Tonsillar Erythema Neck: No Cervical Lymphadenopathy Respiratory/Chest: Lungs Clear, Normal Breath Sounds. No Crackles, Rales, Rhonchi, Wheezing Cardiovascular: Regular Rhythm, Regular Rate. No Murmur, Gallops, Rubs Gastrointestinal/Abdominal: Normal Bowel Sounds, Soft. No Guarding, Rebound, Tenderness Musculoskeletal: Reproducible tenderness to palpation along the left upper scapular region. Pain with ranging of the left shoulder. 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 Heart Score/ECG Review #1 ECG reviewed & interpreted by me at: 15:19 General ECG Interpretation: Sinus Rhythm, Normal Rate, Normal Intervals, No acute ischemic changes ED Treatment Course - LABORATORY CBC & Chemistry Diagram: 07/02/18 12:23 07/02/18 12:23 Medical Decision Making - Medical Decision Making 07/02/18 12:46 The patient is a 63 year old female with a history of HTN, HLD, DM, [place], CAD who presents for evaluation of left shoulder pain with radiation to her left arm. Differential includes but is not limited to: Musculoskeletal, ACS, Infectious, Metabolic Derangement. Given the patient's history and physical exam, it is likely the patient's symptoms are musculoskeletal in nature. However, we will obtain a cbc, cmp, troponin, ekg to evaluate further. We will treat in the meantime with iv tylenol and robaxin and continue to monitor and reassess while here in the ED. 07/02/18 14:20 CBC, cmp, troponin, are unremarkable. EKG is unremarkable. The patient reports improvement in her symptoms at this time. We are comfortable discharging the patient home with primary care provider and cardiology follow up on robaxin. We discussed the results, plan, and return precautions with the patient who voiced understanding and is agreeable with the plan. *DC/Admit/Observation/Transfer Diagnosis at time of Disposition: Upper back pain on left side - Discharge Dispostion Disposition: HOME Condition at time of disposition: Stable Decision to Admit order: No - Prescriptions Prescriptions: Methocarbamol [Robaxin -] 500 mg PO BID #14 tablet - Referrals Referrals: Margo Lou MD [Primary Care Provider] - Johnathan Tompkins MD [Staff Physician] - - Patient Instructions Printed Discharge Instructions: DI for Neck Pain Additional Instructions: Please return to the ER if you experience concerning or worsening symptoms including worsening chest pain, headache, or vomiting. Your lab results were normal here in the ER. We have sent a prescription for robaxin a muscle relaxant to your pharmacy that you may use to help manage your pain at home. You may also use tylenol or ibuprofen to help manage your pain. Please make sure you keep your follow up appointment with Dr. Tompkins on Wednesday and discuss your ER visit and further management of your symptoms. - Post Discharge Activity
[2018-07-02] MEDS ORDERED: ACETAMINOPHEN 1000 MG/100 ML VIAL (NON FORMULARY) IVPB ONE (12:18)
--- NOTE | 2018-07-02 12:19 | PDOC ---
Attending Attestation - [facility] HPI: 07/02/18 12:59 FERNANDO The patient is a 63 year old female, with a significant past medical history of NC, diabetes, HTN and HLD, who presents to the ED complaining of left shoulder back, left upper back pain and neck pain since yesterday. She describes her pain as ranging from mild to moderate, with radiation down her left arm. She notes that she does have a tingling sensation going down her left arm as well. She reports that movement exacerbates her pain. She states that she lifted 2 "heavy" boxes 2 days ago but did not feel any pain that day. The patient denies chest pain, shortness of breath, headache and dizziness. Denies fever, chills, nausea, vomiting, diarrhea or constipation. Denies dysuria , frequency, urgency and hematuria. Allergies: None Past surgical history: Cardiac stents (x2)(2013) Social History: No alcohol, tobacco or drug use reported - Physicial Exam PE: 07/02/18 12:57 Constitutional: Awake, alert, oriented. No acute distress. Head: Normocephalic. Atraumatic Eyes: PERRL. EOMI. Conjunctivae are not pale. ENT: Mucous membranes are moist and intact. Posterior pharynx without exudates or erythema. Uvula midline. Neck: Supple. Full ROM. No lymphadenopathy. Cardiovascular: Regular rate. Regular rhythm. S1, S2 regular. Distal pulses are 2+ and symmetric. Pulmonary/Chest: No evidence of respiratory distress. Clear to auscultation bilaterally No wheezing, rales or rhonchi. Abdominal: Soft and non-distended. There is no tenderness. No rebound, guarding or rigidity. No organomegaly. No palpable masses. Good bowel sounds. Back: (+) Pain to palpation to the left trapezium and rhombus. No meningeal signs. No CVA tenderness. Musculoskeletal: No edema. No cyanosis. No clubbing. Full range of motion in all extremities. Nocalf tenderness. Radial/pedal pulses are intact and 2+ bilaterally Skin: Skin is warm and dry. No petechiae. No purpura. Neurological: Alert and oriented to person, place, and time. Cranial nerves II -XII are grossly intact. Normal speech. 5/5 strength to all extremities. Strength is grossly symmetric. No sensory deficits. Psychiatric: Good eye contact. Normal interaction, affect and behavior. <Valentino Presley - Last Filed: 07/02/18 13:00> - Resident Resident Name: Wan Saucedo - ED Attending Attestation I have performed the following: I have examined & evaluated the patient, The case was reviewed & discussed with the resident, I agree w/resident's findings & plan, Exceptions are as noted - Medical Decision Making 07/02/18 12:19 I, Dr. Jessica Belle, DO, attest that this document has been prepared under my direction and personally reviewed by me in its entirety. I further attest, that it accurately reflects all work, treatment, procedures and medical decision -making performed by me. 07/02/18 13:38 a/p: 63yo female with 2 days of L lateral neck and upper back pain causing paresthesisas and pain down L arm -no cp -no sob -paraspinal tenderness to the upper back that reproduces her pain, tight ropy paraspinal neck muscles/trap/rhomboids/scalenes -will check to labs, ekg, trop given hx of heart disease -will give pain meds, muscle relaxer -more concern for radiculopathy from muscle spasms 07/02/18 13:45 labs reviewed trop negative 07/02/18 14:25 pt feeling better requesting to go home stable for d/c to home at this time <Jessica Belle - Last Filed: 07/02/18 14:28> Heart Score/ECG Review - ECG Intrepretation Comment:: 07/02/18 14:25 sinus at 71, nl axis, nl interval, lvh, no acute st/t wave findings <Jessica Belle - Last Filed: 07/02/18 14:28>
[2018-07-02] MEDS ORDERED: ACETAMINOPHEN INJECTION 100 ML IVPB ONE (12:24)
[2018-07-02 12:34] LABS: BASO % 1.2 % (0-2.0); EOS % 0.6 % (0-4.5); HEMATOCRIT 35.9 % (32.4-45.2); HEMOGLOBIN 12.5 GM/dL (10.7-15.3); LYMPH % 22.5 % (8-40); MCH 30.2 pg (25.7-33.7); MCHC 34.8 g/dl (32.0-36.0); MEAN CELL VOLUME 86.8 fl (80-96); MEAN PLT VOLUME 9.4 fl (7.5-11.1); MONO % 5.6 % (3.8-10.2); NEUT % 70.1 % (42.8-82.8); PLATELET COUNT 183 K/MM3 (134-434); RBC 4.14 M/mm3 (3.60-5.2); RDW 13.4 % (11.6-15.6); WHITE BLOOD COUNT 4.9 K/mm3 (4.0-10.0)
[2018-07-02] MEDS ORDERED: METHOCARBAMOL 500 MG TABLET PO ONE (12:45)
[2018-07-02] MEDS ORDERED: METHOCARBAMOL 500 MG TABLET ONE (12:55)
[2018-07-02 13:06] LABS: ALK PHOS 82 U/L (45-117); ANION GAP 10 MMOL/L (8-16); BILIRUBIN,TOTAL 0.4 mg/dL (0.2-1.0); BLOOD UREA NITROGEN 15 mg/dL (7-18); CALCIUM 9.5 mg/dL (8.5-10.1); CHLORIDE 106 mmol/L (98-107); CO2 26 mmol/L (21-32); CREATININE 1.1 mg/dL (0.55-1.02); GLUCOSE,RANDOM 218 mg/dL (74-106); SGOT/AST 9 U/L (15-37); SGPT/ALT 17 U/L (12-78); SODIUM 142 mmol/L (136-145); TOT PROT 7.6 g/dl (6.4-8.2)
[2018-07-02] MEDS ORDERED: KETOROLAC TROMETHAMINE 30 MG/1 ML VIAL IVPUSH ONE (13:48)
[2018-07-02] MEDS ORDERED: KETOROLAC TROMETHAMINE 30 MG/1 ML VIAL ONE (13:50)
[2018-07-02 14:20] VITALS: BP 182/84; PULSE 71
[2018-07-02] MEDS ORDERED: LIDOCAINE 5% TOPICAL PATCH TP ONE (14:35)
[2018-07-02] MEDS ORDERED: oxyCODONE HCL 5 MG TABLET PO ONE (14:35)
[2018-07-02] MEDS ORDERED: LIDOCAINE 5% TOPICAL PATCH ONE (14:38)
--- NOTE | 2018-07-04 10:44 | EKG ---
Test Reason : Blood Pressure : / mmHG Vent. Rate : 071 BPM Atrial Rate : 071 BPM P-R Int : 150 ms QRS Dur : 106 ms QT Int : 430 ms P-R-T Axes : 057 -14 032 degrees QTc Int : 467 ms NORMAL SINUS RHYTHM VOLTAGE CRITERIA FOR LEFT VENTRICULAR HYPERTROPHY ABNORMAL ECG WHEN COMPARED WITH ECG OF 26-MAY-2018 09:50, T WAVE INVERSION NO LONGER EVIDENT IN ANTEROLATERAL LEADS Confirmed by CANDIDO LACY, MELI ([id number]) on 07/04/2018 10:43:51 AM Referred By: Confirmed By:MELI REY MD
== END 2018-07-02 17:00 | disposition home or self-care (01) ==
LOC: JER 11:15
DX: M62.838 Other muscle spasm (principal); M54.9 Dorsalgia, unspecified; R20.0 Anesthesia of skin
CPT/HCPCS: 36415; 80053; 82550; 84484; 85025; 93005; 93010; 99283-25; J0131

== ENCOUNTER 2018-12-03 23:20 | Inpatient (IN) | payer OTHER ==
--- NOTE | 2018-12-04 00:16 | PDOC ---
Attending Attestation - HPI HPI: 12/04/18 00:42 The patient is a 63 year old female, with a significant PMH of IDDM, HTN, HLD, and CAD (s/p stent 2013) who presents to the emergency department with dry cough , congestion, SOB, and chest pressure, for a few days. The patient reports she saw her PCP, Dr. Lou for post nasal drip and dry cough on . As per patient, she was given mucinex and nasal spray, but has experienced no alleviation. The patient notes SOB that is worse on exertion and a mild chest pressure at rest. The patient reports associated nausea. The patient denies any other symptoms. The patient denies headache and dizziness. Denies fever, chills, vomit, diarrhea and constipation. Denies dysuria, frequency, urgency and hematuria. Allergies: NKA PCP: Dr. Lou - Physicial Exam PE: 12/04/18 01:35 GENERAL: Awake, alert, and fully oriented, in no acute distress HEAD: No signs of trauma EYES: PERRLA, EOMI, sclera anicteric, conjunctiva clear ENT: +dry cough. Auricles normal inspection, hearing grossly normal, nares patent, oropharynx clear without exudates. Moist mucosa NECK: Normal ROM, supple, no lymphadenopathy, JVD, or masses LUNGS: Breath sounds equal, clear to auscultation bilaterally. No wheezes, and no crackles HEART: Regular rate and rhythm, normal S1 and S2, no murmurs, rubs or gallops ABDOMEN: Soft, nontender, normoactive bowel sounds. No guarding, no rebound. No masses EXTREMITIES: Normal range of motion, no edema. No clubbing or cyanosis. No cords, erythema, or tenderness NEUROLOGICAL: Cranial nerves II through XII grossly intact. Normal speech, normal gait SKIN: +warm to the touch. Dry, normal turgor, no rashes or lesions noted. <Pamela Rodriguez - Last Filed: 12/04/18 01:35> - Resident Resident Name: Lupis Araiza - ED Attending Attestation I have performed the following: I have examined & evaluated the patient, The case was reviewed & discussed with the resident, I agree w/resident's findings & plan - Medical Decision Making 12/04/18 03:05 Pt will be admitted to telemetry obs for serial enzymes. She was treated with zithromax for her aypical cough. She may have an luan inhibitor dry cough ( LISINOPRIL) she had an luan inhibitor cough in the past... Pt is still coughing with her post nasal drip and she is warm to the touch and appears unwell. Her BP is high and she will be monitored in the hospital. <Maria Victoria Daley - Last Filed: 12/04/18 03:13> Attestations - Attestations 12/04/18 01:30 Documentation prepared by Pamela Rodriguez, acting as special forces medical sergeant for Maria Victoria Dlaey MD/DO. <Pamela Rodriguez - Last Filed: 12/04/18 01:35>
--- NOTE | 2018-12-04 00:26 | PDOC ---
History of Present Illness - General Chief Complaint: Weakness Stated Complaint: WEAKNESS/SOB Time Seen by Provider: 12/04/18 00:10 History Source: Patient Exam Limitations: No Limitations - History of Present Illness Initial Comments: 12/04/18 00:25 Pt is a 63yo F with PMH of CAD s/p stent 2014, IDDM, HTN, HLD presenting to ED with complaints of nasal congestion, dry cough, SOB and chest discomfort. Pt states that for the past few days she has had a post nasal drip causing her to cough. She saw her PMD and was given medications. Pt states that she is just not feeling any better and now endorses SOB with exertion and rest and a chest discomfort. Endorses chills. Denies productive cough, fevers, n/v/d, abdominal pain, urinary symptoms, headache, lightheadedness, palpitations. PMD: Carmine Card: Cornelius PMH: see hpi PSH: see hpi Meds: see med rec Allergies: nkda Social: denies Past History - Past Medical History Allergies/Adverse Reactions: Allergies Allergy/AdvReac Type Severity Reaction Status Date / Time No Known Allergies Allergy Verified 12/04/18 01:00 Home Medications: Ambulatory Orders Aspirin [ASA -] 81 mg PO DAILY #30 tab.chew 06/02/18 Bisacodyl Suppository [Dulcolax Suppository -] 10 mg OK DAILY PRN #20 supp.rect 06/02/18 Insulin (Levemir) [Levemir Vial] 15 units SQ HS #20 units 06/02/18 Pantoprazole Sodium [Protonix -] 40 mg PO DAILY #60 tablet.ec 06/02/18 Polyethylene Glycol 3350 [Miralax 119 gm Btl -] 17 gm PO DAILY #7 bottle hydrALAZINE HCL [Apresoline -] 10 mg PO BID #60 tablet 06/02/18 Amlodipine Besylate [Norvasc -] 10 mg PO DAILY 07/02/18 Lisinopril 10 mg PO DAILY 07/02/18 Atorvastatin Ca [Lipitor] 20 mg PO HS 12/04/18 Azithromycin [Zithromax -] 250 mg PO DAILY #4 tablet 12/04/18 Benzonatate [Tessalon Pearls -] 100 mg PO TID #21 capsule 12/04/18 Cetirizine HCl 10 mg PO DAILY 12/04/18 Chlorthalidone 25 mg PO ASDIR 12/04/18 Gabapentin 100 mg PO BID 12/04/18 Insulin Aspart [Novolog] 0 unit SQ ASDIR 12/04/18 Anemia: No Asthma: No Cancer: No Cardiac Disorders: Yes ([place]) CVA: No COPD: No CHF: No Dementia: No Diabetes: Yes GI Disorders: No Disorders: No HTN: Yes Hypercholesterolemia: Yes Liver Disease: No Seizures: No Thyroid Disease: No - Surgical History Abdominal Surgery: No Appendectomy: No Cardiac Surgery: Yes (stents x2 (2014)) Cholecystectomy: No Lung Surgery: No Neurologic Surgery: No Orthopedic Surgery: No - Suicide/Smoking/Psychosocial Hx Smoking Status: No Smoking History: Never smoked Years of Tobacco Use: 10 Have you smoked in the past 12 months: No Number of Cigarettes Smoked Daily: 0 If you are a former smoker, when did you quit?: 20YRS AGO Hx Alcohol Use: No Drug/Substance Use Hx: No Substance Use Type: None Hx Substance Use Treatment: No Review of Systems - Review of Systems Constitutional: Yes: Chills. No: Fever HEENTM: Yes: Nose Congestion. No: Eye Pain, Double Vision, Throat Pain Respiratory: Yes: Cough, Shortness of Breath, SOB with Exertion, SOB at Rest. No: Productive cough, Hemoptysis Cardiac (ROS): Yes: Chest Pain. No: Edema, Lightheadedness, Palpitations, Syncope ABD/GI: No: Constipated, Diarrhea, Nausea, Vomiting, Abdominal cramping : No: Burning, Dysuria Musculoskeletal: No: Back Pain, Muscle Pain, Neck Pain Integumentary: No: Symptoms Reported Neurological: No: Headache, Numbness, Tingling, Tremors *Physical Exam - Vital Signs Last Vital Signs Temp Pulse Resp BP Pulse Ox 99.7 F H 82 20 169/111 H 97 12/04/18 00:14 12/04/18 00:14 12/04/18 00:14 12/04/18 00:14 12/04/18 00:14 - Physical Exam General Appearance: Yes: Nourished, Appropriately Dressed. No: Apparent Distress HEENT: positive: EOMI, DEE DEE, Pharynx Normal Neck: positive: Trachea midline, Supple. negative: Lymphadenopathy (R), Lymphadenopathy (L) Respiratory/Chest: positive: Lungs Clear, Normal Breath Sounds. negative: Crackles, Rales, Rhonchi, Stridor, Wheezing Cardiovascular: positive: Regular Rhythm, Regular Rate, S1, S2. negative: Edema , JVD, Murmur Vascular Pulses: Carotid (R): 2+, Carotid (L): 2+, Dorsalis-Pedis (R): 2+, Doralis-Pedis (L): 2+ Gastrointestinal/Abdominal: positive: Normal Bowel Sounds, Soft. negative: Distended, Guarding, Rebound, Tenderness Musculoskeletal: negative: CVA Tenderness Extremity: positive: Normal Capillary Refill, Pelvis Stable. negative: Swelling , Calf Tenderness Integumentary: positive: Normal Color, Dry, Warm Neurologic: positive: zinc miner II-XII NML intact, Fully Oriented, Alert, Normal Mood/ Affect, Normal Response, Motor Strength 5/5 Moderate Sedation - Procedure Monitoring Vital Signs: Procedure Monitoring Vital Signs Temperature 99.7 F H 12/04/18 00:14 Pulse Rate 82 12/04/18 00:14 Respiratory Rate 20 12/04/18 00:14 Blood Pressure 169/111 H 12/04/18 00:14 O2 Sat by Pulse Oximetry (%) 97 12/04/18 00:14 Heart Score/ECG Review - History History: Moderately suspicious - Electrocardiogram EKG: Normal - Age Age: 45-65 - Risk Factors Risk Factors Heart Score: Yes Hx Hypercholesterolemia, Yes Hx Hypertension, Yes Hx Diabetes Based on the list above the patient has:: >/=3 risk factors or Hx atherosclerotic disease - Troponin Troponin: </= normal limit - Score Heart Score - Total: 4 ED Treatment Course - LABORATORY CBC & Chemistry Diagram: 12/04/18 00:22 12/04/18 00:22 - RADIOLOGY Radiology Studies Ordered: Category Date Time Status CHEST PA & LAT [RAD] Stat Radiology 12/04/18 00:22 Ordered Medical Decision Making - Medical Decision Making 12/04/18 03:48 Pt is a 63yo F with PMH of CAD s/p stent 2014, IDDM, HTN, HLD presenting to ED with complaints of nasal congestion, dry cough, SOB and chest discomfort. Pt states that for the past few days she has had a post nasal drip causing her to cough. She saw her PMD and was given medications. Pt states that she is just not feeling any better and now endorses SOB with exertion and rest and a chest discomfort. Endorses chills. Denies productive cough, fevers, n/v/d, abdominal pain, urinary symptoms, headache, lightheadedness, palpitations. Vitals: wnl PE: benign Chest pain work up ordered. -162 ASA Giving 500mg IV azithromycin. Labs wnl. EKG nsr, no acute changes. CXR does not show infiltrate. Will send second troponin. Admit tele/obs. HEART score 4 *DC/Admit/Observation/Transfer Diagnosis at time of Disposition: ATYPICAL CP, SOB (shortness of breath), Cough - Discharge Dispostion Condition at time of disposition: Good Decision to Admit order: Yes - Prescriptions - Referrals - Patient Instructions - Post Discharge Activity
[2018-12-04 00:48] LABS: BASO % 0.6 % (0-2.0); EOS % 1.1 % (0-4.5); HEMATOCRIT 36.8 % (32.4-45.2); HEMOGLOBIN 12.6 GM/dL (10.7-15.3); LYMPH % 15.8 % (8-40); MCHC 34.3 g/dl (32.0-36.0); MEAN CELL VOLUME 87.4 fl (80-96); MEAN PLT VOLUME 10.1 fl (7.5-11.1); MONO % 6.5 % (3.8-10.2); PLATELET COUNT 162 K/MM3 (134-434); RDW 12.9 % (11.6-15.6); WHITE BLOOD COUNT 5.5 K/mm3 (4.0-10.0)
[2018-12-04 00:59] LABS: INR 1.03 (0.83-1.09); PROTHROMBIN TIME (PATIENT) 12.2 SEC (9.7-13.0)
[2018-12-04 01:12] LABS: ALBUMIN 3.5 g/dl (3.4-5.0); ALK PHOS 91 U/L (45-117); ANION GAP 7 MMOL/L (8-16); BILIRUBIN,TOTAL 0.3 mg/dL (0.2-1); BLOOD UREA NITROGEN 26 mg/dL (7-18); CALCIUM 9.1 mg/dL (8.5-10.1); CHLORIDE 101 mmol/L (98-107); CO2 28 mmol/L (21-32); CREATININE 1.3 mg/dL (0.55-1.3); GLUCOSE,RANDOM 281 mg/dL (74-106); MAGNESIUM 2.1 mg/dL (1.8-2.4); N-TERMINAL BNP 444.7 pg/ml (5-125); POTASSIUM 3.5 mmol/L (3.5-5.1); SGOT/AST 18 U/L (15-37); SGPT/ALT 24 U/L (13-61); SODIUM 137 mmol/L (136-145); TOT PROT 6.7 g/dl (6.4-8.2)
[2018-12-04] MEDS ORDERED: ASPIRIN 81 MG CHEWABLE TABLETS PO ONE (01:20)
[2018-12-04] MEDS ORDERED: ASPIRIN 81 MG CHEWABLE TABLETS ONE (02:00)
[2018-12-04] MEDS ORDERED: AZITHROMYCIN IVPB 500 MG in DEXTROSE 5%-WATER - 250 ML IVPB ONE (02:01)
[2018-12-04] MEDS ORDERED: AZITHROMYCIN IVPB 500 MG/250 ML BAG IVPB ONE (02:02)
[2018-12-04] MEDS ORDERED: guaiFENesin/CODEINE 10 ML UNIT-DOSE CUPS PO ONE (02:04)
[2018-12-04] MEDS ORDERED: guaiFENesin/CODEINE 5 ML UNIT-DOSE CUPS PO ONE (02:07)
[2018-12-04] MEDS ORDERED: amLODIPine BESYLATE 10 MG TABLET (FP) PO ONE (02:10)
[2018-12-04] MEDS ORDERED: amLODIPine BESYLATE 5 MG TABLET (FP) ONE (02:26)
--- NOTE | 2018-12-04 04:35 | HP ---
CHIEF COMPLAINT: CP, SOB PCP: Dr. Lou HISTORY OF PRESENT ILLNESS: Thank you Dr. Lou for allowing us to take part in the care of your patient. Briefly, this is a 63 y/o female presenting to the ER with a CC of SOB and chest pain. Sob has been for several days and associated with a cough; she was seen by PCP last week for this and was treated appropriately but sx continued to persist. Nothing made better or worse, scant productivity to the cough, etc. Today, she developed CP this evening and thus came to the ER. The chest pain was similar to the discomfor she had on her last admission here in April and concerned her greatly thus she chose to come to the ER. She tells me that her diuretic was recently changed; unsure of exact date. She is slightly hypertensive but is otherwise stable and was free of discomfort when I was in the room with her. She tells me she follows with and I see that Dr. Tompkins saw her over her last admission; she will be admitted to the hospital and monitored on telemetry. ER course was notable for: (1) Given azithro (2) negative troponin (3) PAST MEDICAL HISTORY: [place] s/p [place] [facility] [place] TOM to LAD with residual 50-60% mLAD), HTN (with prior hypertensive emergency), combined CHF, HLD, DM, prior renal failure with normal current renal function PAST SURGICAL HISTORY: PCI Social History: Denies current etoh, tobacco, or drug abuse Family History: Unchanged from prior encounters; reviewed and confirmed Allergies No Known Allergies Allergy (Verified 12/04/18 01:00) HOME MEDICATIONS: Home Medications Medication Instructions Recorded Aspirin [ASA -] 81 mg PO DAILY #30 tab.chew 06/02/18 Bisacodyl Suppository [Dulcolax 10 mg VT DAILY PRN #20 supp.rect 06/02/18 Suppository -] Insulin (Levemir) [Levemir Vial] 15 units SQ HS #20 units 06/02/18 Pantoprazole Sodium [Protonix -] 40 mg PO DAILY #60 tablet.ec 06/02/18 Polyethylene Glycol 3350 [Miralax 17 gm PO DAILY #7 bottle 06/02/18 119 gm Btl -] hydrALAZINE HCL [Apresoline -] 10 mg PO BID #60 tablet 06/02/18 Amlodipine Besylate [Norvasc -] 10 mg PO DAILY 07/02/18 Lisinopril 10 mg PO DAILY 07/02/18 Atorvastatin Ca [Lipitor] 20 mg PO HS 12/04/18 Azithromycin [Zithromax -] 250 mg PO DAILY #4 tablet 12/04/18 Benzonatate [Tessalon Pearls -] 100 mg PO TID #21 capsule 12/04/18 Cetirizine HCl 10 mg PO DAILY 12/04/18 Chlorthalidone 25 mg PO ASDIR 12/04/18 Gabapentin 100 mg PO BID 12/04/18 Insulin Aspart [Novolog] 0 unit SQ ASDIR 12/04/18 REVIEW OF SYSTEMS 10 sys ROS done and negative aside from HPI PHYSICAL EXAMINATION Vital Signs - 24 hr 12/03/18 12/04/18 12/04/18 23:20 00:14 00:22 Temperature 99.7 F H 99.7 F H Pulse Rate 82 82 Pulse Rate [ 82 Apical] Respiratory 16 20 Rate Blood Pressure 169/111 H Blood Pressure 169/111 H [Right Arm] O2 Sat by Pulse 97 97 97 Oximetry (%) GENERAL: Awake, alert, and fully oriented, in no acute distress. HEAD: Normal with no signs of trauma. EYES: Pupils equal, round and reactive to light, extraocular movements intact EARS, NOSE, THROAT: Ears normal, nares patent, NECK: Normal range of motion, supple without lymphadenopathy, JVD, or masses. LUNGS: Breath sounds equal, clear to auscultation bilaterally. HEART: Regular rate and rhythm, normal S1 and S2 without murmur, rub or gallop. Trace LE edema patient tells me is above her baseline ABDOMEN: Soft, nontender, not distended, normoactive bowel sounds, no guarding, no rebound MUSCULOSKELETAL: Normal range of motion at all joints. No bony deformities NEUROLOGICAL: Cranial nerves II-XII intact. Normal speech. Normal gait. PSYCHIATRIC: Cooperative. Good eye contact. Appropriate mood and affect. SKIN: Warm, dry, normal turgor, no rashes or lesions noted, normal capillary refill. Laboratory Results - last 24 hr 12/04/18 12/04/18 12/04/18 00:22 00:22 00:22 WBC 5.5 RBC 4.20 Hgb 12.6 Hct 36.8 MCV 87.4 MCH 30.0 MCHC 34.3 RDW 12.9 Plt Count 162 MPV 10.1 Absolute Neuts (auto) 4.2 Neutrophils % 76.0 Lymphocytes % 15.8 D Monocytes % 6.5 Eosinophils % 1.1 D Basophils % 0.6 Nucleated RBC % 0 PT with INR 12.20 INR 1.03 Sodium 137 Potassium 3.5 Chloride 101 Carbon Dioxide 28 Anion Gap 7 L BUN 26 H Creatinine 1.3 Creat Clearance w eGFR 41.24 Random Glucose 281 H Calcium 9.1 Magnesium 2.1 Total Bilirubin 0.3 AST 18 ALT 24 Alkaline Phosphatase 91 Creatine Kinase 140 Troponin I 0.04 B-Natriuretic Peptide 444.7 H Total Protein 6.7 Albumin 3.5 ASSESSMENT/PLAN: Patient with a history of CAD s/p PCI (patient of Dr. Shields) presents with several days of cough, SOB, and one day of chest pain. She will be placed on telemetry, cardiology will be consulted, and we will work her up for the presenting issues. 1) Chest Pain -Could be from #2 but must consider ACS and rule this out, especially given her prior hx and risk factors. Telemetry, trend troponins, and repeat EKG if any further chest pain. Hemodynamics stable. -Continue home medications as documented -2D echo ordered -Appreciate expert cardiology opinion; deferring further workup and management to their service. 2) SOB with elevated BNP; hx CHF (combined) -As no WBC or fever and lack of infiltrates will hold off on any abx; of course will add empiric coverage should she become febrile, etc. -BNP 440; it was much higher in the past but that was when she was in renal failure. Will give a 1x dose of 20 IV lasix and defer further diuresis to cardiology. QD weights and monitor Is and Os. -Old echo reviewed (45-50% with likely diastolic dysfunction) 3) Hx CAD s/p PCI -Continue home medications; reviewed old consultations. Mentioned in [facility] 2018 that she was not on BB due to bradycardia. 4) DM -Continue home levemir, SSI 5) HTN -Continue home medications; keep <160 SBP when inpatient and GDMT with acknowledgement to CV conditions. Appreciate CV guidance. Full Code
[2018-12-04] MEDS ORDERED: FUROSEMIDE 40 MG/4 ML INJECTABLE VIAL IVPUSH ONE (05:56)
[2018-12-04] MEDS ORDERED: HEPARIN NA (PORCINE) 5,000 UNITS/ML 1ML VIAL ONE (06:29)
[2018-12-04] MEDS: HEPARIN NA (PORCINE) 5,000 UNITS/ML 1ML VIAL SQ SCH ×3 (06:38→21:24)
[2018-12-04] MEDS ORDERED: INSULIN (NOVOLOG) ASPART 100 UNITS/ML 10ML VIAL SQ SCH (07:00)
[2018-12-04] MEDS: INSULIN SLIDING SCALE (NOVOLOG) 1 VIAL SQ SCH ×4 (08:18→21:31)
[2018-12-04] MEDS ORDERED: INSULIN (NOVOLOG) ASPART 100 UNITS/ML 10ML VIAL ONE ×2 (08:20→11:53)
[2018-12-04] MEDS: GABAPENTIN 100 MG CAPSULE (FP) PO SCH ×2 (09:03→21:25)
[2018-12-04] MEDS: ASPIRIN 81 MG CHEWABLE TABLETS PO SCH (09:03)
[2018-12-04] MEDS: LISINOPRIL 10 MG TABLET (FP) PO SCH (09:03)
[2018-12-04] MEDS: amLODIPine BESYLATE 10 MG TABLET (FP) PO SCH (09:03)
[2018-12-04] MEDS: POLYETHYLENE GLYCOL 3350 119 GM BTL PO SCH (09:03)
[2018-12-04] MEDS: hydrALAZINE HCL 10 MG TABLET PO SCH ×2 (09:03→21:25)
[2018-12-04] MEDS: PANTOPRAZOLE 40 MG TABLET (FP) PO SCH (09:03)
--- NOTE | 2018-12-04 09:27 | EKG ---
Test Reason : Blood Pressure : / mmHG Vent. Rate : 090 BPM Atrial Rate : 090 BPM P-R Int : 152 ms QRS Dur : 100 ms QT Int : 372 ms P-R-T Axes : 050 -11 062 degrees QTc Int : 455 ms POOR DATA QUALITY, INTERPRETATION MAY BE ADVERSELY AFFECTED NORMAL SINUS RHYTHM NORMAL ECG Confirmed by Yovanny Sanchez MD ([id number]) on 12/04/2018 9:27:08 AM Referred By: Confirmed By:Yovanny Sanchez MD
--- NOTE | 2018-12-04 11:43 | CON.CARD ---
Cardiology Consult (text) - Consultation Consultation Note: Chief Complaint: cough, sob History of Present Illness: 63F h/o CAD s/p NSTEMI and PCI (in 2014 at [facility] [place], TOM to OM1, TOM to LAD, residual 50-60% mLAD), HTN, HLD, DM, admissions for pancreatitis presenting with shortness of breath, cough. Past week with URI sxs, took mucinex but sxs worse and cough worsened with some bonilla as well so came to ER. No cp palps dizzy loc pnd orthopnea le edema. 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 History of Recent Travel: No Home Medications - Allergies Allergies/Adverse Reactions: Allergies Allergy/AdvReac Type Severity Reaction Status Date / Time No Known Allergies Allergy Verified 12/04/18 01:00 - Home Medications Home Medications Medication Instructions Recorded Aspirin [ASA -] 81 mg PO DAILY #30 tab.chew 06/02/18 Bisacodyl Suppository [Dulcolax 10 mg NC DAILY PRN #20 supp.rect 06/02/18 Suppository -] Insulin (Levemir) [Levemir Vial] 15 units SQ HS #20 units 06/02/18 Pantoprazole Sodium [Protonix -] 40 mg PO DAILY #60 tablet.ec 06/02/18 Polyethylene Glycol 3350 [Miralax 17 gm PO DAILY #7 bottle 06/02/18 119 gm Btl -] hydrALAZINE HCL [Apresoline -] 10 mg PO BID #60 tablet 06/02/18 Amlodipine Besylate [Norvasc -] 10 mg PO DAILY 07/02/18 Lisinopril 10 mg PO DAILY 07/02/18 Atorvastatin Ca [Lipitor] 20 mg PO HS 12/04/18 Azithromycin [Zithromax -] 250 mg PO DAILY #4 tablet 12/04/18 Benzonatate [Tessalon Pearls -] 100 mg PO TID #21 capsule 12/04/18 Cetirizine HCl 10 mg PO DAILY 12/04/18 Chlorthalidone 25 mg PO ASDIR 12/04/18 Gabapentin 100 mg PO BID 12/04/18 Insulin Aspart [Novolog] 0 unit SQ ASDIR 12/04/18 Review of Systems per hpi; no nvd fever muscle pain gib hematuria dysuria wt loss Vital Signs: Vital Signs Period Temp Pulse Resp BP Sys/Springer Pulse Ox Last 24 Hr 99.1 F-99.7 F 77-118 16-20 109-175/71-111 95-98 nad no jvd rrr s1s2 no mrg cta bl nl eff aaox3 no le e/c/c abd nt nd pos bs no jaundice diaphoresis pos dp pt - Other Data Labs, Other Data: Laboratory Last Values WBC 5.5 K/mm3 (4.0-10.0) 12/04/18 00:22 RBC 4.20 M/mm3 (3.60-5.2) 12/04/18 00:22 Hgb 12.6 GM/dL (10.7-15.3) 12/04/18 00:22 Hct 36.8 % (32.4-45.2) 12/04/18 00:22 MCV 87.4 fl (80-96) 12/04/18 00:22 MCH 30.0 pg (25.7-33.7) 12/04/18 00:22 MCHC 34.3 g/dl (32.0-36.0) 12/04/18 00:22 RDW 12.9 % (11.6-15.6) 12/04/18 00:22 Plt Count 162 K/MM3 (134-434) 12/04/18 00:22 MPV 10.1 fl (7.5-11.1) 12/04/18 00:22 Absolute Neuts (auto) 4.2 K/mm3 (1.5-8.0) 12/04/18 00:22 Neutrophils % 76.0 % (42.8-82.8) 12/04/18 00:22 Lymphocytes % 15.8 % (8-40) D 12/04/18 00:22 Monocytes % 6.5 % (3.8-10.2) 12/04/18 00:22 Eosinophils % 1.1 % (0-4.5) D 12/04/18 00:22 Basophils % 0.6 % (0-2.0) 12/04/18 00:22 Nucleated RBC % 0 % (0-0) 12/04/18 00:22 PT with INR 12.20 SEC (9.7-13.0) 12/04/18 00:22 INR 1.03 (0.83-1.09) 12/04/18 00:22 Sodium 137 mmol/L (136-145) 12/04/18 00:22 Potassium 3.5 mmol/L (3.5-5.1) 12/04/18 00:22 Chloride 101 mmol/L (98-107) 12/04/18 00:22 Carbon Dioxide 28 mmol/L (21-32) 12/04/18 00:22 Anion Gap 7 MMOL/L (8-16) L 12/04/18 00:22 BUN 26 mg/dL (7-18) H 12/04/18 00:22 Creatinine 1.3 mg/dL (0.55-1.3) 12/04/18 00:22 Creat Clearance w eGFR 41.24 (>60) 12/04/18 00:22 POC Glucometer 188 UNITS (80-120) 12/04/18 08:15 Random Glucose 281 mg/dL (74-106) H 12/04/18 00:22 Hemoglobin A1c % 12.6 % (4.2-6.3) H 12/04/18 05:33 Calcium 9.1 mg/dL (8.5-10.1) 12/04/18 00:22 Magnesium 2.1 mg/dL (1.8-2.4) 12/04/18 00:22 Total Bilirubin 0.3 mg/dL (0.2-1) 12/04/18 00:22 AST 18 U/L (15-37) 12/04/18 00:22 ALT 24 U/L (13-61) 12/04/18 00:22 Alkaline Phosphatase 91 U/L (45-117) 12/04/18 00:22 Creatine Kinase 140 U/L (26-192) 12/04/18 00:22 Troponin I 0.07 ng/ml (0.00-0.05) H 12/04/18 05:33 B-Natriuretic Peptide 444.7 pg/ml (5-125) H 12/04/18 00:22 Total Protein 6.7 g/dl (6.4-8.2) 12/04/18 00:22 Albumin 3.5 g/dl (3.4-5.0) 12/04/18 00:22 Triglycerides 98 mg/dL (0-150) 12/04/18 05:33 Cholesterol 148 mg/dL (50-200) 12/04/18 05:33 Total LDL Cholesterol 90 mg/dL (5-100) 12/04/18 05:33 HDL Cholesterol 47 mg/dL (40-60) 12/04/18 05:33 TSH 1.66 uIU/ml (0.358-3.74) 12/04/18 05:33 Influenza A (Rapid) Negative 12/04/18 05:35 Influenza B (Rapid) Negative 12/04/18 05:35 echo 11/2013 nl LV and RV size/function,mild MR, mild TR Echo 05/23/18 EF 45-50%, impaired relaxation, RV not well visualized, LA nl size , mild MR, mild TR cxr: clear lungs ecg: sr, no ischemic changes a/p: 63F h/o CAD s/p NSTEMI and PCI (in 2013 at [facility] [place], TOM to OM1, TOM to LAD, residual 50-60% mLAD), HTN, HLD, DM, admissions for pancreatitis presenting with shortness of breath, cough. sob, cough: -no signs acs or chf -sxs seem related to URI, tx per pmd -echo pending elevated troponin, CAD, history of stents - borderline trop elevation, similar to prior baseline values, does not seem related to acs. Trend trop for now. - cont statin, asa htn: -cont home meds hld: -cont statin
[2018-12-04] MEDS ORDERED: cefTRIAXone SODIUM 1 GM VIAL ONE (16:23)
[2018-12-04] MEDS ORDERED: DEXTROSE 5%-WATER - 50 ML IVPB ONE (16:23)
[2018-12-04] MEDS: CEFTRIAXONE 1 GM in DEXTROSE 5%-WATER - 50 ML IVPB SCH (16:43)
[2018-12-04] MEDS: guaiFENesin 200 MG/10 ML 10 ML UNIT-DOSE CUPS PO PRN (18:01)
[2018-12-04] MEDS ORDERED: ACETAMINOPHEN 325 MG TABLET (FP) ONE (21:11)
[2018-12-04] MEDS: ACETAMINOPHEN 325 MG TABLET (FP) PO PRN (21:25)
[2018-12-04] MEDS: ATORVASTATIN CA 20 MG TABLET (FP) PO SCH (21:25)
[2018-12-04] MEDS ORDERED: INSULIN (LEVEMIR) 100 UNITS/ML UNITS SQ SCH (22:00)
[2018-12-05] MEDS ORDERED: SODIUM CHLORIDE 500 ML IV STA (00:53)
[2018-12-05] MEDS: HEPARIN NA (PORCINE) 5,000 UNITS/ML 1ML VIAL SQ SCH ×3 (05:55→21:41)
[2018-12-05] MEDS: INSULIN SLIDING SCALE (NOVOLOG) 1 VIAL SQ SCH ×3 (06:48→16:51)
[2018-12-05 07:43] LABS: BASO % 0.8 % (0-2.0); EOS % 0.5 % (0-4.5); LYMPH % 26.8 % (8-40); MCH 29.7 pg (25.7-33.7); MCHC 34.5 g/dl (32.0-36.0); MEAN CELL VOLUME 86.2 fl (80-96); MEAN PLT VOLUME 10.3 fl (7.5-11.1); MONO % 13.6 % (3.8-10.2); NEUT % 58.3 % (42.8-82.8); PLATELET COUNT 140 K/MM3 (134-434); RBC 4.06 M/mm3 (3.60-5.2); RDW 13.4 % (11.6-15.6); WHITE BLOOD COUNT 3.7 K/mm3 (4.0-10.0)
[2018-12-05 08:16] LABS: ALK PHOS 74 U/L (45-117); ANION GAP 6 MMOL/L (8-16); BILIRUBIN,TOTAL 0.6 mg/dL (0.2-1); BLOOD UREA NITROGEN 28 mg/dL (7-18); CALCIUM 8.3 mg/dL (8.5-10.1); CHLORIDE 103 mmol/L (98-107); CO2 31 mmol/L (21-32); CREATININE 1.4 mg/dL (0.55-1.3); GLUCOSE,RANDOM 137 mg/dL (74-106); MAGNESIUM 2.2 mg/dL (1.8-2.4); POTASSIUM 3.3 mmol/L (3.5-5.1); SGOT/AST 19 U/L (15-37); SGPT/ALT 19 U/L (13-61); SODIUM 140 mmol/L (136-145); TOT PROT 5.8 g/dl (6.4-8.2)
--- NOTE | 2018-12-05 09:00 | PN ---
Progress Note, Physician Chief Complaint: cough History of Present Illness: coughing a lot still. abd wall muscles hurt when coughs. no cp. no sob when not coughing no palpitations - Current Medication List Current Medications: Active Medications Acetaminophen (Tylenol -) 650 mg PO Q4H PRN PRN Reason: FEVER Last Admin: 12/04/18 21:25 Dose: 650 mg Amlodipine Besylate (Norvasc -) 10 mg PO DAILY [facility] Last Admin: 12/04/18 09:03 Dose: 10 mg Aspirin (Asa -) 81 mg PO DAILY [facility] Last Admin: 12/04/18 09:03 Dose: 81 mg Atorvastatin Calcium (Lipitor -) 20 mg PO HS [facility] Last Admin: 12/04/18 21:25 Dose: 20 mg Benzocaine/Menthol (Cepacol Lozenge -) 1 each MM PRN PRN PRN Reason: SORE THROAT Chlorthalidone (Hygroton -) 25 mg PO ASDIR [facility] Gabapentin (Neurontin -) 100 mg PO BID [facility] Last Admin: 12/04/18 21:25 Dose: 100 mg Guaifenesin (Robitussin -) 10 ml PO Q6H PRN PRN Reason: COUGH Last Admin: 12/04/18 18:01 Dose: 10 ml Heparin Sodium (Porcine) (Heparin -) 5,000 unit SQ TID [facility] Last Admin: 12/05/18 05:55 Dose: 5,000 unit Hydralazine HCl (Apresoline -) 10 mg PO BID [facility] Last Admin: 12/04/18 21:25 Dose: 10 mg Ceftriaxone Sodium 1 gm/ (Dextrose) 50 mls @ 100 mls/hr IVPB DAILY [facility] Last Admin: 12/04/18 16:43 Dose: 100 mls/hr Insulin Aspart (Novolog Vial Sliding Scale -) 1 vial SQ [facility]; Protocol Last Admin: 12/05/18 06:48 Dose: Not Given Insulin Detemir (Levemir Vial) [address] [facility] Last Admin: 12/04/18 21:27 Dose: 15 units Lisinopril (Prinivil) 10 mg PO DAILY [facility] Last Admin: 12/04/18 09:03 Dose: 10 mg Pantoprazole Sodium (Protonix -) 40 mg PO DAILY [facility] Last Admin: 12/04/18 09:03 Dose: 40 mg Polyethylene Glycol (Miralax (For Daily Use) -) 17 gm PO DAILY [facility] Last Admin: 12/04/18 09:03 Dose: 17 gm - Objective Vital Signs: Vital Signs Temperature 100.4 F H 12/05/18 06:00 Pulse Rate 73 12/05/18 06:00 Respiratory Rate 20 12/05/18 06:00 Blood Pressure 120/64 12/05/18 06:00 O2 Sat by Pulse Oximetry (%) 94 L 12/04/18 21:00 Constitutional: Yes: Well Nourished, No Distress, Calm Cardiovascular: Yes: Regular Rate and Rhythm, S1, S2. No: JVD, Gallop, Murmur Respiratory: Yes: Regular, CTA Bilaterally. No: Accessory Muscle Use, Rales, Rhonchi, Wheezes Extremities: No: Cold Edema: No Neurological: Yes: Alert, Oriented Psychiatric: No: Agitated Labs: CBC, BMP 12/05/18 06:30 12/05/18 06:30 INR, PTT INR 1.03 (0.83-1.09) 12/04/18 00:22 Assessment/Plan Echo 05/23/18 EF 45-50%, impaired relaxation, RV not well visualized, LA nl size , mild MR, mild TR Echo 11/2013 nl LV and RV size/function,mild MR, mild TR cxr: clear lungs ecg: sr, no ischemic changes a/p: 63F h/o CAD s/p [place]I and [place] [facility] [place], TOM to LAD, residual 50-60% mLAD), HTN, HLD, DM, admissions for pancreatitis presenting with shortness of breath, cough. sob, cough: -BNP 400, prior range 7K-10K--i.e. unimpressive -no signs chf/volume on exam or CXR -sxs seem related to URI--tx per pmd -echo pending elevated troponin, CAD, history of stents - indeterminate range trop elevation (0.04-0.07-0.04)--not c/w ACS - cont statin, asa htn: -bp controlled -cont home meds hld: -cont statin D/C TELEMETRY
[2018-12-05] MEDS ORDERED: PT OWN MED DRAWER 7, Y5N ONE (09:22)
[2018-12-05] MEDS ORDERED: cefTRIAXone SODIUM 1 GM VIAL ONE (09:22)
[2018-12-05] MEDS ORDERED: DEXTROSE 5%-WATER - 50 ML IVPB ONE (09:23)
[2018-12-05] MEDS: ACETAMINOPHEN 325 MG TABLET (FP) PO PRN ×2 (09:25→21:42)
[2018-12-05] MEDS: guaiFENesin 200 MG/10 ML 10 ML UNIT-DOSE CUPS PO PRN ×2 (09:25→17:13)
[2018-12-05] MEDS: CEFTRIAXONE 1 GM in DEXTROSE 5%-WATER - 50 ML IVPB SCH (09:25)
[2018-12-05] MEDS: ASPIRIN 81 MG CHEWABLE TABLETS PO SCH (09:26)
[2018-12-05] MEDS: GABAPENTIN 100 MG CAPSULE (FP) PO SCH ×2 (09:26→21:41)
[2018-12-05] MEDS: PANTOPRAZOLE 40 MG TABLET (FP) PO SCH (09:26)
[2018-12-05] MEDS: POLYETHYLENE GLYCOL 3350 119 GM BTL PO SCH (09:27)
[2018-12-05] MEDS: amLODIPine BESYLATE 10 MG TABLET (FP) PO SCH (10:51)
[2018-12-05] MEDS: hydrALAZINE HCL 10 MG TABLET PO SCH (10:51)
--- NOTE | 2018-12-05 10:51 | ECHO ---
Name: LESA ZAVALETA Exam:Adult Echocardiogram Study Date: 12/05/2018 09:36 AM Age: 63 yrs Reason For Study: Chest pain Height: 65 in Weight: 165 lb BSA: 1.8 m2 MMode/2D Measurements & Calculations IVSd: 1.2 cm ACS: 1.9 cm LVIDd: 3.7 cm LVIDs: 2.7 cm LVPWd: 1.3 cm EDV(Teich): 59.3 ml LVOT diam: 1.9 cm ESV(Teich): 28.2 ml Doppler Measurements & Calculations MV E max yannick: 57.8 cm/sec Med Peak E' Yannick: 5.4 cm/sec MV A max yannick: 99.7 cm/sec Med E/e': 10.8 MV E/A: 0.58 Lat Peak E' Yannick: 4.3 cm/sec Lat E/e': 13.5 Procedure A complete two-dimensional transthoracic echocardiogram was performed (2D, M-mode, Doppler and color flow Doppler). Technically limited study. Left Ventricle The left ventricle is normal in size. There is mild concentric left ventricular hypertrophy. Left tristin tricular systolic function is normal. Ejection Fraction = 65-70%. Grade I diastolic dysfunction, (abnormal rel axation pattern). Ratio E/E'= 11. No regional wall motion abnormalities noted. Right Ventricle The right ventricle is normal size. The right ventricular systolic function is normal. Atria The left atrial size is normal. Right atrial size is normal. Mitral Valve There is mild mitral annular calcification. There is no mitral regurgitation noted. Tricuspid Valve The tricuspid valve is normal in structure and function. There is mild tricuspid regurgitation. Aortic Valve There is mild aortic sclerosis.;. No aortic regurgitation is present. Pulmonic Valve The pulmonic valve is not well visualized. Great Vessels The aortic root is normal size. Pericardium/Pleura There is no pericardial effusion. Interpretation Summary Technically limited study The left ventricle is normal in size. There is mild concentric left ventricular hypertrophy. Left ventricular systolic function is normal. No regional wall motion abnormalities noted. Ejection Fraction = 65-70%. Grade I diastolic dysfunction, (abnormal relaxation pattern). Ratio E/E'= 11 The right ventricular systolic function is normal. The left atrial size is normal. Right atrial size is normal. There is mild mitral annular calcification. There is no mitral regurgitation noted. There is mild tricuspid regurgitation. There is mild aortic sclerosis.; No aortic regurgitation is present. There is no pericardial effusion. Juan Miller MD 12/05/2018 10:51 AM
[2018-12-05] MEDS: LISINOPRIL 10 MG TABLET (FP) PO SCH (10:52)
[2018-12-05] MEDS ORDERED: INSULIN SLIDING SCALE (NOVOLOG) 1 VIAL SQ ONE (11:59)
[2018-12-05] MEDS ORDERED: INSULIN (LEVEMIR) 100 UNITS/ML UNITS SQ SCH (12:44)
[2018-12-05] MEDS ORDERED: POTASSIUM CHLORIDE ORAL LIQUID 20 MEQ/15 ML PO ONE (12:47)
--- NOTE | 2018-12-05 12:52 | PN ---
Progress Note, Physician History of Present Illness: pt seen/ examined chart reviewed cough better denies cp. still having fever passed lot of urine today-- around 800 cc denies burning bp meds held as bp on low side bgm reading also noted Uncontrolled diabetes-- HB A1C >12. - Current Medication List Current Medications: Active Medications Acetaminophen (Tylenol -) 650 mg PO Q4H PRN PRN Reason: FEVER Last Admin: 12/05/18 09:25 Dose: 650 mg Aspirin (Asa -) 81 mg PO DAILY [facility] Last Admin: 12/05/18 09:26 Dose: 81 mg Atorvastatin Calcium (Lipitor -) 20 mg PO HS [facility] Last Admin: 12/04/18 21:25 Dose: 20 mg Benzocaine/Menthol (Cepacol Lozenge -) 1 each MM PRN PRN PRN Reason: SORE THROAT Gabapentin (Neurontin -) 100 mg PO BID [facility] Last Admin: 12/05/18 09:26 Dose: 100 mg Guaifenesin (Robitussin -) 10 ml PO Q6H PRN PRN Reason: COUGH Last Admin: 12/05/18 09:25 Dose: 10 ml Heparin Sodium (Porcine) (Heparin -) 5,000 unit SQ TID [facility] Last Admin: 12/05/18 05:55 Dose: 5,000 unit Ceftriaxone Sodium 1 gm/ (Dextrose) 50 mls @ 100 mls/hr IVPB DAILY [facility] Last Admin: 12/05/18 09:25 Dose: 100 mls/hr Insulin Aspart (Novolog Vial Sliding Scale -) 1 vial SQ BIDAC [facility]; Protocol Insulin Detemir (Levemir Vial) 18 units SQ [facility] Lisinopril (Prinivil) 10 mg PO DAILY [facility] Last Admin: 12/05/18 10:52 Dose: Not Given Pantoprazole Sodium (Protonix -) 40 mg PO DAILY [facility] Last Admin: 12/05/18 09:26 Dose: 40 mg Polyethylene Glycol (Miralax (For Daily Use) -) 17 gm PO DAILY [facility] Last Admin: 12/05/18 09:27 Dose: 17 gm Potassium Chloride (Potassium Chloride Oral Liquid) 40 meq PO ONCE ONE Stop: 12/05/18 12:48 - Objective Vital Signs: Vital Signs Temperature 100.4 F H 12/05/18 10:00 Pulse Rate 92 H 12/05/18 10:00 Respiratory Rate 12/05/18 10:00 Blood Pressure 109/70 12/05/18 10:00 O2 Sat by Pulse Oximetry (%) 94 L 12/05/18 09:00 Constitutional: Yes: No Distress, Calm Eyes: Yes: Conjunctiva Clear Neck: Yes: Supple Cardiovascular: Yes: Regular Rate and Rhythm Respiratory: Yes: Diminished, Rhonchi Gastrointestinal: Yes: Soft Edema: No Neurological: Yes: Alert Psychiatric: Yes: Alert Labs: CBC, BMP 12/05/18 06:30 12/05/18 06:30 INR, PTT INR 1.03 (0.83-1.09) 12/04/18 00:22 - ....Imaging Chest X-ray: Report Reviewed Problem List - Problems (1) Cough Code(s): R05 - COUGH (2) SOB (shortness of breath) Code(s): R06.02 - SHORTNESS OF BREATH (4) Acute on chronic kidney failure Code(s): N17.9 - ACUTE KIDNEY FAILURE, UNSPECIFIED; N18.9 - CHRONIC KIDNEY DISEASE, UNSPECIFIED Assessment/Plan clinically feels better Increase insulin possible viral Possible UTI UA and culture pending f/u cultures u/c send Emperic abx for now will follow
[2018-12-05] MEDS ORDERED: ALBUTEROL SO4 2.5/IPRATROPIUM 0.5 INH SOL 3 ML VIAL.NEB. NEB PRN (12:53)
[2018-12-05 13:02] LABS: URINE APPEARANCE CLEAR; URINE BILIRUBIN NEGATIVE (<2.0 mg/dL); URINE COLOR YELLOW; URINE GLUCOSE (UA) NEGATIVE (NEGATIVE); URINE KETONE NEGATIVE (NEGATIVE); URINE LEUK ESTERASE NEGATIVE (NEGATIVE); URINE NITRITE NEGATIVE (NEGATIVE); URINE PROTEIN NEGATIVE (NEGATIVE); URINE UROBILINOGEN NEGATIVE mg/dL (0.2-1.0)
[2018-12-05] MEDS: ATORVASTATIN CA 20 MG TABLET (FP) PO SCH (21:41)
[2018-12-05] MEDS: BENZOCAINE/MENTH/CETYLPYRD CL 1 EACH LOZENGE MM PRN (21:42)
[2018-12-06] MEDS: CHLORTHALIDONE 25 MG TABLET PO SCH ×2 (00:03→00:09)
[2018-12-06] MEDS: guaiFENesin 200 MG/10 ML 10 ML UNIT-DOSE CUPS PO PRN ×3 (05:48→21:16)
[2018-12-06] MEDS: HEPARIN NA (PORCINE) 5,000 UNITS/ML 1ML VIAL SQ SCH ×3 (05:48→21:17)
[2018-12-06] MEDS: ACETAMINOPHEN 325 MG TABLET (FP) PO PRN ×3 (05:48→21:17)
[2018-12-06] MEDS: BENZOCAINE/MENTH/CETYLPYRD CL 1 EACH LOZENGE MM PRN (06:00)
[2018-12-06] MEDS: INSULIN SLIDING SCALE (NOVOLOG) 1 VIAL SQ SCH ×4 (06:10→21:17)
--- NOTE | 2018-12-06 09:14 | PN ---
Progress Note (short form) - Note Progress Note: s: sob improving, has occasional chest/side soreness with coughing. no dizziness , palps, edema Current Medications Acetaminophen (Tylenol -) 650 mg PO Q4H PRN PRN Reason: FEVER Last Admin: 12/06/18 05:48 Dose: 650 mg Albuterol/Ipratropium (Duoneb -) 1 amp NEB Q6H PRN PRN Reason: SHORTNESS OF BREATH Last Admin: 12/06/18 07:25 Dose: 1 amp Aspirin (Asa -) 81 mg PO DAILY [facility] Last Admin: 12/05/18 09:26 Dose: 81 mg Atorvastatin Calcium (Lipitor -) 20 mg PO HS [facility] Last Admin: 12/05/18 21:41 Dose: 20 mg Benzocaine/Menthol (Cepacol Lozenge -) 1 each MM PRN PRN PRN Reason: SORE THROAT Last Admin: 12/05/18 21:42 Dose: 1 each Gabapentin (Neurontin -) 100 mg PO BID [facility] Last Admin: 12/05/18 21:41 Dose: 100 mg Guaifenesin (Robitussin -) 10 ml PO Q6H PRN PRN Reason: COUGH Last Admin: 12/06/18 05:48 Dose: 10 ml Heparin Sodium (Porcine) (Heparin -) 5,000 unit SQ TID [facility] Last Admin: 12/06/18 05:48 Dose: 5,000 unit Ceftriaxone Sodium 1 gm/ (Dextrose) 50 mls @ 100 mls/hr IVPB DAILY [facility] Last Admin: 12/05/18 09:25 Dose: 100 mls/hr Insulin Aspart (Novolog Vial Sliding Scale -) 1 vial SQ BIDAC [facility]; Protocol Last Admin: 12/06/18 06:10 Dose: Not Given Insulin Detemir (Levemir Vial) 18 units SQ HS [facility] Last Admin: 12/05/18 21:41 Dose: 18 units Lisinopril (Prinivil) 10 mg PO DAILY [facility] Last Admin: 12/05/18 10:52 Dose: Not Given Pantoprazole Sodium (Protonix -) 40 mg PO DAILY [facility] Last Admin: 12/05/18 09:26 Dose: 40 mg Polyethylene Glycol (Miralax (For Daily Use) -) 17 gm PO DAILY [facility] Last Admin: 12/05/18 09:27 Dose: 17 gm - Objective Vital Signs Period Temp Pulse Resp BP Sys/Springer Pulse Ox Last 24 Hr 98.8 F-100.4 F 70-97 18-20 102-144/60-98 97 Constitutional: Yes: Well Nourished, No Distress, Calm Cardiovascular: Yes: Regular Rate and Rhythm, S1, S2. No: JVD, Gallop, Murmur Respiratory: Yes: Regular, CTA Bilaterally. No: Accessory Muscle Use, Rales, Rhonchi, Wheezes Extremities: No: Cold Edema: No Neurological: Yes: Alert, Oriented Psychiatric: No: Agitated Assessment/Plan Echo 05/23/18 EF 45-50%, impaired relaxation, RV not well visualized, LA nl size , mild MR, mild TR Echo 11/2013 nl LV and RV size/function,mild MR, mild TR echo 11/2018 LV nl size/function, mild conc LVH, grade I diastolic dysfunction, mild TR cxr: clear lungs ecg: sr, no ischemic changes a/p: 63F h/o CAD s/p NSTEMI and PCI (in 2013 at [facility] [place], TOM to OM1, TOM to LAD, residual 50-60% mLAD), HTN, HLD, DM, admissions for pancreatitis presenting with shortness of breath, cough. sob, cough: -BNP 400, prior range 7K-10K--i.e. unimpressive -no signs chf/volume on exam or CXR -sxs seem related to URI--tx per pmd -preserved LV function on echo elevated troponin, CAD, history of stents - indeterminate range trop elevation (0.04-0.07-0.04)--not c/w ACS - cont statin, asa htn: -bp controlled -cont home meds hld: -cont statin
[2018-12-06] MEDS ORDERED: cefTRIAXone SODIUM 1 GM VIAL ONE (09:50)
[2018-12-06] MEDS ORDERED: DEXTROSE 5%-WATER - 50 ML IVPB ONE (09:51)
[2018-12-06] MEDS: PANTOPRAZOLE 40 MG TABLET (FP) PO SCH (10:07)
[2018-12-06] MEDS: ASPIRIN 81 MG CHEWABLE TABLETS PO SCH (10:07)
[2018-12-06] MEDS: GABAPENTIN 100 MG CAPSULE (FP) PO SCH ×3 (10:07→21:16)
[2018-12-06] MEDS: POLYETHYLENE GLYCOL 3350 119 GM BTL PO SCH (10:09)
[2018-12-06] MEDS: CEFTRIAXONE 1 GM in DEXTROSE 5%-WATER - 50 ML IVPB SCH (10:09)
[2018-12-06] MEDS: LISINOPRIL 10 MG TABLET (FP) PO SCH (10:42)
--- NOTE | 2018-12-06 11:28 | PN ---
Progress Note (short form) - Note Progress Note: feeling better has a dry cough no chest pain no SOB Vital Signs - 24 hr 12/05/18 12/05/18 12/05/18 13:44 17:47 21:00 Temperature 98.9 F 98.8 F 99.8 F H Pulse Rate 76 74 97 H Respiratory 18 18 20 Rate Blood Pressure 102/60 129/78 144/98 O2 Sat by Pulse 97 Oximetry (%) 12/06/18 06:00 Temperature 99.0 F Pulse Rate 70 Respiratory 18 Rate Blood Pressure 134/75 O2 Sat by Pulse Oximetry (%) Current Medications Generic Name Dose Route Start Last Admin Trade Name Freq PRN Reason Stop Dose Admin Acetaminophen 650 mg 12/04/18 20:48 12/06/18 05:48 Tylenol - PO 650 mg Q4H PRN Administration FEVER Albuterol/Ipratropium 1 amp 12/05/18 12:53 12/06/18 07:25 Duoneb - NEB 1 amp Q6H PRN Administration SHORTNESS OF BREATH Aspirin 81 mg 12/04/18 10:00 12/06/18 10:07 Asa - PO 81 mg DAILY JANICE Administration Atorvastatin Calcium 20 mg 12/04/18 22:00 12/05/18 21:41 Lipitor - PO 20 mg HS JANICE Administration Benzocaine/Menthol 1 each 12/04/18 17:13 12/05/18 21:42 Cepacol Lozenge - MM 1 each PRN PRN Administration SORE THROAT Gabapentin 100 mg 12/04/18 10:00 12/06/18 10:07 Neurontin - PO 100 mg BID JANICE Administration Guaifenesin 10 ml 12/04/18 17:13 12/06/18 05:48 Robitussin - PO 10 ml Q6H PRN Administration COUGH Heparin Sodium (Porcine) 5,000 unit 12/04/18 06:00 12/06/18 05:48 Heparin - SQ 5,000 unit TID JANICE Administration Ceftriaxone Sodium 1 gm/ 50 mls @ 100 mls/hr 12/04/18 15:30 12/06/18 10:09 Dextrose IVPB 100 mls/hr DAILY JANICE Administration Insulin Aspart 1 vial 12/06/18 16:30 Novolog Vial Sliding Scale - SQ ACHS JANICE Protocol Insulin Detemir 22 units 12/06/18 11:59 Levemir Vial SQ HS JANICE Lisinopril 10 mg 12/04/18 10:00 12/06/18 10:42 Prinivil PO Not Given DAILY JANICE Pantoprazole Sodium 40 mg 12/04/18 10:00 12/06/18 10:07 Protonix - PO 40 mg DAILY JANICE Administration Polyethylene Glycol 17 gm 12/04/18 10:00 12/06/18 10:09 Miralax (For Daily Use) - PO 17 gm DAILY JANICE Administration Laboratory Results - last 24 hr 12/05/18 12/05/18 12/05/18 10:45 13:00 16:47 POC Glucometer 244 Creatine Kinase 187 Creatine Kinase Index 0.5 CK-MB (CK-2) 1.1 Troponin I 0.02 Urine Color Yellow Urine Appearance Clear Urine pH 5.0 Ur Specific [place] 1.017 Urine Protein Negative Urine Glucose (UA) Negative Urine Ketones Negative Urine Blood Negative Urine Nitrite Negative Urine Bilirubin Negative Urine Urobilinogen Negative Ur Leukocyte Esterase Negative 12/05/18 12/06/18 12/06/18 21:38 05:45 11:03 POC Glucometer 217 145 220 Creatine Kinase Creatine Kinase Index CK-MB (CK-2) Troponin I Urine Color Urine Appearance Urine pH Ur Specific [place] Urine Protein Urine Glucose (UA) Urine Ketones Urine Blood Urine Nitrite Urine Bilirubin Urine Urobilinogen Ur Leukocyte Esterase S1 s2 RRR Lungs clear Abd- soft, NT , ND No edema Microbiology 12/05/18 10:45 Urine Culture - Preliminary Urine - Urine Clean Catch Staphylococcus Coagulase Neg 12/04/18 21:49 Blood Culture - Preliminary Blood - Peripheral Venous NO GROWTH OBTAINED AFTER 24 HOURS, INCUBATION TO CONTINUE FOR 4 DAYS. 12/04/18 21:49 Blood Culture - Preliminary Blood - Peripheral Venous NO GROWTH OBTAINED AFTER 24 HOURS, INCUBATION TO CONTINUE FOR 4 DAYS. 12/04/18 05:35 Respiratory Virus (PCR) - Preliminary Nasopharyngeal Swab PLAN iv antibiotics of telemetry urine cultures positive OOB increase Levemir change coverage to [facility] Problem List - Problems (1) Cough Code(s): R05 - COUGH (3) Diabetes mellitus Code(s): E11.9 - TYPE 2 DIABETES MELLITUS WITHOUT COMPLICATIONS (4) UTI (urinary tract infection) Code(s): N39.0 - URINARY TRACT INFECTION, SITE NOT SPECIFIED
[2018-12-06] MEDS ORDERED: INSULIN (LEVEMIR) 100 UNITS/ML UNITS SQ SCH (11:59)
[2018-12-06 15:09] VITALS: BMI 26.1
[2018-12-06] MEDS: ATORVASTATIN CA 20 MG TABLET (FP) PO SCH (21:16)
[2018-12-07] MEDS: GABAPENTIN 100 MG CAPSULE (FP) PO SCH (05:33)
[2018-12-07] MEDS: guaiFENesin 200 MG/10 ML 10 ML UNIT-DOSE CUPS PO PRN (05:33)
[2018-12-07] MEDS: ACETAMINOPHEN 325 MG TABLET (FP) PO PRN (05:33)
[2018-12-07] MEDS: BENZOCAINE/MENTH/CETYLPYRD CL 1 EACH LOZENGE MM PRN (05:33)
[2018-12-07] MEDS: HEPARIN NA (PORCINE) 5,000 UNITS/ML 1ML VIAL SQ SCH (05:33)
[2018-12-07 05:54] VITALS: PULSE 18
[2018-12-07] MEDS: INSULIN SLIDING SCALE (NOVOLOG) 1 VIAL SQ SCH (06:07)
--- NOTE | 2018-12-07 09:59 | PN ---
Progress Note (short form) - Note Progress Note: s: sob improved. no chest pain, dizziness, palps, edema Current Medications Acetaminophen (Tylenol -) 650 mg PO Q4H PRN PRN Reason: FEVER Last Admin: 12/07/18 05:33 Dose: 650 mg Albuterol/Ipratropium (Duoneb -) 1 amp NEB Q6H PRN PRN Reason: SHORTNESS OF BREATH Last Admin: 12/06/18 07:25 Dose: 1 amp Aspirin (Asa -) 81 mg PO DAILY [facility] Last Admin: 12/06/18 10:07 Dose: 81 mg Atorvastatin Calcium (Lipitor -) 20 mg PO HS [facility] Last Admin: 12/06/18 21:16 Dose: 20 mg Benzocaine/Menthol (Cepacol Lozenge -) 1 each MM PRN PRN PRN Reason: SORE THROAT Last Admin: 12/07/18 05:33 Dose: 1 each Gabapentin (Neurontin -) 100 mg PO TID [facility] Last Admin: 12/07/18 05:33 Dose: 100 mg Guaifenesin (Robitussin -) 10 ml PO Q6H PRN PRN Reason: COUGH Last Admin: 12/07/18 05:33 Dose: 10 ml Heparin Sodium (Porcine) (Heparin -) 5,000 unit SQ TID [facility] Last Admin: 12/07/18 05:33 Dose: 5,000 unit Ceftriaxone Sodium 1 gm/ (Dextrose) 50 mls @ 100 mls/hr IVPB DAILY [facility] Last Admin: 12/06/18 10:09 Dose: 100 mls/hr Insulin Aspart (Novolog Vial Sliding Scale -) 1 vial SQ [facility]; Protocol Last Admin: 12/07/18 06:07 Dose: 2 units Insulin Detemir (Levemir Vial) 22 units SQ HS [facility] Last Admin: 12/06/18 21:17 Dose: 22 units Lisinopril (Prinivil) 10 mg PO DAILY [facility] Last Admin: 12/06/18 10:42 Dose: Not Given Pantoprazole Sodium (Protonix -) 40 mg PO DAILY [facility] Last Admin: 12/06/18 10:07 Dose: 40 mg Polyethylene Glycol (Miralax (For Daily Use) -) 17 gm PO DAILY [facility] Last Admin: 12/06/18 10:09 Dose: 17 gm - Objective Vital Signs Period Temp Pulse Resp BP Sys/Springer Pulse Ox Last 24 Hr 98.0 F-98.7 F 18-85 16-72 121-142/66-87 97-97 Constitutional: Yes: Well Nourished, No Distress, Calm Cardiovascular: Yes: Regular Rate and Rhythm, S1, S2. No: JVD, Gallop, Murmur Respiratory: Yes: Regular, CTA Bilaterally. No: Accessory Muscle Use, Rales, Rhonchi, Wheezes Extremities: No: Cold Edema: No Neurological: Yes: Alert, Oriented Psychiatric: No: Agitated Assessment/Plan Echo 05/23/18 EF 45-50%, impaired relaxation, RV not well visualized, LA nl size , mild MR, mild TR Echo 11/2013 nl LV and RV size/function,mild MR, mild TR echo 11/2018 LV nl size/function, mild conc LVH, grade I diastolic dysfunction, mild TR cxr: clear lungs ecg: sr, no ischemic changes a/p: 63F h/o CAD s/p NSTEMI and PCI (in 2013 at [facility] [place], TOM to OM1, TOM to LAD, residual 50-60% mLAD), HTN, HLD, DM, admissions for pancreatitis presenting with shortness of breath, cough. sob, cough: -BNP 400, prior range 7K-10K--i.e. unimpressive -no signs chf/volume on exam or CXR -sxs seem related to URI--tx per pmd -preserved LV function on echo -improving, stable for discharge from cardiac perspective elevated troponin, CAD, history of stents - indeterminate range trop elevation (0.04-0.07-0.04)--not c/w ACS - cont statin, asa htn: -bp controlled -cont home meds hld: -cont statin
[2018-12-07] MEDS ORDERED: cefTRIAXone SODIUM 1 GM VIAL ONE (10:05)
[2018-12-07] MEDS ORDERED: DEXTROSE 5%-WATER - 50 ML IVPB ONE (10:06)
[2018-12-07] MEDS: PANTOPRAZOLE 40 MG TABLET (FP) PO SCH (10:24)
[2018-12-07] MEDS: LISINOPRIL 10 MG TABLET (FP) PO SCH (10:24)
[2018-12-07] MEDS: ASPIRIN 81 MG CHEWABLE TABLETS PO SCH (10:24)
[2018-12-07] MEDS: CEFTRIAXONE 1 GM in DEXTROSE 5%-WATER - 50 ML IVPB SCH (10:24)
--- NOTE | 2018-12-07 10:28 | DS ---
Physical Examination Vital Signs: Vital Signs Temperature 98.6 F 12/07/18 05:53 Pulse Rate 18 L 12/07/18 05:53 Respiratory Rate 72 H 12/07/18 05:53 Blood Pressure 121/66 12/07/18 05:53 O2 Sat by Pulse Oximetry (%) 97 12/06/18 20:03 Labs: CBC, BMP 12/05/18 06:30 12/05/18 06:30 Discharge Summary Reason For Visit: SHORTNESS OF BREATH;SENSATION OF CHEST PRESSURE Current Active Problems Cough (Acute) SOB (shortness of breath) (Acute) Condition: Good - Instructions - Home Medications Comprehensive Discharge Medication List: Ambulatory Orders Aspirin [ASA -] 81 mg PO DAILY #30 tab.chew 06/02/18 Bisacodyl Suppository [Dulcolax Suppository -] 10 mg [place] DAILY PRN #20 supp.rect 06/02/18 Insulin (Levemir) [Levemir Vial] 15 units SQ HS #20 units 06/02/18 Pantoprazole Sodium [Protonix -] 40 mg PO DAILY #60 tablet.ec 06/02/18 Polyethylene Glycol 3350 [Miralax 119 gm Btl -] 17 gm PO DAILY #7 bottle hydrALAZINE HCL [Apresoline -] 10 mg PO BID #60 tablet 06/02/18 Amlodipine Besylate [Norvasc -] 10 mg PO DAILY 07/02/18 Lisinopril 10 mg PO DAILY 07/02/18 Atorvastatin Ca [Lipitor] 20 mg PO HS 12/04/18 Azithromycin [Zithromax -] 250 mg PO DAILY #4 tablet 12/04/18 Benzonatate [Tessalon Pearls -] 100 mg PO TID #21 capsule 12/04/18 Cetirizine HCl 10 mg PO DAILY 12/04/18 Chlorthalidone 25 mg PO ASDIR 12/04/18 Gabapentin 100 mg PO BID 12/04/18 Insulin Aspart [Novolog] 0 unit SQ ASDIR 12/04/18
[2018-12-07 12:49] VITALS: BP 139/80; TEMP 98.2
== END 2018-12-07 13:08 | disposition home or self-care (01) | DRG 153 ==
LOC: JER 23:20 → JERBED 12-04 03:00 → J4S 12-04 14:31
PROVIDERS: ADMIT Internal Medicine; ATTEND Internal Medicine
DX: J06.9 Acute upper respiratory infection, unspecified (principal); N39.0 Urinary tract infection, site not specified; E11.65 Type 2 diabetes mellitus with hyperglycemia; I25.10 Atherosclerotic heart disease of native coronary artery without angina pectoris; B95.8 Unspecified staphylococcus as the cause of diseases classified elsewhere; Z79.4 Long term (current) use of insulin; E78.5 Hyperlipidemia, unspecified; I25.2 Old myocardial infarction; Z87.891 Personal history of nicotine dependence; I11.0 Hypertensive heart disease with heart failure; I50.9 Heart failure, unspecified; E00.9 Congenital iodine-deficiency syndrome, unspecified; Z95.5 Presence of coronary angioplasty implant and graft
CPT/HCPCS: 36415; 71046-TC-FY; 80053; 80061; 81003; 82550; 82553; 82962; 83036; 83605; 83721; 83735; 83880; 84443; 84484; 85025; 85610; 87040; 87086; 87186; 87633; 87804; 93005; 93010; 93306-TC; 94640; 99285-25; J1644

== ENCOUNTER 2019-02-11 18:06 | Emergency (ER) | payer OTHER ==
[2019-02-11 18:26] VITALS: BP 162/91; PULSE 74; TEMP 97.7; BMI 26.4
[2019-02-11] MEDS ORDERED: TOBRAMYCIN 0.3% OPHTH SOLN 5 ML BOTTLE OU ONE (18:31)
--- NOTE | 2019-02-11 18:38 | PDOC ---
History of Present Illness - General Chief Complaint: Eye Problem Stated Complaint: RED EYES Time Seen by Provider: 02/11/19 18:27 History Source: Patient Exam Limitations: No Limitations - History of Present Illness Initial Comments: 02/11/19 18:32 States 3-4 days ago had onset of redness to right eye which spread to the left eye. States had some thick sensation and drainage from the right side 2 days ago but since resolved. States vision is mildly blurry but does not have pain. 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 Did not seek medical attention for same. Denies fever, headache earache sore throat pain or other problems. Timing/Duration: unsure, getting worse Severity: mild, moderate Past History - Travel Traveled outside of the country in the last 30 days: No Close contact w/someone who was outside of country & ill: No - Past Medical History Allergies/Adverse Reactions: Allergies Allergy/AdvReac Type Severity Reaction Status Date / Time No Known Allergies Allergy Verified 02/11/19 18:26 Home Medications: Ambulatory Orders Aspirin [ASA -] 81 mg PO DAILY #30 tab.chew 06/02/18 Insulin (Levemir) [Levemir Vial] 15 units SQ HS #20 units 06/02/18 Polyethylene Glycol 3350 [Miralax 119 gm Btl -] 17 gm PO DAILY #7 bottle Lisinopril 10 mg PO DAILY 07/02/18 Atorvastatin Ca [Lipitor] 20 mg PO HS 12/04/18 Azithromycin [Zithromax -] 250 mg PO DAILY #4 tablet 12/04/18 Benzonatate [Tessalon Pearls -] 100 mg PO TID #21 capsule 12/04/18 Cetirizine HCl 10 mg PO DAILY 12/04/18 Insulin Aspart [Novolog] 0 unit SQ ASDIR 12/04/18 Bisacodyl Suppository [Dulcolax Suppository -] 10 mg [place] DAILY PRN #7 supp.rect 12/07/18 Gabapentin [Neurontin -] 100 mg PO TID capsule 12/07/18 Guaifenesin AC [Robitussin AC -] 5 ml PO TID PRN #10 liquid MDD 3 12/07/18 Polyethylene Glycol 3350 [Miralax 119 gm Btl -] 17 gm PO DAILY #1 bottle Anemia: No Asthma: No Cancer: No Cardiac Disorders: Yes ([place]) CVA: No COPD: No CHF: Yes Dementia: No Diabetes: Yes GI Disorders: No Disorders: No HTN: Yes Hypercholesterolemia: Yes Liver Disease: No Seizures: No Thyroid Disease: No - Surgical History Abdominal Surgery: No Appendectomy: No Cardiac Surgery: Yes (stents x2 (2014)) Cholecystectomy: No Lung Surgery: No Neurologic Surgery: No Orthopedic Surgery: No - Suicide/Smoking/Psychosocial Hx Smoking Status: No Smoking History: Never smoked Years of Tobacco Use: 10 Have you smoked in the past 12 months: No Number of Cigarettes Smoked Daily: 0 If you are a former smoker, when did you quit?: 20YRS AGO Hx Alcohol Use: No Drug/Substance Use Hx: No Substance Use Type: None Hx Substance Use Treatment: No Review of Systems - Review of Systems Able to Perform ROS?: Yes Is the patient limited Maltese proficient: Yes Constitutional: Yes: See HPI. No: Symptoms Reported, Chills, Fever, Malaise HEENTM: Yes: Symptoms Reported, See HPI, Blurred Vision (states is mildly blurry with exudate), Other (erythema started 2 days ago and progressively worsened) All Other Systems: Reviewed and Negative *Physical Exam - Vital Signs Last Vital Signs Temp Pulse Resp BP Pulse Ox 97.7 F 74 18 162/91 99 02/11/19 18:15 02/11/19 18:15 02/11/19 18:15 02/11/19 18:15 02/11/19 18:15 - Physical Exam General Appearance: Yes: Nourished, Appropriately Dressed, Apparent Distress, Mild Distress HEENT: positive: DEE DEE (but has injected right side of both eyes with some mild flush. No true discharge noted, visual acuity is within normal limits. No corneal abrasion or foreign bodies noted), Normal ENT Inspection, TMs Normal, Pharynx Normal, Nasal Congestion, Rhinorrhea, Other (lids moderately puffy) Neck: positive: Supple. 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 Will treat with Tobramyosin and recommended follow- up on Wednesday with ophthalmology *DC/Admit/Observation/Transfer Diagnosis at time of Disposition: Acute conjunctivitis of both eyes Qualifiers: Acute conjunctivitis type: unspecified Qualified Code(s): H10.33 - Unspecified acute conjunctivitis, bilateral - Discharge Dispostion Disposition: HOME Condition at time of disposition: Stable Decision to Admit order: No - Referrals Referrals: Rere Damian MD [Staff Physician] - - Patient Instructions Printed Discharge Instructions: DI for Conjunctivitis Additional Instructions: Rest, avoid rubbing eyes Wash hands frequently as this is very contagious Wash hands, use eye drops as directed, wash hands after use Do not share eyedrops with other person to may become infected as this will infect them Tobramycin drops 2 drops to affected eye 4 times a day for 5 days Avoid contact with others until redness and discharge is gone from eyes. Followup with ophthalmology or private physician as needed - Post Discharge Activity Forms/Work/School Notes: Back to Work
[2019-02-11] MEDS ORDERED: TOBRAMYCIN 0.3% OPHTH SOLN 5 ML BOTTLE ONE ×2 (18:48→18:53)
== END 2019-02-11 19:05 | disposition home or self-care (01) ==
LOC: JERFT 18:06
DX: H10.33 Unspecified acute conjunctivitis, bilateral (principal); I25.10 Atherosclerotic heart disease of native coronary artery without angina pectoris; I11.0 Hypertensive heart disease with heart failure; Z95.5 Presence of coronary angioplasty implant and graft; I50.9 Heart failure, unspecified; I25.2 Old myocardial infarction; E78.00 Pure hypercholesterolemia, unspecified
CPT/HCPCS: 99281-25

== ENCOUNTER 2019-04-10 16:11 | Emergency (ER) | payer OTHER | END 2019-04-10 22:36 | disposition home or self-care (01) | LOC: JER 16:11 ==

== ENCOUNTER 2019-10-15 22:15 | Emergency (ER) | payer OTHER ==
[2019-10-15 22:27] VITALS: BP 200/124; PULSE 76; TEMP 97.6; BMI 27.4
[2019-10-15] MEDS ORDERED: ACETAMINOPHEN 500 MG TABLET (FP) PO ONE (22:38)
[2019-10-15] MEDS ORDERED: ACETAMINOPHEN 500 MG TABLET (FP) ONE (22:41)
--- NOTE | 2019-10-15 22:42 | PDOC ---
History of Present Illness - General Chief Complaint: Injury Stated Complaint: INJURY TO THE L MIDDLE FINGER Time Seen by Provider: 10/15/19 22:30 - History of Present Illness Initial Comments: 10/15/19 22:40 64-year-old female with a past medical history of hypertension presents for left third finger pain after getting her finger closed in a door. Past History - Past Medical History Allergies/Adverse Reactions: Allergies Allergy/AdvReac Type Severity Reaction Status Date / Time No Known Allergies Allergy Verified 10/15/19 22:27 Home Medications: Ambulatory Orders Aspirin [ASA -] 81 mg PO DAILY #30 tab.chew 06/02/18 Insulin (Levemir) [Levemir Vial] 15 units SQ HS #20 units 06/02/18 Lisinopril 10 mg PO DAILY 07/02/18 Atorvastatin Ca [Lipitor] 20 mg PO HS 12/04/18 Cetirizine HCl 10 mg PO DAILY 12/04/18 Insulin Aspart [Novolog] 0 unit SQ ASDIR 12/04/18 Gabapentin [Neurontin -] 100 mg PO TID capsule 12/07/18 Hydralazine HCl 100 mg PO TID 04/10/19 Anemia: No Asthma: No Cancer: No Cardiac Disorders: Yes ([place]) CVA: No COPD: No CHF: Yes Dementia: No Diabetes: Yes GI Disorders: No Disorders: No HTN: Yes Hypercholesterolemia: Yes Liver Disease: No Seizures: No Thyroid Disease: No - Surgical History Abdominal Surgery: No Appendectomy: No Cardiac Surgery: Yes (stents x2 (2014)) Cholecystectomy: No Lung Surgery: No Neurologic Surgery: No Orthopedic Surgery: No - Immunization History Immunization Up to Date: No - Psycho Social/Smoking Cessation Hx Smoking Status: No Smoking History: Never smoked Years of Tobacco Use: 10 Have you smoked in the past 12 months: No Number of Cigarettes Smoked Daily: 0 If you are a former smoker, when did you quit?: 20YRS AGO Information on smoking cessation initiated: No Hx Alcohol Use: No Drug/Substance Use Hx: No Substance Use Type: None Hx Substance Use Treatment: No Review of Systems - Review of Systems Musculoskeletal: Yes: Joint Pain *Physical Exam - Vital Signs Last Vital Signs Temp Pulse Resp BP Pulse Ox 97.6 F 76 17 200/124 H 100 10/15/19 22:24 10/15/19 22:24 10/15/19 22:24 10/15/19 22:24 10/15/19 22:24 - Physical Exam 10/15/19 22:40 Left third finger skin color and temperature normal range of motion is full. FDS and FDP work independently. There is tenderness about the distal phalanx. Neurovascular intact ED Treatment Course - RADIOLOGY Radiology Studies Ordered: Category Date Time Status FINGER(S) LEFT [RAD] Stat Radiology 10/15/19 22:30 Ordered Medical Decision Making - Medical Decision Making 10/15/19 22:40 X-rays show a oblique fracture of the talus which is nondisplaced. Educated patient on potential subungual hematoma and loss of fingernail. Discharge - Discharge Information Problems reviewed: Yes Clinical Impression/Diagnosis: Finger fracture, left Condition: Stable Disposition: HOME - Admission No - Follow up/Referral Referrals: Maurice Feliz DO [Staff Physician] - - Patient Discharge Instructions Additional Instructions: Please keep the splint on for comfort. Tylenol as directed for pain. Return to the emergency room for worsening symptoms and without fail please follow-up with orthopedic surgery in 2 to 3 days for further evaluation and treatment options. - Post Discharge Activity Work/Back to School Note: Back to Work
== END 2019-10-15 22:52 | disposition home or self-care (01) ==
LOC: JERFT 22:15
CPT/HCPCS: 73140-TC-LT-FY; 99283-25

== ENCOUNTER 2020-11-02 18:55 | Observation (INO) | payer OTHER ==
[2020-11-02 19:47] VITALS: BMI 27.9
[2020-11-02] MEDS ORDERED: ACETAMINOPHEN 1000 MG/100 ML BAG IVPB ONE (20:51)
[2020-11-02] MEDS ORDERED: FAMOTIDINE 20 MG/50 ML IVPB 20 MG/50 ML MG IVPB ONE ×2 (20:52→21:26)
[2020-11-02] MEDS ORDERED: MAG HYDROX/AL HYDROX/SIMETH 30 ML UNIT-DOSE CUP PO ONE (20:52)
[2020-11-02] MEDS ORDERED: NITROGLYCERIN SUBLINGUAL 1/200 0.3 MG BTL SL ONE (21:19)
[2020-11-02] MEDS ORDERED: ASPIRIN 81 MG CHEWABLE TABLETS PO ONE (21:20)
[2020-11-02] MEDS ORDERED: ASPIRIN 81 MG CHEWABLE TABLETS ONE (21:26)
[2020-11-02] MEDS ORDERED: ACETAMINOPHEN INJECTION 100 ML IVPB ONE (21:26)
[2020-11-02] MEDS ORDERED: MAG HYDROX/AL HYDROX/SIMETH 30 ML UNIT-DOSE CUP ONE (21:26)
[2020-11-02 21:31] LABS: BASO % 1.2 % (0-2.0); EOS % 1.2 % (0-4.5); HEMATOCRIT 42.5 % (32.4-45.2); HEMOGLOBIN 14.2 GM/dL (10.7-15.3); LYMPH % 30.4 % (8-40); MCH 29.3 pg (25.7-33.7); MCHC 33.5 g/dl (32.0-36.0); MEAN CELL VOLUME 87.4 fl (80-96); MONO % 7.1 % (3.8-10.2); NEUT % 60.1 % (42.8-82.8); PLATELET COUNT 191 K/MM3 (134-434); RBC 4.87 M/mm3 (3.60-5.2); RDW 13.9 % (11.6-15.6); WHITE BLOOD COUNT 6.1 K/mm3 (4.0-10.0)
[2020-11-02 21:49] LABS: CHLORIDE 100 mmol/L (98-107); SODIUM 131 mmol/L (136-145)
[2020-11-02 21:50] LABS: CALCIUM 9.3 mg/dL (8.5-10.1)
[2020-11-02 21:51] LABS: ALBUMIN 3.3 g/dl (3.4-5.0); BLOOD UREA NITROGEN 19.5 mg/dL (7-18); CO2 26 mmol/L (21-32); GLUCOSE,RANDOM 292 mg/dL (74-106)
[2020-11-02 21:52] LABS: LIPASE 409 U/L (73-393)
[2020-11-02 21:54] LABS: CREATININE 1.1 mg/dL (0.55-1.3)
[2020-11-02 21:55] LABS: BILIRUBIN,TOTAL 0.4 mg/dL (0.2-1); TOT PROT 7.1 g/dl (6.4-8.2)
[2020-11-02 21:57] LABS: ALK PHOS 127 U/L (45-117)
[2020-11-02] MEDS ORDERED: NITROGLYCERIN SUBLINGUAL 1/150 0.4 MG TAB ONE (22:05)
[2020-11-02] MEDS ORDERED: NITROGLYCERIN SUBLINGUAL 1/150 0.4 MG TAB SL ONE (22:05)
[2020-11-02 22:28] LABS: ANION GAP 6 MMOL/L (8-16); SGOT/AST 82 U/L (15-37); SGPT/ALT 27 U/L (13-61)
[2020-11-02 23:33] LABS: CALCIUM 9.3 mg/dL (8.5-10.1)
[2020-11-02 23:34] LABS: BLOOD UREA NITROGEN 19.3 mg/dL (7-18)
[2020-11-02 23:37] LABS: CREATININE 0.9 mg/dL (0.55-1.3)
[2020-11-03] MEDS ORDERED: NITROGLYCERIN SUBLINGUAL 1/150 0.4 MG TAB SL PRN (01:58)
[2020-11-03] MEDS ORDERED: GABAPENTIN 100 MG CAPSULE ONE (05:56)
[2020-11-03] MEDS ORDERED: hydrALAZINE HCL 25 MG TABLET (FP) ONE (05:56)
[2020-11-03] MEDS ORDERED: GABAPENTIN 100 MG CAPSULE PO SCH (06:00)
[2020-11-03] MEDS ORDERED: hydrALAZINE HCL 50 MG TABLET (FP) PO SCH (06:00)
[2020-11-03 08:00] LABS: PHOSPHOROUS 3.2 mg/dL (2.5-4.9)
[2020-11-03] MEDS: INSULIN SLIDING SCALE (NOVOLOG) 1 VIAL SQ SCH ×2 (08:31→11:48)
[2020-11-03] MEDS ORDERED: INSULIN SLIDING SCALE (NOVOLOG) 1 VIAL SQ ONE (08:41)
[2020-11-03 08:55] VITALS: PULSE 78
[2020-11-03] MEDS ORDERED: LISINOPRIL 10 MG TABLET PO SCH (10:00)
[2020-11-03] MEDS ORDERED: LORATADINE 10 MG TABLET PO SCH (10:00)
[2020-11-03] MEDS ORDERED: ASPIRIN 81 MG CHEWABLE TABLETS PO SCH (10:00)
[2020-11-03] MEDS ORDERED: ASPIRIN 81 MG CHEWABLE TABLETS ONE (10:18)
[2020-11-03] MEDS ORDERED: LISINOPRIL 5 MG TABLET ONE (10:19)
[2020-11-03] MEDS ORDERED: LORATADINE 10 MG TABLET ONE (10:19)
[2020-11-03 13:45] VITALS: BP 153/89; TEMP 98
[2020-11-03] MEDS ORDERED: INSULIN (LEVEMIR) 100 UNITS/ML UNITS SQ SCH (22:00)
[2020-11-03] MEDS ORDERED: ATORVASTATIN CA 20 MG TABLET (FP) PO SCH (22:00)
== END 2020-11-03 13:46 | disposition home or self-care (01) ==
LOC: JER 18:55 → JERBED 23:25
PROVIDERS: ADMIT Family Medicine; ATTEND Internal Medicine
PROC: 3E013VG Introduction of Insulin into Subcutaneous Tissue, Percutaneous Approach (ICD-10-PCS; principal; 2020-11-02)
DX: I24.9 Acute ischemic heart disease, unspecified (principal); E11.9 Type 2 diabetes mellitus without complications; E78.5 Hyperlipidemia, unspecified; I26.99 Other pulmonary embolism without acute cor pulmonale; I71.00 Dissection of unspecified site of aorta; I11.0 Hypertensive heart disease with heart failure; Z95.5 Presence of coronary angioplasty implant and graft; R07.89 Other chest pain
CPT/HCPCS: 36415; 71045-TC-FY; 80048; 80053; 82550; 82553; 82962; 83690; 83735; 83880; 84100; 84443; 84484; 85025; 93005; 93010; 99285-25; C9803; G0378; J0131; U0003

== ENCOUNTER 2021-07-29 08:17 | Observation (INO) | payer OTHER ==
[2021-07-29] MEDS ORDERED: ACETAMINOPHEN 1000 MG/100 ML VIAL (NON FORMULARY) IVPB ONE (10:03)
[2021-07-29] MEDS ORDERED: ACETAMINOPHEN INJECTION 100 ML IVPB ONE (10:49)
[2021-07-29 10:53] LABS: EOS % 1.3 % (0-4.5); HEMATOCRIT 49.8 % (32.4-45.2); HEMOGLOBIN 16.6 GM/dL (10.7-15.3); LYMPH % 33.3 % (8-40); MCH 29.3 pg (25.7-33.7); MCHC 33.3 g/dl (32.0-36.0); MEAN CELL VOLUME 87.9 fl (80-96); MEAN PLT VOLUME 10.3 fl (7.5-11.1); MONO % 6.2 % (3.8-10.2); NEUT % 58.2 % (42.8-82.8); PLATELET COUNT 176 10^3/uL (134-434); RBC 5.67 M/mm3 (3.60-5.2); RDW 13.8 % (11.6-15.6); WHITE BLOOD COUNT 4.3 K/mm3 (4.0-10.0)
[2021-07-29 11:00] LABS: INR 0.86 (0.83-1.09); PROTHROMBIN TIME (PATIENT) 10.6 SEC (9.7-13.0)
[2021-07-29 11:03] LABS: ACTIVATED PTT 20.9 SECONDS (25.2-36.5)
[2021-07-29 11:14] LABS: CHLORIDE 103 mmol/L (98-107); SODIUM 136 mmol/L (136-145)
[2021-07-29 11:16] LABS: ALBUMIN 4.2 g/dl (3.4-5.0); ANION GAP 8 MMOL/L (8-16); BLOOD UREA NITROGEN 23.7 mg/dL (7-18); CO2 25 mmol/L (21-32); GLUCOSE,RANDOM 267 mg/dL (74-106); MAGNESIUM 2.2 mg/dL (1.8-2.4)
[2021-07-29 11:19] LABS: CREATININE 1.1 mg/dL (0.55-1.3); SGOT/AST 23 U/L (15-37); SGPT/ALT 26 U/L (13-61)
[2021-07-29 11:21] LABS: BILIRUBIN,TOTAL 0.5 mg/dL (0.2-1); TOT PROT 8.3 g/dl (6.4-8.2)
[2021-07-29 11:22] LABS: ALK PHOS 159 U/L (45-117)
[2021-07-29 11:24] LABS: N-TERMINAL BNP 257.5 pg/ml (5-125)
[2021-07-29 13:49] LABS: EPI CELLS 13 /uL (0-25.1); HYALINE CASTS 1 /uL (0-3.1); URINE APPEARANCE CLEAR; URINE BACTERIA 722 /uL (0-1359); URINE BILIRUBIN NEGATIVE (NEGATIVE); URINE COLOR YELLOW; URINE GLUCOSE (UA) 3+ (NEGATIVE); URINE KETONE NEGATIVE (NEGATIVE); URINE LEUK ESTERASE NEGATIVE (NEGATIVE); URINE NITRITE NEGATIVE (NEGATIVE); URINE PROTEIN 3+ (NEGATIVE); URINE RBC 4 /uL (0-23.9); URINE UROBILINOGEN 0.2 mg/dL (0.2-1.0); URINE WBC 5 /uL (0-25.8)
[2021-07-29] MEDS ORDERED: ASPIRIN 81 MG CHEWABLE TABLETS PO ONE (14:24)
[2021-07-29] MEDS ORDERED: ASPIRIN 81 MG CHEWABLE TABLETS ONE (14:38)
[2021-07-29] MEDS ORDERED: LISINOPRIL 5 MG TABLET ONE (19:45)
[2021-07-29] MEDS: LISINOPRIL 10 MG TABLET PO SCH (19:54)
[2021-07-29] MEDS ORDERED: INSULIN (LEVEMIR) 100 UNITS/ML UNITS SQ SCH (22:00)
[2021-07-29] MEDS ORDERED: Insulin (LOG) Aspart 100 UNITS/ML VIAL SQ ONE (22:15)
[2021-07-29] MEDS: hydrALAZINE HCL 50 MG TABLET (FP) PO SCH (22:16)
[2021-07-29] MEDS: APIXABAN 5 MG TABLET PO SCH (22:17)
[2021-07-29] MEDS: GABAPENTIN 100 MG CAPSULE PO SCH (22:17)
[2021-07-29] MEDS: ATORVASTATIN CA 20 MG TABLET (FP) PO SCH (22:17)
[2021-07-29 23:28] VITALS: BMI 28.0
[2021-07-30] MEDS: hydrALAZINE HCL 50 MG TABLET (FP) PO SCH ×3 (06:36→20:59)
[2021-07-30] MEDS: GABAPENTIN 100 MG CAPSULE PO SCH ×3 (06:36→21:00)
[2021-07-30] MEDS: INSULIN SLIDING SCALE (NOVOLOG) 1 VIAL SQ SCH ×3 (06:36→16:45)
[2021-07-30] MEDS: LISINOPRIL 10 MG TABLET PO SCH (09:02)
[2021-07-30] MEDS: ASPIRIN 81 MG CHEWABLE TABLETS PO SCH (09:02)
[2021-07-30] MEDS: APIXABAN 5 MG TABLET PO SCH ×2 (09:03→21:00)
[2021-07-30] MEDS ORDERED: Insulin (LOG) Aspart 100 UNITS/ML VIAL SQ ONE (11:15)
[2021-07-30] MEDS: INSULIN (LEVEMIR) 100 UNITS/ML UNITS SQ SCH ×2 (11:26→21:03)
[2021-07-30 11:55] LABS: TRIGLYCERIDES 187 mg/dL (0-150)
[2021-07-30 11:56] LABS: CHOLESTEROL 172 mg/dL (50-200)
[2021-07-30 11:57] LABS: LDL CHOLESTEROL (ONLY SJRH) 101 mg/dL (5-100)
[2021-07-30 11:58] LABS: HDL CHOLESTEROL 38 mg/dL (40-60)
[2021-07-30] MEDS: ATORVASTATIN CA 20 MG TABLET (FP) PO SCH (21:00)
[2021-07-30] MEDS ORDERED: ACETAMINOPHEN 1000 MG/100 ML VIAL (NON FORMULARY) IVPB ONE (21:28)
[2021-07-31] MEDS ORDERED: ACETAMINOPHEN 325 MG TABLET (FP) PO PRN (03:00)
[2021-07-31] MEDS: INSULIN (LEVEMIR) 100 UNITS/ML UNITS SQ SCH ×2 (07:00→21:27)
[2021-07-31] MEDS: GABAPENTIN 100 MG CAPSULE PO SCH ×3 (07:00→21:26)
[2021-07-31] MEDS: hydrALAZINE HCL 50 MG TABLET (FP) PO SCH ×4 (07:00→21:26)
[2021-07-31] MEDS: INSULIN SLIDING SCALE (NOVOLOG) 1 VIAL SQ SCH ×3 (07:01→16:41)
[2021-07-31] MEDS: LISINOPRIL 10 MG TABLET PO SCH ×2 (08:04→10:34)
[2021-07-31] MEDS ORDERED: REGADENOSON 0.4 MG/5 ML PRE-FILLED SYRINGE IVPUSH ONE ×2 (09:18→10:15)
[2021-07-31] MEDS: ASPIRIN 81 MG CHEWABLE TABLETS PO SCH (10:34)
[2021-07-31] MEDS: APIXABAN 5 MG TABLET PO SCH ×2 (10:34→21:26)
[2021-07-31] MEDS: ATORVASTATIN CA 20 MG TABLET (FP) PO SCH (21:26)
[2021-07-31] MEDS: NIFEdipine E.R. 30 MG TABLET PO SCH (21:26)
[2021-08-01] MEDS: hydrALAZINE HCL 50 MG TABLET (FP) PO SCH ×3 (05:44→22:07)
[2021-08-01] MEDS: GABAPENTIN 100 MG CAPSULE PO SCH ×3 (05:44→22:08)
[2021-08-01] MEDS: INSULIN SLIDING SCALE (NOVOLOG) 1 VIAL SQ SCH ×3 (06:07→16:49)
[2021-08-01] MEDS: INSULIN (LEVEMIR) 100 UNITS/ML UNITS SQ SCH ×2 (06:08→22:08)
[2021-08-01] MEDS: LISINOPRIL 10 MG TABLET PO SCH (09:17)
[2021-08-01] MEDS: APIXABAN 5 MG TABLET PO SCH ×2 (09:17→22:08)
[2021-08-01] MEDS: ASPIRIN 81 MG CHEWABLE TABLETS PO SCH (09:17)
[2021-08-01 11:30] LABS: BASO % 0.7 % (0-2.0); EOS % 1.2 % (0-4.5); HEMOGLOBIN 13.4 GM/dL (10.7-15.3); LYMPH % 23.6 % (8-40); MCH 29.3 pg (25.7-33.7); MCHC 33.5 g/dl (32.0-36.0); MEAN CELL VOLUME 87.5 fl (80-96); MEAN PLT VOLUME 10.8 fl (7.5-11.1); MONO % 5.6 % (3.8-10.2); NEUT % 68.9 % (42.8-82.8); PLATELET COUNT 167 10^3/uL (134-434); RBC 4.57 M/mm3 (3.60-5.2); RDW 13.9 % (11.6-15.6); WHITE BLOOD COUNT 5.3 K/mm3 (4.0-10.0)
[2021-08-01 12:02] LABS: BLOOD UREA NITROGEN 23.7 mg/dL (7-18); CALCIUM 9.1 mg/dL (8.5-10.1)
[2021-08-01 12:07] LABS: BILIRUBIN,TOTAL 0.4 mg/dL (0.2-1)
[2021-08-01 12:16] LABS: ALBUMIN 2.9 g/dl (3.4-5.0)
[2021-08-01] MEDS: NIFEdipine E.R. 30 MG TABLET PO SCH (22:08)
[2021-08-01] MEDS: ATORVASTATIN CA 20 MG TABLET (FP) PO SCH (22:08)
[2021-08-02] MEDS: hydrALAZINE HCL 50 MG TABLET (FP) PO SCH (06:08)
[2021-08-02] MEDS: GABAPENTIN 100 MG CAPSULE PO SCH (06:09)
[2021-08-02] MEDS: INSULIN SLIDING SCALE (NOVOLOG) 1 VIAL SQ SCH ×2 (06:12→12:13)
[2021-08-02] MEDS: INSULIN (LEVEMIR) 100 UNITS/ML UNITS SQ SCH (08:36)
[2021-08-02] MEDS: APIXABAN 5 MG TABLET PO SCH (09:00)
[2021-08-02] MEDS: ASPIRIN 81 MG CHEWABLE TABLETS PO SCH (09:02)
[2021-08-02] MEDS: LISINOPRIL 10 MG TABLET PO SCH (09:02)
[2021-08-02 13:22] VITALS: BP 121/72; PULSE 76; TEMP 98
== END 2021-08-02 13:59 | disposition home or self-care (01) ==
LOC: JER 08:17 → JERBED 14:21 → J4S 21:28
PROVIDERS: ADMIT Internal Medicine; ATTEND Internal Medicine
PROC: 3E033NZ Introduction of Analgesics, Hypnotics, Sedatives into Peripheral Vein, Percutaneous Approach (ICD-10-PCS; principal; 2021-07-29)
PROC: 3E013VG Introduction of Insulin into Subcutaneous Tissue, Percutaneous Approach (ICD-10-PCS; 2021-07-29)
PROC: 3E033GC Introduction of Other Therapeutic Substance into Peripheral Vein, Percutaneous Approach (ICD-10-PCS; 2021-07-29)
DX: R07.2 Precordial pain (principal); J45.909 Unspecified asthma, uncomplicated; R07.9 Chest pain, unspecified; I10 Essential (primary) hypertension; R06.02 Shortness of breath; E11.9 Type 2 diabetes mellitus without complications; E78.5 Hyperlipidemia, unspecified; Z86.711 Personal history of pulmonary embolism
CPT/HCPCS: 36415; 71046-TC-FY; 71275-TC; 78452-TC; 80053; 80061; 81003; 82550; 82553; 82962; 83036; 83735; 83880; 84484; 85025; 85610; 85730; 87086; 93005; 93010; 93017; 93306-TC; 93971-TC; 99285-25; A9502; C9803; G0378; J0131; J2785; Q9967; U0003; U0005

== ENCOUNTER 2021-09-07 07:05 | Emergency (ER) | payer OTHER ==
[2021-09-07 07:29] VITALS: BP 143/88; PULSE 76; TEMP 98; BMI 27.1
[2021-09-07] MEDS ORDERED: ACETAMINOPHEN 500 MG TABLET (FP) PO ONE (07:56)
[2021-09-07] MEDS ORDERED: ACETAMINOPHEN 500 MG TABLET (FP) ONE (08:33)
== END 2021-09-07 08:37 | disposition home or self-care (01) ==
LOC: JER 07:05
DX: M25.561 Pain in right knee (principal)
CPT/HCPCS: 73560-TC-RT-FY; 99284-25

== ENCOUNTER 2021-11-11 13:43 | Emergency (ER) | payer OTHER ==
[2021-11-11] MEDS ORDERED: SOTROVIMAB 500 MG in SODIUM CHLORIDE 100 ML IVPB ONE (14:19)
[2021-11-11 14:53] VITALS: BMI 28.4
[2021-11-11 14:59] LABS: BASO % 0.6 % (0-2.0); EOS % 1.4 % (0-4.5); HEMOGLOBIN 13.6 GM/dL (10.7-15.3); LYMPH % 26.2 % (8-40); MCH 28.9 pg (25.7-33.7); MCHC 33.9 g/dl (32.0-36.0); MEAN CELL VOLUME 85.3 fl (80-96); MEAN PLT VOLUME 10.1 fl (7.5-11.1); MONO % 6.8 % (3.8-10.2); PLATELET COUNT 225 10^3/uL (134-434); RBC 4.69 M/mm3 (3.60-5.2); RDW 13.4 % (11.6-15.6)
[2021-11-11 18:18] VITALS: BP 136/85; PULSE 74; TEMP 97.6
== END 2021-11-11 18:20 | disposition home or self-care (01) ==
LOC: JER 13:43
DX: U07.1 COVID-19 (principal); R05.1 Acute cough; R06.02 Shortness of breath
CPT/HCPCS: 36415; 84484; 85025; 85027; 99284-25; M0247; Q0247

== ENCOUNTER 2022-04-19 14:12 | Observation (INO) | payer OTHER ==
[2022-04-19] MEDS ORDERED: ACETAMINOPHEN 1000 MG/100 ML BAG IVPB ONE (15:32)
[2022-04-19] MEDS ORDERED: SODIUM CHLORIDE 0.9% 500 ML INFUS.BAG IV ONE (15:38)
[2022-04-19] MEDS ORDERED: METOCLOPRAMIDE HCL INJECTION 10 MG/2 ML VIAL IVPUSH ONE (15:39)
[2022-04-19] MEDS ORDERED: ACETAMINOPHEN INJECTION 100 ML IVPB ONE (16:34)
[2022-04-19] MEDS ORDERED: METOCLOPRAMIDE HCL INJECTION 10 MG/2 ML VIAL ONE (16:34)
[2022-04-19 16:50] LABS: BASO % 0.7 % (0-2.0); EOS % 1.6 % (0-4.5); HEMOGLOBIN 12.6 GM/dL (10.7-15.3); LYMPH % 32.6 % (8-40); MCH 28.8 pg (25.7-33.7); MCHC 33.2 g/dl (32.0-36.0); MEAN CELL VOLUME 86.9 fl (80-96); MONO % 6.6 % (3.8-10.2); NEUT % 58.5 % (42.8-82.8); PLATELET COUNT 159 10^3/uL (134-434); RBC 4.38 M/mm3 (3.60-5.2); RDW 13.8 % (11.6-15.6); WHITE BLOOD COUNT 4.6 K/mm3 (4.0-10.0)
[2022-04-19 16:57] LABS: ALBUMIN 3.4 g/dl (3.4-5.0); BLOOD UREA NITROGEN 22.4 mg/dL (7-18); MAGNESIUM 2.4 mg/dL (1.8-2.4)
[2022-04-19 17:00] LABS: CREATININE 1.1 mg/dL (0.55-1.3)
[2022-04-19 17:02] LABS: BILIRUBIN,TOTAL 0.3 mg/dL (0.2-1); TOT PROT 6.3 g/dl (6.4-8.2)
[2022-04-19] MEDS ORDERED: POLYETHYLENE GLYCOL (HEALTHYLAX) 3350 17 GM PACKET PO PRN (21:18)
[2022-04-19] MEDS: INSULIN SLIDING SCALE (NOVOLOG) 1 VIAL SQ SCH (22:26)
[2022-04-19] MEDS ORDERED: ACETAMINOPHEN 1000 MG/100 ML BAG IVPB PRN (23:00)
[2022-04-20] MEDS: NIFEdipine E.R. 30 MG TABLET PO SCH ×2 (02:32→22:00)
[2022-04-20] MEDS: GABAPENTIN 100 MG CAPSULE PO SCH ×4 (02:32→22:00)
[2022-04-20] MEDS ORDERED: GABAPENTIN 100 MG CAPSULE ONE ×2 (06:30→13:33)
[2022-04-20] MEDS ORDERED: hydrALAZINE HCL 10 MG TABLET ONE ×2 (06:30→13:33)
[2022-04-20] MEDS: hydrALAZINE HCL 10 MG TABLET PO SCH ×3 (06:34→22:00)
[2022-04-20 07:48] LABS: BASO % 0.5 % (0-2.0); EOS % 1.1 % (0-4.5); HEMATOCRIT 38.6 % (32.4-45.2); HEMOGLOBIN 12.8 GM/dL (10.7-15.3); LYMPH % 31.7 % (8-40); MCH 28.8 pg (25.7-33.7); MCHC 33.1 g/dl (32.0-36.0); MEAN CELL VOLUME 87.1 fl (80-96); MEAN PLT VOLUME 11.1 fl (7.5-11.1); MONO % 4.9 % (3.8-10.2); NEUT % 61.8 % (42.8-82.8); PLATELET COUNT 170 10^3/uL (134-434); RBC 4.43 M/mm3 (3.60-5.2); RDW 13.9 % (11.6-15.6); WHITE BLOOD COUNT 5.8 K/mm3 (4.0-10.0)
[2022-04-20 07:54] LABS: INR 1.08 (0.83-1.09); PROTHROMBIN TIME (PATIENT) 12.4 SEC (9.7-13.0)
[2022-04-20 07:56] LABS: ACTIVATED PTT 28.1 SECONDS (25.2-36.5)
[2022-04-20 08:10] LABS: BLOOD UREA NITROGEN 17.1 mg/dL (7-18); CALCIUM 8.7 mg/dL (8.5-10.1); MAGNESIUM 2.4 mg/dL (1.8-2.4)
[2022-04-20] MEDS ORDERED: NIFEdipine E.R. 30 MG TABLET PO ONE (10:28)
[2022-04-20] MEDS ORDERED: PANTOPRAZOLE 20 MG TABLET PO ONE (10:38)
[2022-04-20] MEDS ORDERED: ASPIRIN COATED 81 MG TABLET.EC ONE (10:38)
[2022-04-20] MEDS ORDERED: LISINOPRIL 10 MG TABLET ONE (10:39)
[2022-04-20] MEDS ORDERED: DOCUSATE SODIUM 100 MG CAPSULE (FP) PO ONE (10:39)
[2022-04-20] MEDS: INSULIN (LEVEMIR) 100 UNITS/ML UNITS SQ SCH ×2 (10:47→22:00)
[2022-04-20] MEDS: LISINOPRIL 10 MG TABLET PO SCH (10:48)
[2022-04-20] MEDS: ASPIRIN COATED 81 MG TABLET.EC PO SCH (10:48)
[2022-04-20] MEDS: DOCUSATE SODIUM 100 MG CAPSULE (FP) PO SCH (10:48)
[2022-04-20] MEDS: INSULIN SLIDING SCALE (NOVOLOG) 1 VIAL SQ SCH ×4 (10:48→21:59)
[2022-04-20] MEDS: PANTOPRAZOLE 20 MG TABLET PO SCH (10:49)
[2022-04-20] MEDS ORDERED: NIFEdipine E.R. 30 MG TABLET ONE (11:26)
[2022-04-20 15:49] VITALS: BMI 28.4
[2022-04-20] MEDS ORDERED: TRIMETHOBENZAMIDE HCL 200MG/2ML INJ IM PRN (21:49)
[2022-04-20] MEDS ORDERED: ATORVASTATIN CA 20 MG TABLET (FP) PO SCH (22:00)
[2022-04-21] MEDS ORDERED: ACETAMINOPHEN 325 MG TABLET (FP) PO PRN
[2022-04-21] MEDS: hydrALAZINE HCL 10 MG TABLET PO SCH ×2 (05:40→14:40)
[2022-04-21] MEDS: GABAPENTIN 100 MG CAPSULE PO SCH (05:40)
[2022-04-21] MEDS: INSULIN SLIDING SCALE (NOVOLOG) 1 VIAL SQ SCH ×2 (06:24→12:08)
[2022-04-21] MEDS: INSULIN (LEVEMIR) 100 UNITS/ML UNITS SQ SCH (07:53)
[2022-04-21] MEDS: ASPIRIN COATED 81 MG TABLET.EC PO SCH (09:27)
[2022-04-21] MEDS: LISINOPRIL 10 MG TABLET PO SCH (09:27)
[2022-04-21] MEDS: PANTOPRAZOLE 20 MG TABLET PO SCH (09:27)
[2022-04-21] MEDS: DOCUSATE SODIUM 100 MG CAPSULE (FP) PO SCH (09:27)
[2022-04-21] MEDS ORDERED: ENOXAPARIN NA (PORCINE) 40 MG/0.4 ML DISP.SYRIN SQ SCH (10:00)
[2022-04-21] MEDS ORDERED: GABAPENTIN 100 MG CAPSULE PO SCH (10:31)
[2022-04-21 13:41] VITALS: BP 142/83; PULSE 69; TEMP 98.7
== END 2022-04-21 18:19 | disposition home or self-care (01) ==
LOC: JER 14:12 → JERBED 20:51 → J4W 04-20 14:22
PROVIDERS: ADMIT Hospitalist; ATTEND Internal Medicine
PROC: 3E033NZ Introduction of Analgesics, Hypnotics, Sedatives into Peripheral Vein, Percutaneous Approach (ICD-10-PCS; principal; 2022-04-19)
PROC: 3E023GC Introduction of Other Therapeutic Substance into Muscle, Percutaneous Approach (ICD-10-PCS; 2022-04-19)
PROC: 3E013VG Introduction of Insulin into Subcutaneous Tissue, Percutaneous Approach (ICD-10-PCS; 2022-04-19)
PROC: 3E033GC Introduction of Other Therapeutic Substance into Peripheral Vein, Percutaneous Approach (ICD-10-PCS; 2022-04-19)
PROC: 3E0337Z Introduction of Electrolytic and Water Balance Substance into Peripheral Vein, Percutaneous Approach (ICD-10-PCS; 2022-04-19)
DX: E11.40 Type 2 diabetes mellitus with diabetic neuropathy, unspecified (principal); I11.0 Hypertensive heart disease with heart failure; I25.2 Old myocardial infarction; Z87.19 Personal history of other diseases of the digestive system; R26.89 Other abnormalities of gait and mobility; R42 Dizziness and giddiness; Z86.711 Personal history of pulmonary embolism; Z87.891 Personal history of nicotine dependence; Z79.01 Long term (current) use of anticoagulants; K21.9 Gastro-esophageal reflux disease without esophagitis; K59.00 Constipation, unspecified; R51.9 Headache, unspecified
CPT/HCPCS: 0241U-QW; 36415; 70450-TC; 70551-TC; 71045-TC-FY; 80048; 80053; 82962; 83036; 83735; 84484; 85025; 85610; 85730; 93005; 93010; 93880-TC; 99285-25; G0378

== ENCOUNTER 2022-08-11 18:36 | Observation (INO) | payer OTHER ==
[2022-08-11 20:58] LABS: BASO % 0.6 % (0-2.0); EOS % 1.8 % (0-4.5); HEMATOCRIT 40.4 % (32.4-45.2); HEMOGLOBIN 13.2 GM/dL (10.7-15.3); LYMPH % 28.5 % (8-40); MCH 28.7 pg (25.7-33.7); MCHC 32.8 g/dl (32.0-36.0); MEAN CELL VOLUME 87.7 fl (80-96); MONO % 5.3 % (3.8-10.2); NEUT % 63.8 % (42.8-82.8); PLATELET COUNT 163 10^3/uL (134-434); WHITE BLOOD COUNT 4.9 K/mm3 (4.0-10.0)
[2022-08-11 21:15] LABS: CALCIUM 8.9 mg/dL (8.5-10.1)
[2022-08-11 21:16] LABS: ALBUMIN 3.5 g/dl (3.4-5.0)
[2022-08-11 21:19] LABS: CREATININE 1.6 mg/dL (0.55-1.3)
[2022-08-11 21:20] LABS: TOT PROT 6.2 g/dl (6.4-8.2)
[2022-08-11 21:21] LABS: BILIRUBIN,TOTAL 0.4 mg/dL (0.2-1)
[2022-08-11 22:11] LABS: INR 1.1 (0.83-1.09); PROTHROMBIN TIME (PATIENT) 12.7 SEC (9.7-13.0)
[2022-08-11 22:14] LABS: ACTIVATED PTT 29.9 SECONDS (25.2-36.5)
[2022-08-12] MEDS ORDERED: DOCUSATE SODIUM 100 MG CAPSULE (FP) PO PRN (01:22)
[2022-08-12] MEDS ORDERED: hydrALAZINE HCL 20 MG/ML VIAL IVPUSH ONE (01:22)
[2022-08-12] MEDS ORDERED: SODIUM CHLORIDE 250 ML IV STA ×2 (01:25→03:56)
[2022-08-12] MEDS ORDERED: ACETAMINOPHEN 1000 MG/100 ML BAG IVPB ONE (01:27)
[2022-08-12] MEDS ORDERED: NIFEdipine E.R. 30 MG TABLET PO SCH (01:31)
[2022-08-12] MEDS ORDERED: hydrALAZINE HCL 20 MG/ML VIAL ONE (01:32)
[2022-08-12] MEDS ORDERED: NIFEdipine E.R. 30 MG TABLET ONE (01:55)
[2022-08-12] MEDS ORDERED: FAMOTIDINE 20 MG/50 ML IVPB 20 MG/50 ML MG IVPB ONE (02:04)
[2022-08-12] MEDS ORDERED: ONDANSETRON 4 MG/2 ML VIAL IVPUSH PRN (02:04)
[2022-08-12] MEDS ORDERED: MAG HYDROX/AL HYDROX/SIMETH 30 ML UNIT-DOSE CUP PO PRN (02:04)
[2022-08-12] MEDS ORDERED: guaiFENesin/D-M SUGAR-FREE/ACLHOL-FREE 118 ML BOTTLE PO PRN (02:15)
[2022-08-12] MEDS ORDERED: POLYETHYLENE GLYCOL (HEALTHYLAX) 3350 17 GM PACKET PO PRN (02:59)
[2022-08-12] MEDS: hydrALAZINE HCL 50 MG TABLET (FP) PO SCH ×3 (03:52→13:32)
[2022-08-12 04:11] VITALS: BMI 29.0
[2022-08-12] MEDS: INSULIN SLIDING SCALE (NOVOLOG) 1 VIAL SQ SCH ×3 (06:28→16:37)
[2022-08-12 07:14] LABS: BASO % 0.4 % (0-2.0); EOS % 2.7 % (0-4.5); HEMATOCRIT 39.4 % (32.4-45.2); HEMOGLOBIN 12.8 GM/dL (10.7-15.3); LYMPH % 37.1 % (8-40); MCH 28.7 pg (25.7-33.7); MCHC 32.5 g/dl (32.0-36.0); MEAN CELL VOLUME 88.5 fl (80-96); MEAN PLT VOLUME 11.4 fl (7.5-11.1); MONO % 6.6 % (3.8-10.2); NEUT % 53.2 % (42.8-82.8); PLATELET COUNT 156 10^3/uL (134-434); RBC 4.45 M/mm3 (3.60-5.2); WHITE BLOOD COUNT 4.7 K/mm3 (4.0-10.0)
[2022-08-12 07:38] LABS: BLOOD UREA NITROGEN 28.9 mg/dL (7-18)
[2022-08-12 07:41] LABS: CALCIUM 8.4 mg/dL (8.5-10.1); MAGNESIUM 2.3 mg/dL (1.8-2.4)
[2022-08-12 07:42] LABS: CREATININE 1.1 mg/dL (0.55-1.3); PHOSPHOROUS 2.6 mg/dL (2.5-4.9)
[2022-08-12] MEDS ORDERED: ACETAMINOPHEN 325 MG TABLET (FP) PO PRN (08:00)
[2022-08-12] MEDS ORDERED: NIFEdipine E.R 60 MG TABLET PO SCH (10:50)
[2022-08-12 14:51] VITALS: TEMP 98.2
[2022-08-12 18:02] VITALS: BP 160/100; PULSE 78; RESP 20
[2022-08-12] MEDS ORDERED: ATORVASTATIN CA 20 MG TABLET (FP) PO SCH (22:00)
[2022-08-13] MEDS ORDERED: PANTOPRAZOLE 20 MG TABLET PO SCH (10:00)
[2022-08-13] MEDS ORDERED: LISINOPRIL 5 MG TABLET PO SCH (10:00)
== END 2022-08-12 18:34 | disposition home or self-care (01) ==
LOC: JER 18:36 → JERBED 22:03 → J4S 08-12 03:11
PROVIDERS: ADMIT Internal Medicine; ATTEND Internal Medicine
PROC: 3E033NZ Introduction of Analgesics, Hypnotics, Sedatives into Peripheral Vein, Percutaneous Approach (ICD-10-PCS; principal; 2022-08-11)
PROC: 3E033GC Introduction of Other Therapeutic Substance into Peripheral Vein, Percutaneous Approach (ICD-10-PCS; 2022-08-11)
PROC: 3E013VG Introduction of Insulin into Subcutaneous Tissue, Percutaneous Approach (ICD-10-PCS; 2022-08-11)
PROC: 3E0337Z Introduction of Electrolytic and Water Balance Substance into Peripheral Vein, Percutaneous Approach (ICD-10-PCS; 2022-08-11)
DX: R07.9 Chest pain, unspecified (principal); I11.0 Hypertensive heart disease with heart failure; I50.9 Heart failure, unspecified; E78.5 Hyperlipidemia, unspecified; K59.00 Constipation, unspecified; K21.9 Gastro-esophageal reflux disease without esophagitis; I21.4 Non-ST elevation (NSTEMI) myocardial infarction; Z87.891 Personal history of nicotine dependence
CPT/HCPCS: 36415; 71046-TC-FY; 71275-TC; 80048; 80053; 82962; 83735; 84100; 84484; 85025; 85379; 85610; 85730; 93005; 93010; 96361; 96365; 96372; 96375; 99285-25; C9803-CS; G0378; Q9967; U0003; U0005

== ENCOUNTER 2022-09-21 05:48 | Emergency (ER) | payer OTHER ==
[2022-09-21 06:04] VITALS: TEMP 98; BMI 27.4
[2022-09-21] MEDS ORDERED: LISINOPRIL 5 MG TABLET PO ONE (06:20)
[2022-09-21] MEDS ORDERED: hydrALAZINE HCL 50 MG TABLET (FP) PO ONE (06:20)
[2022-09-21] MEDS ORDERED: NIFEdipine E.R 60 MG TABLET PO ONE (06:20)
[2022-09-21] MEDS ORDERED: LISINOPRIL 5 MG TABLET ONE (06:30)
[2022-09-21] MEDS ORDERED: hydrALAZINE HCL 50 MG TABLET (FP) ONE (06:30)
[2022-09-21] MEDS ORDERED: NIFEdipine E.R 60 MG TABLET ONE (06:30)
[2022-09-21 07:27] LABS: BASO % 0.5 % (0-2.0); EOS % 2.2 % (0-4.5); HEMATOCRIT 39.8 % (32.4-45.2); HEMOGLOBIN 12.9 GM/dL (10.7-15.3); LYMPH % 32.6 % (8-40); MCH 28.7 pg (25.7-33.7); MCHC 32.3 g/dl (32.0-36.0); MEAN CELL VOLUME 88.7 fl (80-96); MEAN PLT VOLUME 10.6 fl (7.5-11.1); MONO % 6.2 % (3.8-10.2); NEUT % 58.5 % (42.8-82.8); PLATELET COUNT 168 10^3/uL (134-434); RBC 4.48 M/mm3 (3.60-5.2); RDW 14.4 % (11.6-15.6); WHITE BLOOD COUNT 5.6 K/mm3 (4.0-10.0)
[2022-09-21 07:40] LABS: ALBUMIN 3.4 g/dl (3.4-5.0); BLOOD UREA NITROGEN 27.4 mg/dL (7-18)
[2022-09-21 07:43] LABS: CREATININE 1.2 mg/dL (0.55-1.3)
[2022-09-21 07:45] LABS: BILIRUBIN,TOTAL 0.2 mg/dL (0.2-1); TOT PROT 6.3 g/dl (6.4-8.2)
[2022-09-21 09:25] VITALS: RESP 20
[2022-09-21 11:14] VITALS: BP 149/82; PULSE 85
== END 2022-09-21 11:53 | disposition home or self-care (01) ==
LOC: JER 05:48
DX: I10 Essential (primary) hypertension (principal)
CPT/HCPCS: 36415; 71045-TC-FY; 80053; 84484; 85025; 93005; 93010; 99285-25